=== PATIENT | male | born 1950 | race Caucasian/White ===

== ENCOUNTER 2023-02-25 15:29 | Outpatient (REF) | payer MEDICARE, OTHER, SELFPAY ==
[2023-02-25 15:26] LABS: SARS-CoV-2 Ag NEGATIVE (NEGATIVE)
[2023-02-26 15:28] LABS: SARS-CoV-2 NAA NOT DETECTED (NOT DETECTE)
== END 2023-02-25 15:30 | disposition home or self-care (01) ==
LOC: LAB 15:29
PROVIDERS: PCP Family Medicine; Visit Provider Family Medicine
DX: H66.90 Otitis media, unspecified, unspecified ear (principal)
CPT/HCPCS: 87635; 87811

== ENCOUNTER 2024-09-07 10:03 | Outpatient (OUT) | payer MEDICARE, OTHER, SELFPAY ==
--- NOTE | 2024-09-07 10:08 | MR_ITS ---
The [address] [address] Patient Name: ANEESH CANALES MRN: [id number] date: 1950 Sex: M Assigned Patient Location: MRI Current Patient Location: MRI Accession/Order Number: [id number] Exam Date: 09/07/2024 23:08 Report Date: 09/07/2024 23:10 At the request of: OPAL WARD MD Procedure: MR head/brain wo con EXAMINATION: MRI OF THE BRAIN WITHOUT CONTRAST CLINICAL HISTORY: Memory Loss R41.3 COMPARISON: None TECHNIQUE: Multiecho, multiplanar imaging of the brain was performed without enhancement. FINDINGS: No evidence of restriction diffusion is an diffusion-weighted imaging. No evidence of blood products are seen on T2 Star imaging. Cortical atrophy with moderate chronic microvascular ischemic changes. This appears to extend into the midbrain and cerebellum. Intraorbital contents appear grossly unremarkable. No significant paranasal sinus disease. Midline structures appear grossly unremarkable. MR/MR head/brain wo con IMPRESSION: NO ACUTE PROCESS. CORTICAL ATROPHY WITH MODERATE CHRONIC MICROVASCULAR ISCHEMIC CHANGES. Impression dictated by: Ritesh Barcenas Jr., AlanaOKrishna09/07/2024 11:10 PM Dictation Location: [employer] Electronically authenticated by: [id number] Y Date: 09/07/2024 23:10
== END 2024-09-07 10:04 | disposition home or self-care (01) ==
LOC: MRI 10:04
PROVIDERS: PCP Family Medicine; Visit Provider Family Medicine
DX: R41.3 Other amnesia (principal)
CPT/HCPCS: 70551

== ENCOUNTER 2024-10-01 22:16 | Emergency (ER) | payer MEDICARE, OTHER, SELFPAY ==
[2024-10-01 22:25] VITALS: BP 187/101; PULSE 87; TEMP 36.5; O2SAT 99; BMI 34.4
--- OUTSIDE RECORDS SUMMARY | 2024-10-01 22:28 | XMS_ITS | CCD ---
Author Organization [facility] Care Team Providers Care Enrollment Advisor Name Role Phone ED, DR JOSEPH Admitting Unavailable HOY, DR JOSEPH Attending Unavailable HOY, DR JOSEPH Primary Care Unavailable HOY, DR JOSEPH Admitting Unavailable HOY, DR JOSEPH Attending Unavailable HOY, DR JOSEPH Primary Care Unavailable HOY, DR JOSEPH Admitting Unavailable HOY, DR JOSEPH Attending Unavailable HOY, DR JOSEPH Primary Care Unavailable HOY, DR JOSEPH Consulting Unavailable HOY, DR JOSEPH Admitting Unavailable HOY, DR JOSEPH Attending Unavailable HOY, DR JOSEPH Primary Care Unavailable HOY, DR JOSEPH Consulting Unavailable HOY, DR JOSEPH Admitting Unavailable HOY, DR JOSEPH Attending Unavailable HOY, DR JOSEPH Primary Care Unavailable HOY, DR JOSEPH Consulting Unavailable HOY, DR JOSEPH Admitting Unavailable HOY, DR OJSEPH Attending Unavailable HOY, DR JOSEPH Primary Care Unavailable HOY, DR JOSEPH Admitting Unavailable HOY, DR JOSEPH Attending Unavailable HOY, DR JOSEPH Primary Care Unavailable HOY, DR JOSEPH Consulting Unavailable Unavailable Primary Care Provider UnavailLAURA Salgado Attending Unavailable LAURA MAGANA Referring Unavailable Opal Ward Referring Unavailable Chirag MOODY Attending Unavailable Allergies Allergy Classification Reported Allergen(s) Allergy Type Date of Onset Reaction(s) Facility (1 source) No Known Medication Allergies; Translations: [No Known Medication Allergies] Propensity to adverse reactions (disorder) [facility] Repository Problems Active Problems Problem Classification Problem Date Documented Da te Episodic/Chronic Disorders of lipid metabolism (1 source) Hyperlipidemia, unspecified; Translations: [HYPERLIPIDEMIA UNSPECIFIED] Onset: 09-27-2021 Chronic Essential hypertension (5 sources) Essential (primary) hypertension; Translations: [ESSENTIAL PRIMARY HYPERTENSION] Onset: 09-23-2021 Chronic Other connective tissue disease (1 source) Polymyalgia rheumatica; Translations: [POLYMYALGIA RHEUMATICA] Onset: 09-27-2021 Chronic Other non-traumatic joint disorders (3 sources) Pain in left knee; Translations: [Pain in joint, lower leg] Onset: 2023 06-11-2023 Episodic Residual codes; unclassified (1 source) Pain; Translations: [Pain, unspecified] 2023 Episodic Residual codes; unclassified (1 source) Pain, unspecified; Translations: [Pain] Onset: 2023 Episodic Unclassified (4 sources) COUGH, UNSPECIFIED; Translations: [COUGH, UNSPECIFIED] Onset: 11-04-2021 Unclassified (4 sources) CONTACT W/AND (SUSP) EXPOS COVID-19; Translations: [CONTACT W/AND (SUSP) EXPOS COVID-19] Onset: 11-04-2021 Past or Other Problems Problem Classification Problem Date Documented Da te Episodic/Chronic Other circulatory disease (1 source) Other specified symptoms and signs involving the circulatory and respiratory systems; Translations: [OTH SPEC SX SIGNS INVLV CIRC RS] Onset: 11-04-2021 Episodic Other nervous system disorders (1 source) Anesthesia of skin; Translations: [ANESTHESIA OF SKIN] Onset: 11-11-2021 Episodic Other non-traumatic joint disorders (4 sources) Pain in unspecified elbow; Translations: [PAIN IN UNSPECIFIED ELBOW] Onset: 11-08-2021 Episodic Other non-traumatic joint disorders (1 source) Pain in unspecified joint; Translations: [PAIN IN UNSPECIFIED JOINT] Onset: 09-27-2021 Episodic Other non-traumatic joint disorders (5 sources) Effusion, unspecified joint; Translations: [EFFUSION UNSPECIFIED JOINT] Onset: 09-19-2021 Episodic Unclassified (1 source) COUGH, UNSPECIFIED; Translations: [COUGH, UNSPECIFIED] Onset: 11-01-2021 Unclassified (1 source) CONTACT W/AND (SUSP) EXPOS COVID-19; Translations: [CONTACT W/AND (SUSP) EXPOS COVID-19] Onset: 10-31-2021 Results Test Name Value Interpretation Reference Range Facility Physician Referralon 024 Physician Referral [id number] Normal [facility] CNOVon 2023 CNOV Office Visit (ORTHMN) ANEESH CANALES ([id number]) 1950 M Date Time Provider Department 06/15/23 2:45 PM LAURA MAGANA ORTHMN During your visit today, we recorded the following information about you: Laura Magana MD 07/28/2023 11:44 AM Signed CONSULT ORTHOPAEDIC: KNEE PRIMARY CARE PHYSICIAN: No primary care provider on file. REFERRING PROVIDER: SELF ASSESSMENT AND PLAN Impression: Left Knee Severe Degenerative Osteoarthritis, Primary Diagnoses: (M17.12) Primary osteoarthritis of left knee (primary encounter diagnosis) After discussion with Aneesh Canales, continued non-operative management of NSAIDS was chosen. The patient currently has had six months of unsuccessful non-operative treatment as outlined in the HPI below. The patient has been ordered: Office Visit on 06/15/23 hydroCHLOROthiazide 25 mg tablet No orders placed today. CONSULTS: Patient does not require consults for optimization at this time. Total Joint Athroplasty - Risk Calculator Risk Factors for Total Knee Arthroplasty (TKA) Major Risk Factors Obesity Unknown Risk High: BMI > 40 Moderate: BMI 30-40 Normal: BMI < 30 Diabetes normal High: A1C > 8 Moderate: A1C 7-8 Normal: A1C < 7 Smoking normal High: Current smoker Normal: Non smoker Narcotics Use normal High:NarxCare >=300 Moderate: 100-299 Normal: 0-99 Depression Unknown Risk High: PHQ-9 >14 Moderate: PHQ-9 5-14 Normal: PHQ-9 < 5 Area Deprivation Index (BETTYE) Moderate Risk High: BETTYE Score > 75 Moderate: BETTYE 50-75 Normal: BETTYE < 50 Obesity: height and/or weight are out of date (There is no height and/or weight reading in the past 365 days, so the below BMI readings may be inaccurate) BMI Readings from Last 3 Encounters: No data found for BMI Area Deprivation Index (BETTYE) BETTYE Score 2023 National Score 61 Patient Health Questionnaire (PHQ-9) No flowsheet data found.(0-4) minimal depression, (5-9) mild depression, (10-14) moderate depression, (15-19) moderately severe depression, (20-27) severe depression Bone Density Risk Screen Aneesh Canales is at risk for bone loss and has not had a bone densitometry scan in the last 2 years (date of last scan: None on file). Recommend a bone densitometry scan and if indicated on the bone density results, a consult to a bone health specialist (Rheumatology, Endocrinology, or Women's Health) for bone assessment. Risk Factors: Additional Risk Factors Malnutrition: No Malnutrition Screening Tool (MST) score on file- please complete the MST screening tool (click here to open) and refresh the note. There is no problem list on file for this patient. SUBJECTIVE CHIEF COMPLAINT: Knee Pain HPI: Aneesh Canales is a 73 year old patient with the presenting complaint of New and Swelling of the Left Knee. Aneesh Canales has had progressive problems with the knee(s) most of the day over the past 2 year(s) interfering with activities which include exercise, enjoying hobbies, and walking. The problem began limiting activities 1-6 months ago. FALL RISK: Aneesh is not currently at risk for falls. PROMIS Physical Function Score No flowsheet data found. FUNCTIONAL STATUS: Walk indoors, such as around the house (1.75 METs) Do light work around the house, such as dusting or washing dishes (2.70 METs) Take care of self, that is eating, dressing, bathing, using the toilet (2.75 METs) Walk a block or two on level ground (2.75 METs) PREVIOUS TREATMENTS: Medical Treatments: OTC NSAIDS for 3 Months or Greater (Ibuprofen) Physical Therapy: Activities Modified REVIEW OF SYSTEMS: PAIN ASSESSMENT: See HPI. MUSCULOSKELETAL: See HPI. No flowsheet data found. No past medical history on file. No past surgical history on file. No family history on file. Social History Tobacco Use Smoking status: Former Packs/day: .25 Types: Cigarettes Quit date: 07/1969 Years since quittin.9 Passive exposure: Past Smokeless tobacco: Never Substance Use Topics Alcohol use: Yes Alcohol/week: 7.0 standard drinks of alcohol Types: 2 Glasses of wine, 5 Shots of liquor per week Drug use: Never ALLERGIES: Patient has no allergy information on record. MEDICATIONS: hydroCHLOROthiazide 25 mg tablet 1 tablet in the morning Orally Once a day OBJECTIVE PHYSICAL EXAM: There were no vitals taken for this visit. All other systems deferred. GENERAL: Appears healthy, well-nourished, no deformities. HABITUS: Normal GAIT: Normal, the patient did not have trouble getting onto the exam table. KNEE EXAM: Left: Alignment: varus Range of motion is 0 degrees in extension and 130 degrees of flexion. Extension La degrees Pain with ROM: No Effusion: None Tender to the palpation of None Pain with patellar compression: No Stability: Anterior/Posterior stable and Varus/Valgus stable Hip Exam: flexion to 100+ (more content not included)... Normal [facility] No Panel Informationon 06-15 [facility] XR KNEE 4V AP/PA BOTH+LAT/ME R LTon 2023 XR KNEE 4V AP/PA BOTH+LAT/MACY LT * * *Final Report* * * DATE OF EXAM: 2023 9:35AM AOX 5202 - XR KNEE 4V AP/PA BOTH+LAT/MACY LT / PROCEDURE REASON: Pain * * * * Physician Interpretation * * * * EXAMINATION / TECHNIQUE: XR KNEE 4V AP/PA BOTH+LAT/MACY LT HISTORY: Pain COMPARISON: None. RESULT: Left knee osteoarthritis is severe in the medial compartment and moderate to severe lateral compartment. No acute fracture or malalignment. Moderate joint effusion. Joint bodies. IMPRESSION: Severe osteoarthritis with joint bodies. Shredding Machine Tender: [facility] Transcribe Date/Time: 2023 9:45A Dictated by : MARKOS WATSON MD This examination was interpreted and the report reviewed and electronically signed by: MARKOS WATSON MD on 2023 9:45AM EST [id number] Normal [facility] XR PELVIS 1V APon 2023 XR PELVIS 1V AP * * *Final Report* * * DATE OF EXAM: 2023 9:35AM AOX 5239 - XR PELVIS 1V AP / PROCEDURE REASON: Left knee pain, unspecified chronicity * * * * Physician Interpretation * * * * EXAMINATION / TECHNIQUE: XR PELVIS 1V AP HISTORY: Left knee pain, unspecified chronicity COMPARISON: None RESULT: Mild bilateral hip osteoarthritis. No fracture or malalignment. Sacroiliac joints and symphysis pubis are intact. IMPRESSION: Mild bilateral hip osteoarthritis. Shredding Machine Tender: ANDRE Transcribe Date/Time: 2023 9:44A Dictated by : MARKOS WATSON MD This examination was interpreted and the report reviewed and electronically signed by: MARKOS WATSON MD on 2023 9:45AM EST [id number] Normal [facility] Covid-19 PCR (CVDTBH)on 10-05 SARS-CoV-2 (COVID-19) RNA STEVE+probe Ql (Unsp spec) Not detected Normal NOT DETECTED [facility] Comment on above: Result Comment: This test is not yet approved or cleared by the [place] FDA. When there are no FDA-approved or cleared tests available, and other criteria are met, FDA can make tests available under an emergency access mechanism called an Emergency Use Authorization (EUA). The EUA for this test is supported by the Tying In Machine Operator of Health and Human Service's (HHS's) declaration that circumstances exist to justify the emergency use of in vitro diagnostics for the detection and/or diagnosis of the virus that causes COVID-19. This EUA will remain in effect (meaning this test can be used) for the duration of the COVID-19 declaration justifying emergency of IVDs, unless it is terminated or revoked by FDA (after which the test may no longer be used). When diagnostic testing is negative, the possibility of a false negative should be considered in the context of a patient's recent exposures and the presence of clinical signs and symptoms consistent with SARS-CoV-2. Performed By: #### C VDTBH #### [facility] [address] [place] [address] Dr. Christine Ferreira INFLUENZA A AND B AGon 10-31 INFLUANEGH SEE BELOW Normal [facility] Comment on above: Result Comment: Nega tive for Flu A protein angiten. Infection due to Flu A cannot be ruled out. Flu A angiten in the sample may be below the detection limit of the test. Performed By: #### I NFLUAB #### [facility] [address] [place] [address] [facility] SEE BELOW Normal [facility] Comment on above: Result Comment: Nega tive for Flu B protein antigen. Infection due to Flu B cannot be ruled out. Flu B antigen in the sample may be below the detection limit of the test. Performed By: #### I NFLUAB #### [facility] [address] [place] [address] Dr. Christine Ferreira INFLUENZA A AG Negative Normal NEGATIVE SEE COMMENT [facility] Comment on above: Performed By: #### I NFLUAB #### [facility] [address] [place] [address] Dr. Christine Ferreira INFLUENZA B AG Negative Normal NEGATIVE SEE COMMENT [facility] Comment on above: Performed By: #### I NFLUAB #### [facility] [address] [place] [address] Dr. Christine Ferreira INTERNAL CONTROLS Within Normal Limits Normal Wi thin Normal Limits [facility] Comment on above: Performed By: #### I NFLUAB #### [facility] [address] [place] [address] Dr. Christine Ferreira OCC BLD IMMUNO SCREENon 09-04 OCCULT BLOOD Negative Normal NEGATIVE [facility] Comment on above: Performed By: #### O BSCRN #### [facility] [address] [place] [address] Dr. Christine Ferreira INSULINon 09-20-2021 Insulin 24.0 uIU/mL Normal 2.6-24.9 [facility] Comment on above: Performed By: #### I NSULIN #### [facility] [address] [place] [address] Dr. Christine Ferreira CBC AUTO DIFFon 09-19-2021 BASO # 0.0 103/ul Normal 0.0-0.1 [facility] Comment on above: Performed By: #### C BC #### [facility] [address] [place] [address] Dr. Christine Ferreira Basophils/100 WBC (Bld) 0.3 % Normal 0.2-2.0 [facility] Comment on above: Performed By: #### C BC #### [facility] [address] [place] [address] Dr. Christine Ferreira EO # 0.2 103/ul Normal 0.0-0.7 [facility] Comment on above: Performed By: #### C BC #### [facility] [address] [place] [address] Dr. Christine Ferreira Eosinophils/100 WBC (Bld) 2.4 % Normal 0.9-7.0 [facility] Comment on above: Performed By: #### C BC #### [facility] [address] [place] [address] Dr. Christine Ferreira Erythrocyte distribution width (RBC) [Ratio] 12.6 % Normal 11.0-15.0 [facility] Comment on above: Performed By: #### C BC #### [facility] [address] [place] [address] Dr. Christine Ferreira Hematocrit (Bld) [Volume fraction] 44.4 % Normal 42.0-54.0 [facility] Comment on above: Performed By: #### C BC #### [facility] [address] [place] [address] Dr. Christine Ferreira Hemoglobin (Bld) [Mass/Vol] 15.6 g/dL Normal 14.0-18.0 [facility] Comment on above: Performed By: #### C BC #### [facility] [address] [place] [address] Dr. Christine Ferreira IG # 0.03 10e3/ul Normal 0.00-0.03 [facility] Comment on above: Performed By: #### C BC #### [facility] [address] [place] [address] Dr. Christine Ferreira IG % 0.4 % Normal 0.0-0.5 [facility] Comment on above: Performed By: #### C BC #### [facility] [address] [place] [address] Dr. Christine Ferreira LYMPH # 1.3 103/ul Normal 1.2-3.8 [facility] Comment on above: Performed By: #### C BC #### [facility] [address] [place] [address] Dr. Christine Ferreira Lymphocytes/100 WBC (Bld) 17.5 % Critically low 20.5-60.0 [facility] Comment on above: Performed By: #### C BC #### [facility] [address] [place] [address] Dr. Christine Ferreira MANUAL DIFF REQ NO Normal [facility] Comment on above: Performed By: #### C BC #### [facility] [address] [place] [address] Dr. Christine Ferreira MCH (RBC) [Entitic mass] 30.5 pg Normal 25.9-34.0 [facility] Comment on above: Performed By: #### C BC #### [facility] [address] [place] [address] Dr. Christine Ferreira MCHC (RBC) [Mass/Vol] 35.1 g/dL Normal 29.9-35.2 [facility] Comment on above: Performed By: #### C BC #### [facility] [address] [place] [address] Dr. Christine Ferreira MCV (RBC) [Entitic vol] 86.7 fL Normal 80.0-94.0 [facility] Comment on above: Performed By: #### C BC #### [facility] [address] [place] [address] Dr. Christine Ferreira MONO # 0.5 103/ul Normal 0.3-0.8 [facility] Comment on above: Performed By: #### C BC #### [facility] [address] [place] [address] Dr. Christine Ferreira Monocytes/100 WBC (Bld) 6.1 % Normal 1.7-12.0 [facility] Comment on above: Performed By: #### C BC #### [facility] [address] [place] [address] Dr. Christine Ferreira NEUT # 5.5 103/ul Normal 1.4-6.5 [facility] Comment on above: Performed By: #### C BC #### [facility] [address] [address] [address] Christine Ferreira Neutrophils/100 WBC (Bld) 73.3 % Normal 43.0-75.0 [facility] Comment on above: Performed By: #### C BC #### [facility] [address] [address] [address] Christine Ferreira Platelet mean volume (Bld) [Entitic vol] 9.6 fL Normal 9.5-13.5 [facility] Comment on above: Performed By: #### C BC #### [facility] [address] [address] [address] Christine Ferreira PLT 214 103/ul Normal 150-450 [facility] Comment on above: Performed By: #### C BC #### [facility] [address] [place] [address] Dr. Christine Ferreira RBC 5.12 106/ul Normal 4.70-6.10 [facility] Comment on above: Performed By: #### C BC #### [facility] [address] [address] [address] Christine Ferreira WBC 7.5 103/ul Normal 4.0-11.0 [facility] Comment on above: Performed By: #### C BC #### [facility] [address] [place] [address] Dr. Christine Ferreira GLYCOHEMOGLOBIN A1Con 2021 ADA RECOMMENDATION ADA THERAPEUTIC TARGET 6.0 - 7.0 ACTION SUGGESTED > 7.0 Normal [facility] Comment on above: Performed By: #### A 1C #### [facility] [address] [place] [address] Dr. Christine Ferreira Glucose [Mass/Vol] 120 mg/dL Normal [facility] Comment on above: Performed By: #### A 1C #### [facility] [address] [address] [address] Christine Ferreira HbA1c (Bld) [Mass fraction] 5.8 % Normal <=6.0 [facility] Comment on above: Performed By: #### A 1C #### [facility] [address] [place] [address] Dr. Christine Ferreira LIPID PROFILEon 09-19-2021 CHOL-HDL RATIO NORM SEE BELOW Normal [facility] Comment on above: Result Comment: 3.3 - 4.4 LOW RISK 4.4 - 7.1 AVERAGE RISK 7.1 - 11.0 MODERATE RISK >11.0 HIGH RISK Performed By: #### L IPID, CMP, URIC #### [facility] [address] [address] [address] Christine Ferreira Cholesterol [Mass/Vol] 129 mg/dL Normal <=200 [facility] Comment on above: Performed By: #### L IPID, CMP, URIC #### [facility] [address] [address] [address] Christine Ferreira Cholesterol in HDL [Mass/Vol] 46 mg/dL Normal 40-60 [facility] Comment on above: Performed By: #### L IPID, CMP, URIC #### [facility] [address] [address] [address] Christine Ferreira Cholesterol in LDL [Mass/Vol] 65.8 mg/dL Normal [facility] Comment on above: Performed By: #### L IPID, CMP, URIC #### [facility] [address] [address] [address] Christine Ferreira Cholesterol.total/Cho lesterol in HDL [Mass ratio] 2.8 {ratio} Normal [facility] Comment on above: Performed By: #### L IPID, CMP, URIC #### [facility] [address] [address] [address] Christine Ferreira HDL NORMAL > or = 60 mg/dl - LOW CARDIOVASCULAR RISK <40 mg/dl - HIGH CARDIOVASCULAR RISK Normal [facility] Comment on above: Performed By: #### L IPID, CMP, URIC #### [facility] [address] [address] [address] Christine Ferreira LDL CALC NORMAL SEE BELOW Normal [facility] Comment on above: Result Comment: <100 mg/dl OPTIMAL 100 - 129 mg/dl NEAR OR ABOVE OPTIMAL 130 - 159 mg/dl BORDERLINE HIGH 160 - 189 mg/dl HIGH >190 mg/dl VERY HIGH Performed By: #### L IPID, CMP, URIC #### [facility] [address] [address] [address] Christine Ferreira Triglyceride [Mass/Vol] 86 mg/dL Normal <=150 [facility] Comment on above: Performed By: #### L IPID, CMP, URIC #### [facility] [address] [address] [address] Christine Ferreira VLDL CALC 17.2 mg/dL Normal [facility] Comment on above: Performed By: #### L IPID, CMP, URIC #### [facility] [address] [address] [address] Christine Ferreira PROF 14(COMP METB)on 022 Albumin [Mass/Vol] 3.8 g/dL Normal 3.5-5.0 [facility] Comment on above: Performed By: #### L IPID, CMP, URIC #### [facility] [address] [place] [address] Dr. Christine Ferreira Albumin/Globulin [Mass ratio] 1.2 {ratio} Normal [facility] Comment on above: Performed By: #### L IPID, CMP, URIC #### [facility] [address] [place] [address] Dr. Christine Ferreira ALP [Catalytic activity/Vol] 65 U/L Normal 38-126 [facility] Comment on above: Performed By: #### L IPID, CMP, URIC #### [facility] [address] [address] [address] Christine Ferreira ALT [Catalytic activity/Vol] 27 U/L Normal 21-72 [facility] Comment on above: Performed By: #### L IPID, CMP, URIC #### [facility] [facility] [address] [address] [address] Christine Ferreira Anion gap [Moles/Vol] 12.3 mmol/L Normal [facility] Comment on above: Performed By: #### L IPID, CMP, URIC #### [facility] [address] [address] [address] Christine Ferreira AST [Catalytic activity/Vol] 16 U/L Critically low 17-59 [facility] Comment on above: Performed By: #### L IPID, CMP, URIC #### [facility] [address] [place] [address] Dr. Christine Ferreira Bilirubin [Mass/Vol] 1.0 mg/dL Normal 0.2-1.3 [facility] Comment on above: Performed By: #### L IPID, CMP, URIC #### [facility] [address] [place] [address] Dr. Christine Ferreira Calcium [Mass/Vol] 8.5 mg/dL Normal 8.4-10.2 [facility] Comment on above: Performed By: #### L IPID, CMP, URIC #### [facility] [address] [place] [address] Dr. Christine Ferreira Chloride [Moles/Vol] 103 mmol/L Normal 98-107 [facility] Comment on above: Performed By: #### L IPID, CMP, URIC #### [facility] [address] [place] [address] Dr. Christine Ferreira CO2 [Moles/Vol] 26.7 mmol/L Normal 22.0-30.0 [facility] Comment on above: Performed By: #### L IPID, CMP, URIC #### [facility] [address] [place] [address] Dr. Christine Ferreira Creatinine [Mass/Vol] 1.04 mg/dL Normal 0.66-1.25 [facility] Comment on above: Performed By: #### L IPID, CMP, URIC #### [facility] [address] [place] [address] Dr. Christine Ferreira EGFR-AF MAURITIAN >60 Normal >=60 [facility] Comment on above: Performed By: #### L IPID, CMP, URIC #### [facility] [address] [place] [address] Dr. Christine Ferreira EGFR-NON AF MAURITIAN >60 Normal >=60 [facility] Comment on above: Performed By: #### L IPID, CMP, URIC #### [facility] [address] [place] [address] Dr. Christine Ferreira Globulin (S) [Mass/Vol] 3.3 g/dL Normal [facility] Comment on above: Performed By: #### L IPID, CMP, URIC #### [facility] [address] [address] [address] Christine Ferreira Glucose [Mass/Vol] 156 mg/dL Critically high 74-106 [facility] Comment on above: Performed By: #### L IPID, CMP, URIC #### [facility] [address] [address] [address] Christine Ferreira Potassium [Moles/Vol] 4.0 mmol/L Normal 3.4-5.0 [facility] Comment on above: Performed By: #### L IPID, CMP, URIC #### [facility] [address] [place] [address] Dr. Christine Ferreira Protein [Mass/Vol] 7.1 g/dL Normal 6.1-8.2 [facility] Comment on above: Performed By: #### L IPID, CMP, URIC #### [facility] [address] [place] [address] Dr. Christine Ferreira Sodium [Moles/Vol] 138 mmol/L Normal 137-145 [facility] Comment on above: Performed By: #### L IPID, CMP, URIC #### [facility] [address] [place] [address] Dr. Christine Ferreira Urea nitrogen [Mass/Vol] 16.0 mg/dL Normal 9.0-20.0 [facility] Comment on above: Performed By: #### L IPID, CMP, URIC #### [facility] [address] [place] [address] Dr. Christine Ferreira Urea nitrogen/Creatinine [Mass ratio] 15.4 mg/mg Normal [facility] Comment on above: Performed By: #### L IPID, CMP, URIC #### [facility] [address] [place] [address] Dr. Christine Ferreira URIC ACID SERUMon 09-19-2021 Urate [Mass/Vol] 6.1 mg/dL Normal 3.5-8.5 [facility] Comment on above: Performed By: #### L IPID, CMP, URIC #### [facility] [address] [address] [address] Christine Ferreira Encounters Encounter Date Encounter Type Care Provider Facility Start: 12-02-2023 ambulatory Opal Ward Facility:[facility] [place] Start: 2023 End: 2023 ambulatory LAURA MAGANA Facility:[facility] Start: 2023 End: 2023 Subsequent hospital visit by physician Orth General Xray A21 Radiology Comment on above: Pain [R52] Start: 06-11-2023 Orders Only Kamila Batres PA-C Work Phone: Orthopaedics Comment on above: Left knee pain, unsp ecified chronicity (Primary Dx) Start: 04-15-2022 End: 04-16-[address] OPAL WARD Facility:[facility] Start: 11-08-2021 End: 12-28-[address] OPAL WARD Facility:[facility] Start: 11-01-2021 End: 11-01-[address] OPAL WARD Facility:[facility] Start: 10-31-2021 End: 10-31-[address] OPAL WARD Facility:[facility] Start: 09-24-2021 End: 09-24-[address] OPAL WARD Facility:[facility] Start: 09-19-2021 End: 09-20-[address] OPAL WARD Facility:[facility] Start: 04-19-[address] OPAL WARD Facility :[facility] Procedures Date Procedure Procedure Detail Performing Clinician Start: 2023 Radiologic exam knee complete 4/more views Laura Magana MD Work Phone: Start: 09-19-[address] MINERVA WARD Comment on above: Performed By: #### P SASC #### [facility] [address] [address] [address] Christine Ferreira Plan of Treatment Date Care Activity Detail Author Start: 03-06-2023 Covid-19 Vaccine () Covid-19 Vaccine () [facility] Start: 03-06-2023 Influenza vaccination Influenza Vacc ine (#1) [facility] Start: 07-06-2022 Advance Directive Discussion Advance Directive Discussion [facility] Start: 07-06-2022 Depression Assessment Depression Ass essment [facility] Start: 05-14-2018 Pneumococcal Vaccine : 65+ (2 - PPSV23 or PCV20) Pneumococcal Vaccine: 65+ (2 - PPSV23 or PCV20) [facility] Start: 2013 Pneumococcal Vaccine : 65+ (1 - PCV) Pneumococcal Vaccine: 65+ (1 - PCV) [facility] Start: 2008 RSV Vaccine (1 - 1-d ose 60+ series) RSV Vaccine (1 - 1-dose 60+ series) [facility] Start: 1998 Shingrix Vaccine (1 of 2) Shingrix Vaccine (1 of 2) [facility] Start: 1993 Cologuard (FIT-DNA) Cologuard (FIT-D NA) [facility] Start: 1993 Colonoscopy Colonoscopy [facility] Start: 1993 Colorectal Cancer Screening Colorectal Cancer Screening [facility] Start: [address] Colonography [facility] Start: 1993 Diabetes Screening Diabetes Screenin g [facility] Start: 1993 Fecal Occult Blood Fecal Occult Bloo d [facility] Start: 1993 Screening for malign ant neoplasm of colon [facility] Start: 1993 Sigmoidoscopy Sigmoidoscopy [facility] Start: 1983 Lipid 1996 panel - S aurora or Plasma Lipid Screening [facility] Start: 1983 Lipid panel Lipid Screening [facility] Start: 1967 Urine microalbumin profile DTaP,Tdap,Td Vaccine (1 - Tdap) [facility] Start: 1966 Hepatitis C Screening Hepatitis C [facility] Start: 1966 Hepatitis C screening Hepatitis C [facility] Start: 1948 Covid-19 Vaccine (#1) Covid-19 Vacci ne (#1) [facility] Start: 1948 Abdominal aortic aneurysm screening Abdominal Aortic Aneurysm Screening [facility] End: 07-10-2024 Radiologic examination pelvis 1/2 views XR PELVIS 1V AP Radiology Routine Left knee pain, unspecified chronicity 1 Occurrences starting 06/12/2023 until 07/10/2024 [facility] Work Phone: Comment on above: 1 Occurrences starti ng 06/12/2023 until 07/10/2024 [facility] Immun[facility] Immunization Date Immunization Notes Care Provider Fa cility 03-29-2021 influenza virus vacc ine, unspecified formulation Orth A21 [facility] Payers Date Payer Category Payer Unknown [id number] 2013 Medicare MEDICARE MEDICAR E A AND B [id number] 2013-Present [phone] [place] [address] Medicare [id number] 1959 Medicare [id number] 1959 Self-pay 1959 Unknown [id number] 1959 Unknown [id number] 1948 Unknown [id number] 1948 Unknown [id number] 1948 Unknown [id number] 1948 Unknown [id number] 1948 Unknown [id number] 1948 Unknown [id number] 1948 Unknown [id number] Unknown [id number] Social History Date Type Detail Facility Tobacco smoking stat [facility] Tobacco smoking consumption unknown [facility] Start: 1950 Sex Assigned At Not on file [facility] Start: 2023 Gender identity Not [facility] Start: 2023 Tobacco smoking stat [facility] Ex-smoker [facility] End: 07-06-1969 History of tobacco use Current smoker [facility] End: 07-06-1969 History of tobacco use Cigarette Smoker [facility] Start: 2023 Cigarettes smoked cu rrent (pack per day) - Reported 0.3 [facility] History of tobacco use Passive smoker [facility] Start: 2023 Tobacco use and exposure Smoke less tobacco non-user [facility] Start: 2023 Alcohol intake Current drinke r of alcohol (finding) [facility] National Score (1-10 0), lower number is lower risk 61 [facility] Progress note 2023 Note Date & Type Note Facility 2023 Note HNO ID: [id number] Author: LAURA MAGANA MD Service: ? Author Type: Physician Type: Progress Notes Filed: 07/28/2023 11:44 Note Text: CONSULT ORTHOPAEDIC: KNEE PRIMARY CARE PHYSICIAN: No primary care provider on file. REFERRING PROVIDER: SELF ASSESSMENT AND PLAN Impression: Left Knee Severe Degenerative Osteoarthritis, Primary Diagnoses: (M17.12) Primary osteoarthritis of left knee (primary encounter diagnosis) After discussion with Aneesh Canales, continued non-operative management of NSAIDS was chosen. The patient currently has had six months of unsuccessful non-operative treatment as outlined in the HPI below. The patient has been ordered: Office Visit on 06/15/23 hydroCHLOROthiazide 25 mg tablet No orders placed today. CONSULTS: Patient does not require consults for optimization at this time. Total Joint Athroplasty - Risk Calculator Risk Factors for Total Knee Arthroplasty (TKA) Major Risk Factors Obesity Unknown Risk High: BMI > 40 Moderate: BMI 30-40 Normal: BMI < 30 Diabetes normal High: A1C > 8 Moderate: A1C 7-8 Normal: A1C < 7 Smoking normal High: Current smoker Normal: Non smoker Narcotics Use normal High:NarxCare >=300 Moderate: 100-299 Normal: 0-99 Depression Unknown Risk High: PHQ-9 >14 Moderate: PHQ-9 5-14 Normal: PHQ-9 < 5 Area Deprivation Index (BETTYE) Moderate Risk High: BETTYE Score > 75 Moderate: BETTYE 50-75 Normal: BETTYE < 50 Obesity: height and/or weight are out of date (There is no height and/or weight reading in the past 365 days, so the below BMI readings may be inaccurate) BMI Readings from Last 3 Encounters: No data found for BMI Area Deprivation Index (BETTYE) BETTYE Score 2023 National Score 61 Patient Health Questionnaire (PHQ-9) No flowsheet data found.(0-4) minimal depression, (5-9) mild depression, (10-14) moderate depression, (15-19) moderately severe depression, (20-27) severe depression Bone Density Risk Screen Aneesh Canales is at risk for bone loss and has not had a bone densitometry scan in the last 2 years (date of last scan: None on file). Recommend a bone densitometry scan and if indicated on the bone density results, a consult to a bone health specialist (Rheumatology, Endocrinology, or Women's Health) for bone assessment. Risk Factors: Additional Risk Factors Malnutrition: No Malnutrition Screening Tool (MST) score on file- please complete the MST screening tool (click here to open) and refresh the note. There is no problem list on file for this patient. SUBJECTIVE CHIEF COMPLAINT: Knee Pain HPI: Aneesh Canales is a 73 year old patient with the presenting complaint of New and Swelling of the Left Knee. Aneesh Canales has had progressive problems with the knee(s) most of the day over the past 2 year(s) interfering with activities which include exercise, enjoying hobbies, and walking. The problem began limiting activities 1-6 months ago. FALL RISK: Aneesh is not currently at risk for falls. PROMIS Physical Function Score No flowsheet data found. FUNCTIONAL STATUS: Walk indoors, such as around the house (1.75 METs) Do light work around the house, such as dusting or washing dishes (2.70 METs) Take care of self, that is eating, dressing, bathing, using the toilet (2.75 METs) Walk a block or two on level ground (2.75 METs) PREVIOUS TREATMENTS: Medical Treatments: OTC NSAIDS for 3 Months or Greater (Ibuprofen) Physical Therapy: Activities Modified REVIEW OF SYSTEMS: PAIN ASSESSMENT: See HPI. MUSCULOSKELETAL: See HPI. No flowsheet data found. No past medical history on file. No past surgical history on file. No family history on file. Social History Tobacco Use Smoking status: Former Packs/day: .25 Types: Cigarettes Quit date: 07/1969 Years since quittin.9 Passive exposure: Past Smokeless tobacco: Never Substance Use Topics Alcohol use: Yes Alcohol/week: 7.0 standard drinks of alcohol Types: 2 Glasses of wine, 5 Shots of liquor per week Drug use: Never ALLERGIES: Patient has no allergy information on record. MEDICATIONS: hydroCHLOROthiazide 25 mg tablet 1 tablet in the morning Orally Once a day OBJECTIVE PHYSICAL EXAM: There were no vitals taken for this visit. All other systems deferred. GENERAL: Appears healthy, well-nourished, no deformities. HABITUS: Normal GAIT: Normal, the patient did not have trouble getting onto the exam table. KNEE EXAM: Left: Alignment: varus Range of motion is 0 degrees in extension and 130 degrees of flexion. Extension La degrees Pain with ROM: No Effusion: None Tender to the palpation of None Pain with patellar compression: No Stability: Anterior/Posterior stable and Varus/Valgus stable Hip Exam: flexion to 100+ degrees, full extension, internal/external rotation adequate and no pain with log roll Neurovascular Status: Sensation Intact and Moves foot and ankle up AND down DATA: Most recent knee im (more content not included)... [facility] Progress note 2023 Note Date & Type Note Facility 2023 Note HNO ID: [id number] Author: Oneida Vides RT(R) Service: Radiology Author Type: Technologist Type: Progress Notes Filed: 2023 9:38 AM Note Text: Radiology Service Progress Note PATIENT NAME: Aneesh Canales DATE OF SERVICE: 2023 TIME: 9:36 AM PATIENT IDENTITY VERIFICATION COMPLETED USING TWO (2) IDENTIFIERS: Name and Date of confirmed by patient verbally. FALL SCREENING: Has the patient had 2 falls in the last year or 1 fall with injury or currently using an Ambulatory Assistive Device (Walker, Cane, Wheelchair, Crutches, etc.)? No PATIENT GENDER DATA: Male PATIENT RELEVANT IMPLANT DATA REVIEWED: Not Applicable RADIOLOGY DEPARTMENT: General X-ray: Exam(s) Completed: Pelvis X-Ray: Pelvis General AP Lower Extremity X-Ray(s): Knee, AP / Lat / Tunne / Merchant Left and Wt. Bearing PERIPHERAL IV DATA: Not applicable SIGNED BY: RT Medardo(R) 2023 9:36 AM [facility] History of Present illness Narrative 2023 Oneida Vides RT(R) - 2023 1:00 PM EST Note Date & Type Note Facility 2023 History of Presen t illness Narrative Radiology Service Progress Note PATIENT NAME: Aneesh Canales DATE OF SERVICE: 2023 TIME: 9:36 AM PATIENT IDENTITY VERIFICATION COMPLETED USING TWO (2) IDENTIFIERS: Name and Date of confirmed by patient verbally. FALL SCREENING: Has the patient had 2 falls in the last year or 1 fall with injury or currently using an Ambulatory Assistive Device (Walker, Cane, Wheelchair, Crutches, etc.)? No PATIENT GENDER DATA: Male PATIENT RELEVANT IMPLANT DATA REVIEWED: Not Applicable RADIOLOGY DEPARTMENT: General X-ray: Exam(s) Completed: Pelvis X-Ray: Pelvis General AP Lower Extremity X-Ray(s): Knee, AP / Lat / Tunne / Merchant Left and Wt. Bearing PERIPHERAL IV DATA: Not applicable SIGNED BY: RT Medardo(R) 2023 9:36 AM documented in this encounter [facility] Evaluation note Note Date & Type Note Facility Evaluation note Diagnosis Left knee pain, unspecified chronicity- Primary documented in this encounter [facility] Evaluation note Note Date & Type Note Facility Evaluation note Diagnosis Pain Generalized pain Left knee pain, unspecified chronicity documented in this encounter [facility] Reason for referral (narrative) Diagnostic Procedure Only (Routine) - Pending Review Note Date & Type Note Facility Reason for referral (narrati ve) Specialty Diagnoses / Procedures Referred By Controlanda t Referred To Contact XR IMAGING Diagnoses Left knee pain, unspecified chronicity Procedures XR PELVIS 1V AP RADIOLOGIC EXAMINATION PELVIS 1/2 VIEWS Kamila Batres PA-C [address] [place] [address] Xr Imaging [facility] Referral ID Status Reason Start Date Expiration Date Visits Requested Visits Authorized [id number] Pending Review Auto-Generat ed Referral 06/12/2023 07/10/2024 1 1 [facility] Reason for referral (narrative) Diagnostic Procedure Only (Routine) - Closed Note Date & Type Note Facility Reason for referral (narrati ve) Specialty Diagnoses / Procedures Referred By Contac t Referred To Contact XR IMAGING Diagnoses Left knee pain, unspecified chronicity Procedures XR PELVIS 1V AP RADIOLOGIC EXAMINATION PELVIS 1/2 VIEWS Kamila Batres PA-C [address] [place] [address] Xr Imaging [facility] Referral ID Status Reason Start Date Expiration Date V isits Requested Visits Authorized [id number] Closed Auto-Generate d Referral 06/12/2023 07/10/2024 1 1 * Diagnostic Procedure Only (Routine) - Closed Specialty Diagnoses / Procedures Referred By Contac t Referred To Contact XR IMAGING Diagnoses Pain Procedures XR KNEE GENERAL 4V AP BOTH/PA BOTH/LAT/MERC LEFT RADIOLOGIC EXAM KNEE COMPLETE 4/MORE VIEWS Laura Magana MD [address] [place] [address] Xr Imaging [facility] Referral ID Status Reason Start Date Expiration Date V isits Requested Visits Authorized [id number] Closed Auto-Generated Referral Financial Clearance Required - Self Pay 01/26/2023 02/25/2024 1 1 [facility] Reason for visit Narrative Diagnostic Procedure Only (Routine) - Closed Note Date & Type Note Facility Reason for visit Narrative Specialty Diagnoses / Procedures Referred By Contac t Referred To Contact XR IMAGING Diagnoses Pain Procedures XR KNEE GENERAL 4V AP BOTH/PA BOTH/LAT/MERC LEFT RADIOLOGIC EXAM KNEE COMPLETE 4/MORE VIEWS Laura Magana MD [address] [id number] Xr Imaging [facility] Referral ID Status Reason Start Date Expiration Date V isits Requested Visits Authorized [id number] Closed Auto-Generated Referral Financial Clearance Required - Self Pay 01/26/2023 02/25/2024 1 1 [facility] Summary Purpose Family History No Family History Records FoundNo Family History Records FoundNo Family History Records Found Advance Directives No Advanced Directives Records FoundNo Advanced Directives Records FoundNo Advanced Directives Records Found Additional Source Comments (unrecognized sect ion and content) No Status Records FoundNo Status Records FoundNo Status Records Found INFORMATION SOURCE (unrecogn ized section and content) DATE CREATED AUTHOR 04/15/2022 [facility] DATE CREATED AUTHOR AUTHOR'S ORGANIZ ATION 07/29/2023 [facility] DATE CREATED AUTHOR AUTHOR'S ORGANIZ ATION 11/29/2023 [facility] Source Comments (unrecognize d section and content) In the event this informatio n is protected by the Federal Confidentiality of Alcohol and Drug Abuse Patient Records regulations: The Federal rules restrict any use of the information to criminally investigate or prosecute any alcohol or drug abuse patient[facility] the event this information is protected by the Federal Confidentiality of Alcohol and Drug Abuse Patient Records regulations: The Federal rules restrict any use of the information to criminally investigate or prosecute any alcohol or drug abuse patient.[facility] FOR RECORDS PERTAINING TO PATIENTS WHO ARE OR HAVE BEEN ENROLLED IN A CHEMICAL DEPENDENCY/SUBSTANCEABUSE PROGRAM, SOME INFORMATION MAY BE OMITTED. This clinical summary was aggregated from multiple sources. Caution should be exercised in using it in the provision of clinical care. This summary normalizes information from multiple sources, and as a consequence, information in this document may materially change the coding, format and clinical context of patient data. In addition, data may be omitted in some cases. CLINICAL DECISIONS SHOULD BE BASED ON THE PRIMARY CLINICAL RECORDS. [facility] [employer] [facility]. provides no warranty or guarantee of the accuracy or completeness of information in this document.
--- NOTE | 2024-10-01 22:38 | ED_ITS ---
HPI - Dental/Oral General Chief complaint: Dental/Oral Stated complaint: DENTAL PAIN Time Seen by Provider: 10/01/24 22:22 Source: patient Mode of arrival: walk-in Limitations: no limitations History of Present Illness HPI Narrative: dental procedure last week. Recalls receiving painful shot right posterior superior molar area. Noticed increasing discomfort right cheek for a couple of days and now has swelling and increased pain when opening his mouth Related Data Allergies Allergy/AdvReac Type Severity Reaction Status Date / Time No Known Drug Allergies Allergy Verified 10/01/24 22:24 Review of Systems 2 ROS0 Status of ROS 10 or more systems reviewed and unremark able except as noted in history and below PFSH PFSH Social History Little interest or pleasure in doing things: not at all Feeling down, depressed, or hopeless: not at all Exam Constitutional Vital Signs, click to edit/add: Last Vital Signs Temp 97.7 F 10/01/24 22:25 Pulse 67 10/01/24 23:09 Resp 18 10/01/24 23:09 BP 183/93 H 10/01/24 23:09 Pulse Ox 96 10/01/24 23:09 O2 Del Method Room Air 10/01/24 22:25 Common normals: no apparent distress, average body habitus, oriented x3, no limitations, healthy appearing, alert and well nourished [facility] Head images: 2 1. area of swelling Eye Common normals: PERRL, EOMs intact bilaterally and conjunctivae normal Respiratory Common normals: normal respiratory effort, no retractions, no use of accessory muscles and clear to auscultation bilaterally Cardio Common normals: regular rate, regular rhythm, S1 normal heart sound and S2 normal heart sound Extremity Common normals: normal to inspection and full ROM Neuro Common normals: oriented x3, CN's II-XII intact bilaterally, moves all extremities, no focal motor deficits and no sensory deficits noted Psych Appearance: grossly normal Course Vital Signs Vital signs: Vital Signs Temperature 97.7 F 10/01/24 22:25 Pulse Rate 87 10/01/24 22:25 Respiratory Rate 18 10/01/24 22:25 Blood Pressure 187/101 H 10/01/24 22:25 Pulse Oximetry 99 10/01/24 22:25 Oxygen Delivery Method Room Air 10/01/24 22:25 Temperature 97.7 F 10/01/24 22:25 Pulse Rate 67 10/01/24 23:09 Respiratory Rate 18 10/01/24 23:09 Blood Pressure 183/93 H 10/01/24 23:09 Pulse Oximetry 96 10/01/24 23:09 Oxygen Delivery Method Room Air 10/01/24 22:25 MDM - Dental/Oral MDM Narrative Medical decision making narrative: right sided dental work about 10 days ago. Now presents with swelling right cheek. Oral cavity without focal findings. Swelling also over right maxillary sinus. Patient afebrile . CT facial bones with clear sinuses and no obvious dental findings. Treated as facial cellulitis with clindamycin Lab Data Labs: Lab Results 10/01/24 Range/Units 22:54 WBC 6.7 (4.0-11.0) 10^3/uL RBC 4.61 L (4.70-6.10) 10^6/uL Hgb 14.2 (14.0-18.0) g/dL Hct 41.1 L (42.0-54.0) % MCV 89.2 (80.0-94.0) fL MCH 30.8 (25.9-34.0) pg MCHC 34.5 (29.9-35.2) g/dL RDW 12.9 (11.0-15.0) % Plt Count 216 (150-450) 10^3/uL MPV 10.0 (9.5-13.5) fL Neut % (Auto) 70.8 (43.0-75.0) % Lymph % (Auto) 19.1 L (20.5-60.0) % [place] % (Auto) 7.5 (1.7-12.0) % Eos % (Auto) 1.9 (0.9-7.0) % Baso % (Auto) 0.4 (0.2-2.0) % Neut # (Auto) 4.8 (1.4-6.5) 10^3/uL Lymph # (Auto) 1.3 (1.2-3.8) 10^3/uL [place] # (Auto) 0.5 (0.3-0.8) 10^3/uL Eos # (Auto) 0.1 (0.0-0.7) 10^3/uL Baso # (Auto) 0.0 (0.0-0.1) 10^3/uL Abs Immat Gran (auto) 0.02 (0.00-0.03) 10^3/uL Imm/Tot Granulo (auto) 0.3 (0.0-0.5) % Sodium 142 (136-145) mmol/L Potassium 3.6 (3.5-5.1) mmol/L Chloride 104 (98-107) mmol/L Carbon Dioxide 27.7 (21.0-32.0) mmol/L Anion Gap 13.9 BUN 21.0 H (7.0-18.0) mg/dL Creatinine 1.17 (0.70-1.30) mg/dL Est GFR ( Amer) >60 (>=60 mL/min/1.73m^2) Est GFR (Non-Af Amer) >60 (>=60 mL/min/1.73m^2) BUN/Creatinine Ratio 17.9 Glucose 168 H (74-106) mg/dL Calcium 8.6 (8.5-10.1) mg/dL C-Reactive Protein <0.50 (<=0.50) mg/dL Discharge Plan Discharge Chief Complaint: Dental/Oral Clinical Impression: Facial cellulitis Patient Disposition: Home, Self-Care Print Language: Persian Instructions: Cellulitis (ED) Additional Instructions: follow up with your dentist Referrals: Steven Thomas MD [Primary Care Provider] - 1 week
[2024-10-01 22:58] VITALS: BP 184/96; O2SAT 96
[2024-10-01 23:00] VITALS: O2SAT 96
[2024-10-01] MEDS: CLINDAMYCIN PHOSPHATE/D5W 900 MG/50 ML PREMIX 100 MG IV (23:02)
[2024-10-01 23:09] VITALS: BP 183/93; PULSE 67; O2SAT 96
[2024-10-01 23:09] LABS: Basophils Percent Auto 0.4 % (0.2-2.0); Eosinophils Absolute Auto 0.1 10^3/uL (0.0-0.7); Eosinophils Percent Auto 1.9 % (0.9-7.0); Hematocrit 41.1 % (42.0-54.0); Hemoglobin 14.2 g/dL (14.0-18.0); Immature Granulocytes Abs Auto 0.02 10^3/uL (0.00-0.03); Immature Granulocytes Pct Auto 0.3 % (0.0-0.5); Lymphocytes Absolute Auto 1.3 10^3/uL (1.2-3.8); Lymphocytes Percent Auto 19.1 % (20.5-60.0); Mean Corpuscular HGB Conc 34.5 g/dL (29.9-35.2); Mean Corpuscular Hemoglobin 30.8 pg (25.9-34.0); Mean Corpuscular Volume 89.2 fL (80.0-94.0); Monocytes Absolute Auto 0.5 10^3/uL (0.3-0.8); Monocytes Percent Auto 7.5 % (1.7-12.0); Neutrophils Absolute Auto 4.8 10^3/uL (1.4-6.5); Neutrophils Percent Auto 70.8 % (43.0-75.0); Platelet Count 216 10^3/uL (150-450); Red Blood Count 4.61 10^6/uL (4.70-6.10); Red Cell Distribution Width 12.9 % (11.0-15.0); White Blood Count 6.7 10^3/uL (4.0-11.0)
[2024-10-01 23:23] LABS: Anion Gap 13.9; BUN Creatinine Ratio 17.9; C Reactive Protein <0.50 mg/dL (<=0.50); Calcium 8.6 mg/dL (8.5-10.1); Carbon Dioxide 27.7 mmol/L (21.0-32.0); Chloride 104 mmol/L (98-107); Estimated GFR (African America >60 (>=60 mL/min/1.73m^2); Estimated GFR (Non-African Ame >60 (>=60 mL/min/1.73m^2); Glucose 168 mg/dL (74-106); Potassium 3.6 mmol/L (3.5-5.1); Sodium 142 mmol/L (136-145)
--- NOTE | 2024-10-02 01:09 | PC.NURSE ---
i gave this patient verbal and paper discharge orders along with 1 Rx and this patient voices yes to understanding these. at time of discharge this patient voices no concerns and shows no signs of distress
== END 2024-10-02 01:11 | disposition home or self-care (01) ==
PROVIDERS: Emergency Provider Internal Medicine; PCP Family Medicine
DX: L03.211 Cellulitis of face (principal)
CPT/HCPCS: 36415; 70486; 80048; 85025; 86140; 96365; 99284; J0736

== ENCOUNTER 2024-11-24 11:44 | Outpatient (OUT) | payer MEDICARE, OTHER, SELFPAY ==
--- OUTSIDE RECORDS SUMMARY | 2024-10-31 09:04 | XMS_ITS ---
Author Organization [facility] in [place] Address [address] [place] [address] Care Team Providers Care Consumer Marketing Manager Name Role Phone Miguelito Thomas Primary Care Provider REASON FOR VISIT Memantine Medications Medication SIG (Take, Route, Fr equency, Duration) Notes Start Date End Date Status Memantine HCl ER 21 MG 1 capsule Orally Once a day for 14 days 10/14/2024 Active Encounters Encounter Location Date Provider Diagnosis [address] [place] [address] 10/31/2024 Miguelito Thomas Plan Of Treatment Medication Medication Name Sig Start Date Stop Date Notes Memantine HCl ER 21 MG 1 capsule Orally Once a day for 14 days 10/14/2024 Progress Notes * Terry CANALES PDOB: [birth year] (74 yo M)Acc No.[id number]:10/31/2024 Patient: Terry SMITH :1950 A ge:74 Y S ex:Male Address:[address], [place], [address] * Refills Refill Memantine HCl ER Capsule Extended Release 24 Hour, 21 MG, Orally, 14 Capsule, 1 capsule, Once a day, 14 days, Refills=0 * true * Date: Generated for Printi ng/Faxing/eTransmitting on: 0 11/24/2024 11:50 AM EDT
--- OUTSIDE RECORDS SUMMARY | 2024-11-11 12:43 | XMS_ITS | Encounter Summary ---
Author Organization [facility] Address [facility] [place] [address] Care Team Providers Care Seismometer Operator Name Role Phone Unavailable Primary Care Provider Unavailabl e Source Comments In the event this information is protected by the Federal Confidentiality of Alcohol and Drug AbusePatient Records regulations: The Federal rules restrict any use of the information to criminally investigate or prosecute any alcohol or drug abuse patient.[facility] Reason for Visit * Diagnostic Procedure Only (Routine) - Closed Specialty Diagnoses / Procedures Referred By Contac t Referred To Contact XR IMAGING Diagnoses Primary osteoarthritis of left knee Procedures XR KNEE GENERAL 4V AP BOTH/PA BOTH/LAT/MERC LEFT RADIOLOGIC EXAM KNEE COMPLETE 4/MORE VIEWS Kamila Batres, PA-C [address] [place] [address] Phone: tel: fax: XR IMAGING [id number] Referral ID Status Reason Start Date Expiration Date V isits Requested Visits Authorized [id number] Closed Auto-Generate d Referral 12/07/2023 01/05/2025 1 1 Encounter Details Date Type Department Care Team (Latest Contact Info) Description 11/11/2024 12:43 PM EDT - 11/11/2024 11:59 PM EDT Hospital Encounter Radiology [address] [place] [address] Primary osteoarthritis of left knee [M17.12] Discharge Disposition: Home Social History Tobacco Use Types Packs/Day Years Used Date Smoking Tobacco: Former Cigarettes Q uit: 07/1969 Passive Smoke Exposure: Past Smokeless Tobacco: Never Alcohol Use Standard Drinks/Week Comments Yes 7 (1 standard drink = 0.6 oz pur e alcohol) Area Deprivation Index Answer Date Palbo rded National Score (1-100), lower number is lower ri sk 61 2023 State Score (1-10), lower number is lower risk 4 2023 Data from: https://www.neighborhoodatlas.medicine.[facility].edu/. Last address used for calculation [address] [address][birth year] Sex and Gender Information Value Date Recorded Sex Assigned at Not on file Legal Sex Male 9:56 AM EST Gender Identity Not on file Sexual Orientation Not on file documented as of this encounter Medications at Time of Discharge hydroCHLOROthiazi de 25 mg tablet 1 tablet in the morning Orally Once a day documented as of this encounter Plan of Treatment Not on file documented as of this encounter Procedures Procedure Name Priority Date/Time Associated Diagnosis Comments XR KNEE GENERAL 4V AP BOTH/PA BOTH/LAT/MERC LT Routine 11/11/2024 1:01 PM EDT Primary osteoarthritis of left knee documented in this encounter Results * XR KNEE GENERAL 4V AP BOTH/PA BOTH/LAT/MERC LEFT (11/11/2024 1:01 PM EDT) Anatomical Region Laterality Modality Knee Other 11/11/2024 1:01 PM EDT Impressions 11/16/2024 7:09 AM EDT IMPRESSION: Advanced osteoarthrosis with joint effusion, not significantly changed Marketing Services Rep: ANDRE Transcribe Date/Time: Nov 16 2024 7:06A Dictated by : CHELSEA BAEZ MD This examination was interpreted and the report reviewed and electronically signed by: CHELSEA BAEZ MD on Nov 16 2024 7:07AM EST Narrative 11/16/2024 7:09 AM EDT * * *Final Report* * * DATE OF EXAM: Nov 11 2024 1:01PM LFX 5202 - XR KNEE 4V AP/PA BOTH+LAT/MACY LT / PROCEDURE REASON: Primary osteoarthritis of left knee * * * * Physician Interpretation * * * * PROCEDURE: Left knee INDICATION: Primary osteoarthritis of left knee .left knee pain TECHNIQUE: XR KNEE 4V AP/PA BOTH+LAT/MACY LT COMPARISON: 2023 FINDINGS: Significant medial joint compartment narrowing with [id number]-rasp appearance and advanced lateral joint compartment narrowing. Tricompartment spur formation. No acute fracture or dislocation. Moderate joint effusion with joint bodies. Procedure Note Provider, [facility] [place] - 11/16/2024 * * *Final Report* * * DATE OF EXAM: Nov 11 2024 1:01PM LFX 5202 - XR KNEE 4V AP/PA BOTH+LAT/MACY LT / PROCEDURE REASON: Primary osteoarthritis of left knee * * * * Physician Interpretation * * * * PROCEDURE: Left knee INDICATION: Primary osteoarthritis of left knee .left knee pain TECHNIQUE: XR KNEE 4V AP/PA BOTH+LAT/MACY LT COMPARISON: 2023 FINDINGS: Significant medial joint compartment narrowing with [id number]-[id number] appearance and advanced lateral joint compartment narrowing. Tricompartment spur formation. No acute fracture or dislocation. Moderate joint effusion with joint bodies. IMPRESSION IMPRESSION: Advanced osteoarthrosis with joint effusion, not significantly changed Marketing Services Rep[facility] Transcribe Date/Time: Nov 16 2024 7:06A Dictated by : CHELSEA BAEZ MD This examination was interpreted and the report reviewed and electronically signed by: CHELSEA BAEZ MD on Nov 16 2024 7:07AM EST Kamila Batres PA-C RAD-[facility] Final Result documented in this encounter Visit Diagnoses Diagnosis Primary osteoarthritis of left knee Primary localized osteoarthrosis, lower leg documented in this encounter
--- OUTSIDE RECORDS SUMMARY | 2024-11-11 13:40 | XMS_ITS | Encounter Summary ---
Author Organization [facility] Address [address] [place], [place] [id number] Care Team Providers Care Director Automotive Name Role Phone Unavailable Primary Care Provider Unavailabl e Source Comments In the event this information is protected by the Federal Confidentiality of Alcohol and Drug AbusePatient Records regulations: The Federal rules restrict any use of the information to criminally investigate or prosecute any alcohol or drug abuse patient.[facility] Reason for Referral * MRI/CT (Routine) - New Request Specialty Diagnoses / Procedures Referred By Contac t Referred To Contact CT IMAGING Diagnoses Post-traumatic osteoarthritis of left knee Anemia, unspecified type Procedures CT KNEE WO IVCON LEFT CT LOWER EXTREMITY W/O CONTRAST MATERIAL Kamila Batres PA-C [address] [place] [address] Phone: tel: fax: [id number] Referral ID Status Reason Start Date Expiration Date Visits Requested Visits Authorized [id number] New Request Auto-Generat ed Referral 11/11/2024 12/11/2025 1 1 Reason for Visit * Reason Comments Established Patient Encounter Details Date Type Department Care Team (Latest Contact Info) Description 11/11/2024 1:40 PM EDT Office Visit Orthopedics [address] [place] [address] Kamila Batres PA-C [address] [place] [address] Post-traumatic osteoarthritis of left knee (Primary Dx); Anemia, unspecified type Social History Tobacco Use Types Packs/Day Years Used Date Smoking Tobacco: Former Cigarettes Q uit: 07/1969 Passive Smoke Exposure: Past Smokeless Tobacco: Never Alcohol Use Standard Drinks/Week Comments Yes 7 (1 standard drink = 0.6 oz pur e alcohol) Area Deprivation Index Answer Date Pablo rded National Score (1-100), lower number is lower ri sk 61 2023 State Score (1-10), lower number is lower risk 4 2023 Data from: https://www.neighborhoodatlas.medicine.[facility]/. Last address used for calculation [address] [address] Sex and Gender Information Value Date Recorded Sex Assigned at Not on file Legal Sex Male 9:56 AM EST Gender Identity Not on file Sexual Orientation Not on file documented as of this encounter Last Filed Vital Signs Vital Sign Reading Time Taken Comments Blood Pressure - - Pulse - - Temperature - - Respiratory Rate - - Oxygen Saturation - - Inhaled Oxygen Concentration - - Weight 111 kg (244 lb 11.4 oz) 11/11/2024 1:33 P M EDT Height - - Body Mass Index - - documented in this encounter Patient Instructions * Patient Instructions* Kamila Batres PA-C - 11/11/2024 1:56 PM EDT Instructions for Blood Management Decreasing the need for blood transfusions after surgery can help your body heal faster and help your body fight infection better. Blood Management will check your blood and iron levels to see if youwould benefit from having treatment to help increase your blood counts before your surgery. What do you need to do? 1. Go and have your labs (CBC, Ferritin, Iron Studies) drawn today or within the next three days atthe nearest [facility] lab. If you would like, you can go today, following your appointment, to any of our outpatient labs. 2. If it is determined that you would benefit from treatment, someone from the Blood Management Department will call you. If we call you, we will then give further instructions for iron replacement. If you do not hear from Blood Management, your lab results were okay and you do not need additional iron replacement. Questions? Contact us: If you are having surgery at [facility] or If you are having surgery at [place], [place], [facility] , [place], [place], [place], [facility], or [facility] documented in this encounter Progress Notes * Kamila Batres PA-C - 11/11/2024 1:43 PM EDT Images from the original note were not included. CONSULT ORTHOPAEDIC: KNEE PRIMARY CARE PHYSICIAN: No primary care provider on file. REFERRING PROVIDER: No referring provider defined for this encounter. ASSESSMENT & PLAN Impression: Left Knee Severe Degenerative Osteoarthritis, Post-Traumatic Scheduled for left robotic total knee 02/08/[address] Cox at Patient will return to office closer to surgery date for pre-op information and consents with Dr. Cox Diagnoses: (M17.32) Post-traumatic osteoarthritis of left knee (primary encounter diagnosis) (D64.9) Anemia, unspecified type Based upon the evaluation today and after discussions with Terry Juarez, Terry Juarez has significant, worsening pain at the knee. This pain is increased with activity and weight bearing, and interferes with activities of daily living. These symptoms have continued despite a number of non-surgical measures, including a trial of oral pain medication and attempted physical therapy/ structured exercise program and/or use of an assistive device/ bracing (for at least 12 weeks unless the patientwas unable to tolerate these measures as discussed above). At this point, the patient will not benefit from further PT due to the severity of their condition. The patient's physical examination is consistent with limitations in range of motion, pain with passive range of motion, crepitus, and effusion/ synovitis. These examination findings are corroborated by imaging findings of joint space narrowing, periarticular osteophyte formation, and subchondral sclerosis. The patient has been treated by the practice and all reasonable treatments have failed to control the disease, which causes significant pain and limits activities of daily living. The patient has failed conservative treatment and joint replacement surgery was discussed and agreed upon by both provider and patient. We will proceedwith surgical management to improve function and relieve pain refractory to non-surgical measures. Left Primary Total Knee Arthroplasty as evidenced by six months of unsuccessful non-operative treatment as outlined in the HPI below. Surgery Details Date and Location: At on 04/18/2025. Implants: Ravin Robotic: Yes Predicted LOS: 2 days (Inpatient candidate) Informed consent obtained in the office today. The risks and benefits of surgery were discussed at length including but not limited to the risks of infection, bleeding, nerve or blood vessel injury, deep venous thrombosis, pulmonary embolism, arthrofibrosis, reflex sympathetic dystrophy, , paralysis, knee or patellar dislocation, extensor mechanism injury, bone fracture, component loosening or failure requiring re-operation or amputation. Informed consent was obtained and the patient was scheduled for surgery. We also discussed fixation strategies including cement and cementless fixation and advantages and disadvantages of each. We discussed the details of the surgery as well as rehabilitation. All questions were answered, and the patient wishes to proceed with surgery.. The patient has been ordered: Office Visit on 11/11/24 [facility] TOTAL JOINT REPLACEMENT PRE-SURGERY EDUCATION CLASS CT KNEE WO IVCON LEFT ALBUMIN COMPLETE BLOOD COUNT AND DIFFERENTIAL IRON AND TIBC FERRITIN VITAMIN B12 FOLATE, SERUM RETICULOCYTE COUNT BLOOD MANAGEMENT REFERRAL CONSULT TO [facility] PATIENT PLACED ON LEXIE TKA CARE PATH CONSULTS: IMPACT/PACE Consult for preoperative clearance. Total Joint Arthroplasty: Risk Calculator Terry De León Ann has a 5.85% chance of NOT returning home at discharge for a Primary total Knee replacement. Terry's estimated Length of Stay is 2 days (Inpatient candidate). Terry's 30 day chance ofreadmission is 7.68%. Readmission Probability 7.68 % (within 30 days following surgery) Estimated LOS 2 days Discharge Disposition Probability D/C to Home 94.15 % D/C to SNF 5.85 % These calculations are based on the following factors: - 74 years of age - sex is male - BMI of 30 kg/m2 - NarxCare score of 0 - 0 hospitalizations in the last 12 months - no history of heart disease - no history of diabetes - no history of COPD - history of anemia - preoperative ambulation: independent community distances - 2 step(s) to enter home - bed location is on the first floor - bath location is on the first floor - caregiver is consistent - home is more than 150 miles away - PROMIS-10 Mental Health T score not available - Marital status: Risk Factors for Total Knee Arthroplasty (TKA) Major Risk Factors Obesity Unknown Risk High: BMI > 40 Moderate: BMI 30-40 Normal: BMI < 30 Diabetes normal High: A1C > 8 Moderate: A1C 7-8 Normal: A1C < 7 Hx of DVT / PE normal High: dx of DVT / PE Normal: no dx of DVT / PE Smoking normal High: Current smoker Normal: Non smoker Narcotics Use normal High:NarxCare >=300 Moderate: 100-299 Normal: 0-99 Depression Unknown Risk High: PHQ-9 >14 Moderate: PHQ-9 5-14 Normal: PHQ-9 < 5 Area Deprivation Index (BETTYE) Unknown Risk High: BETTYE Score > 75 Moderate: BETTYE 50-75 Normal: BETTYE < 50 Obesity: height and/or weight are out of date (There is no height and/or weight reading in the ugqp686 days, so the below BMI readings may be inaccurate) BMI Readings from Last 3 Encounters: No data found for BMI Area Deprivation Index (BETTYE) 2023 BETTYE Score National Score 61 Patient Health Questionnaire (PHQ-9) No data to display (0-4) minimal depression, (5-9) mild depression, (10-14) moderate depression, (15-19) moderately severe depression, (20-27) severe depression Bone Density Risk Screen Terry Juarez is at risk for bone loss and has not had a bone densitometry scan in the last 2 years (date of last scan: None on file). Recommend a bone densitometry scan and if indicated on the bonedensity results, a consult to a bone health specialist (Rheumatology, Endocrinology, or Women's Health) for bone assessment. Risk Factors: Additional Risk Factors Malnutrition: No Malnutrition Screening Tool (MST) score on file- please complete the MST screeningtool (click here to open) and refresh the note. There is no problem list on file for this patient. SUBJECTIVE CHIEF COMPLAINT: Knee Pain HPI: Terry Juarez is a 74 year old patient with the presenting complaint of Established Patient of theLeft Knee. Terry Juarez has had progressive problems with the knee(s) most of the day over the past 30 year(s) interfering with activities which include exercise, enjoying hobbies, walking, rising from a sitting position, and climbing stairs. The problem began limiting activities 7- 12 months ago. Terry reports a current pain level of 4 (pain only if he stand up) (Knee-Left). He describes the pain as Sharp. The pain is Intermittent, and has lasted for 30 Years. Pt. doest not taking medicationfor pain.. FALL RISK: Terry is not currently at risk for falls. PROMIS Physical Function Score No data to display FUNCTIONAL STATUS: Walk indoors, such as around the house (1.75 METs) Do light work around the house, such as dusting or washing dishes (2.70 METs) Take care of self, that is eating, dressing, bathing, using the toilet (2.75 METs) Walk a block or two on level ground (2.75 METs) PREVIOUS TREATMENTS: Medical Treatments: OTC NSAIDS for 3 Months or Greater (Ibuprofen), Steroid Injections Left Knee Physical Therapy: Shoe Wear, Braces, Orthotics, etc. and Activities Modified Previous Surgery: Knee Arthroscopy REVIEW OF SYSTEMS: PAIN ASSESSMENT: See HPI. MUSCULOSKELETAL: See HPI. No data to display No past medical history on file. No past surgical history on file. No family history on file. Social History Tobacco Use Smoking status: Former Current packs/day: 0.00 Types: Cigarettes Quit date: 07/1969 Years since quittin.3 Passive exposure: Past Smokeless tobacco: Never Substance Use Topics Alcohol use: Yes Alcohol/week: 7.0 standard drinks of alcohol Types: 2 Glasses of wine, 5 Shots of liquor per week Drug use: Never ALLERGIES: Patient has no allergy information on record. MEDICATIONS: hydroCHLOROthiazide 25 mg tablet 1 tablet in the morning Orally Once a day (Patient not taking: Reported on 11/11/2024) OBJECTIVE PHYSICAL EXAM: Wt 111 kg (244 lb 11.4 oz) All other systems deferred. GENERAL: Appears healthy, well-nourished, no deformities. HABITUS: Normal GAIT: Normal, the patient did not have trouble getting onto the exam table. KNEE EXAM: Left: Alignment: varus Range of motion is 0 degrees in extension and 120 degrees of flexion. Extension La degrees Pain with ROM: yes Effusion: moderate Tender to the palpation of medial and lateral joint line Pain with patellar compression: No Stability: Anterior/Posterior stable and Varus/Valgus stable Hip Exam: flexion to 100+ degrees, full extension, internal/external rotation adequate and no pain with log roll Neurovascular Status: Sensation Intact and Moves foot and ankle up & down DATA: He was last seen in orthopaedic clinic for his knee/leg on 2023 with Yang Cox. Most recent knee imaging was completed on 11/11/2024 (XR KNEE GENERAL 4V AP BOTH/PA BOTH/LAT/MERC LEFT) . Attached is imaging for the order. Diagnostic tests reviewed for today's visit: Left knee X-Ray: Severe tri-compartmental degeneration SIGNATURE: Kamila Batres PA-C PATIENT NAME: Terry Juarez DATE: November 11, 2024 TIME: 1:43 PM documented in this encounter Plan of Treatment Scheduled Orders Name Type Priority Associated Diagnoses Orde r Schedule CT KNEE WO IVCON LEFT Radiology Routine Post-traumatic osteoarthritis of left knee Anemia, unspecified type 1 Occurrences starting 11/11/2024 until 12/11/2025 documented as of this encounter Results * RETICULOCYTE COUNT (11/11/2024 2:17 PM EDT) Retic % 1.4 0.4 - 2.0 % 11/11/2024 3:18 PM EDT [facility] Abs Retic 0.064 0.018 - 0.100 M/uL 11/11/2024 3:18 PM EDT [facility] Blood BLOOD SPECIMEN / Unknown Venipuncture / Unknown 11/11/2024 2:17 PM EDT 11/11/2024 2:17 PM EDT us Kamila Batres PA-C LABORATORY Final Result [facility] [address] [place] [address], [place] * FOLATE, SERUM (11/11/2024 2:17 PM EDT) Folate 8.8 >4.7 ng/mL 11/12/2024 12:39 AM EDT [facility] Blood BLOOD SPECIMEN / Unknown Venipuncture / Unknown 11/11/2024 2:17 PM EDT 11/11/2024 2:17 PM EDT Kamila Amy Medardo PA-C LABORATORY Final Result [facility] [address] [id number], [place] * VITAMIN B12 (11/11/2024 2:17 PM EDT) Vitamin B12 364 232 - 1,245 pg/mL 11/12/2024 12:39 AM EDT [facility] Blood BLOOD SPECIMEN / Unknown Venipuncture / Unknown 11/11/2024 2:17 PM EDT 11/11/2024 2:17 PM EDT Kamila Amy Medardo PA-C LABORATORY Final Result [facility] [address] [address], [place] * FERRITIN (11/11/2024 2:17 PM EDT) Ferritin 239.0 30.3 - 565.7 ng/mL 11/12/2024 12:39 AM EDT [facility] Blood BLOOD SPECIMEN / Unknown Venipuncture / Unknown 11/11/2024 2:17 PM EDT 11/11/2024 2:17 PM EDT Kamila Amy Batres PA-C LABORATORY Final Result [facility] [address] [place] [address], * IRON AND TIBC (11/11/2024 2:17 PM EDT) Iron 116 41 - 186 ug/dL 11/12/2024 12:25 AM EDT [facility] TIBC 276 232 - 386 ug/dL 11/12/2024 12:25 AM EDT [facility] Transferrin Saturation 42.0 15.0 - 57.0 % 11/12/2024 12:25 AM EDT [facility] Blood BLOOD SPECIMEN / Unknown Venipuncture / Unknown 11/11/2024 2:17 PM EDT 11/11/2024 2:17 PM EDT Kamila Batres PA-C LABORATORY Final Result [facility] [address] [place] [address], * COMPLETE BLOOD COUNT AND DIFFERENTIAL (11/11/2024 2:17 PM EDT) WBC 6.54 3.70 - 11.00 k/uL 11/11/2024 3:18 PM EDT [facility] RBC 4.72 4.20 - 6.00 m/uL 11/11/2024 3:18 PM EDT [facility] Hemoglobin 14.4 13.0 - 17.0 g/dL 11/11/2024 3:18 PM EDT [facility] Hematocrit 43.0 39.0 - 51.0 % 11/11/2024 3:18 PM EDT [facility] MCV 91.1 80.0 - 100.0 fL 11/11/2024 3:18 PM EDT [facility] MCH 30.5 26.0 - 34.0 pg 11/11/2024 3:18 PM EDT [facility] MCHC 33.5 30.5 - 36.0 g/dL 11/11/2024 3:18 PM EDT [facility] RDW-CV 13.1 11.5 - 15.0 % 11/11/2024 3:18 PM EDT [facility] Platelet Count 188 150 - 400 k/uL 11/11/2024 3:18 PM EDT [facility] MPV 10.7 9.0 - 12.7 fL 11/11/2024 3:18 PM EDT [facility] Neutrophils % 71.6 % 11/11/2024 3:18 PM EDT [facility] Abs Neut 4.68 1.45 - 7.50 k/uL 11/11/2024 3:18 PM EDT [facility] Lymphocytes % 17.7 % 11/11/2024 3:18 PM EDT [facility] Abs Lymph 1.16 1.00 - 4.00 k/uL 11/11/2024 3:18 PM EDT [facility] Monocytes % 8.1 % 11/11/2024 3:18 PM EDT [facility] Abs [place]ave 0.53 <0.87 k/uL 11/11/2024 3:18 PM EDT [facility] Eosinophils % 1.8 % 11/11/2024 3:18 PM EDT [facility] Abs Eosin 0.12 <0.46 k/uL 11/11/2024 3:18 PM EDT [facility] Basophils % 0.3 % 11/11/2024 3:18 PM EDT [facility] Abs Baso <0.03 <0.11 k/uL 11/11/2024 3:18 PM EDT [facility] Immature Granulocytes % 0.5 % 11/11/2024 3:18 PM EDT [facility] Abs Immature Gran 0.03 <0.10 k/uL 025 3:18 PM EDT [facility] NRBC 0.0 /100 WBC 11/11/2024 3:18 PM EDT [facility] Absolute nRBC <0.01 <0.01 k/uL 11/11/2024 3:18 PM EDT [facility] Diff Type Auto 11/11/2024 3:18 PM EDT [facility] Blood BLOOD SPECIMEN / Unknown Venipuncture / Unknown 11/11/2024 2:17 PM EDT 11/11/2024 2:17 PM EDT Kamila Batres PA-C LABORATORY Final Result Performing Organization Address City/[facility]/ZIP Co de [place] [facility] [address] [place] [address], * ALBUMIN (11/11/2024 2:17 PM EDT) [facility] Signature Albumin 3.9 3.9 - 4.9 g/dL 11/11/2024 6:23 PM EDT [facility] Blood BLOOD SPECIMEN / Unknown Venipuncture / Unknown 11/11/2024 2:17 PM EDT 11/11/2024 2:17 PM EDT Kamila Batres PA-C LABORATORY Final Result Performing Organization Address City/[facility]/ZIP Co de Phone Number [place] [address] [place] [address], [place] documented in this encounter Visit Diagnoses Diagnosis Post-traumatic osteoarthritis of left knee- Primary Secondary localized osteoarthrosis, lower leg Anemia, unspecified type documented in this encounter
--- OUTSIDE RECORDS SUMMARY | 2024-11-11 14:02 | XMS_ITS ---
Author Name Auto Generated Organization OHIP Care Team Providers Care Orthopedic Coder Name Role Phone KAMILA PINEDO Referring Unavailable KAMILA PINEDO Attending Unavailable KAMILA PINEDO Referring Unavailable NILLChirag Attending Unavailable Steven Thomas Referring Unavailable PROBLEMS DATE TYPE CONDITION / CODE ATTENDING STATUS [facility] 11/11/2024 Active Post-traumatic osteoarthritis of left knee / M17.32(ICD-10) NA Active [facility] 11/11/2024 Active Anemia, unspecif ied type / D64.9(ICD-10) NA Active [facility] 11/11/2024 Active Primary osteoart hritis of left knee / M17.12(ICD-10) NA [facility] Cli kwan [place] PROCEDURES No Procedure Records Found RESULTS PROGRESS Observed: 11/17/2024 10:16 AM Status: COMPLETED Source: [facility] HNO ID: [id number] Author: DON SHEA RN Service: ? Author Type: Registered Nurse Type: Progress Notes Filed: 11/17/2024 10:16 Note Text: Patient referred to Blood Management for pre-surgical optimization. Hgb 14.4 which exceeds Blood Management guidelines for intervention. IRON+TIBC PNL SERPL Collected: 11/11/2024 2:[address] atus: F Source: [facility] Order Comment: Specimen Type : BLOOD SPECIMEN Ordering Facility: [facility] Address: [address] [place] [address] TYPE CODE TESTS RESULT OUT OF RANGE REFERENCE UNITS LAB 2498-4(LOINC) Iron SerPl-mCnc 116 41-186 ug/dL LAB 2500-7(LOINC) TIBC SerPl-mCnc 276 232-386 ug/dL LAB 63802-7(LOINC) Iron/TIBC SerPl-sRto 42.0 15.0-57.0 % Performed By: #### 2276-4, 5 189-8, 9, 2284-02 #### [facility] CLIA [id number] [address] [place] [address] [facility] VIT B12 SERPL-MCNC Collected: 11/11/2024 2:17 PM Sta tus: F Source: [facility] Order Comment: Specimen Type : BLOOD SPECIMEN Ordering Facility: [facility] Address: [address] [place] [address] TYPE CODE TESTS RESULT OUT OF RANGE REFERENCE UNITS LAB 2-9(LOINC) Vit B12 SerPl-mCnc 199 954-7009 pg/mL Performed By: #### 2276-4, 5 189-8, 2132-03, 2284-02 #### [facility] CLIA [id number] [address] [place] [address] OF [place] FERRITIN SERPL-MCNC Collected: 11/12/19 2:17 PM Status: F Source: [facility] Order Comment: Specimen Type : BLOOD SPECIMEN Ordering Facility: [facility] Address: [address] [place] [address] TYPE CODE TESTS RESULT OUT OF RANGE REFERENCE UNITS LAB 2276-4(LOINC) Ferritin SerPl-mCnc 239.0 30.3-565.7 ng/mL Performed By: #### 2276-4, 5 8, 2132-03, 2284-02 #### [facility] CLIA [id number] [address] [place] [address] OF [place] FOLATE SERPL-MCNC Collected: 11/11/2024 2:17 PM Stat us: F Source: [facility] Order Comment: Specimen Type : BLOOD SPECIMEN Ordering Facility: [facility] Address: [address] [place] [address] TYPE CODE TESTS RESULT OUT OF RANGE REFERENCE UNITS LAB 2284-8(LOINC) Folate SerPl-mCnc 8.8 >4.7 ng/mL Performed By: #### 2276-4, 5 0-8, 2132-03, 2284-02 #### [facility] CLIA [id number] [address] [place] ALBUMIN SERPL-MCNC Collected: 11/11/2024 2:17 PM Sta tus: F Source: [facility] Order Comment: Specimen Type : BLOOD SPECIMEN Ordering Facility: [facility] Address: [address] [place] [address] TYPE CODE TESTS RESULT OUT OF RANGE REFERENCE UNITS LAB 1751-7([facility]) Albumin SerPl-mCnc 3.9 3.9-4.9 g/dL Performed By: #### 1751-7 ## ## [facility] CLIA [id number] [address] [place] [address] [place] CBC W AUTO DIFF BLD Collected: 11/11/2024 2:[address] atus: F Source: [facility] Order Comment: Specimen Type : BLOOD SPECIMEN Ordering Facility: [facility] Address: [address] [place] [address] TYPE CODE TESTS RESULT OUT OF RANGE REFERENCE UNITS LAB 6690-2(LOINC) WBC # Bld Auto 6.54 3.70-11.00 k/uL LAB 789-8(LOINC) RBC # Bld Auto 4.72 4.20-6.00 m/ uL LAB 718-7(INC) Hgb Bld-mCnc 14.4 13.0-17.0 g/dL LAB 4544-3(INC) Hct VFr Bld Auto 43.0 39.0-51.0 % LAB 787-2(LOINC) MCV RBC Auto 91.1 80.0-100.0 fL LAB 785-6(LOINC) MCH RBC Qn Auto 30.5 26.0-34.0 p g LAB 786-4(LOINC) MCHC RBC Auto-mCnc 33.5 30.5-36.0 g/dL LAB 30814-4(LOINC) RDW RBC-Rto 13.1 11.5-15.0 % LAB 777-3(LOINC) Platelet # Bld Auto 188 150-400 k/uL LAB 43749-0(LOINC) PMV Bld Auto 10.7 9.0-12.7 fL LAB 770-8(LOINC) Neutrophils/leuk NFr Bld Auto 71.6 % LAB 751-8(LOINC) Neutrophils # Bld Auto 4.68 1.45-7.50 k/uL LAB 736-9(LOINC) Lymphocytes/leuk NFr Bld Auto 17.7 % LAB 731-0(INC) Lymphocytes # Bld Auto 1.16 1.00-4.00 k/uL LAB 5905-5(INC) Monocytes/leuk NFr Bld Auto 8.1 % LAB 742-7(INC) Monocytes # Bld Auto 0.53 <0.87 k/uL LAB 713-8(INC) Eosinophil/leuk NFr Bld Auto 1.8 % LAB 711-2([facility]) Eosinophil # Bld Auto 0.12 <0.46 k/uL LAB 706-2([facility]) Basophils/leuk NFr Bld Auto 0.3 % LAB 704-7([facility]) Basophils # Bld Auto <0.03 <0.11 k/uL LAB 78314-8([facility]) Imm Granulocytes/harrison k NFr Bld Auto 0.5 % LAB 16601-4([facility]) Imm Granulocytes # Bld Auto 0.03 <0.10 k/uL LAB 69168-6([facility]) nRBC/100 WBC Bld-Rto 0.0 /100 WBC LAB 771-6([facility]) nRBC # Bld Auto <0.01 <0.01 k/u L LAB 61629-2([facility]) Differential method Bld Auto Performed By: #### 34375-5, 26432-6 #### [facility] CLIA [id number] [address] [place] [address] [place] RETICS # Collected: 5 2:17 PM Status: F Source: [facility] Order Comment: Specimen Type : BLOOD SPECIMEN Ordering Facility: [facility] Address: [address] [place] [address] TYPE CODE TESTS RESULT OUT OF RANGE REFERENCE UNITS LAB 4679-7([facility]) Retics/100 RBC NFr 1.4 0.4-2.0 % LAB 19241-8([facility]) Retics # 0.064 0.018-0.100 M/uL Performed By: #### 07197-9, 49271-9 #### [facility] GHADA BARNES [id number] [address] [place] [address] [place] PROGRESS Observed: 11/11/2024 1:43 PM Status: COMPLETED Source: [facility] HNO ID: [id number] Author: KAMILA PINEDO PA-C Service: ? Author Type: Physician Finishing Department Supervisor Type: Progress Notes Filed: 11/24/2024 10:45 Note Text: CONSULT ORTHOPAEDIC: KNEE PRIMARY CARE PHYSICIAN: No primary care provider on file. REFERRING PROVIDER: No referring provider defined for this encounter. ASSESSMENT AND PLAN Impression: Left Knee Severe Degenerative Osteoarthritis, Post-Traumatic Scheduled for left robotic total knee 02/08/[address] Cox at Patient will return to office closer to surgery date for pre-op information and consents with Dr. Cox Diagnoses: (M17.32) Post-traumatic osteoarthritis of left knee (primary encounter diagnosis) (D64.9) Anemia, unspecified type Based upon the evaluation today and after discussions with Aneesh Canales, Aneesh Canales has significant, worsening pain at the knee. This pain is increased with activity and weight bearing, and interferes with activities of daily living. These symptoms have continued despite a number of non-surgical measures, including a trial of oral pain medication and attempted physical therapy/ structured exercise program and/or use of an assistive device/ bracing (for at least 12 weeks unless the patient was unable to tolerate these measures as discussed [...] by both provider and patient. We will proceed with surgical management to improve function and relieve pain refractory to non-surgical measures. Left Primary Total Knee Arthroplasty as evidenced by six months of unsuccessful non-operative treatment as outlined in the HPI below. Surgery Details Date and Location: At on 04/18/2025. Implants: [place] Robotic: Yes Predicted LOS: 2 days (Inpatient [...] COUNT BLOOD MANAGEMENT REFERRAL CONSULT TO [facility] PATIENT PLACED ON LEXIE TKA CARE PATH CONSULTS: IMPACT/PACE Consult for preoperative clearance. Total Joint Arthroplasty: Risk Calculator Aneesh Canales has a 5.85% chance of NOT returning home at discharge for a Primary total Knee replacement. Aneesh's estimated Length of Stay is 2 days (Inpatient candidate). Aneesh's 30 day chance of readmission is 7.68%. Readmission Probability 7.68 % (within [...] Knee Pain HPI: Aneesh Canales is a 74 year old patient with the presenting complaint of Established Patient of the Left Knee. Aneesh Canales has had progressive problems with the knee(s) most of the day over the past 30 year(s) interfering with activities which include exercise, enjoying hobbies, walking, rising from a sitting position, and climbing stairs. The problem began limiting activities 7-12 months ago. Aneesh reports a current pain level of 4 (pain only if he stand up) (Knee-Left). He describes the pain as Sharp. The pain is Intermittent, and has lasted for 30 Years. Pt. doest not taking medication for pain.. FALL RISK: Aneesh is not currently at [...] foot and ankle up AND down DATA: He was last seen in orthopaedic clinic for his knee/leg on 2023 with Yang Cox. Most recent knee imaging was completed on 11/11/2024 (XR KNEE GENERAL 4V AP BOTH/PA BOTH/LAT/MERC LEFT) . Attached is imaging for the order. Diagnostic tests reviewed for today's visit: Left knee X-Ray: Severe tri-compartmental degeneration SIGNATURE: Kamila Pinedo PA-C PATIENT NAME: Aneesh De León Ann DATE: November 11, 2024 TIME: 1:43 PM CNOV Observed: 11/11/2024 1:40 PM Status: COMPLETED Source: [facility] Office Visit (ORTHLD) ANEESH CANALES ([id number]) 1950 M Date Time Provider Department 11/11/24 1:40 PM KAMILA PINEDO During your visit today, we recorded the following information about you: Weight 111 kg Kamila Pinedo PA-C 11/24/2024 10:45 AM Addendum CONSULT ORTHOPAEDIC: KNEE PRIMARY CARE PHYSICIAN: No primary care provider on file. REFERRING PROVIDER: No referring provider defined for this encounter. ASSESSMENT AND PLAN Impression: Left Knee Severe Degenerative Osteoarthritis, Post-Traumatic Scheduled for left robotic total knee 02/08/[address] Cox at Patient will return to office closer to surgery date for pre-op information and consents with Dr. Cox Diagnoses: (M17.32) Post-traumatic osteoarthritis of left knee (primary encounter diagnosis) (D64.9) Anemia, unspecified type Based upon the evaluation today and after discussions with Aneesh Canales, Aneesh Canales has significant, worsening pain at the knee. This pain is increased with activity and weight bearing, and interferes with activities of daily living. These symptoms have continued despite a number of non-surgical measures, including a trial of oral pain medication and attempted physical therapy/ structured exercise program and/or use of an assistive device/ bracing (for at least 12 weeks unless the patient was unable to tolerate these measures as discussed [...] by both provider and patient. We will proceed with surgical management to improve function and relieve [...] COUNT BLOOD MANAGEMENT REFERRAL CONSULT TO [facility] PATIENT PLACED ON LEXIE TKA CARE PATH CONSULTS: IMPACT/PACE Consult for preoperative clearance. Total Joint Arthroplasty: Risk Calculator Aneesh De León Ann has a 5.85% chance of NOT returning home at discharge for a Primary total Knee replacement. Aneesh's estimated Length of Stay is 2 days (Inpatient candidate). Aneesh's 30 day chance of readmission is 7.68%. Readmission Probability 7.68 % (within [...] Knee Pain HPI: Aneesh Canales is a 74 year old patient with the presenting complaint of Established Patient of the Left Knee. Aneesh Canales has had progressive problems with the knee(s) most of the day over the past 30 year(s) interfering with activities which include exercise, enjoying hobbies, walking, rising from a sitting position, and climbing stairs. The problem began limiting activities 7-12 months ago. Aneesh reports a current pain level of 4 (pain only if he stand up) (Knee-Left). He describes the pain as Sharp. The pain is Intermittent, and has lasted for 30 Years. Pt. doest not taking medication for pain.. FALL RISK: Aneesh is not currently at [...] foot and ankle up AND down DATA: He was last seen in orthopaedic clinic for his knee/leg on 2023 with Yang Cox. Most recent knee imaging was completed on 11/11/2024 (XR KNEE GENERAL 4V AP BOTH/PA BOTH/LAT/MERC LEFT) . Attached is imaging for the order. Diagnostic tests reviewed for today's visit: Left knee X-Ray: Severe tri-compartmental degeneration SIGNATURE: Kamila Pinedo PA-C PATIENT NAME: Aneesh Canales DATE: November 11, 2024 TIME: 1:43 PM Kamila Pinedo PA-C 11/11/2024 1:56 PM Signed Instructions for Blood Management Decreasing the need for blood transfusions after surgery can help your body heal faster and help your body fight infection better. Blood Management will check your blood and iron levels to see if you would benefit from having treatment to help increase your blood counts before your surgery. What do you need to do? 1. Go and have your labs (CBC, Ferritin, Iron Studies) drawn today or within the next three days at the nearest [facility] lab. If you would like, you [...] us: If you are having surgery at [facility] or If you are having surgery at [place], [place], [facility] , [place], [place], [place], [facility], or [facility] Allergies As of Date: 11/11/2024 (Not on File) Date Reviewed: 11/11/2024 Reviewed by: Steven Ho MA - Fully Assessed Reason for Visit: Established Patient [175] Primary Visit Diagnosis:Post-traumatic osteoarthritis of left knee [M17.32] Other Visit Diagnosis:Anemia, unspecified type [D64.9] Order(s):PATIENT PLACED ON LEXIE TKA CARE PATH [0157735] Order #: [id number]: 1 ALBUMIN [SQALB] Order #: [id number] FUTURE COMPLETE BLOOD COUNT AND DIFFERENTIAL [SQCBCDIF] Order #: [id number] FUTURE IRON AND TIBC [SQIRON] Order #: [id number] FUTURE FERRITIN [SQFERR] Order #: [id number] FUTURE BLOOD MANAGEMENT REFERRAL [3716941] Order #: [id number]: 3 VITAMIN B12 [SQB12] Order #: [id number] FUTURE FOLATE, SERUM [SQSERFOL] Order #: [id number] FUTURE RETICULOCYTE COUNT [SQRETIC] Order #: [id number] FUTURE CONSULT TO [facility] [6105832] Order #: [id number]: 1 TOTAL JOINT REPLACEMENT PRE-SURGERY EDUCATION CLASS [3607858] Order #: [id number]: 1 [place] [2330339] Order #: [id number] CT KNEE WO IVCON LEFT [3146009] Order #: [id number] FUTURE Prescriptions as of 11/24/2024 - hydroCHLOROthiazide 25 mg tablet 1 tablet in the morning Orally Once a day Problem List As Of Date: 11/11/2024 (None) Other instructions from your clinician: Instructions for Blood Management Decreasing the need for blood transfusions after surgery can help your body heal faster and help your body fight infection better. Blood Management will check your blood and iron levels to see if you would benefit from having treatment to help increase your blood counts before your surgery. What do you need to do? 1. Go and have your labs (CBC, Ferritin, Iron Studies) drawn today or within the next three days at the nearest [facility] lab. If you would like, you [...] us: If you are having surgery at [facility] or If you are having surgery at [place], [place], [facility] , [place], [place], [place], [facility], or [facility] Encounter Status:Closed by KAMILA PINEDO on 11/11/24 XR KNEE 4V AP/PA BOTH+LAT/MACY LT Observed: 11/11/2024 1:01 PM Status: F Source: [facility] * * *Final Report* * * DATE [...] FINDINGS: Significant medial joint compartment narrowing with octb-ar-ebqa appearance and advanced lateral joint compartment narrowing. Tricompartment spur formation. No acute fracture or dislocation. Moderate joint effusion with joint bodies. IMPRESSION: Advanced osteoarthrosis with joint effusion, not significantly changed Instructional Design Specialist: PSCMichelle Transcribe Date/Time: Nov 16 2024 7:06A Dictated by : CHELSEA BAEZ MD This examination was interpreted and the report reviewed and electronically signed by: CHELSEA BAEZ MD on Nov 16 2024 7:07AM EST [id number] ALLERGIES DATE TYPE / CODE NAME / CODE REACTION SEVERITY SOURCE Miscellaneous Allergy/301395427(SNOMED CT) No Known Allergies [facility] Miscellaneous Allergy/867685028(SNOMED CT) No Known Medication Allergies [facility] ENCOUNTERS ADMIT/DISCHARGE ACCOUNT NUMBER ADMITTING ENCOUNTER CLASS LOCATION SOURCE 11/11/2024/ [id number] [facility] HospitalBuild ing:LKLB [facility] 11/11/2024/ [id number] [facility] HospitalBuild ing:ORTHLD [facility] 11/11/[id number] [facility] HospitalBuild ing:RGLK [facility] 12/02/2023 [id number] [place] [facility] PAYERS ENCOUNTER GUARANTOR PAYER SUBSCRIBER SOURCE 11/11/2024 Primary Insurance:MEDICARE A AND BPolicy Number: [id number] Date:5534-91-54Xtxa Name:Sarthak RIVERA: [id number] [place] [address] [facility] 11/11/2024 Secondary Insurance:[employer] [place] MEDICARE SUPPLEMENTPolicy Number: [id number] Date:0970-83-74Rgzf Name:Luly RIVERA: [id number] [place] [address] [facility] 11/11/2024 Primary Insurance:MEDICARE A AND BPolicy Number: [id number] Date:1386-37-80Nrdw Name:Sarthak RIVERA: [id number] [place] [address] [facility] 11/11/2024 Secondary Insurance:[employer] [place] MEDICARE SUPPLEMENTPolicy Number: [id number] Date:3967-62-78Iedu Name:Luly RIVERA: [id number] [place] [address] [facility] 11/11/2024 Primary Insurance:MEDICARE A AND BPolicy Number: [id number] Date:5587-32-62Wnvu Name:Sarthak RIVERA: [id number] [place] [address] [facility] 11/11/2024 Secondary Insurance:[employer] [place] MEDICARE SUPPLEMENTPolicy Number: [id number] Date:5173-76-83Impt Name:Luly RIVERA: [id number] [place] [address] [facility] 12/02/2023 ANEESH RIVERA: [address] DRTel: () Primary Insurance:MEDICAREPolic y Number: [id number] Date:3233-84-86[address], [place] [address]LT: ANEESH RAI [facility] 12/02/2023 Secondary Insurance:MUTUAL OF [facility] Number: [id number] Date:2684-04-11NWDKQU OF [place] [id number]: ANEESH RAI [facility]
--- OUTSIDE RECORDS SUMMARY | 2024-11-15 05:45 | XMS_ITS ---
Author Organization [facility] [place] Address [address] [place] [address] Care Team Providers Care Planning Advisor Name Role Phone Martha Miguelito Primary Care Provider REASON FOR VISIT wants knee injection Encounters Encounter Location Date Provider Diagnosis [facility] [address] [facility] [place] [address] 11/15/2024 Miguelito Thomas Plan Of Treatment No Information Progress Notes * Terry CANALES PDOB: [birth year] (74 yo M)Acc No.[id number]:11/15/2024 Patient: Terry SMITH :1950 A ge:74 Y S ex:Male Address:[address], [place], [address] * true * Date: Generated for Printi ng/Fakerrig/eTransmitting on: 0 11/24/2024 11:50 AM EDT
--- OUTSIDE RECORDS SUMMARY | 2024-11-24 07:00 | XMS_ITS ---
Author Organization [facility] in [place] Address [address] [place] [address] Care Team Providers Care Check Weigher Name Role Phone Miguelito Thomas Primary Care Provider Allergies Allergen (clinical drug ingredient) Drug/Non Drug Allergy documented on EMR Reaction Allergy Type Onset Date Status angiotensin-converti ng enzyme inhibitor (FN) LUCITA Inhibitors unknown- didn't know allergic Drug Allergy Active REASON FOR VISIT Allergy meds called in in the past- wheezing at night keeping him away, left knee injection- just had one 10/24/24, finished memory pills last week- refill? increase dose?, SOB when goes up stairs- nochest pain, just fagan and puffing with exertion, water pill refill Medications Medication SIG (Take, Route, Frequency, Duration) Notes Start Date End Date Status Atorvastatin Calcium 20 mg TAKE ONE TABL ET BY MOUTH ONCE DAILY for 90 Active Memantine HCl ER 28 MG 1 capsule Orally Once a day for 30 days 10/14/2024 Active Metoprolol Tartrate 50 MG 1 tablet with food Orally Twice a day for 30 days Active Sildenafil Citrate 100 mg TAKE ONE TABLE T 30 MIN BEFORE INTERCOURSE for 10 PRN Active hydroCHLOROthiazide 25 MG 1 tablet in e morning Orally Once a day for 30 days Active Social History Tobacco Use: Social History Observation Description Date Details (start date - stop date) Former Smoker NA - NA Tobacco Use/Smoking Question Answer Notes Patient is a former smoker Vital Signs Blood pressure systolic 180 mm Hg 11/25/19 25 Blood pressure diastolic 110 mm Hg 05/22/2 025 Height 70 in 11/24/2024 Weight 252.4 lbs 11/24/2024 BMI 36.21 kg/m2 11/24/2024 Encounters Encounter Location Date Provider Diagnosis [facility] [address] [place] [address] 11/24/2024 Miguelito Thomas Essential hypertensi on I10 ; Knee pain M25.569 and Memory loss R41.3 Assessments Encounter Date Diagnosis (ICD Code) Assessment Notes Treatment Notes Treatment Clinical Notes Section Notes 11/24/2024 Essential hypertension (ICD-10 - I10) 11/24/2024 Knee pain (ICD-10 - M25.569) 11/24/2024 Memory loss (ICD-10 - R41.3) Plan Of Treatment Medication Medication Name Sig Start Date Stop Date Notes Memantine HCl ER 28 MG 1 capsule Orally Once a day for 30 days 10/14/2024 Metoprolol Tartrate 50 MG 1 tablet with food Orally Twice a day for 30 days hydroCHLOROthiazide 25 MG 1 tablet in morning Orally Once a day for 30 days Pending Test Test Name Order Date High Sensitivity Troponin 11/24/2024 BNP 11/24/2024 PROF 14(COMP METB) 11/24/2024 Progress Notes * Terry CANALES PDOB: [birth year] (74 yo M)Acc No.[id number]:11/24/2024 UNLOCKED PROGRESS NOTE Progress Note Patient: Terry SMITH Provider: Alcon Thomas ([facility])MD :1950 A ge:74 Y S ex:Male Date:11/24/2024 Address:[facility] [address], [id number] Check In:11:01 AM ESTCheck O ut:11:39 AM EST Subjective: * Chief Complaints: * 1 . Allergy meds called in in the past- wheezing at night keeping him away. 2. Left knee injection- just had one 10/24/24. 3. Finished memory pills last week- refill? increase dose?. 4. SOB when goes up stairs- no chest pain, just fagan and puffing with exertion. 5. Water pill refill. * ROS: E ENT: hearing changes d enies. v isual changes d enies.?non-healing mouth sores d enies. s wollen glands or neck lumps d enies. h oarseness d enies. s ore throat d enies. d ifficulty swallowing d enies. n ose bleeds d enies. n malika congestion d enies. e ar ache d enies. e ar discharge?denies. r inging in ears d enies. l ight sensitivity d enies. e ye pain d enies. b lurring d enies. e ye irritation d enies. d ouble vision d enies.?vision loss d enies. G eneral/Constitutional: Sweats: D enies. F atigue d enies. S leep problems d enies. A norexia d enies. M alaise d enies. W eight loss d enies.?Fatigue or Weakness d enies. F ever or Chills d enies. C ardiovascular: Shortness of Breath w/lying flat d enies. L ightheadedness/dizziness d enies. C hest tightness/ heavy pressure d enies. S welling of legs, ankles, or feet d enies. W aking up with shortness of breath d enies. C hest pain denies. P alpitations d enies. W eight gain d enies. R espiratory: Chronic or frequent cough d enies. C oughing up blood?denies. D ifficulty breathing d enies. P roductive cough d enies. S noring?denies. S hortness of breath that awakens from sleep (PND) d enies. C hest pain d enies. S putum production d enies. W heezing d enies. M usculoskeletal: Joint pain d enies. J oint Fluid d enies. B ack pain d enies. K nee pain d enies. N gayle pain d enies. J oint Stiffness d enies. M uscle cramps d enies. W eakness of muscles d enies. A rthritis d enies. M uscle aches d enies. P ain in shoulder(s) d enies. S wollen joints d enies. * Medical History: O verweight, Tinea cruris, Acute bronchitis, Paresthesias/numbness, Herpes zoster, Ankle edema, Conductive hearing loss, bilateral, Spontaneous rupture of other tendons, right upper arm, Allergic rhinitis, seasonal, Joint effusion, Knee pain, Essential hypertension, Hyperlipidemia, mild, Degenerative arthritis of knee, bilateral, Arthralgia, Myalgia, Polymyalgia rheumatica, Benign hypertrophy of prostate. * Surgical History: L eft Knee Meniscus/Cartlidge repair 1965. * Hospitalization/Major Diagno stic Procedure: D enies Past Hospitalization. * Family History: F ather: , diagnosed with Unspecified essential hypertension. M other: .?Brother(s): alive. S ister(s): alive. 1 brother(s) , 1 sister(s) . . * Social History: T obacco Use: T obacco Use/Smoking P atient is a f ormer smoker * Medications: T aking Atorvastatin Calcium 20 mg Tablet TAKE ONE TABLET BY MOUTH ONCE DAILY , Taking hydroCHLOROthiazide 25 MG Tablet 1 tablet in the morning Orally Once a day , Taking Memantine HCl ER 21 MG Capsule Extended Release 24 Hour 1 capsule Orally Once a day , Taking Metoprolol Tartrate 25 MG Tablet 1 tablet with food Orally Twice a day , Taking Sildenafil Citrate 100 mg Tablet TAKE ONE TABLET 30 MIN BEFORE INTERCOURSE , Notes to Pharmacist: PRN, Discontinued Namenda XR 7 MG Capsule Extended Release 24 Hour 1 capsule Orally Once a day , Medication List reviewed and reconciled with the patient * Allergies: A CE Inhibitors: unknown- didn't know allergic - Criticality High. Objective: * Vitals: W t:252.4lbs, Ht: 70 in, BP:180/110mm Hg, BMI:36.21Index, Ht-cm: 177.8 cm, Wt-k.49 kg. * Examination: P hysical Exam: GENERAL: w ell developed, well nourished, in no acute distress. HEAD: n ormocephalic/atraumatic. EYES: p upils equal, round and reactive to light, conjunctivae and sclerae normal. EARS: n o deformity or lesion of external ear, canals and TM appear normal bilaterally, TM's intact, not inflamed with normal light reflex, hearing grossly normal to conversational speech. NOSE: n o deformity, discharge, inflammation, or lesions.? MOUTH: m ucous membranes moist, normal oropharynx and posterior pharynx without lesions or exudates, tongue normal, dentition normal. NECK: n gayle supple, no masses or palpable cervical nodes, trachea midline, thyroid without nodules, masses, tenderness, or enlargement. CHEST: n o chest wall deformity, no chest wall tenderness.? LUNGS: n ormal respiratory effort and clear to auscultation, no wheezes, rales, or rhonchi, good air exchange. CARDIO: r egular rate and rhythm, normal S1 and S2, nor murmur, rub, or gallop. PULSES: n ormal capillary refill. ABDOMEN: s oft, non-distended, non-tender, no masses. MUSCULOSKELETAL: n o deformity or scoliosis noted, normal range of motion, joints normal, no erythema, edema, effusion, or ecchymosis. EXTREMITY: n o clubbing, cyanosis, edema, or deformity with normal ROM in both upper and lower bilateral extremities. NEUROLOGIC: g rossly normal. SKIN: n o rashes, ulcerations, or suspicious lesions. LYMPH NODES: n o cervical adenopathy, nodes normal. MENTAL STATUS: a lert and oriented x3, normal mood and affect. Assessment: * Assessment: 1. E ssential hypertension - I10 (Primary) 2 . K nee pain - M25.569 ? 3 . M ruthie loss - R41.3 Plan: * Treatment: * * Electronic signature of Miguelito Thomas MD, [id number] on 11/24/2024 at 11:50 AM EDT Sign off status: Pending Visit Status: Luly BARBER (Check Out) * Provider: Alcon Thomas ([facility])MD Date: 0 11/24/2024 Generated for Printi ng/Faxing/eTransmitting on: 0 11/24/2024 11:50 AM EDT History and Physical Notes * Examination Category Sub-Category Detail Notes Category Not es Physical Exam GENERAL: well developed, well nourished, in no acute distress HEAD: normocephalic/atraum atic EYES: pupils equal, round and reactive to light, conjunctivae and sclerae normal EARS: no deformity or lesi on of external ear, canals and TM appear normal bilaterally, TM's intact, not inflamed with normal light reflex, hearing grossly normal to conversational speech NOSE: no deformity, discha rge, inflammation, or lesions MOUTH: mucous membranes brenda st, normal oropharynx and posterior pharynx without lesions or exudates, tongue normal, dentition normal NECK: neck supple, no mass es or palpable cervical nodes, trachea midline, thyroid without nodules, masses, tenderness, or enlargement CHEST: no chest wall deform ity, no chest wall tenderness LUNGS: normal respiratory e ffort and clear to auscultation, no wheezes, rales, or rhonchi, good air exchange CARDIO: regular rate and rhy thm, normal S1 and S2, nor murmur, rub, or gallop PULSES: normal capillary ref ill ABDOMEN: soft, non-distended, non-tender, no masses RECTAL: MUSCULOSKELETAL: no deformity or scol iosis noted, normal range of motion, joints normal, no erythema, edema, effusion, or ecchymosis EXTREMITY: no clubbing, cyanosi s, edema, or deformity with normal ROM in both upper and lower bilateral extremities NEUROLOGIC: grossly normal SKIN: no rashes, ulceratio ns, or suspicious lesions LYMPH NODES: no cervical adenopat hy, nodes normal MENTAL STATUS: alert and oriented x 3, normal mood and affect
--- OUTSIDE RECORDS SUMMARY | 2024-11-24 11:50 | XMS_ITS | Encounter Summary ---
Author Organization [facility] Address [facility] [place] [address] Care Team Providers Care Hearing Therapist Name Role Phone Unavailable Primary Care Provider Unavailabl e Source Comments In the event this information is protected by the Federal Confidentiality of Alcohol and Drug AbusePatient Records regulations: The Federal rules restrict any use of the information to criminally investigate or prosecute any alcohol or drug abuse patient.[facility] Reason for Visit * Reason Comments Schedule Surgery Encounter Details Date Type Department Care Team (Late st Contact Info) Description 11/24/2024 Telephone Orthopedics [address] [place] [address] Kamila Batres PA-C [address] [place] [address] Schedule Surgery Social History Tobacco Use Types Packs/Day Years [...] is lower risk 4 2023 Data from: https://www.neighborhoodatlas.medicine.[facility].edu/. Last address used for calculation [address] Sex and Gender Information Value Date Recorded Sex Assigned at Not on file Legal Sex Male 9:56 AM EST Gender Identity Not on file Sexual Orientation Not on file documented as of this encounter Miscellaneous Notes * Telephone Encounter - Connie Galloway - 11/24/2024 9:26 AM EDT Patient calling in asking when is his knee surgery scheduled for, he thought it is for February? Please call patient back at [phone] Thank you Connie LÓPEZ November 24, 2024 9:26 AM documented in this encounter Plan of Treatment Not on file documented as of this encounter Visit Diagnoses Not on filedocumented in this encounter
--- OUTSIDE RECORDS SUMMARY | 2024-11-24 11:50 | XMS_ITS | Encounter Summary ---
Author Organization [facility] Address [address] [place] [address] Care Team Providers Care Waterproofing Machine Operator Name Role Phone Unavailable Primary Care Provider Unavailabl e Source Comments In the event this information is protected by the Federal Confidentiality of Alcohol and Drug AbusePatient Records regulations: The Federal rules restrict any use of the information to criminally investigate or prosecute any alcohol or drug abuse patient.[facility] Encounter Details Date Type Department Care Team (Late st Contact Info) Description 11/17/2024 Patient Update Internal Medicine [facility] [address] [place], [place] [id number] Deloris Pathak RN Social History Tobacco Use Types Packs/Day Years [...] is lower risk 4 2023 Data from: https://www.neighborhoodatlas.medicine.[facility].edu/. Last address used for calculation [address] Sex and Gender Information Value Date Recorded Sex Assigned at Not on file Legal Sex Male 9:56 AM EST Gender Identity Not on file Sexual Orientation Not on file documented as of this encounter Progress Notes * Deloris Pathak, RN - 11/17/2024 10:16 AM EDT Patient referred to Blood Management for pre-surgical optimization. Hgb 14.4 which exceeds Blood Management guidelines for intervention. documented in this encounter Plan of Treatment Not on file documented as of this encounter Visit Diagnoses Not on filedocumented in this encounter
--- OUTSIDE RECORDS SUMMARY | 2024-11-24 11:50 | XMS_ITS | Encounter Summary ---
Author Organization [facility] Address [address] [place] [address] Care Team Providers Care Congressional Aide Name Role Phone Unavailable Primary Care Provider Unavailabl e Source Comments In the event this information is protected by the Federal Confidentiality of Alcohol and Drug AbusePatient Records regulations: The Federal rules restrict any use of the information to criminally investigate or prosecute any alcohol or drug abuse patient.[facility] Encounter Details Date Type Department Care Team (Latest Contact Info) Description 11/10/2024 Travel Social History Tobacco Use Types Packs/Day Years [...] is lower risk 4 2023 Data from: https://www.neighborhoodatlas.medicine.[facility].edu/. Last address used for calculation [address] Sex and Gender Information Value Date Recorded Sex Assigned at Not on file Legal Sex Male 9:56 AM EST Gender Identity Not on file Sexual Orientation Not on file documented as of this encounter Plan of Treatment Not on file documented as of this encounter Visit Diagnoses Not on filedocumented in this encounter
--- OUTSIDE RECORDS SUMMARY | 2024-11-24 11:51 | XMS_ITS | Encounter Summary ---
Author Organization [facility] Address [address] [place] [address] Care Team Providers Care Explosive Operator Bomb Name Role Phone Unavailable Primary Care Provider Unavailabl e Source Comments In the event this information is protected by the Federal Confidentiality of Alcohol and Drug AbusePatient Records regulations: The Federal rules restrict any use of the information to criminally investigate or prosecute any alcohol or drug abuse patient.[facility] Encounter Details Date Type Department Care Team (Late st Contact Info) Description 11/15/2024 Patient Update Orthopaedics [address] [id number] Yang Cox MD [address] [place] [address] Social History Tobacco Use Types Packs/Day Years [...] is lower risk 4 2023 Data from: https://www.neighborhoodatlas.[facility]/. Last address used for calculation [address] Sex and Gender Information Value Date Recorded Sex Assigned at Not on file Legal Sex Male 9:56 AM EST Gender Identity Not on file Sexual Orientation Not on file documented as of this encounter Plan of Treatment Not on file documented as of this encounter Visit Diagnoses Diagnosis Post-traumatic osteoarthritis of left knee- Primary Secondary localized osteoarthrosis, lower leg documented in this encounter
--- OUTSIDE RECORDS SUMMARY | 2024-11-24 11:51 | XMS_ITS | Patient Health Record ---
Author Organization The [facility] [place] Address [address] [place] [address] Care Team Providers Care Table Games Supervisor Name Role Phone Miguelito Ward Primary Care Provider OPAL WARD Unavailable [phone] Sara Low Unavailable [phone] Allergies Allergen (clinical drug ingredient) Drug/Non Drug Allergy documented on EMR Reaction Allergy Type Onset Date Status angiotensin-converti ng enzyme inhibitor (FN) LUCITA Inhibitors unknown- didn't know allergic Drug Allergy Active Results Component Value Reference Range Notes COVID-19, Flu A+B IH Reviewed date:09/08/2024 08:28:39 PM Interpretation: Performing Lab: Notes/Report: COVID - FLU A - FLU B - Control + CBC AUTO DIFF Reviewed date:10/02/2024 03:39:38 PM Interpretation: Performing Lab: Notes/Report: [facility] , White Blood Count 6.7 4.0-11.0 10 3/uL Red Blood Count 4.61 4.70-6.10 10 6/uL Hemoglobin 14.2 14.0-18.0 g/dL Hematocrit 41.1 42.0-54.0 % Mean Corpuscular Volume 89.2 80.0-94.0 fL Mean Corpuscular Hemoglobin 30.8 25.9-34.0 pg Mean Corpuscular HGB Conc 34.5 29.9-35.2 g/dL Red Cell Distribution Width 12.9 11.0-15.0 % Platelet Count 216 150-450 10 3/uL Mean Platelet Volume 10.0 9.5-13.5 fL Neutrophils Percent Auto 70.8 43.0-75.0 % Lymphocytes Percent Auto 19.1 20.5-60.0 % Monocytes Percent Auto 7.5 1.7-12.0 % Eosinophils Percent Auto 1.9 0.9-7.0 % Basophils Percent Auto 0.4 0.2-2.0 % Immature Granulocytes Pct Auto 0.3 0.0-0.5 % Neutrophils Absolute Auto 4.8 1.4-6.5 10 3/uL Lymphocytes Absolute Auto 1.3 1.2-3.8 10 3/uL Monocytes Absolute Auto 0.5 0.3-0.8 10 3/uL Eosinophils Absolute Auto 0.1 0.0-0.7 10 3/uL Basophils Absolute Auto 0.0 0.0-0.1 10 3/uL Immature Granulocytes Abs Auto 0.02 0.00-0.03 10 3/uL Performing Lab: see note ML - [facility] LB CRP Reviewed date:10/02/2024 03:39:38 PM Interpretation: Performing Lab: Notes/Report: [facility] , C Reactive Protein <0.50 <=0.50 mg/dL Performing Lab: see note ML - [facility] LB PROF CHEM 8 (BAS METB) Reviewed date:10/02/2024 03:39:38 PM Interpretation: Performing Lab: Notes/Report: [facility] , Sodium 142 136-145 mmol/L Potassium 3.6 3.5-5.1 mmol/L Chloride 104 98-107 mmol/L Carbon Dioxide 27.7 21.0-32.0 mmol/L Anion Gap 13.9 Glucose 168 74-106 mg/dL Blood Urea Nitrogen 21.0 7.0-18.0 mg/dL Creatinine 1.17 0.70-1.30 mg/dL Estimated GFR ( Riya >60 >=60 mL/min/1.73m 2 Estimated GFR (Non- Mariann >60 >=60 mL/min/1.73m 2 BUN Creatinine Ratio 17.9 Calcium 8.6 8.5-10.1 mg/dL Performing Lab: see note ML - [facility] LB MR head/brain wo con Reviewed date:09/08/2024 08:28:39 PM Interpretation: Performing Lab: Notes/Report: Source Facility: [place] [address] [address] Magnetic Resonance Report Signed Patient: ANEESH CANALES MR#: [id number] : 1950 Acct:[id number] Age/Sex: 74 / M ADM Date: 09/07/24 Loc: MRI Attending Dr: Opal Ward M.D. Ordering Physician: Opal Ward M.D. Date of Service: 09/07/24 Procedure(s): MR head/brain wo con Accession Number(s): [id number] cc: Opal Ward M.D. The [place] [address] Patient Name: ANEESH CANALES MRN: [id number] date: 1950 Sex: M Assigned Patient Location: MRI Current Patient Location: MRI Accession/Order Number: [id number] Exam Date: 09/07/2024 23:08 Report Date: 09/07/2024 23:10 At the request of: OPAL WARD MD Procedure: MR head/brain wo con EXAMINATION: MRI OF THE BRAIN WITHOUT CONTRAST CLINICAL HISTORY: Memory Loss R41.3 COMPARISON: None TECHNIQUE: Multiecho, multiplanar imaging of the brain was performed without enhancement. FINDINGS: No evidence of restriction diffusion is an diffusion-weighted imaging. No evidence of blood products are seen on T2 Star imaging. Cortical atrophy with moderate chronic microvascular ischemic changes. This appears to extend into the midbrain and cerebellum. Intraorbital contents appear grossly unremarkable. No significant paranasal sinus disease. Midline structures appear grossly unremarkable. MR/MR head/brain wo con IMPRESSION: NO ACUTE PROCESS. CORTICAL ATROPHY WITH MODERATE CHRONIC MICROVASCULAR ISCHEMIC CHANGES. Impression dictated by: Alana Capone Jr.OKrishna09/07/2024 11:10 PM Dictation Location: [place] [address] Electronically authenticated by: [id number] Y Date: 09/07/2024 23:10 Dictated By: Ritesh Barcenas M.D. 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 Ordering Physician: Opal Ward M.D. Date of Service: 09/07/24 Procedure(s): MR head/brain wo con Accession Number(s): [id number] cc: Opal Ward M.D. [place] [address] Patient Name: ANEESH CANALES MRN: [id number] date: 1950 Sex: M Assigned Patient Location: MRI Current Patient Location: MRI Accession/Order Numb er: [id number] Exam Date: 09/07/2024 23:08 Report Date: 09/07/2024 23:10 At the request of: OPAL WARD MD Procedure: MR head/b rain wo con EXAMINATION: MRI OF THE BRAIN WITHOUT CONTRAST CLINICAL HISTORY: Me cary Loss R41.3 COMPARISON: None TECHNIQUE: Multiecho , multiplanar imaging of the brain was performed without enhancement. FINDINGS: No evidence of restriction diffusion is an diffusion-weighted imaging. No evidence of blood products are seen on T2 Star imaging. Cortical atrophy with moderate chronic microvascular ischemic changes. This appears to extend into the midbrain and cerebellum. Intraorbital contents appear grossly unremarkable. No significant paranasal sinus disease. Midline structures appear grossly unremarkable. M R/MR head/brain wo con IMPRESSION: NO ACUTE PROCESS. CORTICAL ATROPHY WIT H MODERATE CHRONIC MICROVASCULAR ISCHEMIC CHANGES. Impression dictated by: Ritesh Barcenas Jr., D.O.09/07/2024 11:10 PM Dictation Location: [place] [address] Electronically authenticated by: [id number] Y Date: 09/07/2024 23:10 Dictated By: Ritesh Barcenas M.D. Signed By: 09/07/242312 DD/ 09 TD/TT: Mailhouse Operator: Reason For Referral No Information Medications Medication SIG (Take, Route, Frequency, Duration) Notes Start Date End Date Status hydroCHLOROthiazide 25 MG 1 tablet in th e morning Orally Once a day for 30 days Active Atorvastatin Calcium 20 mg TAKE ONE TABL ET BY MOUTH ONCE DAILY for 90 Active Memantine HCl ER 28 MG 1 capsule Orally Once a day for 30 days 10/14/2024 Active Metoprolol Tartrate 50 MG 1 tablet with food Orally Twice a day for 30 days Active Sildenafil Citrate 100 mg TAKE ONE TABLE T 30 MIN BEFORE INTERCOURSE for 10 PRN Active Immunizations Vaccine Route Administration Date Status Comme nts Flu, Fluad (89595) 65 yrs + Trivalent (2033-2940) Unknown 04/30/2020 Administered Flu, Fluzone (66420) 6 mos+, single-dose syringe/vial (7200-1389) Unknown 03/24/2018 Administered Pneumococcal (Prevnar 13) Unknown 05/14/2017 Administer ed SARS-COV-2 (COVID 19 Pfizer 30mcg/0.3mL) Unknown 08/07/2020 Administered SARS-COV-2 (COVID 19 Pfizer 30mcg/0.3mL) Unknown 08/28/2020 Administered SARS-COV-2 (COVID 19 Pfizer 30mcg/0.3mL) Unknown 05/26/2021 Administered Social History Tobacco Use: Social History Observation Description Date Details (start date - stop date) Former Smoker NA - NA Tobacco Use/Smoking Question Answer Notes Patient is a former smoker Alcohol Screen (Audit-C) Question Answer Notes Did you have a drink contain ing alcohol in the past year? Yes How often did you have 6 or more drinks on one occasion in the past year? Never (0 point) How many drinks did you have on a typical day when you were drinking in the past year? 1 or 2 drinks (0 point) How often did you have a dri nk containing alcohol in the past year? Monthly (2 points) Points 2 Interpretation Negative AUDIT-C (Standard) Question Answer Notes Did you have a drink containing alcohol in the p ast year? No Points 0 Interpretation Negative Problems Problem Type SNOMED Code ICD Code Onset Dates Problem Status W/U Status Risk Notes Problem Tinea cruris (702137656) Tinea cruris (B35.6) Active confirmed Problem Overweight (434680005) Overweight (E66.3) Active confirmed Problem Conductive hearing loss, bilateral (488638477) Conductive hearing loss, bilateral (H90.0) Active confirmed Problem Polymyalgia rheumatica (45808230) Polymyalgia rheumatica (M35.3) Active confirmed Problem Rupture of tendon of biceps, long head (02855037) Spontaneous rupture of other tendons, right upper arm (M66.821) Active confirmed Problem Jaw pain (949090523) Jaw pain (R68.84) Active confirmed Problem Essential hypertension (62206964) Essential hypertension (I10) Active confirmed Problem Knee pain (9578077867) Knee pain (M25.569) Active confirmed Problem Dementia (96529416) Dementia (F03.90) Active confirmed Problem Left knee pain (348915191234889) Left knee pain (M25.562) Active confirmed Problem Arthralgia (67190805) Arthralgia (M25.50) Active confirmed Problem Otitis media (13042924) Otitis media (H66.90) Active confirmed Problem Acute bronchitis (36593441) Acute bronchitis (J20.9) Active confirmed Problem Memory loss (30758183) Memory loss (R41.3) Active confirmed Problem Bilateral arthritis of knees (5360805327131240) Degenerative arthritis of knee, bilateral (M17.0) Active confirmed Problem Herpes zoster (0213555) Herpes zoster (B02.9) Active confirmed Problem Seasonal allergic rhinitis (743397990) Allergic rhinitis, seasonal (J30.2) Active confirmed Problem Skin sensation disturbance (48575638) Paresthesias/num bness (R20.9) Active confirmed Problem Ankle edema (59833359) Ankle edema (R60.0) Active confirmed Problem Hyperlipidemia (51717061) Hyperlipidemia, mild (E78.5) Active confirmed Problem Benign prostatic hypertrophy without outflow obstruction (882393924) Benign hypertrophy of prostate (N40.0) Active confirmed Problem Joint effusion (394247370) Joint effusion (M25.40) Active confirmed Problem Myalgia (85683478) Myalgia (M79.10) Active conf irmed Vital Signs Temperature 97.2 degrees Fahrenheit 05/05/2024 Blood pressure diastolic 110 mm Hg 11/24/2024 Height 70 in 11/24/2024 Blood pressure systolic 180 mm Hg 11/24/2024 Weight 252.4 lbs 11/24/2024 BMI 36.21 kg/m2 11/24/2024 Encounters Encounter Location Date Provider Diagnosis [facility] [address] [place] [address] 10/14/2024 Miguelito Hoy Left knee pain M25.[address] [facility] [address] [place] [address] 10/31/[address] [facility] [address] [place] [address] 11/15/[address] [facility] [address] [place] [address] 03/02/[address] [facility] [address] [place] [address] 06/21/[address] [facility] [address] [place] [address] 08/29/[address] [facility] [address] [place] [address] 08/30/[address] [facility] [address] [place] [address] 09/08/[address] [facility] [address] [place] [address] 10/02/2024 Miguelito Hoy Left knee pain M25.[address] [facility] [address] [place] [address] 12/07/[address] [facility] [address] [place] [address] 11/24/2024 Miguelito Hoy Essential hypertensi on I10 ; Knee pain M25.569 and Memory loss R41.3 [facility] [address] [place] [address] 06/10/2024 Miguelito Hoy Knee pain M25.569 an d Primary localized osteoarthritis of left knee M17.12 [facility] [address] [place] [address] 09/01/2024 Miguelito Hoy Left knee pain M25.5 62 and Memory loss R41.3 [facility] [address] [place] [address] 10/24/2024 Miguelito Hoy Left knee pain M25.5 62 ; Dementia F03.90 and Primary localized osteoarthritis of left knee M17.12 [facility] [address] [place] [address] 03/02/2024 Miguelito Hoy Knee pain M25.569 an d Degenerative arthritis of knee, bilateral M17.0 [facility] [address] [place] [address] 05/05/2024 Sara Maranda Cough R05.9 [facility] [address] [place] [address] 10/06/2024 Miguelito Hoy Jaw pain R68.84 Assessments Encounter Date Diagnosis (ICD Code) Assessment Notes Treatment Notes Treatment Clinical Notes Section Notes 03/02/2024 Knee pain (ICD-10 - M25.569) Standard steroid injection 03/02/2024 Degenerative arthritis of knee, bilateral (ICD-10 - M17.0) 05/05/2024 Cough (ICD-10 - R05.9) covid and flu neg is improving try cough supp fu as needed 06/10/2024 Knee pain (ICD-10 - M25.569) 06/10/2024 Primary localized osteoarthritis of left knee (ICD-10 - M17.12) 09/01/2024 Left knee pain (ICD-10 - M25.562) 09/01/2024 Memory loss (ICD-10 - R41.3) 10/06/2024 Jaw pain (ICD-10 - R68.84) 10/24/2024 Left knee pain (ICD-10 - M25.562) 10/24/2024 Dementia (ICD-10 - F03.90) 10/02/2024 Left knee pain (ICD-10 - M25.562) 10/14/2024 Left knee pain (ICD-10 - M25.562) 11/24/2024 Essential hypertension (ICD-10 - I10) 11/24/2024 Knee pain (ICD-10 - M25.569) 11/24/2024 Memory loss (ICD-10 - R41.3) 10/24/2024 Primary localized osteoarthritis of left knee (ICD-10 - M17.12) Plan Of Treatment Pending Test Test Name Order Date CMP (COMPLETE METABOLIC PANEL) 4 HEMOGLOBIN A1C (GLYCO) 11/03/2023 INSULIN, TOTAL 11/03/2023 LIPID PANEL (CHOL/TRIG/HDL/LDL) 11/03/19 24 CBC WITH DIFF 11/03/2023 PSA, PROSTATE-SPECIFIC ANTIGEN 4 High Sensitivity Troponin 11/24/2024 BNP 11/24/2024 Covid-19 PCR (CVDTBH) 02/25/2023 PROF 14(COMP METB) 11/24/2024 MRI BRAIN WO CON 09/01/2024 THYROID PANEL (T4/TSH/FREE T3) 4 Insurance Providers Payer Name Payer Address Payer Phone Subscriber Number Group Number Insured Name Patient Relationship to Insured Coverage Start Date Coverage End Date [place] [address] [place] [address] [id number] Aneesh Canales Self - patient is the insured [address] [id number] Aneesh Canales Self - patient is the insured Medications Administered Medication Instructions Date of Administration Dosage Notes Kenalog-40 10/24/2022 80 mg Kenalog-40 03/05/2023 80 mg 80 mg - 1 cc lidocaine Kenalog-40 11/03/2023 80 mg w/ 1 cc lidoca ine Kenalog-40 03/02/2024 80 mg 80 weiht 1 cc lidocaine Lidocaine HCl 09/01/2024 1 mL Lidocaine HCl 10/24/2024 1 mL Triamcinolone 40 mg/ml 09/01/2024 80 mg Triamcinolone 40 mg/ml 10/24/2024 80 mg Medical (General) History Medical History History ICD Code Overweight E66.3 Tinea cruris B35.6 Acute bronchitis J20.9 Paresthesias/numbness R20.9 Herpes zoster B02.9 Ankle edema R60.0 Conductive hearing loss, bilateral H90.0 Spontaneous rupture of other tendons, ri ght upper arm M66.821 Allergic rhinitis, seasonal J30.2 Joint effusion M25.40 Knee pain M25.569 Essential hypertension I10 Hyperlipidemia, mild E78.5 Degenerative arthritis of knee, bilatera l M17.0 Arthralgia M25.50 Myalgia M79.10 Polymyalgia rheumatica M35.3 Benign hypertrophy of prostate N40.0 Surgical History Surgery Date(Month/Year) Left Knee Meniscus/Cartlidge repair 1966
--- OUTSIDE RECORDS SUMMARY | 2024-11-24 11:51 | XMS_ITS | Clinical Summary ---
Author Organization [facility] Address [address] [place], [place] [id number] Care Team Providers Care System Development Engineer Name Role Phone Unavailable Primary Care Provider Unavailabl e Medications hydroCHLOROthia zide 25 mg tablet 1 tablet in the morning Orally Once a day Active Active Problems No known active problems Encounters Date Type Department Care Team Description 11/24/2024 Telephone Orthopedics [address] [place] [phone] Kamila Batres PALalitaC Schedule Surgery 11/17/2024 Patient Update Internal Medicine Main [place] [id number] Deloris Pathak RN 11/15/2024 Patient Update Orthopaedics [address] [place] [address] Yang Cox MD 11/11/2024 1:40 PM EDT Office Visit Orthopedics [address] [place] [phone] Kamila Batres PA-C Post-traumatic osteoarthritis of left knee (Primary Dx); Anemia, unspecified type 11/11/2024 12:43 PM EDT - 11/11/2024 11:59 PM EDT Hospital Encounter Radiology [address] [place] [phone] Primary osteoarthritis of left knee [M17.12] Discharge Disposition: Home 11/10/2024 Travel from Last 3 Months Social History Tobacco Use Types Packs/Day Years Used Date Smoking Tobacco: Former Cigarettes Q uit: 07/1969 Passive Smoke Exposure: Past Smokeless Tobacco: Never Tobacco Cessation:Counseling Given: Not Answered Alcohol Use Standard Drinks/Week Comments Yes 7 (1 standard drink = 0.6 oz pur e alcohol) Area Deprivation Index Answer Date Pablo rded National Score (1-100), lower number is lower ri sk 61 2023 State Score (1-10), lower number is lower risk 4 2023 Data from: https://www.neighborhoodatlas.medicine.[facility]/. Last address used for calculation [address] [address] Sex and Gender Information Value Date Recorded Sex Assigned at Not on file Legal Sex Male 9:56 AM EST Gender Identity Not on file Sexual Orientation Not on file Last Filed Vital Signs Vital Sign Reading Time Taken Comments Blood Pressure - - Pulse - - Temperature - - Respiratory Rate - - Oxygen Saturation - - Inhaled Oxygen Concentration - - Weight 111 kg (244 lb 11.4 oz) 11/11/2024 1:33 P M EDT Height - - Body Mass Index - - Plan of Treatment Health Maintenance Due Date Last Done Comments Anxiety Screening 1966 Depression Screening 1966 Hepatitis C Screening 1966 DTaP,Tdap,Td Vaccine (1 - Tdap) 1967 Diabetes Screening 1993 Shingrix Vaccine (1 of 2) 1998 Pneumococcal Vaccine: 50+ (2 of 2 - PPSV23) 05/14/2018 05/14/2017 RSV Vaccine (1 - 1-dose 75+ series) 2023 Covid-19 Vaccine (5 - 2023-2 5 season) 2024 04/15/2022, 05/26/2021, 08/28/2020, Additional history exists Advance Directive Discussion 07/06/2024 Influenza Vaccine (Season Ended) 2025 03/29/2021, 04/30/2020, 03/24/2018 Procedures Procedure Name Priority Date/Time Associated Diagnosis Comments RETIC COUNT Routine 11/11/2024 2:17 PM EDT Post-traumatic osteoarthritis of left knee Anemia, unspecified type FOLATE SERUM Routine 11/11/2024 2:17 PM EDT Post-traumatic osteoarthritis of left knee Anemia, unspecified type VITAMIN B12 BLOOD Routine 11/11/2024 2:1 7 PM EDT Post-traumatic osteoarthritis of left knee Anemia, unspecified type FERRITIN BLD Routine 11/11/2024 2:17 PM EDT Post-traumatic osteoarthritis of left knee Anemia, unspecified type IRON + TIBC Routine 11/11/2024 2:17 PM EDT Post-traumatic osteoarthritis of left knee Anemia, unspecified type CBC + DIFF Routine 11/11/2024 2:17 PM EDT Post-traumatic osteoarthritis of left knee Anemia, unspecified type ALBUMIN BLD Routine 11/11/2024 2:17 PM EDT Post-traumatic osteoarthritis of left knee Anemia, unspecified type XR KNEE GENERAL 4V AP BOTH/PA BOTH/LAT/MERC LT Routine 11/11/2024 1:01 PM EDT Primary osteoarthritis of left knee from Last 3 Months Results * VITAMIN B12 (11/11/2024 2:17 PM EDT) Vitamin B12 364 232 - 1,245 pg/mL 11/12/2024 12:39 AM EDT [facility] Blood BLOOD SPECIMEN / Unknown Venipuncture / Unknown 11/11/2024 2:17 PM EDT 11/11/2024 2:17 PM EDT us Kamila Batres PA-C LABORATORY Final Result [facility] [address] [facility] Desk [address] [address], * RETICULOCYTE COUNT (11/11/2024 2:17 PM EDT) Retic % 1.4 0.4 - 2.0 % 11/11/2024 3:[address] [facility] Abs Retic 0.064 0.018 - 0.100 M/uL 11/11/2024 3:[address] [facility] Blood BLOOD SPECIMEN / Unknown Venipuncture / Unknown 11/11/2024 2:17 PM EDT 11/11/2024 2:17 PM EDT Kamila Batres PA-C LABORATORY Final Result [facility] [place] [place] [address] [place] [address], [place] * IRON AND TIBC (11/11/2024 2:17 PM EDT) Iron 116 41 - 186 ug/dL 11/12/2024 12:25 AM EDT [facility] TIBC 276 232 - 386 ug/dL 11/12/2024 12:25 AM EDT [facility] Transferrin Saturation 42.0 15.0 - 57.0 % 11/12/2024 12:25 AM EDT [facility] Blood BLOOD SPECIMEN / Unknown Venipuncture / Unknown 11/11/2024 2:17 PM EDT 11/11/2024 2:17 PM EDT Kamila Batres PA-C LABORATORY Final Result Performing Organization Address City/[facility]/ZIP Co de Phone Number [facility] [address] [address], [place] * FOLATE, SERUM (11/11/2024 2:17 PM EDT) Folate 8.8 >4.7 ng/mL 11/12/2024 12:39 AM EDT [facility] Blood BLOOD SPECIMEN / Unknown Venipuncture / Unknown 11/11/2024 2:17 PM EDT 11/11/2024 2:17 PM EDT Kamila Batres PA-C LABORATORY Final Result [facility] [address] [facility] Desk [place] [phone], * FERRITIN (11/11/2024 2:17 PM EDT) Ferritin 239.0 30.3 - 565.7 ng/mL 11/12/2024 12:39 AM EDT [facility] Blood BLOOD SPECIMEN / Unknown Venipuncture / Unknown 11/11/2024 2:17 PM EDT 11/11/2024 2:17 PM EDT Kamila Batres PA-C LABORATORY Final Result [facility] [address] [facility] [place] [address], * COMPLETE BLOOD COUNT AND DIFFERENTIAL (11/11/2024 2:17 PM EDT) WBC 6.54 3.70 - 11.00 k/uL 11/11/2024 3:18 PM EDT [facility] RBC 4.72 4.20 - 6.00 m/uL 11/11/2024 3:18 PM EDT [facility] Hemoglobin 14.4 13.0 - 17.0 g/dL 11/11/2024 3:18 PM EDT [facility] Hematocrit 43.0 39.0 - 51.0 % 11/11/2024 3:18 PM EDT [facility] MCV 91.1 80.0 - 100.0 fL 11/11/2024 3:18 PM EDT [facility] MCH 30.5 26.0 - 34.0 pg 11/11/2024 3:18 PM EDT [facility] MCHC 33.5 30.5 - 36.0 g/dL 11/11/2024 3:18 PM EDT [facility] RDW-CV 13.1 11.5 - 15.0 % 11/11/2024 3:18 PM EDT [facility] Platelet Count 188 150 - 400 k/uL 11/11/2024 3:18 PM EDT [facility] MPV 10.7 9.0 - 12.7 fL 11/11/2024 3:18 PM EDT [facility] Neutrophils % 71.6 % 11/11/2024 3:18 PM EDT [facility] Abs Neut 4.68 1.45 - 7.50 k/uL 11/11/2024 3:18 PM EDT [facility] Lymphocytes % 17.7 % 11/11/2024 3:18 PM EDT [facility] Abs Lymph 1.16 1.00 - 4.00 k/uL 11/11/2024 3:[address] [facility] Monocytes % 8.1 % 11/11/2024 3:18 PM EDT [facility] Abs [place] 0.53 <0.87 k/uL 11/11/2024 3:18 PM EDT [facility] Eosinophils % 1.8 % 11/11/2024 3:18 PM EDT [facility] Abs Eosin 0.12 <0.46 k/uL 11/11/2024 3:18 PM EDT [facility] Basophils % 0.3 % 11/11/2024 3:18 PM EDT [facility] Abs Baso <0.03 <0.11 k/uL 11/11/2024 3:18 PM EDT [facility] Immature Granulocytes % 0.5 % 11/11/2024 3:18 PM EDT [facility] Abs Immature Gran 0.03 <0.10 k/uL 025 3:18 PM EDT [facility] NRBC 0.0 /100 WBC 11/11/2024 3:18 PM EDT [facility] Absolute nRBC <0.01 <0.01 k/uL 11/11/2024 3:18 PM EDT [facility] Diff Type Auto 11/11/2024 3:18 PM EDT [facility] Blood BLOOD SPECIMEN / Unknown Venipuncture / Unknown 11/11/2024 2:17 PM EDT 11/11/2024 2:17 PM EDT us Kamila Batres PA-C LABORATORY Final Result [facility] [place] [place] [address] [place] [address], [place] * ALBUMIN (11/11/2024 2:17 PM EDT) Albumin 3.9 3.9 - 4.9 g/dL 11/11/2024 6:[address] [facility] Blood BLOOD SPECIMEN / Unknown Venipuncture / Unknown 11/11/2024 2:17 PM EDT 11/11/2024 2:17 PM EDT Kamila Batres PA-C LABORATORY Final Result [place] [address] [place] [address], [place] * XR KNEE GENERAL 4V AP BOTH/PA BOTH/LAT/MERC LEFT (11/11/2024 1:01 PM EDT) Anatomical Region Laterality Modality Knee Other 11/11/2024 1:01 PM EDT Impressions 11/16/2024 7:09 AM EDT IMPRESSION: Advanced osteoarthrosis with joint effusion, not significantly changed Onion Tier: [facility] Transcribe Date/Time: Nov 16 2024 7:06A Dictated [...] FINDINGS: Significant medial joint compartment narrowing with [id number] appearance and advanced lateral joint compartment narrowing. Tricompartment spur formation. No acute fracture or dislocation. Moderate joint effusion with joint bodies. Procedure Note Provider, f [facility] [place] - 11/16/2024 * * *Final Report* * [...] FINDINGS: Significant medial joint compartment narrowing with [id number] appearance and advanced lateral joint compartment narrowing. Tricompartment spur formation. No acute fracture or dislocation. Moderate joint effusion with joint bodies. IMPRESSION IMPRESSION: Advanced osteoarthrosis with joint effusion, not significantly changed Onion Tier: [facility] Transcribe Date/Time: Nov 16 2024 7:06A Dictated by : CHELSEA BAEZ MD This examination was interpreted and the report reviewed and electronically signed by: CHELSEA BAEZ MD on Nov 16 2024 7:07AM EST Kamila GILLILAND-PAMDex Final Result from Last 3 Months Insurance MEDICARE Member Subscriber Plan / Payer ( fective 2013-Present) Name:Terry Juarez Member ID:[id number] Relation to Subscriber:Self Name:Terry Juarez Subscriber ID:[id number] Payer ID:Not on file Group ID:Not on file Type:Medicare Address: [facility] [place] [id number] [facility] Address: [address] [place] [address] [place] [address]
[2024-11-24 12:37] LABS: Alanine Aminotransferase 18 U/L (16-63); Albumin Level 3.4 g/dL (3.4-5.0); Alkaline Phosphatase 72 U/L (46-116); Anion Gap 9.8; Aspartate Amino Transferase 15 U/L (15-37); BUN Creatinine Ratio 11.2; Calcium 8.6 mg/dL (8.5-10.1); Carbon Dioxide 32.2 mmol/L (21.0-32.0); Chloride 106 mmol/L (98-107); Estimated GFR (African America >60 (>=60 mL/min/1.73m^2); Estimated GFR (Non-African Ame >60 (>=60 mL/min/1.73m^2); Globulin 3.3 g/dL; Glucose 117 mg/dL (74-106); Sodium 144 mmol/L (136-145); Total Protein 6.7 g/dL (6.4-8.2); Troponin I High Sensitivity 13.1 pg/mL (4.0-76.1)
== END 2024-11-24 11:45 | disposition home or self-care (01) ==
LOC: LAB 11:48
PROVIDERS: PCP Family Medicine; Visit Provider Family Medicine
DX: I11.0 Hypertensive heart disease with heart failure (principal); I50.30 Unspecified diastolic (congestive) heart failure
CPT/HCPCS: 36415; 80053; 83880; 84484

== ENCOUNTER 2025-03-07 08:11 | Outpatient (RCR) | payer MEDICARE, OTHER, SELFPAY | END 2025-03-31 06:57 | disposition home or self-care (01) | LOC: PT 08:11 | PROVIDERS: PCP Family Medicine | DX: M25.562 Pain in left knee (principal) | CPT/HCPCS: 97110; 97112; 97161; 97530 ==

== ENCOUNTER 2025-03-16 14:22 | Emergency (ER) | payer OTHER, MEDICARE, SELFPAY ==
[2025-03-16 14:27] VITALS: BP 123/84; PULSE 85; TEMP 36.7; O2SAT 97; BMI 33.0
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
[2025-03-16 15:15] LABS: Hematocrit 37.6 % (42.0-54.0); Hemoglobin 12.9 g/dL (14.0-18.0); Immature Granulocytes Abs Auto 0.03 10^3/uL (0.00-0.03); Immature Granulocytes Pct Auto 0.3 % (0.0-0.5); Lymphocytes Absolute Auto 1.1 10^3/uL (1.2-3.8); Mean Corpuscular HGB Conc 34.3 g/dL (29.9-35.2); Mean Corpuscular Hemoglobin 29.5 pg (25.9-34.0); Mean Corpuscular Volume 85.8 fL (80.0-94.0); Platelet Count 362 10^3/uL (150-450); Red Blood Count 4.38 10^6/uL (4.70-6.10); White Blood Count 9.5 10^3/uL (4.0-11.0)
[2025-03-16 15:23] LABS: Alanine Aminotransferase 24 U/L (16-63); Albumin Globulin Ratio 0.9; Albumin Level 3.5 g/dL (3.4-5.0); Alkaline Phosphatase 97 U/L (46-116); Anion Gap 15.6; Aspartate Amino Transferase 18 U/L (15-37); Blood Urea Nitrogen 12.0 mg/dL (7.0-18.0); Calcium 8.9 mg/dL (8.5-10.1); Carbon Dioxide 24.7 mmol/L (21.0-32.0); Chloride 98 mmol/L (98-107); Estimated GFR (African America >60 (>=60 mL/min/1.73m^2); Estimated GFR (Non-African Ame >60 (>=60 mL/min/1.73m^2); Globulin 4.1 g/dL; Glucose 165 mg/dL (74-106); Potassium 4.3 mmol/L (3.5-5.1); Sodium 134 mmol/L (136-145); Total Protein 7.6 g/dL (6.4-8.2)
--- OUTSIDE RECORDS SUMMARY | 2025-03-16 15:36 | XMS_ITS | CCD ---
Author Organization [facility] Care Team Providers Care Computer Designer Name Role Phone ED, DR JOSEPH Admitting [...] JOSEPH Consulting Unavailable Unavailable Primary Care Provider UnavailOpal Barragan Referring Unavailable Chirag MOODY Attending Unavailable Unavailable Primary Care Provider UnavailOpal Barragan MD Primary Care Provider [phone] JUAN J KITCHEN Attending Unavailable HOY, OPAL M Primary Care Unavailable JUAN J KITCHEN Referring Unavailable HOY, OPAL M Primary Care Unavailable TAMIKA BEARD Referring Unavailable HOY, OPAL M Primary Care Unavailable BATRESKAMILA Referring Unavailable HOY, OPAL M Primary Care Unavailable BATRES KAMILA M Referring Unavailable HOY, OPAL M Primary Care Unavailable BATRES KAMILA M Referring Unavailable HOY, OPAL M Primary Care Unavailable HOY, OPAL M Primary Care Unavailable CHINO LAURA E Attending Unavailable OPAL WARD Primary Care Unavailable CHINO, LAURA E Referring Unavailable OPAL WARD Primary Care Unavailable KAMILA BATRES Attending Unavailable OPAL WARD M Primary Care Unavailable BATRESKAMILA M Attending Unavailable OPAL WARD M Primary Care Unavailable BATRESKAMILA M Referring Unavailable CHINO, LAURA E Admitting Unavailable CHINO, LAURA E Attending Unavailable OPAL WARD Primary Care Unavailable KAMILA BATRES Attending Unavailable BATRESKAMILA Referring Unavailable Allergies Allergy Classification Reported Allergen(s) Allergy Type Date of Onset Reaction(s) Facility (1 source) No Known Medication Allergies; Translations: [No Known Medication Allergies] Propensity to adverse reactions (disorder) [facility] Repository (9 sources) Angiotensin-conv erting enzyme inhibitor agent; Translations: [LUCITA INHIBITORS] Drug Allergy Unknown [facility] Medications Current Medications Medication Drug Class(es) Dates Sig (Normalized) Sig (Original) acetaminophen 500 mg oral tablet (7 sources) Start: 02-09-2025 End: 03-11-2025 take 2 tablets by mouth every eight hours as needed acetaminophen (TYLENOL EXTRA STRENGTH) 500 mg tablet Take 2 tablets by mouth every 8 hours as needed for pain. 90 tablet 1 02/09/2025 03/11/2025 Active apixaban 5 mg oral tablet (8 sources) Factor Xa Inhibitor Start: 02-12-2025 take 1 tablet by mouth twice daily apixaban (ELIQUIS) 5 mg tab(s) Take 1 tablet by mouth two times a day. Start after surgery when deemed safe to do so by surgeon Patient should start on February 12, 2025. 180 tablet 3 02/12/2025 Active Start: 02-06-2025 take 1 tablet by erinn th twice daily apixaban (ELIQUIS) 5 mg tab(s) Take 1 tablet by mouth two times a day. Start after surgery when deemed safe to do so by surgeon 180 tablet 3 02/06/2025 Active aspirin 81 mg delayed release oral tablet (7 sources) Platelet Aggregation Inhibitor, Nonsteroidal Anti-inflammatory Drug Start: 02-09-2025 End: 03-09-2025 take 1 tablet by mouth twice daily aspirin, enteric coated (ECOTRIN LOW STRENGTH) 81 mg EC tablet Take 1 tablet by mouth two times a day for 28 days. 56 tablet 02/09/2025 Active atorvastatin 20 mg oral tablet (12 sources) HMG-CoA Reductase Inhibitor take 1 tablet by mouth once daily atorvastatin (LIPITOR) 20 mg tablet Take 20 mg by mouth once daily. Active docusate sodium 100 mg oral capsule (7 sources) Start: 02-09-2025 take 1 capsule by mouth every twelve hours as needed docusate sodium (COLACE) 100 mg capsule Take 1 capsule by mouth two times a day as needed for constipation. 60 capsule 1 02/09/2025 Active donepezil hydrochloride 5 mg oral tablet (12 sources) take 1 tablet by mouth once daily at bedtime donepezil (ARICEPT) 5 mg tablet Take 5 mg by mouth daily at bedtime. Active hydroCHLOROthiazide 25 mg oral tablet (16 sources) Thiazide Diuretic hydroCHLOROthi azide 25 mg tablet Active meloxicam 7.5 mg oral tablet (3 sources) Nonsteroidal Anti-inflammatory Drug Start: 02-09-2025 End: 02-23-2025 take 1 tablet by mouth once daily meloxicam (MOBIC) 7.5 mg tablet Take 1 tablet by mouth once daily for 14 days. 14 tablet 02/09/2025 02/23/2025 Active Memantine (12 sources) P-obenql-D-aspartate Receptor Antagonist memantine 01-16-21 mg C24k Take by mouth once daily. Active metoprolol tartrate 25 mg oral tablet (13 sources) beta-Adrenergic Yanet Start: 02-06-2025 take 1 tablet by mouth twice daily metoprolol tartrate, short acting, (LOPRESSOR) 25 mg tablet Indications: Paroxysmal atrial fibrillation (HCC) Take 1 tablet by mouth two times a day. 180 tablet 3 02/06/2025 Active End: 02-06-2025 take 1 tablet by mouth once daily metoprolol tartrate, short acting, (LOPRESSOR) 50 mg tablet Take 50 mg by mouth once daily. 02/06/2025 Discontinued mupirocin 0.02 mg/mg topical ointment (6 sources) RNA Synthetase Inhibitor Antibacterial Start: 04-13-2025 End: 04-18-2025 mupirocin (BACTROBAN) 2 % ointment Indications: Post-traumatic osteoarthritis of left knee Apply 1/2 inch strip to cotton swab and apply to each nostril twice daily for 5 days prior to and morning of surgery. Patient should start on April 13, 2025. 22 g 04/13/2025 04/18/2025 Active ondansetron 4 mg oral tablet (7 sources) Serotonin-3 Receptor Antagonist Start: 02-09-2025 End: 03-11-2025 take 1 tablet by mouth every eight hours as needed ondansetron (ZOFRAN) 4 mg tablet Take 1 tablet by mouth every 8 hours as needed for nausea/vomiting. 30 tablet 02/09/2025 03/11/2025 Active oxyCODONE hydrochloride 5 mg oral tablet (2 sources) Opioid Agonist Start: 02-24-2025 End: 03-03-2025 take 1 tablet by mouth every four hours as needed oxyCODONE IR (ROXICODONE) 5 mg immediate release tablet Indications: Status post left knee replacement , Edema leg Take 1-2 tablets by mouth every 4 hours as needed for pain for up to 7 days. 50 tablet 02/24/2025 2:25 PM EDT 02/24/2025 03/03/2025 Active pantoprazole 20 mg delayed release oral tablet (7 sources) Proton Pump Inhibitor Start: 02-09-2025 End: 03-11-2025 take 1 tablet by mouth once daily pantoprazole DR (PROTONIX) 20 mg tablet Take 1 tablet by mouth once daily. 30 tablet 02/09/2025 03/11/2025 Active Completed/Discontinued Medications Medication Drug Class(es) Dates Sig (Normalized) Sig (Original) acetaminophen 325 mg / HYDROcodone bitartrate 5 mg oral tablet (4 sources) Opioid Agonist Start: 02-21-2025 End: 02-28-2025 take 1-2 tablets by mouth every eight hours as needed for pain HYDROcodone-acetami nophen (NORCO) 5-325 mg per tablet Indications: Status post left knee replacement , Acute post-operative pain Take 1-2 tablets by mouth every 8 hours as needed for pain for up to 7 days. 42 tablet 02/21/2025 02/24/2025 Discontinued Problems Active Problems Problem Classification Problem Date Documented Date Episodic/Chronic Cardiac dysrhythmias (20 sources) Atrial fibrillation; Translations: [Unspecified atrial fibrillation] Onset: 01-26-2025 01-26-2025 Chronic Deficiency and other anemia (4 sources) Anemia; Translations: [Anemia, unspecified] 11-11-2024 Episodic Delirium, dementia, and amnestic and other cognitive disorders (14 sources) Dementia; Translations: [Unspecified dementia without behavioral disturbance] Onset: 01-26-2025 01-25-2025 Chronic Disorders of lipid metabolism (16 sources) Hyperlipidemia, unspecified; Translations: [Hyperlipidemia] Onset: 09-27-2021 01-25-2025 Chronic Essential hypertension (20 sources) Essential (primary) hypertension; Translations: [Hypertensive disorder] Onset: 09-23-2021 Chronic Heart valve disorders (7 sources) Nonrheumatic aortic (valve) stenosis; Translations: [Aortic valve disorders] Onset: 02-07-2025 02-07-2025 Chronic Osteoarthritis (17 sources) Unilateral post-traumatic osteoarthritis, left knee; Translations: [Osteoarthrosis, localized, secondary, lower leg] Onset: 11-11-2024 11-11-2024 Chronic Other connective tissue disease (1 source) Polymyalgia rheumatica; Translations: [POLYMYALGIA RHEUMATICA] Onset: 09-27-2021 Chronic Other connective tissue disease (6 sources) History of total knee arthroplasty; Translations: [Presence of left artificial knee joint] 02-21-2025 Chronic Other connective tissue disease (3 sources) Presence of left artificial knee joint; Translations: [Status post left knee replacement] Onset: 02-08-2025 Chronic Other nervous system disorders (1 source) Acute postoperative pain; Translations: [Other acute postprocedural pain] 02-21-2025 Episodic Other non-traumatic joint disorders (2 sources) Pain in left knee; Translations: [Pain in joint, lower leg] 06-11-2023 Episodic Other nutritional; endocrine; and metabolic disorders (13 sources) Body mass index 30+ - obesity; Translations: [Obesity, unspecified] Onset: 01-26-2025 01-26-2025 Chronic Other nutritional; endocrine; and metabolic disorders (1 source) Obesity, unspecified; Translations: [Obesity (BMI 30-39.9)] Onset: 01-26-2025 Chronic Residual codes; unclassified (1 source) Pain; Translations: [Pain, unspecified] 2023 Episodic Residual codes; unclassified (4 sources) Edema of lower extremity; Translations: [Localized edema] 02-24-2025 Episodic Residual codes; unclassified (2 sources) Localized edema; Translations: [Edema leg] Onset: 02-24-2025 Episodic Unclassified (4 sources) COUGH, UNSPECIFIED; Translations: [COUGH, UNSPECIFIED] Onset: 11-04-2021 Unclassified (4 sources) CONTACT W/AND (SUSP) EXPOS COVID-19; Translations: [CONTACT W/AND (SUSP) EXPOS COVID-19] Onset: 11-04-2021 Unclassified (1 source) Preprocedural examination done 01-26-2025 Unclassified (12 sources) Total Knee Replacement Publication Manager Onset: 12-02-2024 12-02-2024 Past or Other Problems Problem Classification Problem Date Documented Date Episodic/Chronic Deficiency and other anemia (2 sources) Anemia, unspecified; Translations: [Anemia, unspecified type] Onset: 11-11-2024 Episodic Other circulatory disease (1 source) Other specified [...] [CONTACT W/AND (SUSP) EXPOS COVID-19] Onset: 10-31-2021 Unclassified (7 sources) Post-traumatic osteoarthritis of left knee 11-11-2024 Results Test Name Value Interpretation Reference Range Facility CNOVon 03-09-2025 CNOV Office Visit (ORAVON ) ANEESH JUAREZ ([id number]) 1950 M Date Time Provider Department 03/09/25 11:30 AM KAMILA BATRES During your visit today, we recorded the following information about you: Kamila Batres PA-C 03/09/2025 12:29 PM Signed Ortho Knee Follow Up Note Narrative Referring Provider: No referring provider defined for this encounter. PCP: Opal Ward MD ===== IMPRESSION/PLAN: ===== 74 year old s/p Left Total Knee Replacement completed on 02/08/2025. Recent Surgeries this specialty 02/08/2025 (4w, 1d) ROBOTIC ASSISTED TOTAL KNEE ARTHROPLASTY (Left), COMPUTER ASSIST MUSCULOSKETAL SURG NAVIGATION ORTHO PROCED W/IMAGE GUIDANCE BASED ON CT/MRI IMAGES (Left) Laura Magana MD; Pascual Mckinley MD; Rashaad Parekh MD - Posted PAIN EVALUATION 03/09/2025 1121 Pain Level: 4 Pain Location: Knee-Left Description: Aching Frequency: Intermittent Intervention/Comfort measure: Medication;Reposition;R elaxation;Cold IMPRESSION: At normal post-operative stage of recovery. Pain, ROM, and swelling is greatly improved ROM ~5-100 US ordered after last visit was negative. PLAN: Continue current conservative treatment. Continue with OP PT WBAT Patient Reassurance: Progress appears to be with the normal speed of recovery. Patient reassured and supported. All questions answered. Follow up 6 months No X-Rays Needed Aneesh Sarthak Juarez presents today for a an intermediate post-op visit ACTIVE PROBLEM LIST Essential Hypertension Hyperlipemia Atrial Fibrillation (Hcc) Dementia (Hcc) Obesity (Bmi 30-39.9) Mild Aortic Stenosis Primary Osteoarthritis of Left Knee Status post op: BMI: There is no height or weight on file to calculate BMI. Post-operative recovery was complicated by uneventful/none. Readmission(s) since surgery (90 days post)? No ED Visits AND Hospitalizations - Last 180 days 02/08/25 Laura Magana MD, [id number] S/P total knee arthroplasty, left ..., Admission (Discharged) Patient rates their condition as improving. Does the patient still experience pain? Onset: yes. Location: Left knee. Frequency: occasionally. Pain scale: 3 and 4. Pain character: ache. Relieving factors: Rest, Ice, Sitting, Pain medication, and Cane. Aggravating factors: Increased activity Post Op discharge patient location: in home. Functional Assessment is as follows: completed home PT and has already started outpatient PT as of this visit. Functional difficulties: Interferes with sleep. Pain Medication: Non-narcotic Currently Ambulating with: a cane EXAM: POST OP KNEE Left Post-Operative Knee Ambulates with a: normal gait uses: a cane. SKIN: Appropriate postop appearance and No evidence of erythema, warmth, discharge or drainage. Range of motion is lacking a few degrees secondary to tight hamstrings degrees in extension and 100 degrees of flexion. Extension Lag: < 10 degrees Pain with ROM:Yes There is Slight effusion. Mal-alignment: No Tender to the palpation of None Neurovascular Status: Sensation Intact, Moves foot and ankle up AND down, and 2+ dorsalis pedis Stability:Anterior/Post erior- Yes, stable and Varus/Valgus- Yes, stable Quad strength: intact Imagin. Implants are well aligned. Implants are well fixed. There is no evidence of loosening. Provider: Kamila Batres PA-C Completed by: Kamila Batres PA-C Allergies As of Date: 03/09/2025 Noted Allergy Reaction LUCITA INHIBITORS 02/08/2025 16 - Unknown Date Reviewed: 03/09/2025 Reviewed by: Nicolle Ewing OCCA - Fully Assessed Primary Visit Diagnosis:Status post left knee replacement [Z96.652] Prescriptions as of 03/09/2025 - docusate sodium (COLACE) 100 mg capsule Take 1 capsule by mouth two times a day as needed for constipation. - ondansetron (ZOFRAN) 4 mg tablet Take 1 tablet by mouth every 8 hours as needed for nausea/vomiting. - aspirin, enteric coated (ECOTRIN LOW STRENGTH) 81 mg EC tablet Take 1 tablet by mouth two times a day for 28 days. - acetaminophen (TYLENOL EXTRA STRENGTH) 500 mg tablet Take 2 tablets by mouth every 8 hours as needed for pain. - apixaban (ELIQUIS) 5 mg tab(s) Take 1 tablet by mouth two times a day. Start after surgery when deemed safe to do so by surgeon Patient should start on February 12, 2025. - pantoprazole DR (PROTONIX) 20 mg tablet Take 1 tablet by mouth once daily. - metoprolol tartrate, short acting, (LOPRESSOR) 25 mg tablet Take 1 tablet by mouth two times a day. - atorvastatin (LIPITOR) 20 mg tablet Take 20 mg by mouth once daily. - memantine 7-14-21-28 mg C24k Take by mouth once daily. - donepezil (ARICEPT) 5 mg tablet Take 5 mg by mouth daily at bedtime. - hydroCHLOROthiazide 25 mg tablet Problem List As Of Date (more content not included)... Normal [facility] CNOVon 02-24-2025 CNOV Office Visit (ORAVON ) ANEESH JUAREZ ([id number]) 1950 M Date Time Provider Department 02/24/25 1:00 PM KAMILA BATRES During your visit today, we recorded the following information about you: Kamila Batres PA-C 02/24/2025 4:11 PM Signed Ortho Knee Follow Up Note Narrative Referring Provider: No referring provider defined for this encounter. PCP: Opal Ward MD ===== IMPRESSION/PLAN: ===== 74 year old s/p Left Total Knee Replacement completed on 02/08/2025. Recent Surgeries this specialty 02/08/2025 (2w, 2d) ROBOTIC ASSISTED TOTAL KNEE ARTHROPLASTY (Left), COMPUTER ASSIST MUSCULOSKETAL SURG NAVIGATION ORTHO PROCED W/IMAGE GUIDANCE BASED ON CT/MRI IMAGES (Left) Laura Magana MD; Pascual Mckinley MD; Rashaad Parekh MD - Posted PAIN EVALUATION No data found in the last 1 encounters. IMPRESSION: Patient states he was doing really well postop until about 2 days ago where he twisted in bed and had a sharp pain above his kneecap. He has full active extension but does have increased pain with any knee flexion. He has significant edema throughout his entire left lower extremity. No issues with his incision PLAN: Rest, Ice, Compression, Elevation PRN. Sent for stat venous ultrasound to rule out any DVT. Counseled on increased icing and elevating frequently throughout the day. Discussed thigh-high compression stockings to help with his edema. Placed him in a knee immobilizer and will send a refill of his oxycodone. Continue using the walker with limited weightbearing. Will pause PT for the next week. Advised him to send me an update sometime next week. If his pain is improving we can slowly start to reintroduce his therapy and get out of the knee immobilizer. Patient Reassurance: Progress appears to be with the normal speed of recovery. Patient reassured and supported. All questions answered. Follow up 2 weeks No X-Rays Needed Aneesh Juarez presents today for a an early post-op visit ACTIVE PROBLEM LIST Essential Hypertension Hyperlipemia Atrial Fibrillation (Hcc) Dementia (Hcc) Obesity (Bmi 30-39.9) Mild Aortic Stenosis Primary Osteoarthritis of Left Knee Status post op: BMI: There is no height or weight on file to calculate BMI. Post-operative recovery was complicated by uneventful/none. Readmission(s) since surgery (90 days post)? No ED Visits AND Hospitalizations - Last 180 days 02/08/25 Laura Magana MD, [id number] S/P total knee arthroplasty, left ..., Admission (Discharged) Patient rates their condition as improving. Does the patient still experience pain? see MIDAS Form Post Op discharge patient location: in home. Functional Assessment is as follows: In-home therapy. Functional difficulties: Stair climbing, Arising from chair, and Walking. Pain Medication: Narcotic Current Opioids Analgesic Opioid Hydrocodone Combinations Start End HYDROcodone-acetaminoph en (NORCO) 5-325 mg per tablet 02/21/2025 02/28/2025 Sig - Route: Take 1-2 tablets by mouth every 8 hours as needed for pain for up to 7 days. - ORAL Earliest Fill Date: 02/21/2025 Analgesic Opioid Hydrocodone and Non-Salicylate Combinations Start End HYDROcodone-acetaminoph en (NORCO) 5-325 mg per tablet 02/21/2025 02/28/2025 Sig - Route: Take 1-2 tablets by mouth every 8 hours as needed for pain for up to 7 days. - ORAL Earliest Fill Date: 02/21/2025 Currently Ambulating with: a walker EXAM: POST OP KNEE Left Post-Operative Knee Ambulates with a: uses: a walker. SKIN: No drainage or erythema. He has got significant edema throughout his entire left leg.. Range of motion is lacking a few degrees secondary to tight hamstrings degrees in extension and 30 degrees and stops due to increased pain. degrees of flexion. Extension Lag: < 10 degrees Pain with ROM:Yes There is Moderate effusion. Mal-alignment: No Tender to the palpation of None Neurovascular Status: Sensation Intact, Moves foot and ankle up AND down, and 2+ dorsalis pedis Stability:Anterior/Post erior- Yes, stable and Varus/Valgus- Yes, stable Quad strength: intact Imagin. Implants are well aligned. Implants are well fixed. There is no evidence of loosening. Provider: Kamila Batres PA-C Completed by: MARIO Davey Baylee M, PA-C 02/24/2025 1:34 PM Signed [phone] Allergies As of Date: 02/24/2025 Noted Allergy Reaction LUCITA INHIBITORS 02/08/2025 16 - Unknown Date Reviewed: 02/24/2025 Reviewed by: Lesly Benson MA - Fully Assessed Reason for Visit: Post Op [174] Primary Visit Diagnosis:Status post left knee replacement [Z96.652] Other Visit Diagnosis:Edema leg [R60.0] Order(s):US DVT LOWER LEFT [[id number]] Order #: [id number] FUTURE oxyCODONE IR (ROXICODONE) 5 mg (more content not included)... Normal [facility] US DVT LOWER LTon 02-24-2025 US DVT LOWER LT * * *Final Report* * * DATE OF EXAM: Feb 24 2025 2:30PM U 1006 - US DVT LOWER LT / PROCEDURE REASON: multiple diagnoses * * * * Physician Interpretation * * * * EXAMINATION: LEFT LOWER EXTREMITY DEEP VENOUS ULTRASOUND WITH DOPPLER IMAGING CLINICAL HISTORY: Leg swelling TECHNIQUE: Grayscale with compression maneuvers, color Doppler and spectral Doppler imaging of the left proximal deep veins was performed. Grayscale with compression maneuvers of the peroneal and posterior tibial veins was performed. The left great and small saphenous veins were evaluated at their insertion to the deep system. The contralateral common femoral vein was imaged for comparison. Images were obtained and stored in a permanent archive. MQ: USLEL_1 COMPARISON: None RESULT: LEFT LOWER EXTREMITY PROXIMAL DEEP VEINS Distal External Iliac, Common Femoral and proximal Profunda Veins: Compression: Normal Doppler: Normal, spontaneous respirophasic flow. Normal response to augmentation. Femoral vein: Compression: Normal Doppler: Normal, spontaneous flow. Normal response to augmentation. Popliteal vein: Compression: Normal Doppler: Normal, spontaneous flow. Normal response to augmentation. CALF DEEP VEINS Peroneal veins: The peroneal vein is obscured by soft tissue edema. Posterior tibial veins: Normal compression. Gastrocnemius and Soleal veins: Not imaged. SUPERFICIAL VEINS Great saphenous: Patent and compressible at insertion into common femoral vein; not otherwise assessed. Small Saphenous: Patent and compressible in the proximal calf, not otherwise assessed. RIGHT LOWER EXTREMITY (FOR COMPARISON) Common Femoral Vein: Compression: Normal Doppler: Normal, spontaneous respirophasic flow. Normal response to augmentation. IMPRESSION: NEGATIVE STUDY FOR PROXIMAL DVT IN THE LEFT LOWER EXTREMITY. NEGATIVE STUDY FOR CALF DVT IN THE LEFT LOWER EXTREMITY. NEGATIVE STUDY FOR SUPERFICIAL THROMBOPHLEBITIS IN THE IMAGED SEGMENTS OF THE VISUALIZED LEFT LOWER EXTREMITY. Property Management Intern: [facility] Transcribe Date/Time: Feb 24 2025 2:52P Dictated by : ESMER VAZQUEZ MD This examination was interpreted and the report reviewed and electronically signed by: ESMER VAZQUEZ MD on Feb 24 2025 2:53PM EST [id number] Normal [facility] Lower extremity vein - [place] 02-24-2025 IMPRESSION: NEGATIVE STUDY FOR PROXIMAL DVT IN THE LEFT LOWER EXTREMITY. NEGATIVE STUDY FOR CALF DVT IN THE LEFT LOWER EXTREMITY. NEGATIVE STUDY FOR SUPERFICIAL THROMBOPHLEBITIS IN THE IMAGED SEGMENTS OF THE VISUALIZED LEFT LOWER EXTREMITY. Property Management Intern: [facility] Transcribe Date/Time: Feb 24 2025 2:52P Dictated by : ESMER VAZQUEZ MD This examination was interpreted and the report reviewed and electronically signed by: ESMER VAZQUEZ MD on Feb 24 2025 2:53PM [facility] * * *Final Report* * * DATE OF EXAM: Feb 24 2025 2:30PM [facility] 1006 - US DVT LOWER LT / PROCEDURE REASON: multiple diagnoses * * * * Physician Interpretation * * * * EXAMINATION: LEFT LOWER EXTREMITY DEEP VENOUS ULTRASOUND WITH DOPPLER IMAGING CLINICAL HISTORY: Leg swelling TECHNIQUE: Grayscale with compression maneuvers, color Doppler and spectral Doppler imaging of the left proximal deep veins was performed. Grayscale with compression maneuvers of the peroneal and posterior tibial veins was performed. The left great and small saphenous veins were evaluated at their insertion to the deep system. The contralateral common femoral vein was imaged for comparison. Images were obtained and stored in a permanent archive. MQ: USLEL_1 COMPARISON: None RESULT: LEFT LOWER EXTREMITY PROXIMAL DEEP VEINS Distal External Iliac, Common Femoral and proximal Profunda Veins: Compression: Normal Doppler: Normal, spontaneous respirophasic flow. Normal response to augmentation. Femoral vein: Compression: Normal Doppler: Normal, spontaneous flow. Normal response to augmentation. Popliteal vein: Compression: Normal Doppler: Normal, spontaneous flow. Normal response to augmentation. CALF DEEP VEINS Peroneal veins: The peroneal vein is obscured by soft tissue edema. Posterior tibial veins: Normal compression. Gastrocnemius and Soleal veins: Not imaged. SUPERFICIAL VEINS Great saphenous: Patent and compressible at insertion into common femoral vein; not otherwise assessed. Small Saphenous: Patent and compressible in the proximal calf, not otherwise assessed. RIGHT LOWER EXTREMITY (FOR COMPARISON) Common Femoral Vein: Compression: Normal Doppler: Normal, spontaneous respirophasic flow. Normal response to augmentation. [facility] Provider, Christian Marino [facility] - 02/24/2025 * * *Final Report* * * DATE OF EXAM: Feb 24 2025 2:30PM [facility] 1006 - US DVT LOWER LT / PROCEDURE REASON: multiple diagnoses * * * * Physician Interpretation * * * * EXAMINATION: LEFT LOWER EXTREMITY DEEP VENOUS ULTRASOUND WITH DOPPLER IMAGING CLINICAL HISTORY: Leg swelling TECHNIQUE: Grayscale with compression maneuvers, color Doppler and spectral Doppler imaging of the left proximal deep veins was performed. Grayscale with compression maneuvers of the peroneal and posterior tibial veins was performed. The left great and small saphenous veins were evaluated at their insertion to the deep system. The contralateral common femoral vein was imaged for comparison. Images were obtained and stored in a permanent archive. MQ: [id number] COMPARISON: None RESULT: LEFT LOWER EXTREMITY PROXIMAL DEEP VEINS Distal External Iliac, Common Femoral and proximal Profunda Veins: Compression: Normal Doppler: Normal, spontaneous respirophasic flow. Normal response to augmentation. Femoral vein: Compression: Normal Doppler: Normal, spontaneous flow. Normal response to augmentation. Popliteal vein: Compression: Normal Doppler: Normal, spontaneous flow. Normal response to augmentation. CALF DEEP VEINS Peroneal veins: The peroneal vein is obscured by soft tissue edema. Posterior tibial veins: Normal compression. Gastrocnemius and Soleal veins: Not imaged. SUPERFICIAL VEINS Great saphenous: Patent and compressible at insertion into common femoral vein; not otherwise assessed. Small Saphenous: Patent and compressible in the proximal calf, not otherwise assessed. RIGHT LOWER EXTREMITY (FOR COMPARISON) Common Femoral Vein: Compression: Normal Doppler: Normal, spontaneous respirophasic flow. Normal response to augmentation. IMPRESSION IMPRESSION: NEGATIVE STUDY FOR PROXIMAL DVT IN THE LEFT LOWER EXTREMITY. NEGATIVE STUDY FOR CALF DVT IN THE LEFT LOWER EXTREMITY. NEGATIVE STUDY FOR SUPERFICIAL THROMBOPHLEBITIS IN THE IMAGED SEGMENTS OF THE VISUALIZED LEFT LOWER EXTREMITY. Property Management Intern: ANDRE Transcribe Date/Time: Feb 24 2025 2:52P Dictated by : ESMER VAZQUEZ MD This examination was interpreted and the report reviewed and electronically signed by: ESMER VAZQUEZ MD on Feb 24 2025 2:53PM EST [facility] Radiology Study observation (narrative) [facility] US Lower extremity vein - le ftOrdered By: Ccf Provider on 02-24-2025 [facility] XR KNEE 3V AP/LAT/MERCHANT L Ton 02-24-2025 XR KNEE 3V AP/LAT/MERCHANT LT * * *Final Report* * * DATE OF EXAM: Feb 24 2025 12:32PM AFR [id number] - XR KNEE 3V AP/LAT/MERCHANT LT / PROCEDURE REASON: Post-traumatic osteoarthritis of left knee * * * * Physician Interpretation * * * * EXAMINATION: XR KNEE 3V AP/LAT/MERCHANT LT HISTORY: 3 WEEKS POST OP Post-traumatic osteoarthritis of left knee . TECHNIQUE: XR KNEE 3V AP/LAT/MERCHANT LT Laterality: LEFT Number of different views (projections): 3 M: XB_1 COMPARISON: 11/11/2024 RESULT/ IMPRESSION: Interval left total knee arthroplasty with patellar surfacing. No acute fracture, dislocation or significant periprosthetic lucency. Prominent soft tissues in the suprapatellar region. No other significant abnormality. Property Management Intern: PSCB Transcribe Date/Time: Feb 27 2025 10:18P Dictated by : OWEN BENSON MD This examination was interpreted and the report reviewed and electronically signed by: OWEN BENSON MD on Feb 27 2025 10:19PM EST [id number] [facility] CNPShannan 02-23-2025 MIN Telephone (SANTANA) ANEESH JUAREZ ([id number]) 1950 M Date Time Provider Department 02/23/25 JEN OLMEDO During your visit today, we recorded the following information about you: Jen Olmedo RN 02/23/2025 11:33 AM Signed Patient called Dr. Magana office Re: s/p KR on 02/08. Yesterday twisted knee and in a lot more pain and feels like it catching. Called and spoke with patient. He explains he thinks something happened while he was sleeping. He is able to walk on it and states he mitchell sharp pain globally with lateral movement. Took pain meds about a half hour ago. Advised patient to scale back activities, continue with medications and do extra icing and elevating. Expect to see some improvement by tomorrow afternoon, if not to call us. Also provided him with ortho science education professor number in case symptoms should worsen over the weekend. Allergies As of Date: 02/23/2025 Noted Allergy Reaction LUCITA INHIBITORS 02/08/2025 16 - Unknown Date Reviewed: 02/09/2025 Reviewed by: Bernadette Teague RN - Fully Assessed Reason for Visit: Returning Patient's Call [408] Prescriptions as of 02/23/2025 - HYDROcodone-acetaminoph en (NORCO) 5-325 mg per tablet Take 1-2 tablets by mouth every 8 hours as needed for pain for up to 7 days. - docusate sodium (COLACE) 100 mg capsule Take 1 capsule by mouth two times a day as needed for constipation. - ondansetron (ZOFRAN) 4 mg tablet Take 1 tablet by mouth every 8 hours as needed for nausea/vomiting. - aspirin, enteric coated (ECOTRIN LOW STRENGTH) 81 mg EC tablet Take 1 tablet by mouth two times a day for 28 days. - acetaminophen (TYLENOL EXTRA STRENGTH) 500 mg tablet Take 2 tablets by mouth every 8 hours as needed for pain. - apixaban (ELIQUIS) 5 mg tab(s) Take 1 tablet by mouth two times a day. Start after surgery when deemed safe to do so by surgeon Patient should start on February 12, 2025. - meloxicam (MOBIC) 7.5 mg tablet Take 1 tablet by mouth once daily for 14 days. - pantoprazole DR (PROTONIX) 20 mg tablet Take 1 tablet by mouth once daily. - metoprolol tartrate, short acting, (LOPRESSOR) 25 mg tablet Take 1 tablet by mouth two times a day. - atorvastatin (LIPITOR) 20 mg tablet Take 20 mg by mouth once daily. - memantine 7-14-21-28 mg C24k Take by mouth once daily. - donepezil (ARICEPT) 5 mg tablet Take 5 mg by mouth daily at bedtime. - hydroCHLOROthiazide 25 mg tablet Problem List As Of Date 02/23/2025 Noted Resolved Essential hypertension [I10] 01/26/2025 Hyperlipemia [E78.5] 01/26/2025 Atrial fibrillation (HCC) [I48.91] 01/26/2025 Dementia (HCC) [F03.90] 01/26/2025 Obesity (BMI 30-39.9) [E66.9] 01/26/2025 Mild aortic stenosis [I35.0] 02/07/2025 Primary osteoarthritis of left knee [M17.12] 02/08/2025 Encounter Status:Closed by JEN OLMEDO on 02/23/25 [facility]20[facility] ANE[facility] JUAREZ ([id number]) 1950 M Date Time Provider Department 02/21/25 LAURA MAGANA During your visit today, we recorded the following information about you: Jen Olmedo RN 02/21/2025 11:06 AM Signed Patient has been identified by name and date of : Yes, Provider Jen Olmedo RN Date 02/21/2025 Time 10:32am Surgeon Laura Magana MD Surgery Left Total Knee Arthroplasty Date of Surgery 02/08/2025 Date of Discharge 02/09/2025 Support person at home: Yes Weight Bearing status: PWB - patient states he has been walking with a cane and sometimes without. Instructed him to use the walker and maintain 75% WB until his follow-up with us as putting on too much weight too soon can cause complications. Activity Up with Walker, Home Health Pain Level on a pain scale 0-10: well controlled Current pain regimen Tylenol, Oxy and meloxicam. Almost out of Oxycodone. Educated on [place], side effects and how to take, including Tylenol max dose. Icing and Elevating using ice machine. Advised Dr. Magana doesn't recommend them and why. Educated patient on how to properly ice and elevate by lying down on something flat, such as a bed or long couch. They can place a pillow under their head and then 2 or 3 pillows under their calf, extending their leg straight out on top of them. Their heel is to be floating in the air, not pressed into the pillows and they will know their leg is high enough if when they look down at their foot, their toes are above the level of their nose. They can place ice packs or frozen peas at this time, with a barrier to protect their skin from getting too cold. Advised doing so for 20-30 minutes max at least once every two hours while awake during the day. Constipation No problems Anticoagulant Daniashejovanny - was confused as to why he is on this. Discussed new diagnosis of A. Fib and how he is at increased risk for a blood clot and the Eliquis will help thin his blood. He has a Cardiology appointment in May, provided him with that information. Educated on signs and symptoms of DVT/PE and what to do. If they develop any chest pain or shortness of breath, they are to call 911. If they have concerns about swelling that is painful, causes redness to the skin or is hot to the touch, they are to call our office. Incision: Educated on incision care, when and how to shower and signs and symptoms of infection and what to do. Explained that the incision will have steri-strips on top that will gradually loosen and fall off over time. As long as there is no active drainage coming from the incision once the post-op dressing is removed, they are to leave it open to air (no bandage). If there is drainage, that area is to be covered with a clean, dry dressing and changed daily until no drainage and then leave it open to air. The incision is to be open to air for one day before taking a shower (no tub baths). Patient can wash the incision gently with any soap and water. They are to pat the skin dry and avoid using lotions, creams or ointments on or near the incision. The patient should watch for large reddened areas, foul odors and white or yellow-green drainage and call our office if they have any concerns. Dressings: Steri-strips intact Patient concerns: None Follow up appointments: 03/03/2025 Patient aware During your hospital stay, were you updated on what the plan of care was for you each day? Yes Did you feel the provider, who can be your surgeon or a physician assistant teaching professor, and nurse worked together to explain your plan of care to you every day? Yes Jen Olmedo RN Allergies As of Date: 02/21/2025 Noted Allergy Reaction LUCITA INHIBITORS 02/08/2025 16 - Unknown Date Reviewed: 02/09/2025 Reviewed by: Bernadette Teague RN - Fully Assessed Reason for Visit: Post Op [174] Prescriptions as of 02/21/2025 - docusate sodium (COLACE) 100 mg capsule Take 1 capsule by mouth two times a day as needed for constipation. - ondansetron (ZOFRAN) 4 mg tablet Take 1 tablet by mouth every 8 hours as needed for nausea/vomiting. - aspirin, enteric coated (ECOTRIN LOW STRENGTH) 81 mg EC tablet Take 1 tablet by mouth two times a day for 28 days. - acetaminophen (TYLENOL EXTRA STRENGTH) 500 mg tablet Take 2 tablets by mouth every 8 hours as needed for pain. - apixaban (ELIQUIS) 5 mg tab(s) Take 1 tablet by mouth two times a day. Start after surgery when deemed safe to do so by surgeon Patient should start on February 12, 2025. - meloxicam (MOBIC) 7.5 mg tablet Take 1 tablet by mouth once daily for 14 days. - pantoprazole DR (PROTONIX) 20 mg tablet Take 1 tablet by mouth once daily. - metoprolol tartrate, short acting, (LOPRESSOR) 25 mg tablet Take 1 tablet by mouth two times a day. - atorvastatin (LIPITOR) 20 mg tablet Take 20 mg by mouth once daily. (more content not included)... [facility] ANES POSTPROC EVALon 025 ANES POSTPROC EVAL HNO ID: [id number] Author: CARLY KEE MD Service: ? Author Type: Anesthesiologist Type: Anesthesia Postprocedure Evaluation Filed: 02/09/2025 06:32 Note Text: POST ANESTHESIA EVALUATION NOTE : 1950 Procedure Summary Date: 02/08/25 Room / Location: [address] Anesthesia Start: 113 Anesthesia Stop: 145 Procedure: ROBOTIC ASSISTED TOTAL KNEE ARTHROPLASTY (Left: Knee) Diagnosis: Post-traumatic osteoarthritis of left knee (Post-traumatic osteoarthritis of left knee [M17.32]) Surgeons: Laura Magana MD Responsible Provider: Carly Kee MD Anesthesia Type: spinal ASA Status: 3 Anesthesia Type: spinal Last Vitals Vitals Value Taken Time BP 139/81 02/08/250 Temp 36.6 ?C (97.9 ?F) 02/08/252329 Pulse 88 02/08/250 Resp 17 02/08/250 SpO2 95 % 02/08/252329 [facility] AN POST OP NOTE Anesthesia Observations No Documentation SIGNATURE: Carly Kee MD PATIENT NAME: Aneesh Juarez DATE: February 09, 2025 TIME: 6:32 AM CSN: [id number] [facility] Basic metabolic 2000 panelon 02-09-2025 Anion gap [Moles/Vol] 15 mmol/L Normal 8-15 [facility] Comment on above: Order Comment: Speci men Type: BLOOD SPECIMEN Ordering Facility: [facility] Address: [address] [place] [address] Performed By: #### 1 4196-0, 03360-3 #### [facility] CLIA [id number] [address] [place] [address] [place] Calcium [Mass/Vol] 8.6 mg/dL Normal 8.5-10.2 [facility] Comment on above: Order Comment: Speci men Type: BLOOD SPECIMEN Ordering Facility: [facility] Address: [address] [place] [address] Performed By: #### 1 4196-0, 51482-5 #### [facility] CLIA [id number] [address] [place] [address] [place] Chloride [Moles/Vol] 98 mmol/L Normal 98-107 [facility] Comment on above: Order Comment: Speci men Type: BLOOD SPECIMEN Ordering Facility: [facility] Address: [address] [place] [address] Performed By: #### 1 4196-0, 64989-9 #### [facility] CLIA [id number] [address] [place] [address] [place] CO2 [Moles/Vol] 21 mmol/L Low 22-30 [facility] Comment on above: Order Comment: Speci men Type: BLOOD SPECIMEN Ordering Facility: [facility] Address: [address] [place] [address] Performed By: #### 1 4196-0, 38603-4 #### [facility] CLIA [id number] [address] [place] [address] [place] Creatinine [Mass/Vol] 1.12 mg/dL Normal 0.73-1.22 [facility] Comment on above: Order Comment: Speci men Type: BLOOD SPECIMEN Ordering Facility: [facility] Address: [address] [place] [address] Performed By: #### 1 4196-0, 21953-2 #### [facility] CLIA [id number] [address] [place] [address] [place] eGFRcr SerPlBld CKD-EPI 2020 68 mL/min/1.73m??? Normal >=60 [facility] Comment on above: Order Comment: Speci men Type: BLOOD SPECIMEN Ordering Facility: [facility] Address: [address] [place] [address] Result Comment: Tati mated Glomerular Filtration Rate (eGFR) is calculated using the 2020 CKD-EPI creatinine equation. This equation utilizes serum creatinine, sex, and age as parameters. The creatinine assay has traceable calibration to isotope dilution-mass spectrometry. Refer to KDIGO guidelines for clinical interpretation. In patients with unstable renal function, e.g. those with acute kidney injury, the eGFR may not accurately reflect actual GFR. Performed By: #### 1 4196-0, 65038-3 #### [facility] CLIA [id number] [address] [place] [address] [place] Glucose [Mass/Vol] 157 mg/dL High 74-99 [facility] Comment on above: Order Comment: Nena garcia Type: BLOOD SPECIMEN Ordering Facility: [facility] Address: [address] [place] [address] Result Comment: The [place] Diabetes Association (ADA) provides guidance for cutoff values for fasting glucose and random glucose. The ADA defines fasting as no caloric intake for at least 8 hours. Fasting plasma glucose results between 100 to 125 mg/dL indicate increased risk for diabetes (prediabetes). Fasting plasma glucose results greater than or equal to 126 mg/dL meet the criteria for diagnosis of diabetes. In the absence of unequivocal hyperglycemia, results should be confirmed by repeat testing. In a patient with classic symptoms of hyperglycemia or hyperglycemic crisis, random plasma glucose results greater than or equal to 200 mg/dL meet the criteria for diagnosis of diabetes. Reference: Standards of Medical Care in Diabetes 2016, [place] [employer] Association. Diabetes Care. 2016.39(Suppl 1). Performed By: #### 1 4196-0, 07642-4 #### [facility] CLIA [id number] [address] [place] [address] [place] Potassium [Moles/Vol] 4.5 mmol/L Normal 3.7-5.1 [facility] Comment on above: Order Comment: Nena garcia Type: BLOOD SPECIMEN Ordering Facility: [facility] Address: [address] [place] [address] Performed By: #### 1 4196-0, 26758-5 #### [facility] CLIA [id number] [address] [place] [address] [place] Sodium [Moles/Vol] 134 mmol/L Low 136-144 [facility] Comment on above: Order Comment: Nena garcia Type: BLOOD SPECIMEN Ordering Facility: [facility] Address: [address] [place] [address] Performed By: #### 1 4196-0, 06978-2 #### [facility] CLIA [id number] [address] [place] [address] [place] Urea nitrogen [Mass/Vol] 19 mg/dL Normal 9-24 [facility] Comment on above: Order Comment: Speci men Type: BLOOD SPECIMEN Ordering Facility: [facility] Address: [address] [place] [address] Performed By: #### 1 4196-0, 65046-5 #### [facility] CLIA [id number] [address] [place] [address] [place] CBC panel Auto (Bld)on 02-09 Erythrocyte distribution width (RBC) [Ratio] 13.0 % Normal 11.5-15.0 [facility] Comment on above: Order Comment: Speci men Type: BLOOD SPECIMEN Ordering Facility: [facility] Address: [address] [place] [address] Performed By: #### 5 8410-2 #### [facility] CLIA [id number] [address] [place] [address] [place] Hematocrit (Bld) [Volume fraction] 38.2 % Low 39.0-51.0 [facility] Comment on above: Order Comment: Speci men Type: BLOOD SPECIMEN Ordering Facility: [facility] Address: [address] [place] [address] Performed By: #### 5 8410-2 #### [facility] CLIA [id number] [address] [place] [address] [place] Hemoglobin (Bld) [Mass/Vol] 13.2 g/dL Normal 13.0-17.0 [facility] Comment on above: Order Comment: Speci men Type: BLOOD SPECIMEN Ordering Facility: [facility] Address: [address] [place] [address] Performed By: #### 5 8410-2 #### [facility] CLIA [id number] [address] [place] [address] [place] MCH (RBC) [Entitic mass] 30.3 pg Normal 26.0-34.0 [facility] Comment on above: Order Comment: Speci men Type: BLOOD SPECIMEN Ordering Facility: [facility] Address: [address] [place] [address] Performed By: #### 5 8410-2 #### [facility] CLIA [id number] [address] [place] [address] [place] [facility] MCHC (RBC) [Mass/Vol] 34.6 g/dL Normal 30.5-36.0 [facility] Comment on above: Order Comment: Speci men Type: BLOOD SPECIMEN Ordering Facility: [facility] Address: [address] [place] [address] Performed By: #### 5 8410-2 #### [facility] CLIA [id number] [address] [place] [address] [place] MCV (RBC) [Entitic vol] 87.8 fL Normal 80.0-100.0 [facility] Comment on above: Order Comment: Speci men Type: BLOOD SPECIMEN Ordering Facility: [facility] Address: [address] [place] [address] Performed By: #### 5 8410-2 #### [facility] CLIA [id number] [address] [place] [address] [place] Nucleated RBC (Bld) [#/Vol] 10*3/uL Normal <0.01 [facility] Comment on above: Order Comment: Speci men Type: BLOOD SPECIMEN Ordering Facility: [facility] Address: [address] [place] [address] Performed By: #### 5 8410-2 #### [facility] CLIA [id number] [address] [place] [address] [place] Platelet mean volume (Bld) [Entitic vol] 10.0 fL Normal 9.0-12.7 [facility] Comment on above: Order Comment: Speci men Type: BLOOD SPECIMEN Ordering Facility: [facility] Address: [address] [place] [address] Performed By: #### 5 8410-2 #### [facility] CLIA [id number] [address] [place] [address] [place] Platelets (Bld) [#/Vol] 226 10*3/uL Normal 150-400 [facility] Comment on above: Order Comment: Speci men Type: BLOOD SPECIMEN Ordering Facility: [facility] Address: [address] [place] [address] Performed By: #### 5 8410-2 #### [facility] CLIA [id number] [address] [place] [address] [place] RBC (Bld) [#/Vol] 4.35 10*6/uL Normal 4.20-6.00 [facility] Comment on above: Order Comment: Speci men Type: BLOOD SPECIMEN Ordering Facility: [facility] Address: [address] [place] [address] Performed By: #### 5 8410-2 #### [facility] CLIA [id number] [address] [place] [address] [place] WBC (Bld) [#/Vol] 14.12 10*3/uL High 3.70-11.00 [facility] Comment on above: Order Comment: Speci men Type: BLOOD SPECIMEN Ordering Facility: [facility] Address: [address] [place] [address] Performed By: #### 5 8410-2 #### [facility] CLIA [id number] [address] [place] [address] [place] CNDSon 02-09-2025 CNDS HNO ID: [id number] Author: LAURA MAGANA MD Service: Orthopaedic Surgery Author Type: Resident Type: Discharge Summary Filed: 02/10/2025 06:51 Note Text: Attestation signed by Laura Magana MD at 02/10/2025 6:51 AM Reviewed, authenticated, and electronically signed by Laura Magana MD. ORTHOPEDIC SURGERY DISCHARGE SUMMARY ADMISSION DATE: 02/08/25 DISCHARGE DATE: 02/09/25 Attending Physician: Laura Magana MD Reason for Hospitalization: Postoperative care following total knee replacement Admitting Diagnosis: End stage knee osteoarthritis Discharge Diagnosis: End-stage knee osteoarthritis status post total knee replacement Additional Diagnoses: ACTIVE PROBLEM LIST Essential Hypertension Hyperlipemia Atrial Fibrillation (Hcc) Dementia (Hcc) Obesity (Bmi 30-39.9) Mild Aortic Stenosis Primary Osteoarthritis of Left Knee Surgeries During Hospitalization: Procedure(s) (LRB): ROBOTIC ASSISTED TOTAL KNEE ARTHROPLASTY (Left) Procedures During Hospitalization: None Consultations: Physical Therapy Case Management Occupational Therapy Hospital Course: The patient is a 74 year old male who has been followed by Dr. Bridget severino MD in clinic for end-stage knee osteoarthritis. It was determined he would benefit from surgery. The procedure, its risks, benefits, and potential complications were discussed in detail with the patient prior to surgery. Understanding of all topics was conveyed by the patient, and consent was given for surgery. The patient was electively admitted to the [facility] on 02/08/2025. Surgery was scheduled and on 02/08/2025 he underwent a Procedure(s) (LRB): ROBOTIC ASSISTED TOTAL KNEE ARTHROPLASTY (Left). The procedure was tolerated well and he was sent to the post operative recovery room in stable condition, where he also did well. He was subsequently sent to his hospital room for postoperative management. Once on the floor his postoperative course was unremarkable and he did well. His diet was advanced which he tolerated. His pain was well controlled on oxycodone and tylenol; this was eventually transitioned to oral medication alone prior to discharge. He worked with Physical and Occupational Therapy starting on POD#0 who recommended he be discharged home. His dressing remained clean dry and intact throughout his stay. He remained afebrile with stable vital signs throughout his stay. He was stable for discharge to home on POD#1. Complete and comprehensive discharge instructions were provided to the patient as well as necessary prescriptions. The patient had no further questions and was advised to call with any questions, concerns, or problems. Patient was hemodynamically stable postoperatively. Relevant labs included: Hemoglobin (g/dL) Date Value 02/09/2025 13.2 01/26/2025 15.1 11/11/2024 14.4 Hematocrit (%) Date Value 02/09/2025 38.2 (L) 01/26/2025 42.6 11/11/2024 43.0 Discharge Antibiotics: Prior to surgery the patient was treated with antibiotics and continued with antibiotics 24 hours postoperatively Transfers: PACU and then to the hospital surgical floor when PACU criteria was met. DVT Prophylaxis: eliquis half dose until POD4 then resume home dose Pain Control: Oral narcotics Complications: Continued throughout the hospital course without complications. Patient Condition @ Discharge: Stable Discharge Disposition: Home with Home Health Care Other Information: None Discharge Activity/Weight Bearing Status: 75% weight bearing on the operative limb Information Provided to Patient: No additional information The patient was instructed to follow-up in 10-14 days. Future Appointments Date Time Provider Department Center 03/03/2025 9:45 AM XR ORTHO [facility] REJ RGORAV Rej 03/03/2025 10:40 AM Kamila Batres PA-C ORAVKATHE Rej 05/09/2025 10:00 AM John Freire APRN.[facility] Aneesh Juarez will require more than a 7 day supply of 30 morphine equivalent doses per day (MEDD) of narcotic prescription due to their major orthopaedic surgery SIGNATURE: Pascual Mckinley MD PATIENT NAME: Aneesh Juarez DATE: February 09, 2025 TIME: 3:31 PM PAGER: [phone] [facility] THERAPY NTon 02-09-2025 THERAPY NT HNO ID: [id number] Author: RODOLFO YAÑEZ PT Service: Physical Therapy Author Type: Physical Therapist Type: Therapy (PT/OT/Speech/Resp) Filed: 02/09/2025 13:15 Note Text: Physical Therapy Treatment Summary SERVICE DATE: 02/09/2025 SERVICE TIME: 1236 to 1310 ROOM: [id number] PT 6 Clicks Score: 23 Total Joint Replacement Discharge Readiness: Cleared from Physical Therapy DISCHARGE RECOMMENDATIONS Home PT Recommended Discharge Disposition Comments: with family assist Anticipated Discharge Needs: Physical Assist at Home, Supervision at Home Physical Assist at Home for: Stairs, Self Care, Safety, Transportation Supervision at Home due to: Decreased safety awareness Recommended Discharge Equipment: Wheeled Walker ASSESSMENT Response to Therapy Interventions: Good Participation in Activities pt able to progress stair navigation well, complete 12 steps w/ b/l crutches and use of CGA for safety but progressed to SBA. Pt was able to amb 30ft x2 trials w/ FWW and good hop to pattern. Following activity pt returned to chair in room w. CGA and was left upright w/ all needs met and call magallon in reach, RN updated. PRECAUTIONS Weight Bearing Restrictions, Total Knee Replacement Left Lower Extremity Weight Bearing Status: 75% PWB CURRENT HOSPITAL COURSE ROBOTIC ASSISTED TOTAL KNEE ARTHROPLASTY (Left) Relevant Past Medical History: Obesity, dementia, HTB, A-fib, HOME LIVING Patient Lives With: Spouse Assistance Available: 24-Hour Entry To Home: Stairs Number Of Stairs Into Home: 3 Number Of Stairs To Bed/Bath: flight Stairs to Bed/Bath with: Unilateral Rail Tub/Shower Type: Tub and WiS Equipment Owned: Cane, Other: See Comment (borrowing FWW) PRIOR FUNCTIONAL LEVEL Within Functional Limits, History of Falls Pt reports IND w/ ADLs and mobility w/o AD use, endorses Hx of falls. 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 SUBJECTIVE agreeable to PT THERAPY DIAGNOSIS Reduced mobility-other, Decreased activities of daily living (ADL) TREATMENT INTERVENTIONS Gait Training (11031), Therapeutic Activity (72080) Timed Code Treatment (minutes): 34 Skilled Treatment Time (minutes): 34 TRAINING AND EDUCATION PROVIDED Bed Mobility, Discharge Planning, Car Transfers, Assistive Device Use, Edema Management, Energy Conservation, Equipment, Disease Specific Education, Exercise Program, Falls Prevention, Expected Functional Level, Gait Pattern, Reduction of Deviations, Handout Issued, Home Safety, Home Set-up/Modifications, Patient Exercise/Therapy Program Support Needs, Positioning, Precautions/Restriction s, Pre-gait Activities, Role of Physical Therapy, Sitting Balance, Stair Navigation, Standing Balance, Treatment Protocol, Transfers THERAPEUTIC SKILLS USED Activity Dosing, Assessment of Tolerance Including Vitals Response to Activity, Cuing Tactile, Cues for Sequencing/Proper Technique for Activity, Cuing Verbal, Management of Critical Lines, Tubes and/or Drains, Movement Facilitation, Physical Assist FUNCTIONAL STATUS Bed Mobility Supine To Sit: Stand By Assistance Sit to Supine: Stand By Assistance Transfers Sit To Stand: Contact Guard Assistance Stand To Sit: Contact Guard Assistance Bed to Chair Contact Guard Assistance Bed To Chair Transfer Type: Stepping Bed To Chair Transfer Equipment: Wheeled Walker Gait Contact Guard Assistance Gait Device: Wheeled Walker General Deviations/Observations : Gabriela decreased, Step length decreased, Trunk Control Decreased, UE weight bearing on assistive device excessive Gait Distance (feet): 30ft x2 Stairs Contact Guard Assistance Stairs Device: Crutch(es) Number of Stairs: 12 improved to CGA w/ use of b/l crutches GOALS Patient will demonstrate progress to optimize functional mobility, maximize activity tolerance and endurance to maximize function upon discharge. Rehab Potential: Good Good Rehab Potential Due To: Good motivation Progress Toward Goals: Progressing as expected ACUTE CARE TREATMENT PLAN PT Frequency: Per Next Session Date Treatment Interventions: Education, Self Care / Home Management, Energy Conservation Training, Joint Mobility, Strengthening, Functional Mobility Training, Neuromuscular Re-education, Balance Training Plan for Next Visit: Continue per POC SIGNATURE: Rodolfo Yañez PT PATIENT NAME: Aneesh Juarez DATE: February 09, 2025 TIME: 1:15 PM [facility] THERAPY NT HNO ID: [id number] Author: RODOLFO YAÑEZ PT Service: Physical Therapy Author Type: Physical Therapist Type: Therapy (PT/OT/Speech/Resp) Filed: 02/09/2025 10:49 Note Text: Physical Therapy Evaluation Summary SERVICE DATE: 02/09/2025 SERVICE TIME: 0925 to 1026 ROOM: [place] [address] PT 6 Clicks Score: 22 Total Joint Replacement Discharge Readiness: Pending Physical Therapy Clearance DISCHARGE RECOMMENDATIONS Home PT Recommended Discharge Disposition Comments: pending progression of stair navigation Anticipated Discharge Needs: Physical Assist at Home, Supervision at Home Physical Assist at Home for: Stairs, Self Care, Safety, Transportation Supervision at Home due to: Decreased safety awareness Recommended Discharge Equipment: Wheeled Walker ASSESSMENT Response to Therapy Interventions: Good Participation in Activities pt tolerated eval well, educated on all surgical and WBing precautions w/ good compliance duirng session. Performed supine TE w/ good LLE muscle activation and required light TC for assist. Pt was able to transfer to EOB w CGA and stand to FWW w/ CGA before amb 25ft to hallway and back x 2 trials. Following 2nd amb trial, pt navigated 12 steps w/ b/l crutches and Jose-ModA for balance and safety, required mod VC for tech and TC to trunk for balance. Had LoB posteriorly when amb down the steps corrected w/ modA. Returned to room and trasfered on and off toilet to void w/ CGA, then returned to supine in bed w/ SBA . Pt was left supine w/ all needs met and calll magallon in reach. PRECAUTIONS Weight Bearing Restrictions, Total Knee Replacement Left Lower Extremity Weight Bearing Status: 75% PWB CURRENT HOSPITAL COURSE ROBOTIC ASSISTED TOTAL KNEE ARTHROPLASTY (Left) Relevant Past Medical History: Obesity, dementia, HTB, A-fib, HOME LIVING Patient Lives With: Spouse Assistance Available: 24-Hour Entry To Home: Stairs Number Of Stairs Into Home: 3 Number Of Stairs To Bed/Bath: flight Stairs to Bed/Bath with: Unilateral Rail Tub/Shower Type: Tub and WiS Equipment Owned: Cane, Other: See Comment (borrowing FWW) PRIOR FUNCTIONAL LEVEL Within Functional Limits, History of Falls Pt reports IND w/ ADLs and mobility w/o AD use, endorses Hx of falls. 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 SUBJECTIVE agreeable to PT THERAPY DIAGNOSIS Reduced mobility-other, Decreased activities of daily living (ADL) TREATMENT INTERVENTIONS Evaluation, Therapeutic Exercise (29197), Therapeutic Activity (16755), Gait Training (15790) Timed Code Treatment (minutes): 46 Skilled Treatment Time (minutes): 61 TRAINING AND EDUCATION PROVIDED Bed Mobility, Discharge Planning, Car Transfers, Assistive Device Use, Edema Management, Energy Conservation, Equipment, Disease Specific Education, Exercise Program, Falls Prevention, Expected Functional Level, Gait Pattern, Reduction of Deviations, Handout Issued, Home Safety, Home Set-up/Modifications, Patient Exercise/Therapy Program Support Needs, Positioning, Precautions/Restriction s, Pre-gait Activities, Role of Physical Therapy, Sitting Balance, Stair Navigation, Standing Balance, Treatment Protocol, Transfers THERAPEUTIC SKILLS USED Activity Dosing, Assessment of Tolerance Including Vitals Response to Activity, Cuing Tactile, Cues for Sequencing/Proper Technique for Activity, Cuing Verbal, Management of Critical Lines, Tubes and/or Drains, Movement Facilitation, Physical Assist FUNCTIONAL STATUS Bed Mobility Supine To Sit: Stand By Assistance Sit to Supine: Stand By Assistance Transfers Sit To Stand: Contact Guard Assistance Stand To Sit: Contact Guard Assistance Bed to Chair Contact Guard Assistance Bed To Chair Transfer Type: Stepping Bed To Chair Transfer Equipment: Wheeled Walker Gait Contact Guard Assistance Gait Device: Wheeled Walker General Deviations/Observations : Gabriela decreased, Step length decreased, Trunk Control Decreased, UE weight bearing on assistive device excessive Gait Distance (feet): 30ft x2 Stairs Minimal Assistance, Additional Information Stairs Device: Crutch(es) Number of Stairs: 12 LoB x1 requiring Mod A to prevent fall. Needs further stair training. GOALS Patient will demonstrate progress to optimize functional mobility, maximize activity tolerance and endurance to maximize function upon discharge. Rehab Potential: Good Good Rehab Potential Due To: Good motivation Progress Toward Goals: Progressing as expected ACUTE CARE TREATMENT PLAN PT Frequency: Per Next Session Date Treatment Interventions: Education, Self Care / Home Management, Energy Conservation Training, Joint Mobility, Strengthening, Functional Mobility Training, Neuromuscular Re-education, Balance Training Plan for Next Visit: Continue per POC SIGNATURE: Rodolfo Yañez PT PATIENT NAME: Aneesh Juarez DATE: February 09, 2025 TIME: 10:49 AM [facility] ANES PRE-OPon 02-08-2025 ANES PRE-OP HNO ID: [id number] Author: CARLY KEE MD Service: ? Author Type: Anesthesiologist Type: Anesthesia Preprocedure Evaluation Filed: 02/08/2025 09:56 Note Text: ANESTHESIOLOGY DAY OF SURGERY NOTE : 1950 Procedure Information Date/Time: 02/08/25 1139 Procedure: ROBOTIC ASSISTED TOTAL KNEE ARTHROPLASTY (Left: Knee) [facility] [address] [facility] Surgeons: Laura Magana MD Estimated body mass index is 35.33 kg/m? as calculated from the following: Height as of 02/06/25: 177.8 cm (5' 10 ). Weight as of 02/06/25: 111.7 kg (246 lb 3.2 oz). Most recent hematocrit and potassium results: Hematocrit 42.6 01/26/2025 Potassium 3.7 01/26/2025 Relevant Problems CARDIO (+) Atrial fibrillation (HCC) (+) Essential hypertension (+) Mild aortic stenosis Other (+) Primary osteoarthritis of left knee I - PHYSICAL EVALUATION AIRWAY Patient intubated: No. Tracheostomy tube not present Mallampati: III. TM distance: >3 FB. Neck ROM: full ROM without neurological symptoms. Mouth opening: adequate. Short neck: no. Thick neck: no Vu present: no Lip Bite Test: I Microretrognathia/Micro nagthia/Recessed Chin: No II - ANESTHESIA PLAN ASA Score: 3 Anesthetic Plan: spinal The patient is not a current smoker. NPO Status: adequate Anesthetic plan additional comments: Has not started anticoagulation. Beta Yanet Administration of chronic beta yanet medication planned. Monitoring Plan Monitoring plan: standard ASA. Post Procedure Analgesic Plan Postoperative analgesic plan: peripheral nerve block. Informed Consent Anesthetic risks, benefits, alternatives, personnel and consent discussed: yes. Patient / Responsible Libertarian agrees to proceed: yes Patient / Surrogate agrees to blood products: Yes DNR status not reviewed with patient and/or family prior to surgery. Significant changes in the patient condition since the History and Physical, not otherwise documented in primary service progress note: no. Potential Anesthesia issues that may suggest increased risk of complications or contraindication to planned procedure: none. Vitals Value Taken Time BP 198/93 02/08/25 0910 Pulse 68 02/08/25 0910 Resp 14 02/08/25 0910 Temp 36.2 ?C (97.2 ?F) 02/08/25 0910 SpO2 97 % 02/08/25 0910 Facility-Administered Medications as of 02/08/2025 Medication Dose Route Frequency - lidocaine (PF) 10 mg/mL (1 %) 1-2 mg injection (XYLOCAINE) 0.1-0.2 mL INTRADERMAL PRN Or - lidocaine 1% 0.25 mL subcutaneous j-tip syringe (XYLOCAINE) 0.25 mL SUBCUTANEOUS PRN - lactated ringers iv infusion 5-30 mL/hr INTRAVENOUS CONTINUOUS - NaCl 0.9% iv flush bag 20 mL INTRAVENOUS PRN - ceFAZolin 2 g in dextrose (iso-osmotic) 50 mL (ANCEF,KEFZOL) 2 g INTRAVENOUS Pre-Op Once Outpatient Medications as of 02/08/2025 Medication Sig - [START ON 04/13/2025] mupirocin (BACTROBAN) 2 % ointment Apply 1/2 inch strip to cotton swab and apply to each nostril twice daily for 5 days prior to and morning of surgery. Patient should start on April 13, 2025. - hydroCHLOROthiazide 25 mg tablet I have interviewed and examined the patient. I have reviewed the medical record and/or the pre-anesthesia evaluation, pertinent labs, and test results. This contains updated information obtained within 48 hours of Surgery/Procedure. SIGNATURE: Carly Kee MD PATIENT NAME: Aneesh Juarez DATE: February 08, 2025 TIME: 9:55 AM CSN: [id number] [facility] BRIEF OP NOTon 02-08-2025 BRIEF OP NOT HNO ID: [id number] Author: RASHAAD PAREKH MD Service: Orthopaedic Surgery Author Type: Resident Type: Brief Op Note Filed: 02/08/2025 14:30 Note Text: BRIEF OP NOTE LOG ID: [id number] Surgery/Procedure Date: 02/08/2025 Incision/Procedure Start Time: 12:11 PM Incision Close/Procedure End Time: 2:28 PM Surgeon(s)/Proceduralis t(s) and Pre Planning Advisor(s): Surgeons and Role: * Laura Magana MD - Primary * Rashaad Parekh MD - Resident - Assisting * Pascual Mckinley MD - Resident - Assisting Procedure(s): Procedure(s) (LRB): ROBOTIC ASSISTED TOTAL KNEE ARTHROPLASTY (Left) Anesthesia: Spinal Estimated Blood Loss: 50 mls Specimens: ID Type Source Tests Collected by Time Destination A : left knee Tissue Bone, Resection SURGICAL PATHOLOGY Laura Magana MD 02/08/2025 12:40 PM Complications: None Pre-Op/Pre-Procedure Diagnosis: Left knee OA Post-Op/Post-Procedure Diagnosis: Same Post-op Plan: Admit to Dr. Chino Wolfe Mepilex dressing to be removed on POD7 Abx: Ancef perioperative 2g q8h x3 doses VTE Prophylaxis: ASA 81 mg BID x28d Weightbearin% WB LLE Okay for diet from ortho perspective PT/OT while IP Anticipate dc home POD1 pending PT clearance Plan of care discussed with: Provider, RN, Patient. SIGNATURE: Rashaad Parekh MD PATIENT NAME: Aneesh Juarez DATE: February 08, 2025 TIME: 2:29 PM PAGER/CONTACT #: [phone] [facility] NURSING PROGon 02-08-2025 NURSING PROG HNO ID: [id number] Author: BERNADETTE TEAGUE RN Service: Nursing Author Type: Registered Nurse Type: Nursing Progress Note Filed: 02/08/2025 17:36 Note Text: Transfer Note: PATIENT NAME: Aneesh Juarez Patient Location: [place] [address] Room: [place] [address] Patient transferred into room/unit [facility] in stable condition. Actions taken: No futher actions taken at this time. Will continue to monitor and check with patient. [facility] OPERATIVE NOon 02-08-2025 OPERATIVE NO HNO ID: [id number] Author: LAURA MAGANA MD Service: Orthopaedic Surgery Author Type: Physician Type: Operative Report Filed: 02/08/2025 15:53 Note Text: [place] [address] [place] OPERATIVE NOTE PATIENT NAME: Aneesh Juarez AGE: [age] year old LOG ID: [id number] SURGERY DATE: 02/08/2025 SURGEON AND ASSISTANTS: Surgeons and Role: * Laura Magana MD - Primary * Rashaad Parekh MD - Resident - Assisting * Pascual Mckinley MD - Resident - Assisting * ATIF Guevara, MARIO OPERATION: ROBOTIC LEFT TOTAL KNEE - PRESS-FIT CR for VARUS DEFORMITY CASE COMPLEXTIY: HIGH- a 22 modifier was added to the case to reflect the increased complexity. The surgical procedure was more complex and involved due to the patient?s obesity with BMI greater than 35. Joint exposure was significantly more difficult and involved mobilization of abundant tissue in order to reduce risk of francia-operative complication. Closure was also more complex due to the patient's body habitus and abundant francia-articular adipose. Closure took approximately half an hour or longer than the standard closure. The case took significantly more time and effort than a standard arthroplasty procedure. ANESTHESIA: Spinal SPINAL + ADDUCTOR CANAL BLOCK PRE-OPERATIVE DIAGNOSIS: POST TRAUMATIC LEFT KNEE ARTHRITIS SECONDARY LEFT KNEE OSTEOARTHRITIS Pre-Op Diagnosis Codes: Post-traumatic osteoarthritis of left knee [M17.32] POST-OPERATIVE DIAGNOSIS: POST TRAUMATIC LEFT KNEE ARTHRITIS SECONDARY LEFT KNEE OSTEOARTHRITIS Same as Pre-Op Diagnosis Codes: Post-traumatic osteoarthritis of left knee [M17.32] BMI: Estimated body mass index is 35.33 kg/m? as calculated from the following: Height as of 02/06/25: 177.8 cm (5' 10 ). Weight as of 02/06/25: 111.7 kg (246 lb 3.2 oz). OPERATIVE INDICATIONS: The patient is a 74 year old that has developed deformity in the left knee joint with X-rays evidence of tri-compartmental degeneration and varus angulation from predominantly medial wear and bone loss. Non-operative treatment and Physical Therapy have been attempted on the left, but have not improved or controlled the symptoms and pain that occurs during normal daily activities. Knee motion has also become limited and is restricting the patient. Robotic assisted left total knee arthroplasty was recommended. A CT-scan will be done pre-operatively for planning, segmentation, and precise intra-operative registration and robotically guided bone resection. Bone density and size are amenable to an uncemented press-fit knee arthroplasty. This was discussed with the patient in detail including the possibility of longer term tibial component fixation and less stress shielding. The risks, benefits and potential complications of the arthroplasty surgery were discussed with the patient in detail. Potential complications specifically related to primary knee replacement were discussed in detail and included but were not limited to bleeding problems, vessel damage, nerve injury, nerve dysfunction, infection, blood clots, and other complications known to occur with joint surgery. Specific details of the surgical procedure, hospitalization, recovery, rehabilitation, and long-term precautions were also presented. Pre-operative teaching was provided. Implant/prosthesis selection was outlined, and the many options available were explained; the final choice will be made at the time of the procedure to match the anatomy and condition of the bone, ligaments, tendons, and muscles. The patient was seen by [facility] for pre-operative optimization, and risk assessment. Francia-operative blood management and the potential for blood transfusion were discussed with risks and options clearly outlined. The patient has consented to the use of banked allogenic blood if medically necessary. Understanding of all topics was conveyed to me by the patient pre-operatively, and patient consent was given to proceed with the left total knee replacement. OPERATIVE FINDINGS: Severe tricompartmental wear and degeneration. ACL absent. Significant tricompartmental grade 3, 4 chondral changes were present, more medial than lateral. Medial meniscus was degenerative and torn. Lateral meniscus was degenerative but intact. The knee was lax medially due to bone loss on the tibia. MCL attenuated but intact. PCL intact. OPERATIVE PROCEDURE: The patient was identified and brought into the Operating Room by the anesthesia and nursing teams. Anesthesia and placement of an Adductor Canal block catheter was successfully performed. The patient was then positioned supine on the operating room table, and a Bergman catheter was placed. Intravenous antibiotic prophylaxis dosing was confirmed. A tourniquet was applied to the left upper thigh. A full knee exam was done after anesthesia was in full effect (more content not included)... [facility] Pathology biopsy report Celestine (Tiss)on 02-08-2025 AP DISCLAIMER [facility] Comment on above: Order Comment: Nena garcia Type: BLOOD SPECIMEN Ordering Facility: [facility] Address: [address] [place] [address] Result Comment: Panda chery Developed Test (LDT) Disclaimer: Performance characteristics of immunohistochemical, immunofluorescent, and chromogenic in-situ hybridization tests have been determined by the performing laboratory within [facility] Pathology and Laboratory Medicine Department ([facility], [facility], [facility], [facility], [facility], [facility], or [facility]) in a manner consistent with CLIA requirements. One or more of these tests may not have been cleared or approved by the FDA. [facility] is regulated under CLIA as qualified to perform high-complexity testing. These tests are used for clinical purposes. These should not be regarded as investigational or for research. Positive and negative controls stain appropriately. Performed By: #### 1 4196-0, 42864-4 #### [facility] CLIA [id number] [place] [address] [place] CASE REPORT [facility] Comment on above: Order Comment: Nena garcia Type: BLOOD SPECIMEN Ordering Facility: [facility] Address: [address] [place] [address] Result Comment: Surg ical Pathology Report Case: [id number] Authorizing Provider: Laura Magana MD Collected: 02/08/2025 12:40 PM Ordering Location: Admitting Received: 02/08/2025 02:01 PM Pathologist: Conner Bernard MD Specimen: Bone, Resection, left knee Performed By: #### 1 4196-0, 77824-0 #### [facility] CLIA [id number] [address] [place] [address] [facility] Comment on above: Order Comment: Speci men Type: BLOOD SPECIMEN Ordering Facility: [facility] Address: [address] [place] [address] Result Comment: Pre- op diagnosis: Post-traumatic osteoarthritis of left knee [M17.32] Performed By: #### 1 4196-0, 84290-7 #### [facility] CLIA [id number] [address] [place] [address] FINAL DIAGNOSIS [facility] Comment on above: Order Comment: Speci men Type: BLOOD SPECIMEN Ordering Facility: [facility] Address: [address] [place] [address] Result Comment: Left knee, arthroplasty: - Degenerative joint disease. 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 at 1153 EDT Performed By: #### 1 4196-0, 98557-9 #### [facility] CLIA [id number] [address] [place] [address] FINAL PERFORMING LAB [facility] Comment on above: Order Comment: Speci men Type: BLOOD SPECIMEN [facility] [facility] Address: [address] [place] [address] Result Comment: Diag nostic interpretation performed at: [facility], [address] [facility] [address] CLIA# [id number] Acquisition Analyst: Chelsea Dietrich MD Performed By: #### 1 4196-0, 31722-3 #### [facility] CLIA [id number] [address] [place] [address] GROSS DESCRIPTION Normal [facility] Comment on above: Order Comment: Speci men Type: BLOOD SPECIMEN Ordering Facility: [facility] Address: [place] [address] Result Comment: A. B one, Resection Received in formalin, labeled left knee bone resection are multiple segments of bone and cartilage, measuring approximately 21.5 x 9.5 x 1.5 cm in aggregate. One portion is recognizable as a tibial plateau, and shows eburnation and roughening of the articular surface. Separate fragments consistent with femoral condyles also show evidence of cartilage eburnation and roughening. Also received are multiple irregular fragments of ly-brown tissue, probably representing synovium, joint capsule and meniscus. Automatic Casting Machine Operator sections are submitted, as follows: A1: Joint capsule/synovium and meniscus A2: Bone from articulating/non-articulating aspects of femoral condyles, following decalcification in formic acid A3: Bone from articulating/non-articulating aspects of tibial plateau, following decalcification in formic acid AKA February 08, 2025 2:32 PM Gross examination performed at [facility], [address] [place] [address] Performed By: #### 1 4196-0, 69352-8 #### [facility] CLIA [id number] [address] [place] [address] OF [place] THERAPY NTon 02-08-2025 THERAPY NT HNO ID: [id number] Author: RODOLFO YAÑEZ PT Service: Physical Therapy Author Type: Physical Therapist Type: Therapy (PT/OT/Speech/Resp) Filed: 02/08/2025 16:49 Note Text: PHYSICAL THERAPY MISSED VISIT SERVICE DATE: 02/08/2025 SERVICE TIME: 1648 ROOM: Main - Periop OR ([place] [address]) Patient not seen due to Clinical Appropriateness. Per PACU MODELING DIRECTOR Pt will not be ready for PT today . Will f/u POD 1 SIGNATURE: Rodolfo Yañez PT PATIENT NAME: Aneesh Juarez DATE: February 08, 2025 TIME: 4:48 PM Normal [facility] CNCOon 02-07-2025 CNCO Letter Text Normal [facility] ECHOon 02-07-2025 Echocardiography Echocardiography Report: Transthoracic Echo [facility] Lalita Babcock Date of service: 02/07/2025 12:59:[facility] Ordering physician: JUAN J KITCHEN Exam indication: Sustained atrial fibrillation Technologist: Beverly Tapia Interpreting physician: Juan J Kithcen MD PATIENT: Name: MR. ANEESH JUAREZ : 1950 Age: 74 years Gender: M History of hypertension and dyslipidemia. Primary rhythm: atrial fib. Height: 177.80 cm BSA: 2.35 m Weight: 111.68 kg BMI: 35.3 kg/m Heart rate 78 bpm Blood pressure 143/75 mmHg Color Doppler was utilized to interrogate the cardiac valves assessed and spectral Doppler was utilized to determine the flow velocities and pressure gradients reported in this exam. MEASUREMENTS: Value Indexed Normal Max aortic dimension 3.9 cm Ao < 3.8 Left atrial volume 86 ml (biplane A-L) 37 ml/m Bruna <= 34 LV ID (diastole) 4.7 cm (2D) 1.99 cm/m LV ID (systole) 2.8 cm (2D) 1.21 cm/m IVS, leaflet tips 1.3 cm (2D) Posterior wall thickness 1.2 cm (2D) Left ventricular mass 225 g (2D) 96 g/m LV stroke volume 66 ml (2D biplane) LVOT stroke volume 72 ml 32 ml/m LV end diastolic volume 110 ml (2D biplane) 46.8 ml/m 34<=EDVi<75 LV end systolic volume 44 ml (2D biplane) 18.7 ml/m Ejection Fraction 60 % (2D biplane) EF > 52 FINDINGS: LEFT VENTRICLE The left ventricle is normal in size. There is mild concentric left ventricular hypertrophy. Left ventricular systolic function is normal globally. Left ventricular diastolic function was not evaluated due to AF. Wall Motion: All scored segments are normal. RIGHT VENTRICLE The right ventricle is normal in size. Right ventricular systolic function is normal. RV systolic tissue Doppler velocity is 10.2 cm/s. Tricuspid annular displacement is 1.8 cm. Estimated right ventricular systolic pressure is 31 mmHg consistent with normal pulmonary artery pressures. Estimated right atrial pressure is 3 mmHg based on IVC assessment. LEFT ATRIUM The left atrial cavity is mildly dilated. RIGHT ATRIUM The right atrial cavity is normal in size. Inferior Vena Cava: The inferior vena cava appears normal measuring 1.5 cm. The vessel decreases greater than 50 percent with inspiration. MITRAL VALVE There is mild (1+) mitral valve regurgitation. There is mild thickening. Regurgitant orifice area (PISA) is 0.08 cm . TRICUSPID VALVE The tricuspid valve leaflets are structurally normal. There is trace (trace - 1+) tricuspid valve regurgitation. AORTIC VALVE There is mild aortic valve stenosis. There is trace aortic valve regurgitation. Tricuspid aortic valve. There is mild thickening. There is mild calcification. The peak gradient is 17 mmHg (peak velocity = 204.0 cm/s). The mean gradient is 9 mmHg. The LVOT mean velocity is 2.0 cm/s. The LVOT diameter is 2.2 cm. The aortic VTI is 40.4 cm. The dimensionless valve index is 0.47. AV area is 1.79 cm (0.76 cm /m ) by continuity, VTI. The LVOT stroke volume index is 32 ml/m . PULMONIC VALVE The pulmonic valve cusps are structurally normal. There is trace pulmonic valve regurgitation. AORTA The visualized aorta is borderline dilated. Measurements - Aortic valve annulus 2.6 cm. Mid ascending aorta 3.9 cm. PULMONARY ARTERIES The pulmonary arteries are unseen or not interrogated. INTERATRIAL SEPTUM There is no evidence of intracardiac shunting as detected by Doppler. INTERVENTRICULAR SEPTUM There is no flow through the interventricular septum as detected by Doppler. PERICARDIUM There is no pericardial effusion. CONCLUSIONS: - Exam indication: Sustained atrial fibrillation - The left ventricle is normal in size. There is mild concentric left ventricular hypertrophy. Left ventricular systolic function is normal. EF = 60 5% (2D biplane) Left ventricular diastolic function was not evaluated due to AF. - The right ventricle is normal in size. Right ventricular systolic function is normal. - The left atrial cavity is mildly dilated. - No significant valve disease: Mild , 1+ MR, trivial TR, trivial PI - The visualized aorta is borderline dilated with a maximal dimension of 3.9 cm. - The patient has not had a prior CC echocardiographic exam for comparison. * * * Final * * * [employer] Image : [id number] CAROLE [facility] CNOVon 02-06-2025 CN Office Visit (CARDAGHWW) ANEESH JUAREZ ([id number]) 1950 M Date Time Provider Department 02/06/25 3:20 PM JUAN J KITCHEN CARDAGHWW During your visit today, we recorded the following information about you: Pulse Respiration Blood pressure Weight 67/minute 18/minute 144/88 111.7 kg Height 1.778 m Juan J Kitchen MD 02/06/2025 3:39 PM Addendum Echocardiogram Start eliquis after surgery once considered safe to do so by surgeon Take metoprolol 25 mg twice daily Juan J Kitchen MD 02/06/2025 4:20 PM Signed PRIMARY CARE PHYSICIAN: Opal Ward [address] [place] [id number] REFERRING PHYSICIAN: Tamika Beard [id number] [facility] [address] CHIEF COMPLAINT: New onset atrial fibrillation, preoperative cardiac risk assessment HISTORY OF PRESENT ILLNESS: Mr. Juarez is a 74 year old male with a history of hypertension, hyperlipidemia and prediabetes who was referred to cardiology clinic after finding of new onset atrial fibrillation during his preop visit prior to upcoming left total knee arthroplasty. Patient reports that he went to his preoperative visit last week prior to his scheduled knee surgery on February 08, 2025. During his preop visit, he was noted to be in new onset atrial fibrillation for which he was otherwise asymptomatic. As a result, he was referred to cardiology clinic for further evaluation. In discussion with the patient in the office today, he reports doing well from a cardiac standpoint and denies any cardiac complaints. He specifically denies any symptoms of chest pain, dyspnea on exertion, orthopnea, paroxysmal nocturnal dyspnea, lower extremity edema, claudication, presyncope, syncope, or palpitations. Despite his knee arthritis, he continues to workout regularly 3 times a week with a personal care aide for an hour at a time. He does typically walk on the treadmill backwards for 1.9 miles an hour, uses the step climber for 10 minutes and the exercise bike. He also does some weight training as well. He also enjoys skiing during the wintertime. He denies any cardiac limitations with exercise. He otherwise denies any complaints of exertional chest pain, dyspnea, orthopnea, paroxysmal nocturnal dyspnea, lower extremity edema, presyncope, syncope, or palpitations. Of note, patient has been on chronic metoprolol therapy for his underlying hypertension. He has been prescribed to take metoprolol 50 mg twice daily. As he does report increased exercise intolerance on this higher dose, he instead has been taking metoprolol 50 mg daily instead. PAST MEDICAL HISTORY Diagnosis Date Atrial fibrillation (HCC) Dementia (HCC) Essential hypertension Hyperlipemia Memory loss Obesity (BMI 30-39.9) Post-traumatic osteoarthritis of left knee PAST SURGICAL HISTORY Procedure Laterality Date ARTHROSCOPY KNEE DIAGNOSTIC W/WO SYNOVIAL BX SPX Left age 15 COLONOSCOPY SCREENING VASECTOMY MEDICATIONS: atorvastatin (LIPITOR) 20 mg tablet Take 20 mg by mouth once daily. memantine 7-14-21-28 mg C24k Take by mouth once daily. donepezil (ARICEPT) 5 mg tablet Take 5 mg by mouth daily at bedtime. [START ON 04/13/2025] mupirocin (BACTROBAN) 2 % ointment Apply 1/2 inch strip to cotton swab and apply to each nostril twice daily for 5 days prior to and morning of surgery. Patient should start on April 13, 2025. hydroCHLOROthiazide 25 mg tablet metoprolol tartrate, short acting, (LOPRESSOR) 25 mg tablet Take 1 tablet by mouth two times a day. apixaban (ELIQUIS) 5 mg tab(s) Take 1 tablet by mouth two times a day. Start after surgery when deemed safe to do so by surgeon ALLERGIES No Known Allergies SOCIAL HISTORY: Social History Tobacco Use Smoking status: Former Current packs/day: 0.00 Types: Cigarettes Quit date: 1979 Years since quittin.6 Passive exposure: Past Smokeless tobacco: Never Tobacco comments: Smoke socially for 8 years Substance Use Topics Alcohol use: Yes Alcohol/week: 7.0 standard drinks of alcohol Types: 2 Glasses of wine, 5 Shots of liquor per week Comment: 2 drinks per day Drug use: Never FAMILY HISTORY Problem Relation Age of Onset No Known Problems Mother No Known Problems Father REVIEW OF SYSTEMS: GENERAL: Negative for: Weight loss or gain, Fever, Chills, or Night sweats RESPIRATORY: Negative for: Cough, Blood in Sputum, Shortness of breath, Wheezing CARDIAC: Negative history of chest pain on exertion, dyspnea on exertion, orthopnea, paroxysmal nocturnal dyspnea, lower extremity edema, presyncope, syncope, or palpitations PHYSICAL EXAMINATION: BP 144/88 Pulse 67 Resp 18 Ht 5' 10 (1.78m) Wt 246 lb 3.2 oz (111.7kg) SpO2 98[room air]% BMI 35.33 kg/(m2). GENERAL: Well appearing, in no acute distress. LUNGS: Clear to auscultation bilaterally, no rale (more content not included)... Normal [facility] ECG B/O W INTERP (MED OFFICE )on 02-06-2025 Atrial fibrillation with premature ventricular or aberrantly conducted complexes. [facility] Bryan 02-02-2025 ANTHONY Telephone (SANTANA) ANEESH JUAREZ ([id number]) 1950 M Date Time Provider Department 02/02/25 NATASHA PALACIO During your visit today, we recorded the following information about you: Natasha Palacio LSW 02/02/2025 2:00 PM Signed ORTHOPAEDIC COORDINATION OF CARE Pre-Op Assessment Discharge Disposition (Planned): Home with Home Health Discharge Transportation: Car PRIMARY CARE PHYSICIAN: Opal Ward MD OR Surgery Date: 02/08/2025 TCI Appointment: 02/08/2025 Joint: Jointtype: Knee Side: left Health Insurance: Medicare or [facility] MEDIC[facility] SUPPLEMENT Primary Contact: Extended Emergency Contact Information Primary Emergency Contact: Lotus Juarez Address: [address] [place] [address] [place] [address] Relation: Spouse Have you had joint replacement surgery before?: No Social: Pre-Hospital Baseline Mental Status: Alert AND Oriented Informant: Self Living Arrangement: Home Who able to assist you at home once you discharge? Spouse Are they available for at least 2 weeks? Yes Stairs: 2 story home 1 stairs to enter home 25 stairs inside home Bedroom Location: Second Bathroom Location: Second Do you have problems that affect your ability to perform normal activities of daily living such as bathing, dressing, or toileting yourself? No = 0 What is your current functional status?: Perform ADLs independently Are you able to afford your medications/Food? Yes Social Drivers of Health Tobacco Use: Medium Risk (01/26/2025) Patient History Smoking Tobacco Use: Former Smokeless Tobacco Use: Never Passive Exposure: Past Alcohol Use: Not At Risk (02/02/2025) AUDIT-C Frequency of Alcohol Consumption: 4 or more times a week Average Number of Drinks: 1 or 2 Frequency of Binge Drinking: Never Financial Resource Strain: Low Risk (02/02/2025) Overall Financial Resource Strain (CARDIA) Difficulty of Paying Living Expenses: Not very hard Food Insecurity: No Food Insecurity (02/02/2025) Hunger Vital Sign Worried About Running Out of Food in the Last Year: Never true Ran Out of Food in the Last Year: Never true Transportation Needs: No Transportation Needs (02/02/2025) PRAPARE - Transportation Lack of Transportation (Medical): No Lack of Transportation (Non-Medical): No Physical Activity: Sufficiently Active (02/02/2025) Exercise Vital Sign Days of Exercise per Week: 3 days Minutes of Exercise per Session: 60 min Stress: No Stress Concern Present (02/02/2025) [place] [employer] - Occupational Stress Questionnaire Feeling of Stress : Not at all Social Connections: Socially Integrated (02/02/2025) Social Connection and Isolation Panel [NHANES] Frequency of Communication with Friends and Family: More than three times a week Frequency of Social Gatherings with Friends and Family: More than three times a week Attends Bahai Services: More than 4 times per year Active Member of Clubs or Organizations: Yes Attends Club or Organization Meetings: More than 4 times per year Marital Status: Intimate Partner Violence: Not At Risk (02/02/2025) Safe at Home? Fear of Current or Ex-Partner: No Emotionally Abused: No Physically Abused: No Sexually Abused: No Safe at Home?: Not on file Depression: Not at risk (01/20/2025) PHQ-2 PHQ-2 Score: 0 Housing Stability: Low Risk (02/02/2025) Housing Stability Vital Sign Unable to Pay for Housing in the Last Year: No Number of Times Moved in the Last Year: 0 Homeless in the Last Year: No Utilities: Not At Risk (02/02/2025) [facility] Utilities Threatened with loss of utilities: No Area Deprivation Index: Medium Risk (01/20/2025) Area Deprivation Index National Score (1-100), lower number is lower risk: 61 State Score (1-10), lower number is lower risk: 4 Data from: https://www.[facility].ed u/. Last address used for calculation: [address] Equipment: Do you currently use any equipment at home for your medical condition or to help you get around? None Patient stated he has a cane at home for after surgery and is planning to get a walker as needed Active Services/Needs: None Transportation: Do you have reliable transportation to and from surgery/appointments?: Yes Who will provide discharge transportation: Spouse Contact information for patient's ride: Will your ride be available for 1200 discharge time? Yes Office Visit Follow Up Did you receive the antiseptic wipes from your surgeon?s office? Yes Did you receive a prescription for an assistive device (walker or crutches) from your surgeon?s office and fill it or do you already have one at home? No, If no, plan for correction is: Patient stated he is planning to get a walker as needed Did you attend a joint education class/Watched video? No Did (more content not included)... Normal [facility] Basic metabolic 2000 panelon 01-26-2025 Anion gap [Moles/Vol] 8 mmol/L 8 - 15 mmol/L [facility] Calcium [Mass/Vol] 9.1 mg/dL 8.5 - 10. 2 mg/dL [facility] Chloride [Moles/Vol] 97 mmol/L Low 98 - 10 7 mmol/L [facility] CO2 [Moles/Vol] 27 mmol/L 22 - 30 mmol/L [facility] Creatinine [Mass/Vol] 1.03 mg/dL 0.73 - 1.22 mg/dL [facility] GFR/1.73 sq M.predicted among non-blacks MDRD (S/P/Bld) [Vol rate/Area] 75 mL/min/{1.73_m2} - PINF [facility] Comment on above: Estimated Glomerular Filtration Rate (eGFR) is calculated using the 2020 CKD-EPI creatinine equation. This equation utilizes serum creatinine, sex, and age as parameters. The creatinine assay has traceable calibration to isotope dilution-mass spectrometry. Refer to KDIGO guidelines for clinical interpretation. In patients with unstable renal function, e.g. those with acute kidney injury, the eGFR may not accurately reflect actual GFR. Glucose [Mass/Vol] 160 mg/dL High 74 - 99 mg/dL [facility] Comment on above: The [place] Diabete s Association (ADA) provides guidance for cutoff values for fasting glucose and random glucose. The ADA defines fasting as no caloric intake for at least 8 hours. Fasting plasma glucose results between 100 to 125 mg/dL indicate increased risk for diabetes (prediabetes). Fasting plasma glucose results greater than or equal to 126 mg/dL meet the criteria for diagnosis of diabetes. In the absence of unequivocal hyperglycemia, results should be confirmed by repeat testing. In a patient with classic symptoms of hyperglycemia or hyperglycemic crisis, random plasma glucose results greater than or equal to 200 mg/dL meet the criteria for diagnosis of diabetes. Reference: Standards of Medical Care in Diabetes 2016, [place] Diabetes Association. Diabetes Care. 2016.39(Suppl 1). Interpretation and review of laboratory results Abnormal [facility] Potassium [Moles/Vol] 3.7 mmol/L 3.7 - 5.1 mmol/L [facility] Sodium [Moles/Vol] 132 mmol/L Low 136 - 144 mmol/L [facility] Urea nitrogen [Mass/Vol] 11 mg/dL 9 - 24 mg/dL [facility] Anion gap [Moles/Vol] 8 mmol/L Normal 8-15 [facility] Comment on above: Order Comment: Speci men Type: BLOOD SPECIMEN Ordering Facility: [facility] Address: [address] [place] [address] Performed By: #### 2 4321-2 #### [facility] [place] [id number] [address] [place] [address] [place] Calcium [Mass/Vol] 9.1 mg/dL Normal 8.5-10.2 [facility] Comment on above: Order Comment: Speci men Type: BLOOD SPECIMEN Ordering Facility: [facility] Address: [address] [place] [address] Performed By: #### 2 4321-2 #### [facility] [place] [id number] [address] [place] [address] [place] Chloride [Moles/Vol] 97 mmol/L Low 98-107 [facility] Comment on above: Order Comment: Speci men Type: BLOOD SPECIMEN Ordering Facility: [facility] Address: [address] [place] [address] Performed By: #### 2 1-2 #### [facility] IA [id number] [address] [place] [address] [place] CO2 [Moles/Vol] 27 mmol/L Normal 22-30 [facility] Comment on above: Order Comment: Speci men Type: BLOOD SPECIMEN Ordering Facility: [facility] Address: [address] [place] [address] Performed By: #### 2 1-2 #### [facility] IA [id number] [address] [place] [address] [place] Creatinine [Mass/Vol] 1.03 mg/dL Normal 0.73-1.22 [facility] Comment on above: Order Comment: Speci men Type: BLOOD SPECIMEN Ordering Facility: [facility] Address: [address] [place] [address] Performed By: #### 2 4321-2 #### [facility] [place] [id number] [address] [place] [address] [place] eGFRcr SerPlBld CKD-EPI 2020 75 mL/min/1.73m??? Normal >=60 [facility] Comment on above: Order Comment: Nena garcia Type: BLOOD SPECIMEN Ordering Facility: [facility] Address: [address] [place] [address] Result Comment: Tati mated Glomerular Filtration Rate (eGFR) is calculated using the 2020 CKD-EPI creatinine equation. This equation utilizes serum creatinine, sex, and age as parameters. The creatinine assay has traceable calibration to isotope dilution-mass spectrometry. Refer to KDIGO guidelines for clinical interpretation. In patients with unstable renal function, e.g. those with acute kidney injury, the eGFR may not accurately reflect actual GFR. Performed By: #### 2 4321-2 #### [facility] CLIA [id number] [place] [address] [place] Glucose [Mass/Vol] 160 mg/dL High 74-99 [facility] Comment on above: Order Comment: Nena garcia Type: BLOOD SPECIMEN Ordering Facility: [facility] Address: [address] [place] [address] Result Comment: The [place] Diabetes Association (ADA) provides guidance for cutoff values for fasting glucose and random glucose. The ADA defines fasting as no caloric intake for at least 8 hours. Fasting plasma glucose results between 100 to 125 mg/dL indicate increased risk for diabetes (prediabetes). Fasting plasma glucose results greater than or equal to 126 mg/dL meet the criteria for diagnosis of diabetes. In the absence of unequivocal hyperglycemia, results should be confirmed by repeat testing. In a patient with classic symptoms of hyperglycemia or hyperglycemic crisis, random plasma glucose results greater than or equal to 200 mg/dL meet the criteria for diagnosis of diabetes. Reference: Standards of Medical Care in Diabetes 2016, [place] Diabetes Association. Diabetes Care. 2016.39(Suppl 1). Performed By: #### 2 4321-2 #### [facility] CLIA [id number] [place] [address] [place] Potassium [Moles/Vol] 3.7 mmol/L Normal 3.7-5.1 [facility] Comment on above: Order Comment: Nena garcia Type: BLOOD SPECIMEN Ordering Facility: [facility] Address: [address] [place] [address] Performed By: #### 2 4321-2 #### [facility] CLIA [id number] [address] [place] [address] [place] Sodium [Moles/Vol] 132 mmol/L Low 136-144 [facility] Comment on above: Order Comment: Speci men Type: BLOOD SPECIMEN Ordering Facility: [facility] Address: [address] [place] [address] Performed By: #### 2 4321-2 #### [facility] CLIA [id number] [address] [place] [address] [place] Urea nitrogen [Mass/Vol] 11 mg/dL Normal - [facility] Comment on above: Order Comment: Speci men Type: BLOOD SPECIMEN Ordering Facility: [facility] Address: [address] [place] [address] Performed By: #### 2 4321-2 #### [facility] CLIA [id number] [address] [place] [address] [place] CBC panel Auto (Bld)on 01-26 Erythrocyte distribution width (RBC) [Ratio] 13.2 % 11.5 - 15.0 % [facility] Hematocrit (Bld) [Volume fraction] 42.6 % 39.0 - 51.0 % [facility] Hemoglobin (Bld) [Mass/Vol] 15.1 g/dL 13.0 - 17.0 g/dL [facility] Interpretation and review of laboratory results Normal [facility] MCH (RBC) [Entitic mass] 31.4 pg 26.0 - 34.0 pg [facility] MCHC (RBC) [Mass/Vol] 35.4 g/dL 30.5 - 36.0 g/dL [facility] MCV (RBC) [Entitic vol] 88.6 fL 80.0 - 100.0 fL [facility] Nucleated RBC (Bld) [#/Vol] NINF [facility] Platelet mean volume (Bld) [Entitic vol] 10.2 fL 9.0 - 12.7 fL [facility] Platelets (Bld) [#/Vol] 235 10*3/uL [facility] RBC (Bld) [#/Vol] 4.81 10*6/uL 4.20 - 6.0 0 m/uL [facility] WBC (Bld) [#/Vol] 7.35 10*3/uL [facility] Erythrocyte distribution width (RBC) [Ratio] 13.2 % Normal 11.5-15.0 [facility] Comment on above: Order Comment: Speci men Type: BLOOD SPECIMEN Ordering Facility: [facility] Address: [address] [place] [address] Performed By: #### 5 8410-2 #### [facility] CLIA [id number] [address] [place] [address] [place] #### 81807-8 #### [facility] CLIA [id number] [address] [place] [address] [place] Hematocrit (Bld) [Volume fraction] 42.6 % Normal 39.0-51.0 [facility] Comment on above: Order Comment: Speci men Type: BLOOD SPECIMEN Ordering Facility: [facility] Address: [address] [place] [address] Performed By: #### 5 8410-2 #### [facility] CLIA [id number] [address] [place] [address] [place] #### 56047-5 #### [facility] CLIA [id number] [address] [place] [address] [place] Hemoglobin (Bld) [Mass/Vol] 15.1 g/dL Normal 13.0-17.0 [facility] Comment on above: Order Comment: Speci men Type: BLOOD SPECIMEN Ordering Facility: [facility] Address: [address] [place] [address] Performed By: #### 5 8410-2 #### [facility] CLIA [id number] [address] [place] [address] [place] #### 48591-1 #### [facility] CLIA [id number] [address] [place] [address] [place] MCH (RBC) [Entitic mass] 31.4 pg Normal 26.0-34.0 [facility] Comment on above: Order Comment: Speci men Type: BLOOD SPECIMEN Ordering Facility: [facility] Address: [address] [place] [address] Performed By: #### 5 8410-2 #### [facility] CLIA [id number] [address] [place] [address] STATES [facility] #### 93314-3 #### [facility] CLIA [id number] [address] [place] [address] [place] MCHC (RBC) [Mass/Vol] 35.4 g/dL Normal 30.5-36.0 [facility] Comment on above: Order Comment: Speci men Type: BLOOD SPECIMEN Ordering Facility: [facility] Address: [address] [place] [address] Performed By: #### 5 8410-2 #### [facility] CLIA [id number] [address] [place] [address] [place] #### 73968-6 #### [facility] CLIA [id number] [address] [place] [address] [place] MCV (RBC) [Entitic vol] 88.6 fL Normal 80.0-100.0 [facility] Comment on above: Order Comment: Speci men Type: BLOOD SPECIMEN Ordering Facility: [facility] Address: [address] [place] [address] Performed By: #### 5 8410-2 #### [facility] CLIA [id number] [address] [place] [address] [place] #### 17142-5 #### [facility] CLIA [id number] [address] [place] [address] [place] Nucleated RBC (Bld) [#/Vol] 10*3/uL Normal <0.01 [facility] Comment on above: Order Comment: Speci men Type: BLOOD SPECIMEN Ordering Facility: [facility] Address: [address] [place] [address] Performed By: #### 5 8410-2 #### [facility] CLIA [id number] [address] [place] [address] [place] #### 51983-6 #### [facility] CLIA [id number] [address] [place] [address] [place] Platelet mean volume (Bld) [Entitic vol] 10.2 fL Normal 9.0-12.7 [facility] Comment on above: Order Comment: Speci men Type: BLOOD SPECIMEN Ordering Facility: [facility] Address: [address] [place] [address] Performed By: #### 5 8410-2 #### [facility] CLIA [id number] [address] [place] [address] [place] #### 09869-8 #### [facility] CLIA [id number] [address] [place] [address] [place] Platelets (Bld) [#/Vol] 235 10*3/uL Normal 150-400 [facility] Comment on above: Order Comment: Speci men Type: BLOOD SPECIMEN Ordering Facility: [facility] Address: [address] [place] [address] Performed By: #### 5 8410-2 #### [facility] CLIA [id number] [address] [place] [address] [place] #### 15081-3 #### [facility] CLIA [id number] [address] [place] [address] [place] RBC (Bld) [#/Vol] 4.81 10*6/uL Normal 4.20-6.00 [facility] Comment on above: Order Comment: Speci men Type: BLOOD SPECIMEN Ordering Facility: [facility] Address: [address] [place] [address] Performed By: #### 5 8410-2 #### [facility] CLIA [id number] [address] [place] #### 94111-7 #### [facility] CLIA [id number] [address] [place] [address] [place] WBC (Bld) [#/Vol] 7.35 10*3/uL Normal 3.70-11.00 [facility] Comment on above: Order Comment: Speci men Type: BLOOD SPECIMEN Ordering Facility: [facility] Address: [address] [place] [address] Performed By: #### 5 8410-2 #### [facility] CLIA [id number] [address] [place] #### 22749-7 #### [facility] CLIA [id number] [address] [place] [address] [place] CNOVon 01-26-2025 CNOV Office Visit (ORAVON ) ANEESH JUAREZ ([id number]) 1950 M Date Time Provider Department 01/26/25 2:45 PM LAURA MAGANA During your visit today, we recorded the following information about you: Laura Magana MD 01/30/2025 1:42 PM Signed CONSULT ORTHOPAEDIC: KNEE PRIMARY CARE PHYSICIAN: No primary care provider on file. REFERRING PROVIDER: No referring provider defined for this encounter. ASSESSMENT AND PLAN Impression: Left Knee Severe Degenerative Osteoarthritis, Post-Traumatic Scheduled for left robotic total knee 02/08/[address] Magana at Plan for medial parapatellar incision/approach without incorporating prior incisions Diagnoses: (M17.32) Post-traumatic osteoarthritis of left knee (primary encounter diagnosis) Based upon the evaluation today and after discussions with Aneesh Juarez, Aneesh Juarez has significant, worsening pain at the [...] Surgery Details Date and Location: At on 02/08/2025. Implants: [place]iting Robotic: Yes Predicted LOS: 2 days (Inpatient [...] with surgery.. The patient has been ordered: No orders found for this visit on 01/26/25. CONSULTS: IMPACT/PACE Consult for preoperative clearance. Total Joint Arthroplasty: Risk Calculator Aneesh Juarez has a 5.85% chance of NOT returning [...] >=300 Moderate: 100-299 Normal: 0-99 Depression Unknown (more content not included)... Normal [facility] CONFIRM BLOOD TYPEon 01-26- 025 ABO group Nom (Bld) A [facility] Rh Nom (Bld) Positive [facility] ABO A Normal [facility] Comment on above: Order Comment: Speci men Type: BLOOD SPECIMEN Ordering Facility: [facility] Address: [address] [place] [address] Performed By: #### C ONAB #### [facility] CLIA [id number] [address] [place] [address] [place] Rh Nom (Bld) Positive Normal [facility] Comment on above: Order Comment: Speci men Type: BLOOD SPECIMEN Ordering Facility: [facility] Address: [address] [place] [address] Performed By: #### C ONABO #### [facility] [id number] [address] [place] [address] [facility] CT KNEE WO IVCON LTon 2024 CT KNEE WO IVCON LT * * *Final Report* * * DATE OF EXAM: Jan 26 2025 1:01PM [facility] 0083 - CT KNEE WO IVCON LT / PROCEDURE REASON: multiple diagnoses * * * * Physician Interpretation * * * * History: Post-traumatic osteoarthritis of left knee Anemia, unspecified type Osteoarthritis. CT for Preoperative Planning. Technique: CT KNEE WO IVCON LT -- CT imaging was performed without administration of contrast: AYE PROTOCOL: Axial images of the knee and limited axial images through hip and ankle. Dose-Length Product (DLP): 634 mGy*cm. CT Dose Reduction Employed: Automated exposure control(AEC) and iterative recon Comparison: Radiographs dated 11/11/2024 Result: Left Knee: Advanced osteoarthritis with joint space narrowing osteophytes and chondrocalcinosis. Joint bodies in the posterior recess and popliteal tendon sheath. Large joint effusion. Marked degenerative changes also noted at the proximal tibiofibular joint. No other significant findings Left Hip: Limited images demonstrate no significant abnormality. Left Ankle: Limited images demonstrate no acute abnormality. Degenerative changes in the tibiotalar joint. Distal Achilles tendon calcifications.. Impression: Knee Osteoarthritis. No other significant abnormality. Property Management Intern: ANDRE Transcribe Date/Time: Jan 26 2025 2:00P Dictated by : NANCY JIMENEZ MD This examination was interpreted and the report reviewed and electronically signed by: NANCY JIMENEZ MD on Jan 26 2025 2:03PM EST [id number] Normal [facility] CT Knee - left WO contraston 01-26-2025 * * *Final Report* * * DATE OF EXAM: Jan 26 2025 1:01PM [facility] 0083 - CT KNEE WO IVCON LT / PROCEDURE REASON: multiple diagnoses * * * * Physician Interpretation * * * * History: Post-traumatic osteoarthritis of left knee Anemia, unspecified type Osteoarthritis. CT for Preoperative Planning. Technique: CT KNEE WO IVCON LT -- CT imaging was performed without administration of contrast: AYE PROTOCOL: Axial images of the knee and limited axial images through hip and ankle. Dose-Length Product (DLP): 634 mGy*cm. CT Dose Reduction Employed: Automated exposure control(AEC) and iterative recon Comparison: Radiographs dated 11/11/2024 Result: Left Knee: Advanced osteoarthritis with joint space narrowing osteophytes and chondrocalcinosis. Joint bodies in the posterior recess and popliteal tendon sheath. Large joint effusion. Marked degenerative changes also noted at the proximal tibiofibular joint. No other significant findings Left Hip: Limited images demonstrate no significant abnormality. Left Ankle: Limited images demonstrate no acute abnormality. Degenerative changes in the tibiotalar joint. Distal Achilles tendon calcifications.. Impression: Knee Osteoarthritis. No other significant abnormality. Property Management Intern: PSCB Transcribe Date/Time: Jan 26 2025 2:00P Dictated by : NANCY JIMENEZ MD This examination was interpreted and the report reviewed and electronically signed by: NANCY JIMENEZ MD on Jan 26 2025 2:03PM [facility] Provider, [facility] - 01/26/2025 * * *Final Report* * * DATE OF EXAM: Jan 26 2025 1:01PM [facility] 0083 - CT KNEE WO IVCON LT / PROCEDURE REASON: multiple diagnoses * * * * Physician Interpretation * * * * History: Post-traumatic osteoarthritis of left knee Anemia, unspecified type Osteoarthritis. CT for Preoperative Planning. Technique: CT KNEE WO IVCON LT -- CT imaging was performed without administration of contrast: AYE PROTOCOL: Axial images of the knee and limited axial images through hip and ankle. Dose-Length Product (DLP): 634 mGy*cm. CT Dose Reduction Employed: Automated exposure control(AEC) and iterative recon Comparison: Radiographs dated 11/11/2024 Result: Left Knee: Advanced osteoarthritis with joint space narrowing osteophytes and chondrocalcinosis. Joint bodies in the posterior recess and popliteal tendon sheath. Large joint effusion. Marked degenerative changes also noted at the proximal tibiofibular joint. No other significant findings Left Hip: Limited images demonstrate no significant abnormality. Left Ankle: Limited images demonstrate no acute abnormality. Degenerative changes in the tibiotalar joint. Distal Achilles tendon calcifications.. Impression: Knee Osteoarthritis. No other significant abnormality. Property Management Intern: ANDRE Transcribe Date/Time: Jan 26 2025 2:00P Dictated by : NANCY JIMENEZ MD This examination was interpreted and the report reviewed and electronically signed by: NANCY JIMENEZ MD on Jan 26 2025 2:03PM EST [facility] Radiology Study observation (narrative) [facility] CT Knee - left WO contrastOr dered By: Ccf Provider on 01-26-2025 [facility] ECG COMPLETEon 01-26-2025 ECG COMPLETE Ventricular Rate : 6 1 BPM Atrial Rate : 220 BPM QRS Duration : 88 ms Q-T Interval : 432 ms QTC Calculation(Bazett) : 434 ms Calculated R Caldwell : -1 degrees Calculated T [place]dwell : 36 degrees Atrial fibrillation Abnormal ECG No previous ECGs available Confirmed by KLEBER GREGG M.D. ([id number]) on 01/26/2025 10:09:56 PM NAME : ANEESH JUAREZ PID : [id number] : 1950 Gender : Male Race : ORD : [id number] Procedure Date : Jan 26 2025 12:14:12 Edit Date : Jan 26 2025 22:10:01 Diagnosis: Atrial fibrillation Abnormal ECG No previous ECGs available Confirmed by KLEBER GREGG M.D. ([id number]) on 01/26/2025 10:09:56 PM Test Reason : HCS Location : 301 : PACC Overread By : KLEBER GREGG M.D. Edited By : KLEBER GREGG M.D. Referred By : KAMILA BATRES Acquired by : , Normal [facility] HISTORY PHYSICALon HISTORY PHYSICAL HNO ID: [id number] Author: TAMIKA BEARD PA-C Service: ? Author Type: Physician Pre Planning Advisor Type: H&P Filed: 02/07/2025 22:41 Note Text: [facility] HISTORY AND PHYSICAL EXAMINATION SERVICE DATE: 01/26/2025 SERVICE TIME: 12:03 PM PRIMARY CARE PHYSICIAN: Opal Ward MD REASON FOR VISIT: Aneesh Juarez is a 74 year old male who is scheduled for Left - ROBOTIC ASSISTED TOTAL KNEE ARTHROPLASTY at the request of Dr. Kamila Batres for consultation. My final recommendation will be communicated back to the requesting physician by way of shared medical record or letter. Assessment 1 Pre-op evaluation (Z01.818) - Preoperative evaluation for left total knee arthroplasty scheduled for February 08. - EKG today showed new atrial fibrillation. - Discussed potential for surgery postponement depending on cardiology evaluation. 2 Hypertension, unspecified type (I10) 3 Hyperlipidemia, unspecified hyperlipidemia type (E78.5) - Hypertension managed with metoprolol and hydrochlorothiazide. - Hyperlipidemia managed with atorvastatin. No cardiac stents. - Continue current medications as prescribed, except hold hydrochlorothiazide on day of surgery. - PCP following, stable. Last 14 BP Last 14 Encounter BP Readings: Date: BP: 01/26/2025 136/72 4 Atrial fibrillation, unspecified type (HCC) (I48.91) - New diagnosis of atrial fibrillation based on EKG today; patient asymptomatic. He states he gets some BENJAMIN at times, but nothing significant and goes away. He is very active and denies any significant Shortness of Breath or CP with activity. - Educated patient on AFib. - Referred to cardiology for evaluation prior to surgery- scheduled for 02/01/25. Will follow. - Advised patient to go to ER if symptoms develop (worsening shortness of breath, palpitations, chest pain, dizziness, major fatigue). - Irregular rhythm on exam, pulse 61. 5 Dementia, unspecified dementia severity, unspecified dementia type, unspecified whether behavioral, psychotic, or mood disturbance or anxiety (HCC) (F03.90) - Recently started on memantine and donepezil by local doctor; patient reports doing fine and not forgetting anything major. AANDOx4. Stable. - Continue current medications as prescribed; may take morning of surgery. 6 Obesity (BMI 30-39.9) (E66.9) - Body mass index is 34.8 kg/m?. Addendum 01/27/25: 7 Abnormal glucose - BMP from yesterday showed glucose at 160. No previous HgbA1c. Added on HgbA1c to already drawn labs. 01/30/25: HgbA1c 6.0. Prediabetic range and acceptable to proceed with surgery. Advise PCP to monitor. Addendum 02/07/25: 8. Mild aortic stenosis Echo completed today showed mild aortic stenosis with AVA1.79 cm2 and mean gradient 9 mmHg. Cardiology to continue to monitor. OK to proceed with surgery. ANESTHESIA FINDINGS: Intubation History: No history of difficult intubation Significant Anesthesia Considerations: none Airway History: No history of difficult airway Iraheta Activity Status Index: METS: Walk indoors, such as around the house (1.75 METs) Do light work around the house, such as dusting or washing dishes (2.70 METs) Take care of self; that is eating, dressing, bathing, using the toilet (2.75 METs) Walk a block or two on level ground (2.75 METs) Do moderate work around the house, such as vacuuming, sweeping floors, or carrying in groceries (3.50 METs) Do yardwork, such as raking leaves, weeding, or pushing a power mower (4.50 METs) Climb a flight of stairs or walk up a hill (5.50 METs) DASI Score: 23.45 (Exercises with personal care aide 3x a week- treadmill and strength training, golf 2x a week) Patient denies any chest pain or undue shortness of breath with the above physical activity. Clinical Frailty Scale: 3. Well, with treated comorbid disease STOP-Bang Score: Snores loudly Has or is being treated for high blood pressure Patient over 50 years old Male patient Has not been observed to stop breathing or choking/gasping during sleep BMI less than or equal to 35 kg/m2 Does not have a large neck STOP-Bang Score: 4 I - PHYSICAL EVALUATION AIRWAY Patient intubated: No. Tracheostomy tube not present Mallampati: II. TM distance: >3 FB. Neck ROM: full ROM without neurological symptoms. Mouth opening: adequate. Short neck: no. Thick neck: no Vu present: no Lip Bite Test: I Microretrognathia/Micro nagthia/Recessed Chin: No DENTAL Dental findings: teeth intact. Additional comments: Caps, bridge. II - ANESTHESIA PLAN Beta Yanet Monitoring Plan Post Procedure Analgesic Plan Prepared for surgery: This patient is optimally prepared for surgery. CONSULTS: Cardiology Consult for cardiac clearance for new Afib. Scheduled for cardiology appointment on 02/01/25. Will follow. Addendum 02/07/25: Patient seen by cardiology yesterday for new onset Afib. (more content not included)... Normal [facility] HbA1c (Bld)on 01-26-2025 Average glucose Estimated from glycated hemoglobin (Bld) [Mass/Vol] 126 mg/dL Normal [facility] Comment on above: Order Comment: Nena garcia Type: BLOOD SPECIMEN Ordering Facility: [facility] Address: [address] [place] [address] Result Comment: eAG: (Estimated average glucose) is a calculated value from HgbA1c and is vendor representatives of the average blood glucose level in the last 2-3 month period. Performed By: #### 5 8410-2 #### [facility] CLIA [id number] [address] [place] [address] [place] #### 47803-6 #### [facility] CLIA [id number] [address] [place] [address] [place] HbA1c (Bld) [Mass fraction] 6.0 % High 4.3-5.6 [facility] Comment on above: Order Comment: Nena garcia Type: BLOOD SPECIMEN Ordering Facility: [facility] Address: [address] [place] [address] Result Comment: Amer [place] Diabetes Association guidelines indicate that patients with HgbA1c in the range 5.7-6.4% are at increased risk for development of diabetes, and intervention by lifestyle modification may be beneficial. HgbA1c greater or equal to 6.5% is considered diagnostic of diabetes. Performed By: #### 5 8410-2 #### [facility] CLIA [id number] [address] [place] [address] [place] #### 56785-8 #### [facility] CLIA [id number] [address] [place] [address] [place] TYPE AND SCREEN,30 DAYon ABO group Nom (Bld) A [facility] Blood group antibody screen Ql Negative [facility] Rh Nom (Bld) Positive [facility] ABO A Normal [facility] Comment on above: Order Comment: Nena garcia Type: BLOOD SPECIMEN Ordering Facility: [facility] Address: [address] [place] [address] Performed By: #### T SCR30 #### [facility] CLIA [id number] [address] [place] [address] [place] Rh Nom (Bld) Positive Normal [facility] Comment on above: Order Comment: Speci men Type: BLOOD SPECIMEN Ordering Facility: [facility] Address: [address] [place] [address] Performed By: #### T SCR30 #### [facility] CLIA [id number] [address] [place] [address] [place] ALBUMINon 11-11-2024 Albumin [Mass/Vol] 3.9 g/dL 3.9 - 4.9 g/dL [facility] Albumin SerPl-mCncon Albumin [Mass/Vol] 3.9 g/dL Normal 3.9-4.9 [facility] Comment on above: Order Comment: Speci men Type: BLOOD SPECIMEN Ordering Facility: [facility] Address: [address] [place] [address] Performed By: #### 1 4196-0, 08099-7 #### [facility] CLIA [id number] [address] [place] [address] [place] Albumin [Mass/Vol]on Interpretation and review of laboratory results Normal [facility] CBC W Auto Differential pane l (Bld)on 11-11-2024 Basophils (Bld) [#/Vol] NINF [facility] Basophils/100 WBC (Bld) 0.3 % [facility] Differential cell count method Nom (Bld) Auto [facility] Eosinophils (Bld) [#/Vol] 0.12 10*3/[facility]L [facility] Eosinophils/100 WBC (Bld) 1.8 % [facility] Erythrocyte distribution width (RBC) [Ratio] 13.1 % 11.5 - 15.0 % [facility] Hematocrit (Bld) [Volume fraction] 43 % 39.0 - 51.0 % [facility] Hemoglobin (Bld) [Mass/Vol] 14.4 g/dL 13.0 - 17.0 g/dL [facility] Immature granulocytes (Bld) [#/Vol] 0.03 10*3/[facility]L [facility] Immature granulocytes/100 WBC (Bld) 0.5 % [facility] Lymphocytes (Bld) [#/Vol] 1.16 10*3/uL [facility] Lymphocytes/100 WBC (Bld) 17.7 % [facility] MCH (RBC) [Entitic mass] 30.5 pg 26.0 - 34.0 pg [facility] MCHC (RBC) [Mass/Vol] 33.5 g/dL 30.5 - 36.0 g/dL [facility] MCV (RBC) [Entitic vol] 91.1 fL 80.0 - 100.0 fL [facility] Monocytes (Bld) [#/Vol] 0.53 10*3/uL [facility] Monocytes/100 WBC (Bld) 8.1 % [facility] Neutrophils (Bld) [#/Vol] 4.68 10*3/uL [facility] Neutrophils/100 WBC (Bld) 71.6 % [facility] Nucleated RBC (Bld) [#/Vol] [facility] Nucleated RBC/100 WBC (Bld) [Ratio] 0 % /100 WBC [facility] Platelet mean volume (Bld) [Entitic vol] 10.7 fL 9.0 - 12.7 fL [facility] Platelets (Bld) [#/Vol] 188 10*3/uL [facility] RBC (Bld) [#/Vol] 4.72 10*6/uL 4.20 - 6.0 0 m/uL [facility] WBC (Bld) [#/Vol] 6.54 10*3/uL [facility] Basophils (Bld) [#/Vol] 10*3/uL Normal <0.11 [facility] Comment on above: Order Comment: Speci men Type: BLOOD SPECIMEN Ordering Facility: [facility] Address: [address] [place] [address] Performed By: #### 1 4196-0, 09250-1 #### [facility] CLIA [id number] [address] [place] [address] [place] Basophils/100 WBC (Bld) 0.3 % Normal [facility] Comment on above: Order Comment: Speci men Type: BLOOD SPECIMEN Ordering Facility: [facility] Address: [address] [place] [address] Performed By: #### 1 4196-0, #### [facility] CLIA [id number] [address] [place] [address] [place] [facility] Differential cell count method Nom (Bld) Auto Normal [facility] Comment on above: Order Comment: Speci men Type: BLOOD SPECIMEN Ordering Facility: [facility] Address: [address] [place] [address] Performed By: #### 1 4196-0, #### [facility] CLIA [id number] [address] [place] [address] [place] Eosinophils (Bld) [#/Vol] 0.12 10*3/uL Normal <0.46 [facility] Comment on above: Order Comment: Speci men Type: BLOOD SPECIMEN Ordering Facility: [facility] Address: [address] [place] [address] Performed By: #### 1 4196-0, #### [facility] CLIA [id number] [address] [place] [address] [place] Eosinophils/100 WBC (Bld) 1.8 % Normal [facility] Comment on above: Order Comment: Speci men Type: BLOOD SPECIMEN Ordering Facility: [facility] Address: [address] [place] [address] Performed By: #### 1 4196-0, #### [facility] CLIA [id number] [address] [place] [address] [place] Erythrocyte distribution width (RBC) [Ratio] 13.1 % Normal 11.5-15.0 [facility] Comment on above: Order Comment: Speci men Type: BLOOD SPECIMEN Ordering Facility: [facility] Address: [address] [place] [address] Performed By: #### 1 4196-0, #### [facility] CLIA [id number] [address] [place] [address] [place] Hematocrit (Bld) [Volume fraction] 43.0 % Normal 39.0-51.0 [facility] Comment on above: Order Comment: Speci men Type: BLOOD SPECIMEN Ordering Facility: [facility] Address: [address] [place] [address] Performed By: #### 1 4196-0, 10569-1 #### [facility] CLIA [id number] [address] [place] [address] [place] Hemoglobin (Bld) [Mass/Vol] 14.4 g/dL Normal 13.0-17.0 [facility] Comment on above: Order Comment: Speci men Type: BLOOD SPECIMEN Ordering Facility: [facility] Address: [address] [place] [address] Performed By: #### 1 4196-0, 00703-3 #### [facility] CLIA [id number] [address] [place] [address] [place] Immature granulocytes (Bld) [#/Vol] 0.03 10*3/uL Normal <0.10 [facility] Comment on above: Order Comment: Speci men Type: BLOOD SPECIMEN Ordering Facility: [facility] Address: [address] [place] [address] Performed By: #### 1 4196-0, 75613-0 #### [facility] CLIA [id number] [address] [place] [address] [place] Immature granulocytes/100 WBC (Bld) 0.5 % Normal [facility] Comment on above: Order Comment: Speci men Type: BLOOD SPECIMEN Ordering Facility: [facility] Address: [address] [place] [address] Performed By: #### 1 4196-0, 29072-0 #### [facility] CLIA [id number] [address] [place] [address] [place] Lymphocytes (Bld) [#/Vol] 1.16 10*3/uL Normal 1.00-4.00 [facility] Comment on above: Order Comment: Speci men Type: BLOOD SPECIMEN Ordering Facility: [facility] Address: [address] [place] [address] Performed By: #### 1 4196-0, #### [facility] CLIA [id number] [address] [place] [address] Lymphocytes/100 WBC (Bld) 17.7 % Normal [facility] Comment on above: Order Comment: Speci men Type: BLOOD SPECIMEN Ordering Facility: [facility] Address: [address] [place] [address] Performed By: #### 1 4196-0, #### [facility] CLIA [id number] [address] [place] [address] [place] MCH (RBC) [Entitic mass] 30.5 pg Normal 26.0-34.0 [facility] Comment on above: Order Comment: Speci men Type: BLOOD SPECIMEN Ordering Facility: [facility] Address: [address] [place] [address] Performed By: #### 1 4196-0, #### [facility] CLIA [id number] [address] [place] [address] [place] MCHC (RBC) [Mass/Vol] 33.5 g/dL Normal 30.5-36.0 [facility] Comment on above: Order Comment: Speci men Type: BLOOD SPECIMEN Ordering Facility: [facility] Address: [address] [place] [address] Performed By: #### 1 4196-0, #### [facility] CLIA [id number] [address] [place] [address] [place] MCV (RBC) [Entitic vol] 91.1 fL Normal 80.0-100.0 [facility] Comment on above: Order Comment: Speci men Type: BLOOD SPECIMEN Ordering Facility: [facility] Address: [address] [place] [address] Performed By: #### 1 4196-0, 91669-7 #### [facility] CLIA [id number] [address] [place] [address] [place] Monocytes (Bld) [#/Vol] 0.53 10*3/uL Normal <0.87 [facility] Comment on above: Order Comment: Speci men Type: BLOOD SPECIMEN Ordering Facility: [facility] Address: [address] [place] [address] Performed By: #### 1 4196-0, 23845-4 #### [facility] CLIA [id number] [address] [place] [address] [place] Monocytes/100 WBC (Bld) 8.1 % Normal [facility] Comment on above: Order Comment: Speci men Type: BLOOD SPECIMEN Ordering Facility: [facility] Address: [address] [place] [address] Performed By: #### 1 4196-0, 90243-5 #### [facility] CLIA [id number] [address] [place] [address] [place] Neutrophils (Bld) [#/Vol] 4.68 10*3/uL Normal 1.45-7.50 [facility] Comment on above: Order Comment: Speci men Type: BLOOD SPECIMEN Ordering Facility: [facility] Address: [address] [place] [address] Performed By: #### 1 4196-0, 26442-5 #### [facility] CLIA [id number] [address] [place] [address] [place] Neutrophils/100 WBC (Bld) 71.6 % Normal [facility] Comment on above: Order Comment: Speci men Type: BLOOD SPECIMEN Ordering Facility: [facility] Address: [address] [place] [address] Performed By: #### 1 4196-0, 66662-4 #### [facility] CLIA [id number] [address] [place] [address] [place] Nucleated RBC (Bld) [#/Vol] 10*3/uL Normal <0.01 [facility] Comment on above: Order Comment: Speci men Type: BLOOD SPECIMEN Ordering Facility: [facility] Address: [address] [place] [address] Performed By: #### 1 4196-0, 56385-2 #### [facility] CLIA [id number] [address] [place] [address] [place] Nucleated RBC/100 WBC (Bld) [Ratio] 0.0 /100 WBC Normal [facility] Comment on above: Order Comment: Speci men Type: BLOOD SPECIMEN Ordering Facility: [facility] Address: [address] [place] [address] Performed By: #### 1 4196-0, 31688-0 #### [facility] CLIA [id number] [address] [place] [address] [place] Platelet mean volume (Bld) [Entitic vol] 10.7 fL Normal 9.0-12.7 [facility] Comment on above: Order Comment: Speci men Type: BLOOD SPECIMEN Ordering Facility: [facility] Address: [address] [place] [address] Performed By: #### 1 4196-0, 26599-1 #### [facility] CLIA [id number] [address] [place] [address] [place] Platelets (Bld) [#/Vol] 188 10*3/uL Normal 150-400 [facility] Comment on above: Order Comment: Speci men Type: BLOOD SPECIMEN Ordering Facility: [facility] Address: [address] [place] [address] Performed By: #### 1 4196-0, 98826-9 #### [facility] CLIA [id number] [address] [place] [address] [place] RBC (Bld) [#/Vol] 4.72 10*6/uL Normal 4.20-6.00 [facility] Comment on above: Order Comment: Speci men Type: BLOOD SPECIMEN Ordering Facility: [facility] Address: [address] [place] [address] Performed By: #### 1 4196-0, 48166-3 #### [facility] CLIA [id number] [address] [place] [address] [place] WBC (Bld) [#/Vol] 6.54 10*3/uL Normal 3.70-11.00 [facility] Comment on above: Order Comment: Speci men Type: BLOOD SPECIMEN Ordering Facility: [facility] Address: [facility] [place] [address] Performed By: #### 1 4196-0, 28835-3 #### [facility] CLIA [id number] [address] [place] [address] [place] CNOVon 11-11-2024 CNOV Office Visit (ORTHLD ) ANEESH JUAREZ ([id number]) 1950 M Date Time Provider Department 11/11/24 1:40 PM KAMILA BATRES During your visit today, we recorded the following information about you: Weight 111 kg Kamila Batres PA-C 11/24/2024 10:45 AM Addendum CONSULT ORTHOPAEDIC: KNEE PRIMARY CARE PHYSICIAN: No primary care provider on file. REFERRING PROVIDER: No referring provider defined for this encounter. ASSESSMENT AND PLAN Impression: Left Knee Severe Degenerative Osteoarthritis, Post-Traumatic Scheduled for left robotic total knee 02/08/[address] Maagna at Patient will return to office closer to surgery date for pre-op information and consents with Dr. Magana Diagnoses: (M17.32) Post-traumatic osteoarthritis of left knee (primary encounter diagnosis) (D64.9) Anemia, unspecified type Based upon the evaluation today and after discussions with Aneesh Jimenez has significant, worsening pain at the knee. [...] COUNT BLOOD MANAGEMENT REFERRAL CONSULT TO [facility] PATIENT PLACED ON LEXIE TKA CARE PATH CONSULTS: IMPACT/PACE Consult for preoperative clearance. Total Joint Arthroplasty: Risk Calculator Aneesh Juarez has a 5.85% chance of NOT returning [...] Risk Factors for Total Knee Arthroplasty (TKA) Bobo (more content not included)... Normal [facility] Ferritin SerPl-mCncon 2024 Ferritin [Mass/Vol] 239.0 ng/mL Normal 30.3-565.7 [facility] Comment on above: Order Comment: Nena garcia Type: BLOOD SPECIMEN Ordering Facility: [facility] Address: [address] [place] [address] Performed By: #### 1 4196-0, 86671-4 #### [facility] CLIA [id number] [address] [place] [address] [place] Folate SerPl-ncon 11-12-19 25 Folate [Mass/Vol] 8.8 ng/mL Normal >4.7 [facility] Comment on above: Order Comment: Nena garcia Type: BLOOD SPECIMEN Ordering Facility: [facility] Address: [address] [place] [address] Performed By: #### 1 4196-0, 00844-1 #### [facility] CLIA [id number] [address] [place] [address] [place] Iron and Iron binding capaci ty panelon 11-11-2024 Iron [Mass/Vol] 116 ug/dL Normal 41-186 [facility] Comment on above: Order Comment: Nena garcia Type: BLOOD SPECIMEN Ordering Facility: [facility] Address: [address] [place] [address] Performed By: #### 1 4196-0, 56326-2 #### [facility] CLIA [id number] [address] [place] [address] Iron binding capacity [Mass/Vol] 276 ug/dL Normal 232-386 [facility] Comment on above: Order Comment: Speci men Type: BLOOD SPECIMEN Ordering Facility: [facility] Address: [address] [place] [address] Performed By: #### 1 4196-0, 96317-2 #### [facility] CLIA [id number] [address] [place] [address] [place] Iron/TIBC [Molar ratio] 42.0 % Normal 15.0-57.0 [facility] Comment on above: Order Comment: Speci men Type: BLOOD SPECIMEN Ordering Facility: [facility] Address: [address] [place] [address] Performed By: #### 1 4196-0, #### [facility] CLIA [id number] [address] [place] [address] [place] No Panel Informationon 11-11 [facility] RETICULOCYTE COUNTon 025 Reticulocytes (Bld) [#/Vol] 0.064 10*3/uL [facility] Retics #on 11-11-2024 Reticulocytes (Bld) [#/Vol] 0.12456 10*3/uL Normal 0.018-0.100 [facility] Comment on above: Order Comment: Speci men Type: BLOOD SPECIMEN Ordering Facility: [facility] Address: [address] [place] [address] Performed By: #### 1 4196-0, 40342-8 #### [facility] CLIA [id number] [address] [place] [address] [place] Reticulocytes (Bld) [#/Vol]o n 11-11-2024 Interpretation and review of laboratory results Normal [facility] Reticulocytes/100 RBC (Bld) 1.4 % 0.4 - 2.0 % [facility] Reticulocytes/100 RBC (Bld) 1.4 % Normal 0.4-2.0 [facility] Comment on above: Order Comment: Speci men Type: BLOOD SPECIMEN Ordering Facility: [facility] Address: [address] [place] [address] Performed By: #### 1 4196-0, 13783-7 #### [facility] CLIA [id number] [address] [place] [address] [place] Vit B12 SerPl-mCncon 025 Cobalamin (Vitamin B12) [Mass/Vol] 364 pg/mL Normal 232-1245 [facility] Comment on above: Order Comment: Speci men Type: BLOOD SPECIMEN Ordering Facility: [facility] Address: [address] [place] [address] Performed By: #### 1 4196-0, 69617-3 #### [facility] CLIA [id number] [address] [place] [address] [place] XR KNEE 4V AP/PA BOTH+LAT/ME R LTon 11-11-2024 XR KNEE 4V AP/PA BOTH+LAT/MACY LT * [...] FINDINGS: Significant medial joint compartment narrowing with wegf-[id number] appearance and advanced lateral joint compartment narrowing. Tricompartment spur formation. No acute fracture or dislocation. Moderate joint effusion with joint bodies. IMPRESSION: Advanced osteoarthrosis with joint effusion, not significantly changed Property Management Intern: ANDRE Transcribe Date/Time: Nov 16 2024 7:06A Dictated by : CHELSEA BAEZ MD This examination was interpreted and the report reviewed and electronically signed by: CHELSEA BAEZ MD on Nov 16 2024 7:07AM EST [id number] Normal [facility] Physician Referralon 024 Physician Referral [phone] [id number] IFF Normal [facility] No Panel Informationon 06-15 [facility] Cov[facility]-19 PCR [facility]on 10-05 SARS-CoV-2 (COVID-19) RNA STEVE+probe Ql (Unsp spec) Not detected Normal NOT DETECTED [facility] Comment on above: Result Comment: This test is not yet approved or cleared by the [place] FDA. When there are no FDA-approved or cleared tests available, and other criteria are met, FDA can make tests available under an emergency access mechanism called an Emergency Use Authorization (EUA). The EUA for this test is supported by the [place] of Health and Human Service's (HHS's) declaration [...] SARS-CoV-2. Performed By: #### C VDTBH #### [facility] [address] [place] [address] Dr. Christine Ferreira INFLUENZA A AND B AGon 10-31 [facility] SEE BELOW Normal [facility] Comment on above: Result Comment: Nega tive for Flu A protein angiten. Infection due to Flu A cannot be ruled out. Flu A angiten in the sample may be below the detection limit of the test. Performed By: #### I NFLUAB #### [facility] [address] [place] [address] Dr. Christine Ferreira [facility] SEE BELOW Normal [facility] Comment on above: Result Comment: Nega tive for Flu B protein antigen. Infection due to Flu B cannot be ruled out. Flu B antigen in the sample may be below the detection limit of the test. Performed By: #### I NFLUAB #### [facility] [address] [place] [address] Dr. Christine Ferreira INFLUENZA A AG Negative Normal NEGATIVE SEE COMMENT [facility] Comment on above: Performed By: #### I NFLUAB #### [facility] [address] [place] [address] Dr. Christine Ferreira INFLUENZA B AG Negative Normal NEGATIVE SEE COMMENT [facility] Comment on above: Performed By: #### I NFLUAB #### [facility] [address] [place] [address] Dr. Christine Ferreira INTERNAL CONTROLS Within Normal Limits Normal Wi thin Normal Limits [facility] Comment on above: Performed By: #### I NFLUAB #### [facility] [address] [place] [address] Dr. Christine Ferreira OCC BLD IMMUNO SCREENon 09-04 OCCULT BLOOD Negative Normal NEGATIVE [facility] Comment on above: Performed By: #### O BSCRN #### [facility] [address] [place] [address] Dr. Christine Ferreira INSULINon 09-20-2021 Insulin 24.0 uIU/mL Normal 2.6-24.9 [facility] Comment on above: Performed By: #### I NSULIN #### [facility] [address] [place] [address] Dr. Christine Ferreira CBC AUTO DIFFon 09-19-2021 BASO # 0.0 103/ul Normal 0.0-0.1 [facility] Comment on above: Performed By: #### C BC #### [facility] [address] [place] [address] Dr. Christine Ferreira Basophils/100 WBC (Bld) 0.3 % Normal 0.2-2.0 [facility] Comment on above: Performed By: #### C BC #### [facility] [address] [place] [address] Dr. Christine Ferreira EO # 0.2 103/ul Normal 0.0-0.7 [facility] Comment on above: Performed By: #### C BC #### [facility] [address] [place] [address] Dr. Christine Ferreira Eosinophils/100 WBC (Bld) 2.4 % Normal 0.9-7.0 [facility] Comment on above: Performed By: #### C BC #### [facility] [address] [place] [address] Dr. Christine Ferreira Erythrocyte distribution width (RBC) [Ratio] 12.6 % Normal 11.0-15.0 [facility] Comment on above: Performed By: #### C BC #### [facility] [address] [place] [address] Dr. Christine Ferreira Hematocrit (Bld) [Volume fraction] 44.4 % Normal 42.0-54.0 [facility] Comment on above: Performed By: #### C BC #### [facility] [address] [place] [address] Dr. Christine Ferreira Hemoglobin (Bld) [Mass/Vol] 15.6 g/dL Normal 14.0-18.0 [facility] Comment on above: Performed By: #### C BC #### [facility] [address] [place] [address] Dr. Christine Ferreira IG # 0.03 10e3/ul Normal 0.00-0.03 [facility] Comment on above: Performed By: #### C BC #### [facility] [address] [place] [address] Dr. Christine Ferreira IG % 0.4 % Normal 0.0-0.5 [facility] Comment on above: Performed By: #### C BC #### [facility] [address] [place] [address] Dr. Christine Ferreira LYMPH # 1.3 103/ul Normal 1.2-3.8 [facility] Comment on above: Performed By: #### C BC #### [facility] [address] [place] [address] Dr. Christine Ferreira Lymphocytes/100 WBC (Bld) 17.5 % Critically low 20.5-60.0 [facility] Comment on above: Performed By: #### C BC #### [facility] [address] [place] [address] Dr. Christine Ferreira MANUAL DIFF REQ NO Normal [facility] Comment on above: Performed By: #### C BC #### [facility] [address] [place] [address] Dr. Christine Ferreira MCH (RBC) [Entitic mass] 30.5 pg Normal 25.9-34.0 [facility] Comment on above: Performed By: #### C BC #### [facility] [address] [place] [address] Dr. Christine Ferreira MCHC (RBC) [Mass/Vol] 35.1 g/dL Normal 29.9-35.2 [facility] Comment on above: Performed By: #### C BC #### [facility] [address] [place] [address] Dr. Christine Ferreira MCV (RBC) [Entitic vol] 86.7 fL Normal 80.0-94.0 [facility] Comment on above: Performed By: #### C BC #### [facility] [address] [place] [address] Dr. Christine Ferreira MONO # 0.5 103/ul Normal 0.3-0.8 [facility] Comment on above: Performed By: #### C BC #### [facility] [address] [place] [address] Dr. Christine Ferreira Monocytes/100 WBC (Bld) 6.1 % Normal 1.7-12.0 [facility] Comment on above: Performed By: #### C BC #### [facility] [address] [place] [address] Dr. Christine Ferreira NEUT # 5.5 103/ul Normal 1.4-6.5 [facility] Comment on above: Performed By: #### C BC #### [facility] [address] [place] [address] Dr. Christine Ferreira Neutrophils/100 WBC (Bld) 73.3 % Normal 43.0-75.0 [facility] Comment on above: Performed By: #### C BC #### [facility] [address] [address] [address] Christine Ferreira Platelet mean volume (Bld) [Entitic vol] 9.6 fL Normal 9.5-13.5 [facility] Comment on above: Performed By: #### C BC #### [facility] [address] [address] [address] Christine Ferreira PLT 214 103/ul Normal 150-450 [facility] Comment on above: Performed By: #### C BC #### [facility] [address] [address] [address] Christine Ferreira RBC 5.12 106/ul Normal 4.70-6.10 [facility] Comment on above: Performed By: #### C BC #### [facility] [address] [address] [address] Christine Ferreira WBC 7.5 103/ul Normal 4.0-11.0 [facility] Comment on above: Performed By: #### C BC #### [facility] [address] [address] [address] Christine Ferreira GLYCOHEMOGLOBIN A1Con 2021 ADA RECOMMENDATION ADA THERAPEUTIC TARG ET 6.0 - 7.0 ACTION SUGGESTED > 7.0 Normal [facility] Comment on above: Performed By: #### A 1C #### [facility] [address] [address] [address] Christine Ferreira Glucose [Mass/Vol] 120 mg/dL Normal [facility] Comment on above: Performed By: #### A 1C #### [facility] [address] [address] [address] Christine Ferreira HbA1c (Bld) [Mass fraction] 5.8 % Normal <=6.0 [facility] Comment on above: Performed By: #### A 1C #### [facility] [address] [address] [address] Christine Ferreira LIPID PROFILEon 09-19-2021 CHOL-HDL RATIO NORM SEE BELOW Normal [facility] Comment on above: Result Comment: 3.3 - 4.4 LOW RISK 4.4 - 7.1 AVERAGE RISK 7.1 - 11.0 MODERATE RISK >11.0 HIGH RISK Performed By: #### L IPID, CMP, URIC #### [facility] [address] [address] [address] Christine Ferreira Cholesterol [Mass/Vol] 129 mg/dL Normal <=200 [facility] Comment on above: Performed By: #### L IPID, CMP, URIC #### [facility] [address] [address] [address] Christine Ferreira Cholesterol in HDL [Mass/Vol] 46 mg/dL Normal 40-60 [facility] Comment on above: Performed By: #### L IPID, CMP, URIC #### [facility] [address] [address] [address] Christine Ferreira Cholesterol in LDL [Mass/Vol] 65.8 mg/dL Normal [facility] Comment on above: Performed By: #### L IPID, CMP, URIC #### [facility] [address] [address] [address] Christine Ferreira Cholesterol.total/Ch olesterol in HDL [Mass ratio] 2.8 {ratio} Normal [facility] Comment on above: Performed By: #### L IPID, CMP, URIC #### [facility] [address] [address] [address] Christine Ferreira HDL NORMAL > or = 60 mg/dl - LO W CARDIOVASCULAR RISK <40 mg/dl - HIGH CARDIOVASCULAR RISK Normal [facility] Comment on above: Performed By: #### L IPID, CMP, URIC #### [facility] [address] [address] [address] Christine Ferreira LDL CALC NORMAL SEE BELOW Normal [facility] Comment on above: Result Comment: <100 mg/dl OPTIMAL 100 - 129 mg/dl NEAR OR ABOVE OPTIMAL 130 - 159 mg/dl BORDERLINE HIGH 160 - 189 mg/dl HIGH >190 mg/dl VERY HIGH Performed By: #### L IPID, CMP, URIC #### [facility] [address] [address] [address] Christine Ferreira Triglyceride [Mass/Vol] 86 mg/dL Normal <=150 [facility] Comment on above: Performed By: #### L IPID, CMP, URIC #### [facility] [address] [place] [address] Dr. Christine Ferreira VLDL CALC 17.2 mg/dL Normal [facility] Comment on above: Performed By: #### L IPID, CMP, URIC #### [facility] [address] [address] [address] Christine Ferreira PROF 14(COMP METB)on 022 Albumin [Mass/Vol] 3.8 g/dL Normal 3.5-5.0 [facility] Comment on above: Performed By: #### L IPID, CMP, URIC #### [facility] [address] [place] [address] Dr. Christine Ferreira Albumin/Globulin [Mass ratio] 1.2 {ratio} Normal [facility] Comment on above: Performed By: #### L IPID, CMP, URIC #### [facility] [address] [place] [address] Dr. Christine Ferreira ALP [Catalytic activity/Vol] 65 U/L Normal 38-126 [facility] Comment on above: Performed By: #### L IPID, CMP, URIC #### [facility] [address] [place] [address] Dr. Christine Ferreira ALT [Catalytic activity/Vol] 27 U/L Normal 21-72 [facility] Comment on above: Performed By: #### L IPID, CMP, URIC #### [facility] [address] [place] [address] Dr. Christine Ferreira Anion gap [Moles/Vol] 12.3 mmol/L Normal [facility] Comment on above: Performed By: #### L IPID, CMP, URIC #### [facility] [address] [place] [address] Dr. Christine Ferreira AST [Catalytic activity/Vol] 16 U/L Critically low 17-59 [facility] Comment on above: Performed By: #### L IPID, CMP, URIC #### [facility] [address] [place], [place] [id number] Dr. Christine Ferreira Bilirubin [Mass/Vol] 1.0 mg/dL Normal 0.2-1.3 [facility] Comment on above: Performed By: #### L IPID, CMP, URIC #### [facility] [address] [place] [address] Dr. Christine Ferreira Calcium [Mass/Vol] 8.5 mg/dL Normal 8.4-10.2 [facility] Comment on above: Performed By: #### L IPID, CMP, URIC #### [facility] [address] [place] [address] Dr. Christine Ferreira Chloride [Moles/Vol] 103 mmol/L Normal 98-107 [facility] Comment on above: Performed By: #### L IPID, CMP, URIC #### [facility] [address] [place] [address] Dr. Christine Ferreira CO2 [Moles/Vol] 26.7 mmol/L Normal 22.0-30.0 [facility] Comment on above: Performed By: #### L IPID, CMP, URIC #### [facility] [address] [place] [address] Dr. Christine Ferreira Creatinine [Mass/Vol] 1.04 mg/dL Normal 0.66-1.25 [facility] Comment on above: Performed By: #### L IPID, CMP, URIC #### [facility] [address] [place] [address] Dr. Christine Ferreira EGFR-AF [place] >60 Normal >=60 [facility] Comment on above: Performed By: #### L IPID, CMP, URIC #### [facility] [address] [place] [address] Dr. Christine Ferreira EGFR-NON AF [place] >60 Normal >=60 [facility] Comment on above: Performed By: #### L IPID, CMP, URIC #### [facility] [address] [place] [address] Dr. Chirstine Ferreira Globulin (S) [Mass/Vol] 3.3 g/dL Normal [facility] Comment on above: Performed By: #### L IPID, CMP, URIC #### [facility] [address] [address] [address] Christine Ferreira Glucose [Mass/Vol] 156 mg/dL Critically high 74-106 [facility] Comment on above: Performed By: #### L IPID, CMP, URIC #### [facility] [address] [place] [address] Dr. Christine Ferreira Potassium [Moles/Vol] 4.0 mmol/L Normal 3.4-5.0 [facility] Comment on above: Performed By: #### L IPID, CMP, URIC #### [facility] [address] [place] [address] Dr. Christine Ferreira Protein [Mass/Vol] 7.1 g/dL Normal 6.1-8.2 [facility] Comment on above: Performed By: #### L IPID, CMP, URIC #### [facility] [address] [place] [address] Dr. Christine Ferreira Sodium [Moles/Vol] 138 mmol/L Normal 137-145 [facility] Comment on above: Performed By: #### L IPID, CMP, URIC #### [facility] [address] [place] [address] Dr. Christine Ferreira Urea nitrogen [Mass/Vol] 16.0 mg/dL Normal 9.0-20.0 [facility] Comment on above: Performed By: #### L IPID, CMP, URIC #### [facility] [address] [place] [address] Dr. Christine Ferreira Urea nitrogen/Creatinine [Mass ratio] 15.4 mg/mg Normal [facility] Comment on above: Performed By: #### L IPID, CMP, URIC #### [facility] [address] [place] [address] Dr. Christine Ferreira URIC ACID SERUMon 09-19-2021 Urate [Mass/Vol] 6.1 mg/dL Normal 3.5-8.5 [facility] Comment on above: Performed By: #### L IPID, CMP, URIC #### [facility] [address] [place] [address] Dr. Christine Ferreira Vital Signs Date Time Vital Sign Value Performing Clinician Facility 02-06-2025 15:04-0400 Diastolic blood pressure 88 mm[Hg] Juan J Kitchen MD Work Phone: [facility] 02-06-2025 15:04-0400 Systolic blood pressure 144 mm[Hg] Juan J Kitchen MD Work Phone: [facility] 02-06-2025 14:59-0400 Body height 177.8 cm Juan J Kitchen MD Work Phone: [facility] 02-06-2025 14:59-0400 Body mass index (BMI) [Ratio] 35.33 kg/m2 Juan J Kitchen MD Work Phone: [facility] 02-06-2025 14:59-0400 Body weight 111.68 kg Juan J Kitchen MD Work Phone: [facility] 02-06-2025 14:59-0400 Heart rate 67 /min Juan J Kitchen MD Work Phone: [facility] 02-06-2025 14:59-0400 Respiratory rate 18 /min Juan J Kitchen MD Work Phone: [facility] 02-06-2025 14:59-0400 SaO2% (BldA) [Mass fraction] 98 % Juan J Kitchen MD Work Phone: [facility] Comment on above: room air 01-26-2025 12:03-0400 Body height 177.8 cm Pacc 1 Other Phone: [facility] 01-26-2025 12:03-0400 Body mass index (BMI) [Ratio] 34.8 kg/m2 Pacc 1 Other Phone: [facility] 01-26-2025 12:03-0400 Body temperature 97.11 [degF] Pacc 1 Other Phone: [facility] 01-26-2025 12:03-0400 Body weight 110 kg Pacc 1 Other Phone: [facility] 01-26-2025 12:03-0400 Diastolic blood pressure 72 mm[Hg] Pacc 1 Other Phone: [facility] 01-26-2025 12:03-0400 Heart rate 61 /min Pacc 1 Other Phone: [facility] 01-26-2025 12:03-0400 Respiratory rate 18 /min Pacc 1 Other Phone: [facility] 01-26-2025 12:03-0400 SaO2% (BldA) [Mass fraction] 97 % Pacc 1 Other Phone: [facility] 01-26-2025 12:03-0400 Systolic blood pressure 136 mm[Hg] Pacc 1 Other Phone: [facility] 11-11-2024 13:33-0400 Body weight 111 kg Kamila LEYVA-C Work Phone: [facility] Encounters Encounter Date Encounter Type Care Provider Facility Start: 03-09-2025 End: 03-09-2025 Patient encounter procedure Kamila Amy Medardo LEYVA-C Work Phone: Orthopaedics Comment on above: Status post left kne e replacement (Primary Dx) Start: 03-09-2025 End: 03-09-2025 ambulatory [facility] Facility:[facility] Start: 02-24-2025 ambulatory [facility] Facility :[facility] Start: 02-24-2025 End: 02-24-2025 Subsequent hospital visit by physician [facility] Work Phone: [facility] Radiology Ultrasound Comment on above: Status post left kne e replacement [Z96.652] Start: 02-24-2025 End: 02-24-2025 Patient encounter procedure Kamila LEYVA-C Work Phone: Orthopaedics Comment on above: Status post left kne e replacement (Primary Dx); Edema leg Start: 02-24-2025 End: 02-24-2025 ambulatory [facility] Facility:[facility] Start: 02-24-2025 End: 02-24-2025 Subsequent hospital visit by physician Cheryl Wolfe [facility] Work Phone: Radiology Comment on above: Post-traumatic osteo arthritis of left knee [M17.32] Start: 02-23-2025 End: 02-23-2025 Telephone encounter Jen Olmedo RN Orthopaedics Comment on above: Returning Patient's Call Start: 02-21-2025 End: 02-21-2025 Telephone encounter Laura Magana MD Work Phone: Orthopaedics Comment on above: Post Op Refill Request Start: 02-08-2025 End: 02-09-2025 Evaluation and management of inpatient LAURA MAGANA Facility:[facility] Start: 02-07-2025 ambulatory [facility] Facility:[facility] Start: 02-06-2025 End: 02-06-2025 Patient encounter procedure Juan J Kitchen MD Work Phone: [facility] Comment on above: New onset a-fib (HCC ) (Primary Dx); Essential hypertension; Paroxysmal atrial fibrillation (HCC); Pre-operative cardiovascular examination; Hyperlipidemia, unspecified hyperlipidemia type Start: 02-06-2025 End: 02-06-2025 Patient encounter status Juan J Kitchen MD Work Phone: [facility] Start: 02-06-2025 End: 02-06-2025 ambulatory [facility] Facility:[facility] Start: 02-06-2025 Encounter for preprocedural cardiovascular examination [facility] Start: 02-02-2025 End: 02-02-2025 Telephone encounter Natasha Palacio [facility] Orthopaedics Comment on above: Care Coordination Start: 01-26-2025 End: 01-26-2025 Patient encounter procedure Laura Magana MD Work Phone: Orthopaedics Comment on above: Post-traumatic osteo arthritis of left knee (Primary Dx) Start: 01-26-2025 Encounter for other preprocedural examination [facility] Start: 01-26-2025 End: 01-26-2025 Subsequent hospital visit by physician Yulia Pratt [facility] Work Phone: [facility] Radiology CT Scan Comment on above: Post-traumatic osteo arthritis of left knee [M17.32] Start: 01-26-2025 End: 01-26-2025 Admission to establishment [address] [address] Other Phone: Pre Anesthesia Start: 01-26-2025 End: 01-26-2025 Patient encounter procedure [address] [address] Other Phone: Pre Anesthesia Comment on above: Pre-op evaluation (P rimary Dx); Hypertension, unspecified type; Hyperlipidemia, unspecified hyperlipidemia type; Atrial fibrillation, unspecified type (HCC); Dementia, unspecified dementia severity, unspecified dementia type, unspecified whether behavioral, psychotic, or mood disturbance or anxiety (HCC); Obesity (BMI 30-39.9); Post-traumatic osteoarthritis of left knee Start: 01-26-2025 End: 01-26-2025 Preprocedural examination done [address] Other Phone: [facility] Start: 01-26-2025 End: 01-26-2025 ambulatory TAMIKA BEARD Facility:[facility] Start: 01-20-2025 End: 01-20-2025 ambulatory OPAL WARD Facility:[facility] Start: 11-17-2024 End: 11-17-2024 ambulatory Don Pathak RNfood product inspector [place] [facility] [place] Start: 11-15-2024 End: 12-02-2024 ambulatory Laura Magana MD Work Phone: Orthopaedics Start: 11-11-2024 End: 11-11-2024 ambulatory KAMILA BATRES Facility:[facility] Start: 11-11-2024 End: 11-11-2024 Patient encounter procedure Kamila Batres PA-C Work Phone: Orthopedics Comment on above: Post-traumatic osteo arthritis of left knee (Primary Dx); Anemia, unspecified type Start: 11-11-2024 End: 11-11-2024 ambulatory KAMILA BATRES Facility:[facility] Start: 11-11-2024 End: 11-11-2024 Subsequent hospital visit by physician Cheryl Gan Work Phone: Radiology Comment on above: Primary osteoarthrit is of left knee [M17.12] Start: 12-02-2023 ambulatory Opal Ward Facility:[facility] Start: 2023 End: 2023 Subsequent hospital visit by physician [facility] Rad[facility] Comment on above: [...] Date Procedure Procedure Detail Performing Clinician Start: 02-24-2025 Dup-scan xtr veins unilateral/limited study Kamila Batres PA-C Work Phone: Start: 02-06-2025 Ecg routine ecg w/le ast 12 lds w/i&r Juan J Kitchen MD Work Phone: Start: 01-26-2025 Antibody screen TAMIKA BEARD Comment on above: Order Comment: Speci men Type: BLOOD SPECIMEN Ordering Facility: [facility] Address: [address] [place] [address] Performed By: #### T SCR30 #### [facility] CLIA [id number] [address] [place] [address] [place] Start: 01-26-2025 Ct lower extremity w /o contrast material Kamila Batres PA-C Work Phone: Start: 01-26-2025 Ecg routine ecg w/le ast 12 lds i&r only Laura Magana MD Work Phone: Start: 2023 Radiologic exam knee complete 4/more views Laura Magana MD Work Phone: Start: 09-19-[address] MINERVA WARD Comment on above: Performed By: #### P [facility] #### [facility] [address] [place] [address] Dr. Christine Ferreira Plan of Treatment Date Care Activity Detail Author Start: 02-10-2028 Diabetes Screening Diabetes Screening [facility] Start: 01-27-2028 Diabetes Screening Diabetes Screening [facility] Start: 09-07-2025 End: 09-07-2025 Patient encounter procedure 09/07/2025 1:20 PM EST Office Visit Orthopaedics [address] [place] [address] Kamila Batres PA-C [address] [place] [address] 6 month Orthopaedics Comment on above: 6 month Start: 05-09-2025 End: 05-09-2025 Patient encounter procedure 05/09/2025 10:00 AM EST Office Visit [facility] [address] [place] [address] John Freire APRN.DUAL RATE SUPERVISOR [address] [place] [address] 3mo essential HTN srs [facility] Comment on above: 3mo essential HTN srs Start: 04-18-2025 End: 07-18-2025 Basic metabolic 2000 panel - Serum or Plasma BASIC METABOLIC PANEL Lab Routine Post-traumatic osteoarthritis of left knee Expected: 04/18/2025, Expires: 07/18/2025 [facility] Comment on above: Expected: 04/18/2025, Expires: Start: 04-18-2025 End: 07-18-2025 CBC panel - Blood by Automated count COMPLETE BLOOD COUNT Lab Routine Post-traumatic osteoarthritis of left knee Expected: 04/18/2025, Expires: 07/18/2025 [facility] Comment on above: Expected: 04/18/2025, Expires: Start: 04-18-2025 End: 07-18-2025 CONFIRM BLOOD TYPE CONFIRM BLOOD TYPE Blood Bank Routine Post-traumatic osteoarthritis of left knee Expected: 04/18/2025, Expires: 07/18/2025 [facility] Comment on above: Expected: 04/18/2025, Expires: Start: 04-18-2025 End: 07-18-2025 TYPE AND SCREEN,30 DAY TYPE AND SCREEN,30 DAY Blood Bank Routine Post-traumatic osteoarthritis of left knee Expected: 04/18/2025, Expires: 07/18/2025 [facility] Comment on above: Expected: 04/18/2025, Expires: Start: 03-06-2025 Influenza vaccination [facility] Start: 03-03-2025 End: 03-03-2025 Patient encounter procedure Radiology Comment on above: POST OP Start: 02-24-2025 End: 02-24-2025 Patient encounter procedure Radiology Comment on above: POST OP Start: 02-08-2025 End: 02-08-2025 Admission to same day surgery center 02/08/2025 11:39 AM EDT - 02/08/2025 3:20 PM EDT Surgery Admitting [address] [place] [address] Laura Magana MD [address] [place] [address] ROBOTIC ASSISTED TOTAL KNEE ARTHROPLASTY Admitting Comment on above: ROBOTIC ASSISTED TOTAL KNEE ARTHROPLASTY Start: 02-08-2025 End: 02-08-2025 Arthrp kne condyle&platu medial&lat compartments ROBOTIC ASSISTED TOTAL KNEE ARTHROPLASTY Post-traumatic osteoarthritis of left knee 02/08/2025 11:39 AM EDT [facility] Start: 02-08-2025 Subsequent hospital visit by physician 02/08/2025 11:39 AM EDT Hospital Encounter Admitting [address] [place] [address] Laura Magana MD [address] [place] [address] Post-traumatic osteoarthritis of left knee [M17.32] Admitting Comment on above: Post-traumatic osteoarthritis of left kn ee [M17.32] Start: 02-08-2025 End: 02-08-2025 Admission to same day surgery center 02/08/2025 9:15 AM EDT - 02/08/2025 12:46 PM EDT Surgery Admitting [address] [place] [address] Laura Magana MD [address] [place] [address] ROBOTIC ASSISTED TOTAL KNEE ARTHROPLASTY Admitting Comment on above: ROBOTIC ASSISTED TOTAL KNEE ARTHROPLASTY Start: 02-08-2025 End: 02-08-2025 Arthrp kne condyle&platu medial&lat compartments ROBOTIC ASSISTED TOTAL KNEE ARTHROPLASTY Post-traumatic osteoarthritis of left knee 02/08/2025 9:15 AM EDT [facility] Start: 02-08-2025 Subsequent hospital visit by physician 02/08/2025 9:15 AM EDT Hospital Encounter Admitting [address] [place] [address] Laura Magana MD [address] [place] [address] Post-traumatic osteoarthritis of left knee [M17.32] Admitting Comment on above: Post-traumatic osteoarthritis of left kn ee [M17.32] Start: 02-07-2025 End: 02-07-2025 Patient encounter procedure 02/07/2025 1:00 PM EDT Appointment [facility] [address] [place], [place] [id number] New onset a-fib (HCC) [I48.91] [facility] Comment on above: New onset a-fib (HCC) [I48.91] Start: 02-06-2025 End: 02-06-2025 Patient encounter procedure [facility] Comment on above: ref; orthopedics for cardiac clearance a fter abnormal ekg. eg ref; orthopedics for cardiac clearance after abnormal ekg. eg EKG jt Start: 02-01-2025 End: 02-01-2025 Patient encounter procedure 02/01/2025 10:10 AM EDT Office Visit [facility] [address] [facility] [address] [place] [address] Jose Prabhakar MD [address] [place] [address] Pre-op evaluation [Z01.818] [facility] Comment on above: Pre-op evaluation [Z01.818] Start: 01-26-2025 End: 01-26-2025 Patient encounter procedure 01/26/2025 2:45 PM EDT Office Visit Orthopaedics [address] [place] [address] Laura Magana MD [address] [place], [place] [id number] PRE OP Orthopaedics Comment on above: PRE OP Start: 01-26-2025 End: 01-26-2025 Patient encounter procedure Pre Anesthesia Comment on above: PREO P PRE OP Start: 11-11-2024 End: 02-10-2025 Cobalamin (Vitamin B12) [Mass/volume] in Serum or Plasma [facility] Comment on above: Expected: 11/11/2024, Expires: Start: 11-11-2024 End: 02-10-2025 Ferritin [Mass/volume] in Serum or Plasma [facility] Comment on above: Expected: 11/11/2024, Expires: Start: 11-11-2024 End: 02-10-2025 Folate [Mass/volume] in Serum or Plasma [facility] Comment on above: Expected: 11/11/2024, Expires: Start: 11-11-2024 End: 02-10-2025 Iron and Iron binding capacity panel - Serum or Plasma [facility] Work Phone: Comment on above: Expected: 11/11/2024, Expires: Start: 07-06-2024 Advance Directive Discussion Advance Directive Discussion [facility] Start: 03-06-2024 Covid-19 Vaccine () Covid-19 Vaccine () [facility] Start: 2023 RSV Vaccine (1 - 1-dose 75+ series) RSV Vaccine (1 - 1-dose 75+ series) [facility] Start: 03-06-2023 Covid-19 Vaccine () Covid-19 Vaccine () [facility] Start: 03-06-2023 Influenza vaccination Influenza Vaccine (#1) [facility] Start: 07-06-2022 Advance Directive Discussion Advance Directive Discussion [facility] Start: 07-06-2022 Depression Assessment Depression Assessment [facility] Start: 05-14-2018 Pneumococcal Vaccine: 50+ (2 of 2 - PCV20 or PCV21) Pneumococcal Vaccine: 50+ (2 of 2 - PCV20 or PCV21) [facility] Start: 05-14-2018 Pneumococcal Vaccine: 50+ (2 of 2 - PPSV23) Pneumococcal Vaccine: 50+ (2 of 2 - PPSV23) [facility] Start: 05-14-2018 Pneumococcal Vaccine: 65+ (2 - PPSV23 or PCV20) Pneumococcal Vaccine: 65+ (2 - PPSV23 or PCV20) [facility] Start: 2013 Pneumococcal Vaccine: 65+ (1 - PCV) Pneumococcal Vaccine: 65+ (1 - PCV) [facility] Start: 06-05-2013 Medicare Annual Wellness Visit Medicare Annual Wellness Visit [facility] Start: 2008 RSV Vaccine (1 - 1-dose 60+ series) RSV Vaccine (1 - 1-dose 60+ series) [facility] Start: 1998 Shingrix Vaccine (1 of 2) Shingrix Vaccine (1 of 2) [facility] Start: 1993 Cologuard (FIT-DNA) Cologuard (FIT-DNA) [facility] Start: 1993 Colonoscopy Colonoscopy [facility] Start: 1993 Colorectal Cancer Screening Colorectal Cancer Screening [facility] Start: [address] Colonography [facility] Start: 1993 Diabetes Screening Diabetes Screening [facility] Start: 1993 Fecal Occult Blood Fecal Occult Blood [facility] Start: 1993 Screening for malignant neoplasm of colon [facility] Start: 1993 Sigmoidoscopy Sigmoidoscopy [facility] Start: 1983 Lipid 1996 panel - Serum or Plasma Lipid Screening [facility] Start: 1983 Lipid panel Lipid Screening [facility] Start: 1967 Urine microalbumin profile DTaP,Tdap,Td Vaccine (1 - Tdap) [facility] Start: 1966 Annual PCP Team Chronic Disease Visit Annual PCP Team Chronic Disease Visit [facility] Start: 1966 Anxiety Screening Anxiety Screening [facility] Start: 1966 Depression Screening Depression Screening [facility] Start: 1966 Hepatitis C Screening Hepatitis C Screening [facility] Start: 1966 Hepatitis C screening Hepatitis C Screening [facility] Start: 1948 Covid-19 Vaccine (#1) Covid-19 Vaccine (#1) [facility] Start: 1948 Abdominal aortic aneurysm screening Abdominal Aortic Aneurysm Screening [facility] Arthrp kne condyle&p latu medial&lat compartments TOTAL KNEE REPLACEMENT Procedures Routine Post-traumatic osteoarthritis of left knee Ordered: 12/02/2024 [facility] Comment on above: Ordered: 12/02/2024 End: 12-11-2025 CT Knee - left WO contrast CT KNEE WO IVCON LEFT Radiology Routine Post-traumatic osteoarthritis of left knee Anemia, unspecified type 1 Occurrences starting 11/11/2024 until 12/11/2025 [facility] Comment on above: 1 Occurrences starting 11/11/2024 until 12/11/2025 End: 11-15-2025 ECG COMPLETE ECG COMPLETE ECG Routine Post-traumatic osteoarthritis of left knee 1 Occurrences starting 12/02/2024 until 11/15/2025 [facility] Work Phone: Comment on above: 1 Occurrences starting 12/02/2024 until 11/15/2025 ECG COMPLETE ECG COMPLETE ECG Routine Post-traumatic osteoarthritis of left knee 01/26/2025 12:14 PM EDT [facility] Work Phone: End: 02-06-2026 Echocardiography ECHO Cardiology Routine New onset a-fib (HCC) Paroxysmal atrial fibrillation (HCC) 1 Occurrences starting 02/06/2025 until 02/06/2026 [facility] Work Phone: Comment on above: 1 Occurrences starting 02/06/2025 until 02/06/2026 End: 07-10-2024 Radiologic examination pelvis 1/2 views XR PELVIS 1V AP Radiology Routine Left knee pain, unspecified chronicity 1 Occurrences starting 06/12/2023 until 07/10/2024 [facility] Work Phone: Comment on above: 1 Occurrences starting 06/12/2023 until 07/10/2024 REFER FOR ADMIT INTERVIEW REFER FOR ADMIT INTERVIEW Procedures Routine Post-traumatic osteoarthritis of left knee Ordered: 12/02/2024 [facility] Comment on above: Ordered: 12/02/2024 XR Knee - left 4 Views XR KNEE G ENERAL 4V AP BOTH/PA BOTH/LAT/MERC LEFT Radiology Routine Primary osteoarthritis of left knee 11/11/2024 1:01 PM EDT [facility] Work Phone: End: 12-15-2025 XR Knee AP and Lateral and Merchants XR KNEE POST OP 3V AP/LAT/MERCHANT LEFT Radiology Routine Post-traumatic osteoarthritis of left knee 1 Occurrences starting 12/02/2024 until 12/15/2025 [facility] Comment on above: 1 Occurrences starting 12/02/2024 until 12/15/2025 XR Knee AP and Later al and Merchants XR KNEE POST OP 3V AP/LAT/MERCHANT LEFT Radiology Routine Post-traumatic osteoarthritis of left knee 02/24/2025 12:32 PM EDT [facility] Work Phone: [facility] Immunizations Immunization Date Immunization Notes Care Provider Fa jamie 03-29-2021 influenza virus vacc ine, unspecified formulation Orth A21 [facility] Payers Date Payer Category Payer Private Health Insurance [facility] [place] [id number] 2018 Unknown [id number] 2013 Medicare [id number] 1959 Medicare [id number] 1959 Self-pay 1959 Unknown [id number] 1959 Unknown [id number] 1948 Unknown [id number] 1948 Unknown [id number] 1948 Unknown [id number] 1948 Unknown [id number] 1948 Unknown [id number] 1948 Unknown [id number] 1948 Unknown [id number] Unknown [id number] Social History Date Type Detail Facility Tobacco smoking stat [facility] Tobacco smoking consumption unknown [facility] Start: 1950 Sex Assigned At Not on file [facility] Start: 2023 End: 01-20-2025 Gender identity Not on file [facility] Start: 2023 End: 01-26-2025 Tobacco smoking status NHIS Ex-smoker [facility] End: 07-06-1979 History of tobacco use Current smoker [facility] End: 07-06-1979 History of tobacco use Cigarette Smoker [facility] Start: 2023 End: 01-20-2025 Cigarettes smoked current (pack per day) - Reported 0.3 [facility] History of tobacco use Passive smoker [facility] Start: 2023 End: 01-26-2025 Tobacco use and exposure Smokeless tobacco non-user [facility] Start: 2023 End: 02-08-2025 Alcohol intake Current drinker of alcohol (finding) [facility] Start: 06-06-2012 National Score (1-10 0), lower number is lower risk 61 [facility] Start: 01-26-2025 Tobacco Comment Smoke socially for 8 years [facility] Start: 01-26-2025 Alcohol Comment 2 drinks per day [facility] Has the [employer], or [employer] threatened to shut off services in your home in past 12Mo No [facility] Do you belong to any clubs or organizations such as confucianism groups, unions, fraternal or athletic groups, or school groups? Yes [facility] Are you now , , , , never or living with a partner? [facility] How often to you hav e a drink containing alcohol? 4 or more times a week [facility] How many standard dr inks containing alcohol do you have on a typical day? 1 or 2 [facility] How often do you hav e 6 or more drinks on 1 occasion? Never [facility] How hard is it for y ou to pay for the very basics like food, housing, medical care, and heating Not very hard [facility] Do you feel stress - tense, restless, nervous, or anxious, or unable to sleep at night because your mind is troubled all the time - these days [OSQ] Not at all [facility] (I/We) worried tacos er (my/our) food would run out before (I/we) got money to buy more. Never true [facility] Medical Equipment Procedure Code Equipment Code Equipment Origin al Text Equipment Identifier Dates Component Tritan ium 38mm Metal 11mm Patellar Asymmetric Knee - [id number] Start: 02-08-2025 Insert Triathlon 7 9mm Tibial Bearing Condylar Stabilize Sterile Knee - [id number] Start: 02-08-2025 Component Triath raf 6 Pa Femoral Cruciate Retain Bead Knee Left - [id number] Start: 02-08-2025 Baseplate Triath raf Tritanium 7 Tibial Knee - [id number] Start: 02-08-2025 Goals Date Patient Goal Desired Activity /State Personal health goal Personal health goal Functional Status Date Assessment Result Facility 02-09-2025 Are you deaf, or do you have serious difficulty hearing No 02/09/2025 2:01 PM Bernadette Espinal RN No [facility] 02-09-2025 Are you blind, or do you have serious difficulty seeing, even when wearing glasses No 02/09/2025 2:01 PM Bernadette Espinal RN No [facility] 02-09-2025 Do you have serious difficulty walking or climbing stairs Yes 02/09/2025 2:01 PM Bernadette Espinal RN Yes [facility] 02-09-2025 Do you have difficul ty dressing or bathing Yes 02/09/2025 2:01 PM Bernadette Espinal RN Yes [facility] 02-09-2025 Because of a physica l, mental, or emotional condition, do you have difficulty doing errands alone such as visiting a physician's office or shopping No 02/09/2025 2:01 PM Bernadette Espinal RN No [facility] 02-02-2025 Total score [AUDIT-C] 4 02/03/20 25 1:45 PM Natasha Carbajla LSW [facility] Mental Status Date Assessment Result Facility 02-09-2025 Because of a physica l, mental, or emotional condition, do you have serious difficulty concentrating, remembering, or making decisions No 02/09/2025 2:01 PM Bernadette Espinal RN No [facility] Clinical Notes 2023 to 03-09-2025 Kamila Batres PA-C - 03/09/2025 11:20 AM EDTPatiKamila Banegas PA-C - 02/24/2025 1:07 PM Elizabeth Francisco RT(R) - 02/24/2025 12:30 PM Juan J Reyna MD - 02/06/2025 4:11 PM EDT Note Date & Type Note Facility 03-09-2025 Note HNO ID: [id number] Author: KAMILA BATRES PA-C Service: ? Author Type: Physician Pre Planning Advisor Type: Progress Notes Filed: 03/09/2025 12:29 Note Text: Ortho Knee Follow Up Note Narrative Referring Provider: No referring provider defined for this encounter. PCP: Opal Ward MD IMPRESSION/PLAN: 74 year old s/p Left Total Knee Replacement completed on 02/08/2025. Recent Surgeries this specialty 02/08/2025 (4w, 1d) ROBOTIC ASSISTED TOTAL KNEE ARTHROPLASTY (Left), COMPUTER ASSIST MUSCULOSKETAL SURG NAVIGATION ORTHO PROCED W/IMAGE GUIDANCE BASED ON CT/MRI IMAGES (Left) Laura Magana MD; Pascual Mckinley MD; Rashaad Parekh MD - Posted PAIN EVALUATION 03/09/2025 1121 Pain Level: 4 Pain Location: Knee-Left Description: Aching Frequency: Intermittent Intervention/Comfort measure: Medication;Reposition;Relaxation;C old IMPRESSION: At normal post-operative stage of recovery. Pain, ROM, and swelling is greatly improved ROM ~5-100 US ordered after last visit was negative. PLAN: Continue current conservative treatment. Continue with OP PT WBAT Patient Reassurance: Progress appears to be with the normal speed of recovery. Patient reassured and supported. All questions answered. Follow up 6 months No X-Rays Needed Aneesh Juarez presents today for a an intermediate post-op visit ACTIVE PROBLEM LIST Essential Hypertension Hyperlipemia Atrial Fibrillation (Hcc) Dementia (Hcc) Obesity (Bmi 30-39.9) Mild Aortic Stenosis Primary Osteoarthritis of Left Knee Status post op: BMI: There is no height or weight on file to calculate BMI. Post-operative recovery was complicated by uneventful/none. Readmission(s) since surgery (90 days post)? No ED Visits AND Hospitalizations - Last 180 days 02/08/25 Laura Magana MD, [id number] S/P total knee arthroplasty, left ..., Admission (Discharged) Patient rates their condition as improving. Does the patient still experience pain? Onset: yes. Location: Left knee. Frequency: occasionally. Pain scale: 3 and 4. Pain character: ache. Relieving factors: Rest, Ice, Sitting, Pain medication, and Cane. Aggravating factors: Increased activity Post Op discharge patient location: in home. Functional Assessment is as follows: completed home PT and has already started outpatient PT as of this visit. Functional difficulties: Interferes with sleep. Pain Medication: Non-narcotic Currently Ambulating with: a cane EXAM: POST OP KNEE Left Post-Operative Knee Ambulates with a: normal gait uses: a cane. SKIN: Appropriate postop appearance and No evidence of erythema, warmth, discharge or drainage. Range of motion is lacking a few degrees secondary to tight hamstrings degrees in extension and 100 degrees of flexion. Extension Lag: < 10 degrees Pain with ROM:Yes There is Slight effusion. Mal-alignment: No Tender to the palpation of None Neurovascular Status: Sensation Intact, Moves foot and ankle up AND down, and 2+ dorsalis pedis Stability:Anterior/Posterior- Yes, stable and Varus/Valgus- Yes, stable Quad strength: intact Imagin. Implants are well aligned. Implants are well fixed. There is no evidence of loosening. Provider: Kamila Batres PA-C Completed by: Kamila Batres PA-C [facility] 03-09-2025 History of Present illness Narrative Ortho Knee Follow Up Note Narrative Referring Provider: No referring provider defined for this encounter. PCP: Opal Ward MD IMPRESSION/PLAN: 74 year old s/p Left Total Knee Replacement completed on 02/08/2025. Recent Surgeries this specialty 02/08/2025 (4w, 1d) ROBOTIC ASSISTED TOTAL KNEE ARTHROPLASTY (Left), COMPUTER ASSIST MUSCULOSKETAL SURG NAVIGATION ORTHO PROCED W/IMAGE GUIDANCE BASED ON CT/MRI IMAGES (Left) Laura Magana MD; Pascual Mckinley MD; Rashaad Parekh MD - Posted PAIN EVALUATION 03/09/2025 1121 Pain Level: 4 Pain Location: Knee-Left Description: Aching Frequency: Intermittent Intervention/Comfort measure: Medication;Reposition;Relaxation;C old IMPRESSION: At normal post-operative stage of recovery. Pain, ROM, and swelling is greatly improved ROM ~5-100 US ordered after last visit was negative. PLAN: Continue current conservative treatment. Continue with OP PT WBAT Patient Reassurance: Progress appears to be with the normal speed of recovery. Patient reassured and supported. All questions answered. Follow up 6 months No X-Rays Needed Aneesh Juarez presents today for a an intermediate post-op visit ACTIVE PROBLEM LIST Essential Hypertension Hyperlipemia Atrial Fibrillation (Hcc) Dementia (Hcc) Obesity (Bmi 30-39.9) Mild Aortic Stenosis Primary Osteoarthritis of Left Knee Status post op: BMI: There is no height or weight on file to calculate BMI. Post-operative recovery was complicated by uneventful/none. Readmission(s) since surgery (90 days post)? No ED Visits & Hospitalizations - Last 180 days 02/08/25 Laura Magana MD, [id number] S/P total knee arthroplasty, left ..., Admission (Discharged) Patient rates their condition as improving. Does the patient still experience pain? Onset: yes. Location: Left knee. Frequency: occasionally. Pain scale: 3 and 4. Pain character: ache. Relieving factors: Rest, Ice, Sitting, Pain medication, and Cane. Aggravating factors: Increased activity Post Op discharge patient location: in home. Functional Assessment is as follows: completed home PT and has already started outpatient PT as of this visit. Functional difficulties: Interferes with sleep. Pain Medication: Non-narcotic Currently Ambulating with: a cane EXAM: POST OP KNEE Left Post-Operative Knee Ambulates with a: normal gait uses: a cane. SKIN: Appropriate postop appearance and No evidence of erythema, warmth, discharge or drainage. Range of motion is lacking a few degrees secondary to tight hamstrings degrees in extension and 100 degrees of flexion. Extension Lag: < 10 degrees Pain with ROM:Yes There is Slight effusion. Mal-alignment: No Tender to the palpation of None Neurovascular Status: Sensation Intact, Moves foot and ankle up & down, and 2+ dorsalis pedis Stability:Anterior/Posterior- Yes, stable and Varus/Valgus- Yes, stable Quad strength: intact Imagin. Implants are well aligned. Implants are well fixed. There is no evidence of loosening. Provider: Kamila Batres PA-C Completed by: Kamila Batres PA-C documented in this encounter [facility] 02-24-2025 Instructions Kamila Batres PA-C - 02/24/2025 1:34 PM EDT [phone] documented in this encounter [facility] 02-24-2025 Note HNO ID: [id number] Author: KAMILA BATRES PA-C Service: ? Author Type: Physician Pre Planning Advisor Type: Progress Notes Filed: 02/24/2025 16:11 Note Text: Ortho Knee Follow Up Note Narrative Referring Provider: No referring provider defined for this encounter. PCP: Opal Ward MD IMPRESSION/PLAN: 74 year old s/p Left Total Knee Replacement completed on 02/08/2025. Recent Surgeries this specialty 02/08/2025 (2w, 2d) ROBOTIC ASSISTED TOTAL KNEE ARTHROPLASTY (Left), COMPUTER ASSIST MUSCULOSKETAL SURG NAVIGATION ORTHO PROCED W/IMAGE GUIDANCE BASED ON CT/MRI IMAGES (Left) Laura Magana MD; Pascual Mckinley MD; Rashaad Parekh MD - Posted PAIN EVALUATION No data found in the last 1 encounters. IMPRESSION: Patient states he was doing really well postop until about 2 days ago where he twisted in bed and had a sharp pain above his kneecap. He has full active extension but does have increased pain with any knee flexion. He has significant edema throughout his entire left lower extremity. No issues with his incision PLAN: Rest, Ice, Compression, Elevation PRN. Sent for stat venous ultrasound to rule out any DVT. Counseled on increased icing and elevating frequently throughout the day. Discussed thigh-high compression stockings to help with his edema. Placed him in a knee immobilizer and will send a refill of his oxycodone. Continue using the walker with limited weightbearing. Will pause PT for the next week. Advised him to send me an update sometime next week. If his pain is improving we can slowly start to reintroduce his therapy and get out of the knee immobilizer. Patient Reassurance: Progress appears to be with the normal speed of recovery. Patient reassured and supported. All questions answered. Follow up 2 weeks No X-Rays Needed Aneesh Juarez presents today for a an early post-op visit ACTIVE PROBLEM LIST Essential Hypertension Hyperlipemia Atrial Fibrillation (Hcc) Dementia (Hcc) Obesity (Bmi 30-39.9) Mild Aortic Stenosis Primary Osteoarthritis of Left Knee Status post op: BMI: There is no height or weight on file to calculate BMI. Post-operative recovery was complicated by uneventful/none. Readmission(s) since surgery (90 days post)? No ED Visits AND Hospitalizations - Last 180 days 02/08/25 Laura Magana MD, [id number] S/P total knee arthroplasty, left ..., Admission (Discharged) Patient rates their condition as improving. Does the patient still experience pain? see MIDAS Form Post Op discharge patient location: in home. Functional Assessment is as follows: In-home therapy. Functional difficulties: Stair climbing, Arising from chair, and Walking. Pain Medication: Narcotic Current Opioids Analgesic Opioid Hydrocodone Combinations Start End HYDROcodone-acetaminophen (NORCO) 5-325 mg per tablet 02/21/2025 02/28/2025 Sig - Route: Take 1-2 tablets by mouth every 8 hours as needed for pain for up to 7 days. - ORAL Earliest Fill Date: 02/21/2025 Analgesic Opioid Hydrocodone and Non-Salicylate Combinations Start End HYDROcodone-acetaminophen (NORCO) 5-325 mg per tablet 02/21/2025 02/28/2025 Sig - Route: Take 1-2 tablets by mouth every 8 hours as needed for pain for up to 7 days. - ORAL Earliest Fill Date: 02/21/2025 Currently Ambulating with: a walker EXAM: POST OP KNEE Left Post-Operative Knee Ambulates with a: uses: a walker. SKIN: No drainage or erythema. He has got significant edema throughout his entire left leg.. Range of motion is lacking a few degrees secondary to tight hamstrings degrees in extension and 30 degrees and stops due to increased pain. degrees of flexion. Extension Lag: < 10 degrees Pain with ROM:Yes There is Moderate effusion. Mal-alignment: No Tender to the palpation of None Neurovascular Status: Sensation Intact, Moves foot and ankle up AND down, and 2+ dorsalis pedis Stability:Anterior/Posterior- Yes, stable and Varus/Valgus- Yes, stable Quad strength: intact Imagin. Implants are well aligned. Implants are well fixed. There is no evidence of loosening. Provider: Kamila Batres PA-C Completed by: Kamila Batres PA-C [facility] 02-24-2025 History of Present illness Narrative Images from the original note were not included. Ortho Knee Follow Up Note Narrative Referring Provider: No referring provider defined for this encounter. PCP: Opal Ward MD IMPRESSION/PLAN: 74 year old s/p Left Total Knee Replacement completed on 02/08/2025. Recent Surgeries this specialty 02/08/2025 (2w, 2d) ROBOTIC ASSISTED TOTAL KNEE ARTHROPLASTY (Left), COMPUTER ASSIST MUSCULOSKETAL SURG NAVIGATION ORTHO PROCED W/IMAGE GUIDANCE BASED ON CT/MRI IMAGES (Left) Laura Magana MD; Pascual Mckinley MD; Rashaad Parekh MD - Posted PAIN EVALUATION No data found in the last 1 encounters. IMPRESSION: Patient states he was doing really well postop until about 2 days ago where he twisted in bed and had a sharp pain above his kneecap. He has full active extension but does have increased pain with any knee flexion. He has significant edema throughout his entire left lower extremity. No issues with his incision PLAN: Rest, Ice, Compression, Elevation PRN. Sent for stat venous ultrasound to rule out any DVT. Counseled on increased icing and elevating frequently throughout the day. Discussed thigh-high compression stockings to help with his edema. Placed him in a knee immobilizer and will send a refill of his oxycodone. Continue using the walker with limited weightbearing. Will pause PT for the next week. Advised him to send me an update sometime next week. If his pain is improving we can slowly start to reintroduce his therapy and get out of the knee immobilizer. Patient Reassurance: Progress appears to be with the normal speed of recovery. Patient reassured and supported. All questions answered. Follow up 2 weeks No X-Rays Needed Aneesh Juraez presents today for a an early post-op visit ACTIVE PROBLEM LIST Essential Hypertension Hyperlipemia Atrial Fibrillation (Hcc) Dementia (Hcc) Obesity (Bmi 30-39.9) Mild Aortic Stenosis Primary Osteoarthritis of Left Knee Status post op: BMI: There is no height or weight on file to calculate BMI. Post-operative recovery was complicated by uneventful/none. Readmission(s) since surgery (90 days post)? No ED Visits & Hospitalizations - Last 180 days 02/08/25 Laura Magana MD, [id number] S/P total knee arthroplasty, left ..., Admission (Discharged) Patient rates their condition as improving. Does the patient still experience pain? see MIDAS Form Post Op discharge patient location: in home. Functional Assessment is as follows: In-home therapy. Functional difficulties: Stair climbing, Arising from chair, and Walking. Pain Medication: Narcotic Current Opioids Analgesic Opioid Hydrocodone Combinations Start End HYDROcodone-acetaminophen (NORCO) 5-325 mg per tablet 02/21/2025 02/28/2025 Sig - Route: Take 1-2 tablets by mouth every 8 hours as needed for pain for up to 7 days. - ORAL Earliest Fill Date: 02/21/2025 Analgesic Opioid Hydrocodone and Non-Salicylate Combinations Start End HYDROcodone-acetaminophen (NORCO) 5-325 mg per tablet 02/21/2025 02/28/2025 Sig - Route: Take 1-2 tablets by mouth every 8 hours as needed for pain for up to 7 days. - ORAL Earliest Fill Date: 02/21/2025 Currently Ambulating with: a walker EXAM: POST OP KNEE Left Post-Operative Knee Ambulates with a: uses: a walker. SKIN: No drainage or erythema. He has got significant edema throughout his entire left leg.. Range of motion is lacking a few degrees secondary to tight hamstrings degrees in extension and 30 degrees and stops due to increased pain. degrees of flexion. Extension Lag: < 10 degrees Pain with ROM:Yes There is Moderate effusion. Mal-alignment: No Tender to the palpation of None Neurovascular Status: Sensation Intact, Moves foot and ankle up & down, and 2+ dorsalis pedis Stability:Anterior/Posterior- Yes, stable and Varus/Valgus- Yes, stable Quad strength: intact Imagin. Implants are well aligned. Implants are well fixed. There is no evidence of loosening. Provider: Kamila Batres PA-C Completed by: Kamila Batres PA-C documented in this encounter [facility] 02-24-2025 History of Present illness Narrative Radiology Service Progress Note PATIENT NAME: Aneesh Juarez DATE OF SERVICE: February 24, 2025 TIME: 12:24 PM PATIENT IDENTITY VERIFICATION COMPLETED USING TWO (2) IDENTIFIERS: Name and Date of confirmed by patient verbally. FALL SCREENING: Has the patient had 2 falls in the last year or 1 fall with injury or currently using an Ambulatory Assistive Device (Walker, Cane, Wheelchair, Crutches, etc.)? No PATIENT GENDER DATA: Assigned male at PATIENT RELEVANT IMPLANT DATA REVIEWED: Not Applicable PATIENT PRESENTS WITH AN IMPLANTABLE OR ATTACHED LEARNING AND DEVELOPMENT OFFICER: No RADIOLOGY DEPARTMENT: General X-ray: Exam(s) Completed: Lower Extremity X-Ray(s): Knee, AP / Lat / Merchant Left and Wt. Bearing PERIPHERAL IV DATA: Not applicable SIGNED BY: RT Madelyn(Eyad) February 24, 2025 12:24 PM documented in this encounter [facility] 02-24-2025 Note HNO ID: [id number] Author: ELIZABETH HENDRICKS RT (R) Service: Radiology Author Type: Technologist Type: Progress Notes Filed: 02/24/2025 12:24 Note Text: Radiology Service Progress Note PATIENT NAME: Aneesh Juarez DATE OF SERVICE: February 24, 2025 TIME: 12:24 PM PATIENT IDENTITY VERIFICATION COMPLETED USING TWO (2) IDENTIFIERS: Name and Date of confirmed by patient verbally. FALL SCREENING: Has the patient had 2 falls in the last year or 1 fall with injury or currently using an Ambulatory Assistive Device (Walker, Cane, Wheelchair, Crutches, etc.)? No PATIENT GENDER DATA: Assigned male at PATIENT RELEVANT IMPLANT DATA REVIEWED: Not Applicable PATIENT PRESENTS WITH AN IMPLANTABLE OR ATTACHED LEARNING AND DEVELOPMENT OFFICER: No RADIOLOGY DEPARTMENT: General X-ray: Exam(s) Completed: Lower Extremity X-Ray(s): Knee, AP / Lat / Merchant Left and Wt. Bearing PERIPHERAL IV DATA: Not applicable SIGNED BY: RT Madelyn(R) February 24, 2025 12:24 PM [facility] 02-23-2025 Telephone encounter Note Patient called Dr. Magana office Re: s/p ELIOT on 02/08. Yesterday twisted knee and in a lot more pain and feels like it catching. Called and spoke with patient. He explains he thinks something happened while he was sleeping. He is able to walk on it and states he mitchell sharp pain globally with lateral movement. Took pain meds about a half hour ago. Advised patient to scale back activities, continue with medications and do extra icing and elevating. Expect to see some improvement by tomorrow afternoon, if not to call us. Also provided him with ortho science education professor number in case symptoms should worsen over the weekend. [facility] 02-23-2025 Miscellaneous Notes Patient called Dr. Magana office Re: s/p ELIOT on 02/08. Yesterday twisted knee and in a lot more pain and feels like it catching. Called and spoke with patient. He explains he thinks something happened while he was sleeping. He is able to walk on it and states he mitchell sharp pain globally with lateral movement. Took pain meds about a half hour ago. Advised patient to scale back activities, continue with medications and do extra icing and elevating. Expect to see some improvement by tomorrow afternoon, if not to call us. Also provided him with ortho science education professor number in case symptoms should worsen over the weekend. documented in this encounter [facility] 02-21-2025 Telephone encounter Note The following medication(s) were electronically ordered by Kamila Batres PA-C on 02/21/2025. The prescription(s) were sent to [facility]. Requested Prescriptions Pending Prescriptions Disp Refills HYDROcodone-acetaminophen (NORCO) 5-325 mg per tablet 42 tablet 0 Sig: Take 1-2 tablets by mouth every 8 hours as needed for pain for up to 7 days. The following medications were electronically ordered by Kamila Batres PA-C [place] 5/325mg. The prescription was e-scripted to the patient's pharmacy. Patient is s/p left TKA (major orthopaedic surgery) and based upon prevailing medical standards of care their pain is unlikely to be controlled with the standard 30 MED average per day in the acute post operative phase. Patient has been educated on the goal to taper their use of this medication and alternatives to opioid pain management in this post operative period have been discussed and implemented as medically appropriate. Patient and their parents / partner / family was counseled on the risks of exceeding the recommended 30 MED average per day. [facility] 02-21-2025 Miscellaneous Notes The following medication(s) were electronically ordered by Kamila Batres PA-C on 02/21/2025. The prescription(s) were sent to [email or web address]. Requested Prescriptions Pending Prescriptions Disp Refills HYDROcodone-acetaminophen (NORCO) 5-325 mg per tablet 42 tablet 0 Sig: Take 1-2 tablets by mouth every 8 hours as needed for pain for up to 7 days. The following medications were electronically ordered by Kamila Batres PA-C [place] 5/325mg. The prescription was e-scripted to the patient's pharmacy. Patient is s/p left TKA (major orthopaedic surgery) and based upon prevailing medical standards of care their pain is unlikely to be controlled with the standard 30 MED average per day in the acute post operative phase. Patient has been educated on the goal to taper their use of this medication and alternatives to opioid pain management in this post operative period have been discussed and implemented as medically appropriate. Patient and their parents / partner / family was counseled on the risks of exceeding the recommended 30 MED average per day. documented in this encounter [facility] 02-21-2025 Telephone encounter Note Patient has been identified by name and date of : Yes, Provider Jen Olmedo RN Date 02/21/2025 Time 10:32am Surgeon Laura Magana MD Surgery Left Total Knee Arthroplasty Date of Surgery 02/08/2025 Date of Discharge 02/09/2025 Support person at home: Yes Weight Bearing status: PWB - patient states he has been walking with a cane and sometimes without. Instructed him to use the walker and maintain 75% WB until his follow-up with us as putting on too much weight too soon can cause complications. Activity Up with Walker, Home Health Pain Level on a pain scale 0-10: well controlled Current pain regimen Tylenol, Oxy and meloxicam. Almost out of Oxycodone. Educated on [place], side effects and how to take, including Tylenol max dose. Icing and Elevating using ice machine. Advised Dr. Magana doesn't recommend them and why. Educated patient on how to properly ice and elevate by lying down on something flat, such as a bed or long couch. They can place a pillow under their head and then 2 or 3 pillows under their calf, extending their leg straight out on top of them. Their heel is to be floating in the air, not pressed into the pillows and they will know their leg is high enough if when they look down at their foot, their toes are above the level of their nose. They can place ice packs or frozen peas at this time, with a barrier to protect their skin from getting too cold. Advised doing so for 20-30 minutes max at least once every two hours while awake during the day. Constipation No problems Anticoagulant Elizabeth - was confused as to why he is on this. Discussed new diagnosis of A. Fib and how he is at increased risk for a blood clot and the Eliquis will help thin his blood. He has a Cardiology appointment in May, provided him with that information. Educated on signs and symptoms of DVT/PE and what to do. If they develop any chest pain or shortness of breath, they are to call 911. If they have concerns about swelling that is painful, causes redness to the skin or is hot to the touch, they are to call our office. Incision: Educated on incision care, when and how to shower and signs and symptoms of infection and what to do. Explained that the incision will have steri-strips on top that will gradually loosen and fall off over time. As long as there is no active drainage coming from the incision once the post-op dressing is removed, they are to leave it open to air (no bandage). If there is drainage, that area is to be covered with a clean, dry dressing and changed daily until no drainage and then leave it open to air. The incision is to be open to air for one day before taking a shower (no tub baths). Patient can wash the incision gently with any soap and water. They are to pat the skin dry and avoid using lotions, creams or ointments on or near the incision. The patient should watch for large reddened areas, foul odors and white or yellow-green drainage and call our office if they have any concerns. Dressings: Steri-strips intact Patient concerns: None Follow up appointments: 03/03/2025 Patient aware During your hospital stay, were you updated on what the plan of care was for you each day? Yes Did you feel the provider, who can be your surgeon or a physician assistant teaching professor, and nurse worked together to explain your plan of care to you every day? Yes Jen Olmedo RN [facility] 02-21-2025 Miscellaneous Notes Patient has been identified by name and date of : Yes, Provider Jen Olmedo RN Date 02/21/2025 Time 10:32am Surgeon Laura Magana MD Surgery Left Total Knee Arthroplasty Date of Surgery 02/08/2025 Date of Discharge 02/09/2025 Support person at home: Yes Weight Bearing status: PWB - patient states he has been walking with a cane and sometimes without. Instructed him to use the walker and maintain 75% WB until his follow-up with us as putting on too much weight too soon can cause complications. Activity Up with Walker, Home Health Pain Level on a pain scale 0-10: well controlled Current pain regimen Tylenol, Oxy and meloxicam. Almost out of Oxycodone. Educated on [place], side effects and how to take, including Tylenol max dose. Icing and Elevating using ice machine. Advised Dr. Magana doesn't recommend them and why. Educated patient on how to properly ice and elevate by lying down on something flat, such as a bed or long couch. They can place a pillow under their head and then 2 or 3 pillows under their calf, extending their leg straight out on top of them. Their heel is to be floating in the air, not pressed into the pillows and they will know their leg is high enough if when they look down at their foot, their toes are above the level of their nose. They can place ice packs or frozen peas at this time, with a barrier to protect their skin from getting too cold. Advised doing so for 20-30 minutes max at least once every two hours while awake during the day. Constipation No problems Anticoagulant Elizabeth - was confused as to why he is on this. Discussed new diagnosis of A. Fib and how he is at increased risk for a blood clot and the Eliquis will help thin his blood. He has a Cardiology appointment in May, provided him with that information. Educated on signs and symptoms of DVT/PE and what to do. If they develop any chest pain or shortness of breath, they are to call 911. If they have concerns about swelling that is painful, causes redness to the skin or is hot to the touch, they are to call our office. Incision: Educated on incision care, when and how to shower and signs and symptoms of infection and what to do. Explained that the incision will have steri-strips on top that will gradually loosen and fall off over time. As long as there is no active drainage coming from the incision once the post-op dressing is removed, they are to leave it open to air (no bandage). If there is drainage, that area is to be covered with a clean, dry dressing and changed daily until no drainage and then leave it open to air. The incision is to be open to air for one day before taking a shower (no tub baths). Patient can wash the incision gently with any soap and water. They are to pat the skin dry and avoid using lotions, creams or ointments on or near the incision. The patient should watch for large reddened areas, foul odors and white or yellow-green drainage and call our office if they have any concerns. Dressings: Steri-strips intact Patient concerns: None Follow up appointments: 03/03/2025 Patient aware During your hospital stay, were you updated on what the plan of care was for you each day? Yes Did you feel the provider, who can be your surgeon or a physician assistant teaching professor, and nurse worked together to explain your plan of care to you every day? Yes Jen Olmedo RN documented in this encounter [facility] 02-09-2025 Note HNO ID: [id number] Author: SUSANNAH HARRIS LSW Service: Care Management Author Type: Painter Decorator Type: Care Mgt Progress Note Filed: 02/09/2025 13:25 Note Text: CARE MANAGEMENT DISCHARGE NOTE SERVICE DATE: February 09, 2025 SERVICE TIME: 1:21 PM Admission Date: 02/08/2025 LOS: 1 day Discharge Arrangement Discharge Arrangement: Home with Home Health Services Arranged Medical Services: Skilled Home Health Care Type: Physical Therapy Provider Name: [facility] Caregiver Assessment Caregiver is ready, willing and able to meet the patient's needs as recommended by the inter-professional team: Yes Name of Caregiver: Tino Jaramillo Transportation Arrangements Transportation Arrangements: Car Date of Trip: 02/09/25 Destination: home Handoff Communication: Handoff to: Primary Care Physician Primary Care Physician Name/Phone: Opal Ward MD [phone] Additional Information: N/A Discharge Information Row Name Admission (Current) from 02/08/2025 in [place] [address] Home Health Care Agency [facility] [place] [facility] Start of Care -- 24-48 hours post discharge Patient discharged to home with [facility] (PT). Discharge orders sent to [facility]. SIGNATURE: TONIO Rodriguez LSW PATIENT NAME: Aneesh Juarez DATE: February 09, 2025 TIME: 1:21 PM [facility] 02-09-2025 Note HNO ID: [id number] Author: BENITO GIBBS PA-C Service: Orthopaedic Surgery Author Type: Physician Pre Planning Advisor Type: Plan of Care Filed: 02/09/2025 13:17 Note Text: Orthopedic Plan of Care Visit SERVICE DATE: February 09, 2025 SERVICE TIME: 1155 Type of Surgery/Reason for Admission: s/p Left * ROBOTIC ASSISTED TOTAL KNEE ARTHROPLASTY - Spinal w/ Dr. Magana on 02/08/2025 INTERVAL: Patient is observed in NAD, AANDO lying up-right in bed. This patient has been seen by physical therapy and rec'd for home with [facility]. Patient is tolerating PO and w/o c/o output at this time. Pain is managed with multimodal regimen. Patient without additional questions or concerns at this time. Most recent labs, I/Os, VS, and notes reviewed for this visit. Principal Problem: Primary osteoarthritis of left knee Obesity w/ BMI 35.0 - 39.9 (adult) (wt in last 30 days) POA: Yes: Plan: Appropriate post-operative nutrition and activity Other present diagnoses: Hx of A Fib, aortic stenosis Hospital AND Post-op Plan: - 75% WB - Diet, Reg - MIVF, HLIV when tolerating adequate PO - DVT Prophylaxis- ASA 81 mg BID - Antibiotics- Francia-op Ancef - Pain Regimen- IV/PO multimodal - Dressing- Mepilex 7 d - Bergman out POD 1 and/or per nursing protocol - ABLA- Hgb- 13.2 - Electrolytes/Renal- BMP reviewed - GI Prophylaxis- Post-op regimen - HDAI reviewed - Consults- PT/OT/CM - WW script and set-up of crutches provided - F/U confirmed 03/03 - Med Rec completed, DC Instructions reviewed, DC order placed Disposition- Discharge home TODAY with [facility] Plan of care was completed with provider, patient and RN. All questions and concerns regarding the plan were addressed to the satisfaction of all participants. Thank you for the opportunity to participate in this patient's care. Benito Gibbs PA-C I Orthopedic Surgery [facility] [place] [phone] For Main [place] floor related issues or questions Thursday- [place] [phone] At all other times, or if urgent, please page the orthopaedic on-call resident at: [phone] ([phone]) for Main [place] patients [facility] 02-09-2025 Note HNO ID: [id number] Author: SUSANNAH HARRIS LSW Service: Care Management Author Type: Painter Decorator Type: Care Mgt Initial Assessment Filed: 02/09/2025 12:02 Note Text: CARE MANAGEMENT: ASSESSMENT AND DISCHARGE PLAN SERVICE DATE: February 09, 2025 SERVICE TIME: 12:01 PM ASSESSMENT COMPLETED BY OUTPATIENT ORTHOPAEDIC ACOUSTICAL TILE CARPENTERS SUPERVISOR ORTHOPAEDIC COORDINATION OF CARE Pre-Op Assessment Discharge Disposition (Planned): Home with Home Health Discharge Transportation: Car PRIMARY CARE PHYSICIAN: Opal Ward MD OR Surgery Date: 02/08/2025 [facility] Appointment: 02/08/2025 Joint: Jointtype: Knee Side: left Health Insurance: Medicare or [facility] MEDIC[facility] SUPPLEMENT Primary Contact: Extended Emergency Contact Information Primary Emergency Contact: AnnLotus Address: [address] [place] [address] [place] [address] Relation: Spouse Have you had joint replacement surgery before?: No Social: Pre-Hospital Baseline Mental Status: Alert AND Oriented Informant: Self Living Arrangement: Home Who able to assist you at home once you discharge? Spouse Are they available for at least 2 weeks? Yes Stairs: 2 story home 1 stairs to enter home 25 stairs inside home Bedroom Location: Second Bathroom Location: Second Do you have problems that affect your ability to perform normal activities of daily living such as bathing, dressing, or toileting yourself? No = 0 What is your current functional status?: Perform ADLs independently Are you able to afford your medications/Food? Yes Social Drivers of Health Tobacco Use: Medium Risk (01/26/2025) Patient History Smoking Tobacco Use: Former Smokeless Tobacco Use: Never Passive Exposure: Past Alcohol Use: Not At Risk (02/02/2025) AUDIT-C Frequency of Alcohol Consumption: 4 or more times a week Average Number of Drinks: 1 or 2 Frequency of Binge Drinking: Never Financial Resource Strain: Low Risk (02/02/2025) Overall Financial Resource Strain (CARDIA) Difficulty of Paying Living Expenses: Not very hard Food Insecurity: No Food Insecurity (02/02/2025) Hunger Vital Sign Worried About Running Out of Food in the Last Year: Never true Ran Out of Food in the Last Year: Never true Transportation Needs: No Transportation Needs (02/02/2025) PRAPARE - Transportation Lack of Transportation (Medical): No Lack of Transportation (Non-Medical): No Physical Activity: Sufficiently Active (02/02/2025) Exercise Vital Sign Days of Exercise per Week: 3 days Minutes of Exercise per Session: 60 min Stress: No Stress Concern Present (02/02/2025) [place] of Occupational Health - Occupational Stress Questionnaire Feeling of Stress : Not at all Social Connections: Socially Integrated (02/02/2025) Social Connection and Isolation Panel [NHANES] Frequency of Communication with Friends and Family: More than three times a week Frequency of Social Gatherings with Friends and Family: More than three times a week Attends Bahai Services: More than 4 times per year Active Member of Clubs or Organizations: Yes Attends Club or Organization Meetings: More than 4 times per year Marital Status: Intimate Partner Violence: Not At Risk (02/02/2025) Safe at Home? Fear of Current or Ex-Partner: No Emotionally Abused: No Physically Abused: No Sexually Abused: No Safe at Home?: Not on file Depression: Not at risk (01/20/2025) PHQ-2 PHQ-2 Score: 0 Housing Stability: Low Risk (02/02/2025) Housing Stability Vital Sign Unable to Pay for Housing in the Last Year: No Number of Times Moved in the Last Year: 0 Homeless in the Last Year: No Utilities: Not At Risk (02/02/2025) [facility] Utilities Threatened with loss of utilities: No Area Deprivation Index: Medium Risk (01/20/2025) Area Deprivation Index National Score (1-100), lower number is lower risk: 61 State Score (1-10), lower number is lower risk: 4 Data from: https://www.neighborhoodatlas.[facility]/. Last address used for calculation[address] [facility] Equipment: Do you currently use any equipment at home for your medical condition or to help you get around? None Patient stated he has a cane at home for after surgery and is planning to get a walker as needed Active Services/Needs: None Transportation: Do you have reliable transportation to and from surgery/appointments?: Yes Who will provide discharge transportation: Spouse Contact information for patient's ride: Will your ride be available for 1200 discharge time? Yes Office Visit Follow Up Did you receive the antiseptic wipes from your surgeon?s office? Yes Did you receive a prescription for an assistive device (walker or crutches) from your surgeon?s office and fill it or do you already have one at home? No, If no, plan for correction is: Patient stated he is planning to get a walker as needed Did you attend a joint education class/[employer] (more content not included)... [facility] 02-09-2025 Note HNO ID: [id number] Author: PASCUAL MCKINLEY MD Service: Orthopaedic Surgery Author Type: Resident Type: Progress Notes Filed: 02/09/2025 06:42 Note Text: Orthopaedic Surgery Inpatient Progress Note Patient Name: Aneesh Juarez Attending: Laura Perez MD Date of Admission: 02/08/2025 7:46 AM Assessment: Aneesh Juarze is a 74 year old year old male who is s/p L TKA on 02/08/[address] Magana. Plan: Activity Weightbearing status: 75% WB Range of motion: ROMAT DVT Prophylaxis Half dose eliquis until POD3, then resume home dose, SCDs, mobilization ID Antibiotics: ancef Cultures: none Perioperative Care Dressing: mepilex Pain control: multimodal, add toradol today Drain: none Diet: regular Bergman: none Acute blood loss anemia: Hemoglobin goal > 7, no indication for transfusion at this time Electrolytes/renal: wnl Consulting Services PT/OT: pending Case Management Items to follow up on today: pain control, PT Dispo: home Plan of care discussed with: Provider, RN, Patient. Subjective: NAEON. Pain poorly controlled. Objective: Vitals: 02/08/25 1754 02/08/25 1926 02/08/25 2013 02/08/25 2330 BP: 141/90 139/81 Pulse: 89 88 Resp: 18 18 17 Temp: 36.4 ?C (97.5 ?F) 36.6 ?C (97.9 ?F) TempSrc: Oral Oral SpO2: 96% 95% Weight: 116.2 kg (256 lb 2.8 oz) Height: 177.8 cm (5' 10 ) Physical Exam: General: Awake, alert, converses appropriately, no acute distress Respiratory: Unlabored on room air, no obvious wheezing Cardiovascular: RRR to peripheral palpation Focused Musculoskeletal Exam: Left Lower Extremity Inspection: dressing c/d/i Palpation: TTP to francia-incisional Compartments: Soft, compressible Sensory: SILT to SP/DP/T/S/S distributions Motor: 5/5 DF/PF/EHL Vascular: DP 2+ to palp; CR < 2 sec; foot warm AND well-perfused Intake/Output Summary (Last 24 hours) at 02/09/2025 0640 Last data filed at 02/09/2025 0428 Gross per 24 hour Intake 1210 ml Output 675 ml Net 535 ml Lab Review: Hemoglobin (g/dL) Date Value 02/09/2025 13.2 01/26/2025 15.1 WBC (k/uL) Date Value 02/09/2025 14.12 (H) 01/26/2025 7.35 Creatinine (mg/dL) Date Value 02/09/2025 1.12 01/26/2025 1.03 Sodium (mmol/L) Date Value 02/09/2025 134 (L) 01/26/2025 132 (L) Potassium (mmol/L) Date Value 02/09/2025 4.5 01/26/2025 3.7 Calcium, Total (mg/dL) Date Value 02/09/2025 8.6 01/26/2025 9.1 Lines, Drains, and Airways Line Duration Peripheral 02/08/25 0950 Short Left Hand 20 Gauge <1 day Pascual Mckinley MD Orthopaedic Surgery PGY-3 [facility] [phone] text/call/page For Main [place] floor related issues or questions on orthopaedic primary [place], [place] [phone] If unable to reach the PA team between 6 am and 5 pm, please page me At all other times, or if urgent, please page the orthopaedic on-call resident at: [phone] ([phone]) for [facility] patients [id number] for [facility] patients [address] for [facility] patients [address] for [facility] patients [address] for [facility] patients [facility] 02-08-2025 Note HNO ID: [id number] Author: CARLY KEE MD Service: ? Author Type: Resident Type: Anesthesia Procedure Notes Filed: 02/08/2025 12:24 Note Text: Attestation signed by Carly Kee MD at 02/08/2025 12:24 PM For this procedure, I personally performed this procedure. Carly Kee MD ANESTHESIOLOGY PROCEDURE NOTE Spinal Block General Information Procedure Start Time/Medication Administration: 02/08/2025 11:46 AM Procedure End time: 02/08/2025 11:47 AM Patient location during procedure: OR Timeout Performed Pre-procedure: timeout performed Reason for Block: primary surgical anesthetic Staffing Anesthesiologist: Carly Kee MD Resident: Billy Castano MD Performed by: resident Preparation Sterility Preparation: hand hygiene performed prior to procedure, sterile gloves, drapes, and procedure tray, surgical cap used, mask used, sterile drape used during line insertion, skin prep agent completely dried prior to procedure Sterility Technique Not Completely Performed Due to Extreme Emergency: No Site Prep: Betadine Procedure Details Patient Position: sitting Ultrasound Guided: No Monitoring: Pulse Ox and NIBP Approach: Midline Location: L4-5 Needle Needle Type: pencil-tip Needle Gauge: 25 G Needle Length: 3.5 in Needle Insertion Depth: 10 cm CSF: CSF clear Assessment Events: tolerated well SIGNATURE: Billy Castano MD PATIENT NAME: Aneesh Juarez DATE: February 08, 2025 TIME: 12:20 PM CSN: [id number] [facility] 02-08-2025 Note HNO ID: [id number] Author: INA NGUYEN MD Service: ? Author Type: Resident Type: Anesthesia Procedure Notes Filed: 02/08/2025 12:30 Note Text: Attestation signed by Ina Nguyen MD at 02/08/2025 12:30 PM Attending Note I evaluated the patient and personally participated in the dick components. Timeout was done before procedure US was used for the block No complications noted Signature: Ina Nguyen MD Date: 02/08/2025 Time: 12:30 PM ANESTHESIOLOGY PROCEDURE NOTE Peripheral Nerve Block General Information Procedure Start Time/Medication Administration: 02/08/2025 10:20 AM Procedure End time: 02/08/2025 10:29 AM Patient location during procedure: pre-op Timeout Performed Pre-procedure: timeout performed Consent Obtained: Yes Patient identity confirmed: arm band and patient Reason for block: post-op pain management/at surgeon's request Staffing Anesthesiologist: Ina Nguyen MD Resident: Ramón Lin MD Performed by: anesthesiologist and resident Preparation Sterility Preparation: hand hygiene performed prior to procedure, sterile gloves, drapes, and procedure tray, surgical cap used, mask used, sterile drape used during line insertion, skin prep agent completely dried prior to procedure Sterility Technique Not Completely Performed Due to Extreme Emergency: No Site Prep: Chloraprep Procedure Details Patient Position: supine Monitoring: Pulse OX, EKG and NIBP Block Type Lower Extremity: distal femoral (adductor canal) Approach: anterior Laterality: left Injection Technique: single-shot Ultrasound Guided: Yes Image in Chart: Yes Needle Needle Type: echogenic Needle Gauge: 20 G Needle Length: 10 cm Needle Localization: ultrasound Assessment Injection assessment: negative aspiration, local visualized surrounding nerve on ultrasound and incremental injection Medications Administered ropivacaine (PF) 5 mg/mL (0.5 %) injection (NAROPIN) - peripheral nerve block 20 mL - 02/08/2025 10:20:00 AM dexamethasone sodium phosphate injection (DECADRON) - peripheral nerve block 4 mg - 02/08/2025 10:20:00 AM SIGNATURE: Ramón Lin MD PATIENT NAME: Aneesh Juarez DATE: February 08, 2025 TIME: 10:34 AM CSN: [id number] [facility] 02-06-2025 Note HNO ID: [id number] Author: JUAN J KITCHEN MD Service: ? Author Type: Physician Type: Progress Notes Filed: 02/06/2025 16:20 Note Text: PRIMARY CARE PHYSICIAN: Opal Ward [address] [place] [address] REFERRING PHYSICIAN: Tamika Beard [id number] [facility] [id number] CHIEF COMPLAINT: New onset atrial fibrillation, preoperative cardiac risk assessment HISTORY OF PRESENT ILLNESS: Mr. Juarez is a 74 year old male with a history of hypertension, hyperlipidemia and prediabetes who was referred to cardiology clinic after finding of new onset atrial fibrillation during his preop visit prior to upcoming left total knee arthroplasty. Patient reports that he went to his preoperative visit last week prior to his scheduled knee surgery on February 08, 2025. During his preop visit, he was noted to be in new onset atrial fibrillation for which he was otherwise asymptomatic. As a result, he was referred to cardiology clinic for further evaluation. In discussion with the patient in the office today, he reports doing well from a cardiac standpoint and denies any cardiac complaints. He specifically denies any symptoms of chest pain, dyspnea on exertion, orthopnea, paroxysmal nocturnal dyspnea, lower extremity edema, claudication, presyncope, syncope, or palpitations. Despite his knee arthritis, he continues to workout regularly 3 times a week with a personal care aide for an hour at a time. He does typically walk on the treadmill backwards for 1.9 miles an hour, uses the step climber for 10 minutes and the exercise bike. He also does some weight training as well. He also enjoys skiing during the wintertime. He denies any cardiac limitations with exercise. He otherwise denies any complaints of exertional chest pain, dyspnea, orthopnea, paroxysmal nocturnal dyspnea, lower extremity edema, presyncope, syncope, or palpitations. Of note, patient has been on chronic metoprolol therapy for his underlying hypertension. He has been prescribed to take metoprolol 50 mg twice daily. As he does report increased exercise intolerance on this higher dose, he instead has been taking metoprolol 50 mg daily instead. PAST MEDICAL HISTORY Diagnosis Date Atrial fibrillation (HCC) Dementia (HCC) Essential hypertension Hyperlipemia Memory loss Obesity (BMI 30-39.9) Post-traumatic osteoarthritis of left knee PAST SURGICAL HISTORY Procedure Laterality Date ARTHROSCOPY KNEE DIAGNOSTIC W/WO SYNOVIAL BX SPX Left age 15 COLONOSCOPY SCREENING VASECTOMY MEDICATIONS: atorvastatin (LIPITOR) 20 mg tablet Take 20 mg by mouth once daily. memantine 7-14-21-28 mg C24k Take by mouth once daily. donepezil (ARICEPT) 5 mg tablet Take 5 mg by mouth daily at bedtime. [START ON 04/13/2025] mupirocin (BACTROBAN) 2 % ointment Apply 1/2 inch strip to cotton swab and apply to each nostril twice daily for 5 days prior to and morning of surgery. Patient should start on April 13, 2025. hydroCHLOROthiazide 25 mg tablet metoprolol tartrate, short acting, (LOPRESSOR) 25 mg tablet Take 1 tablet by mouth two times a day. apixaban (ELIQUIS) 5 mg tab(s) Take 1 tablet by mouth two times a day. Start after surgery when deemed safe to do so by surgeon ALLERGIES No Known Allergies SOCIAL HISTORY: Social History Tobacco Use Smoking status: Former Current packs/day: 0.00 Types: Cigarettes Quit date: 1979 Years since quittin.6 Passive exposure: Past Smokeless tobacco: Never Tobacco comments: Smoke socially for 8 years Substance Use Topics Alcohol use: Yes Alcohol/week: 7.0 standard drinks of alcohol Types: 2 Glasses of wine, 5 Shots of liquor per week Comment: 2 drinks per day Drug use: Never FAMILY HISTORY Problem Relation Age of Onset No Known Problems Mother No Known Problems Father REVIEW OF SYSTEMS: GENERAL: Negative for: Weight loss or gain, Fever, Chills, or Night sweats RESPIRATORY: Negative for: Cough, Blood in Sputum, Shortness of breath, Wheezing CARDIAC: Negative history of chest pain on exertion, dyspnea on exertion, orthopnea, paroxysmal nocturnal dyspnea, lower extremity edema, presyncope, syncope, or palpitations PHYSICAL EXAMINATION: BP 144/88 Pulse 67 Resp 18 Ht 5' 10 (1.78m) Wt 246 lb 3.2 oz (111.7kg) SpO2 98[room air]% BMI 35.33 kg/(m2). GENERAL: Well appearing, in no acute distress. LUNGS: Clear to auscultation bilaterally, no rales, wheezing, or rhonchi. HEART: Irregularly irregular; normal S1/S2; no murmurs, gallops, or rubs EXTREMETIES: No peripheral edema. Grade 2/4 distal pulses bilaterally. NEURO: Grossly nonfocal CARDIAC TESTING: EKG: EKG, 02/06/2025: Atrial fibrillation with premature ventricular or aberrantly conducted complexes. I have personally reviewed the Electrocardiogram and Laboratory Testing. ASSESSMENT: Mr. Juarez is a 74 year old male with a history (more content not included)... [facility] 02-06-2025 History of Present illness Narrative PRIMARY CARE PHYSICIAN: Opal Ward [address] [place] [address] REFERRING PHYSICIAN: Tamika Beard [id number] [facility] [id number] CHIEF COMPLAINT: New onset atrial fibrillation, preoperative cardiac risk assessment HISTORY OF PRESENT ILLNESS: Mr. Juarez is a 74 year old male with a history of hypertension, hyperlipidemia and prediabetes who was referred to cardiology clinic after finding of new onset atrial fibrillation during his preop visit prior to upcoming left total knee arthroplasty. Patient reports that he went to his preoperative visit last week prior to his scheduled knee surgery on February 08, 2025. During his preop visit, he was noted to be in new onset atrial fibrillation for which he was otherwise asymptomatic. As a result, he was referred to cardiology clinic for further evaluation. In discussion with the patient in the office today, he reports doing well from a cardiac standpoint and denies any cardiac complaints. He specifically denies any symptoms of chest pain, dyspnea on exertion, orthopnea, paroxysmal nocturnal dyspnea, lower extremity edema, claudication, presyncope, syncope, or palpitations. Despite his knee arthritis, he continues to workout regularly 3 times a week with a personal care aide for an hour at a time. He does typically walk on the treadmill backwards for 1.9 miles an hour, uses the step climber for 10 minutes and the exercise bike. He also does some weight training as well. He also enjoys skiing during the wintertime. He denies any cardiac limitations with exercise. He otherwise denies any complaints of exertional chest pain, dyspnea, orthopnea, paroxysmal nocturnal dyspnea, lower extremity edema, presyncope, syncope, or palpitations. Of note, patient has been on chronic metoprolol therapy for his underlying hypertension. He has been prescribed to take metoprolol 50 mg twice daily. As he does report increased exercise intolerance on this higher dose, he instead has been taking metoprolol 50 mg daily instead. PAST MEDICAL HISTORY Diagnosis Date Atrial fibrillation (HCC) Dementia (HCC) Essential hypertension Hyperlipemia Memory loss Obesity (BMI 30-39.9) Post-traumatic osteoarthritis of left knee PAST SURGICAL HISTORY Procedure Laterality Date ARTHROSCOPY KNEE DIAGNOSTIC W/WO SYNOVIAL BX SPX Left age 15 COLONOSCOPY SCREENING VASECTOMY MEDICATIONS: atorvastatin (LIPITOR) 20 mg tablet Take 20 mg by mouth once daily. memantine 7-14-21-28 mg C24k Take by mouth once daily. donepezil (ARICEPT) 5 mg tablet Take 5 mg by mouth daily at bedtime. [START ON 04/13/2025] mupirocin (BACTROBAN) 2 % ointment Apply 1/2 inch strip to cotton swab and apply to each nostril twice daily for 5 days prior to and morning of surgery. Patient should start on April 13, 2025. hydroCHLOROthiazide 25 mg tablet metoprolol tartrate, short acting, (LOPRESSOR) 25 mg tablet Take 1 tablet by mouth two times a day. apixaban (ELIQUIS) 5 mg tab(s) Take 1 tablet by mouth two times a day. Start after surgery when deemed safe to do so by surgeon ALLERGIES No Known Allergies SOCIAL HISTORY: Social History Tobacco Use Smoking status: Former Current packs/day: 0.00 Types: Cigarettes Quit date: 1979 Years since quittin.6 Passive exposure: Past Smokeless tobacco: Never Tobacco comments: Smoke socially for 8 years Substance Use Topics Alcohol use: Yes Alcohol/week: 7.0 standard drinks of alcohol Types: 2 Glasses of wine, 5 Shots of liquor per week Comment: 2 drinks per day Drug use: Never FAMILY HISTORY Problem Relation Age of Onset No Known Problems Mother No Known Problems Father REVIEW OF SYSTEMS: GENERAL: Negative for: Weight loss or gain, Fever, Chills, or Night sweats RESPIRATORY: Negative for: Cough, Blood in Sputum, Shortness of breath, Wheezing CARDIAC: Negative history of chest pain on exertion, dyspnea on exertion, orthopnea, paroxysmal nocturnal dyspnea, lower extremity edema, presyncope, syncope, or palpitations PHYSICAL EXAMINATION: BP 144/88 Pulse 67 Resp 18 Ht 5' 10 (1.78m) Wt 246 lb 3.2 oz (111.7kg) SpO2 98[room air]% BMI 35.33 kg/(m^2). GENERAL: Well appearing, in no acute distress. LUNGS: Clear to auscultation bilaterally, no rales, wheezing, or rhonchi. HEART: Irregularly irregular; normal S1/S2; no murmurs, gallops, or rubs EXTREMETIES: No peripheral edema. Grade 2/4 distal pulses bilaterally. NEURO: Grossly nonfocal CARDIAC TESTING: EKG: EKG, 02/06/2025: Atrial fibrillation with premature ventricular or aberrantly conducted complexes. I have personally reviewed the Electrocardiogram and Laboratory Testing. ASSESSMENT: Mr. Juarez is a 74 year old male with a history of hypertension, hyperlipidemia and prediabetes who was referred to cardiology clinic after finding of new onset atrial fibrillation during his preop visit prior to upcoming left total knee arthroplasty. PLAN AND RECOMMENDATIONS: New onset paroxysmal atrial fibrillation: Patient was found to be in new onset atrial fibrillation during his preop visit last week. He is otherwise completely asymptomatic with his atrial fibrillation. We discussed in detail the pathophysiology and treatment options for his atrial fibrillation. As he is asymptomatic with his atrial fibrillation, I recommended ongoing rate control strategy. He has chronically been taking metoprolol tartrate 50 mg but only once a day; I did recommend he instead take metoprolol tartrate 25 mg twice daily instead. He is otherwise at increased risk for thromboembolic events given his [id number] of 3. He would best benefit from initiation of anticoagulation. However, given his upcoming surgery, I would recommend starting Eliquis postoperatively when considered safe to do so from a surgical standpoint. Otherwise, I did recommend he have an echocardiogram to evaluate his overall cardiac structure and function prior to his upcoming surgery. 2. Pre-operative cardiac assessment: Mr. Juarez does not have any high-risk features of unstable angina, decompensated heart failure, severe valve disease, or malignant arrhythmias. In addition, he engages in at least 4 METS of physical activity without cardiac limitations. Given his new onset atrial fibrillation, ideally, we would like to get an echocardiogram to evaluate his cardiac structure and function prior to surgery. We were able to schedule him for an echo tomorrow prior to his surgery the day after. Assuming his echo is unremarkable, he will be at overall low risk of cardiac complications from anticipated moderate risk surgical procedure. He is otherwise already on beta yanet therapy for francia-operative beta blockade. 3. Hypertension: Patient reports his blood pressures have been suboptimally controlled and typically range around 140 systolic. I recommended he continue on his current regimen as is with metoprolol and hydrochlorothiazide. I am reluctant to make any changes 2 days prior to surgery but instead can follow-up afterwards to adjust his medication regimen as necessary. 4. Hyperlipidemia: Patient continues on moderate intensity statin therapy with Lipitor. Ongoing lipid monitoring and management as per his PCP. Juan J Kitchen MD Please Note: The time of this note does not reflect the time I saw this patient today, but the time of this documentation. Also, this note has been created using Connectivity, a speech recognition software program, and may contain errors including punctuation, grammar, spelling, gender, and inappropriate words or phrases that pertain to the system. documented in this encounter [facility] 02-06-2025 Instructions Juan J Kitchen MD - 02/06/2025 3:38 PM EDT Echocardiogram Start eliquis after surgery once considered safe to do so by surgeon Take metoprolol 25 mg twice daily documented in this encounter [facility] 02-02-2025 Telephone encounter Note ORTHOPAEDIC COORDINATION OF CARE Pre-Op Assessment Discharge Disposition (Planned): Home with Home Health Discharge Transportation: Car PRIMARY CARE PHYSICIAN: Opal Ward MD OR Surgery Date: 02/08/2025 [facility] Appointment: 02/08/2025 Joint: Jointtype: Knee Side: left Health Insurance: Medicare or [employer] MEDICARE SUPPLEMENT Primary Contact: Extended Emergency Contact Information Primary Emergency Contact: Lotus Juarez Address: [address] [place] [address] [place] [address] Relation: Spouse Have you had joint replacement surgery before?: No Social: Pre-Hospital Baseline Mental Status: Alert & Oriented Informant: Self Living Arrangement: Home Who able to assist you at home once you discharge? Spouse Are they available for at least 2 weeks? Yes Stairs: 2 story home 1 stairs to enter home 25 stairs inside home Bedroom Location: Second Bathroom Location: Second Do you have problems that affect your ability to perform normal activities of daily living such as bathing, dressing, or toileting yourself? No = 0 What is your current functional status?: Perform ADLs independently Are you able to afford your medications/Food? Yes Social Drivers of Health Tobacco Use: Medium Risk (01/26/2025) Patient History Smoking Tobacco Use: Former Smokeless Tobacco Use: Never Passive Exposure: Past Alcohol Use: Not At Risk (02/02/2025) AUDIT-C Frequency of Alcohol Consumption: 4 or more times a week Average Number of Drinks: 1 or 2 Frequency of Binge Drinking: Never Financial Resource Strain: Low Risk (02/02/2025) Overall Financial Resource Strain (CARDIA) Difficulty of Paying Living Expenses: Not very hard Food Insecurity: No Food Insecurity (02/02/2025) Hunger Vital Sign Worried About Running Out of Food in the Last Year: Never true Ran Out of Food in the Last Year: Never true Transportation Needs: No Transportation Needs (02/02/2025) PRAPARE - Transportation Lack of Transportation (Medical): No Lack of Transportation (Non-Medical): No Physical Activity: Sufficiently Active (02/02/2025) Exercise Vital Sign Days of Exercise per Week: 3 days Minutes of Exercise per Session: 60 min Stress: No Stress Concern Present (02/02/2025) [employer] [place] [employer] - Occupational Stress Questionnaire Feeling of Stress : Not at all Social Connections: Socially Integrated (02/02/2025) Social Connection and Isolation Panel [NHANES] Frequency of Communication with Friends and Family: More than three times a week Frequency of Social Gatherings with Friends and Family: More than three times a week Attends Bahai Services: More than 4 times per year Active Member of Clubs or Organizations: Yes Attends Club or Organization Meetings: More than 4 times per year Marital Status: Intimate Partner Violence: Not At Risk (02/02/2025) Safe at Home? Fear of Current or Ex-Partner: No Emotionally Abused: No Physically Abused: No Sexually Abused: No Safe at Home?: Not on file Depression: Not at risk (01/20/2025) PHQ-2 PHQ-2 Score: 0 Housing Stability: Low Risk (02/02/2025) Housing Stability Vital Sign Unable to Pay for Housing in the Last Year: No Number of Times Moved in the Last Year: 0 Homeless in the Last Year: No Utilities: Not At Risk (02/02/2025) [facility] Utilities Threatened with loss of utilities: No Area Deprivation Index: Medium Risk (01/20/2025) Area Deprivation Index National Score (1-100), lower number is lower risk: 61 State Score (1-10), lower number is lower risk: 4 Data from: https://www.neighborhoodatlas.[facility]/. Last address used for calculation: [address] Equipment: Do you currently use any equipment at home for your medical condition or to help you get around? None Patient stated he has a cane at home for after surgery and is planning to get a walker as needed Active Services/Needs: None Transportation: Do you have reliable transportation to and from surgery/appointments?: Yes Who will provide discharge transportation: Spouse Contact information for patient's ride: Will your ride be available for 1200 discharge time? Yes Office Visit Follow Up Did you receive the antiseptic wipes from your surgeon s office? Yes Did you receive a prescription for an assistive device (walker or crutches) from your surgeon s office and fill it or do you already have one at home? No, If no, plan for correction is: Patient stated he is planning to get a walker as needed Did you attend a joint education class/Watched video? No Did you read the education book provided to you? Yes Have you let your PCP know you are having a joint replacement surgery? Yes If you are currently being seen by pain management, are they aware you are having a joint replacement surgery? N/A Have you informed any specialty care providers of your upcoming joint replacement surgery? N/A Have you made arrangements for your pets? No pets Is your house ready for your recovery? Yes PLAN OF CARE VISIT DISCUSSED: Yes FREEDOM OF CHOICE: Level of Care Discussed: Home Care Provider List: Home Care Provider list within the patient's requested geographic area offered to the patient/family: Yes - Within [address] of [address] [place] [address] Total Joint Arthroplasty (TJA) Surgical Risk Procedure: Primary total Knee replacement Date assessed: risk assessed on 01/26/2025 01/26/2025 TJA Risk Procedure Primary total Knee replacement Estimated Length of Stay (# of days) 2 Chance of NOT Returning Home at Discharge 5.85 30 Day Chance of Readmission 7.68 Patient lives outside of [facility] service area. Patient did not state a preference for any specific [facility] agency at this time, is in agreement with referrals being sent for multiple [facility] agencies near home to determine who could accept. Plan for spouse to provide D/C transport home following surgery. Plan for patient to remain in the hospital overnight following surgery SIGNATURE: NINO Saunders DATE: February 02, 2025 TIME: 1:42 PM [facility] 02-02-2025 Miscellaneous Notes ORTHOPAEDIC COORDINATION OF CARE Pre-Op Assessment Discharge Disposition (Planned): Home with Home Health Discharge Transportation: Car PRIMARY CARE PHYSICIAN: Opal Ward MD OR Surgery Date: 02/08/2025 [facility] Appointment: 02/08/2025 Joint: Jointtype: Knee Side: left Health Insurance: Medicare or [facility] MEDICARE SUPPLEMENT Primary Contact: Extended Emergency Contact Information Primary Emergency Contact: Lotus Juarez Address: [address] [place] [address] [place] [address] Relation: Spouse Have you had joint replacement surgery before?: No Social: Pre-Hospital Baseline Mental Status: Alert & Oriented Informant: Self Living Arrangement: Home Who able to assist you at home once you discharge? Spouse Are they available for at least 2 weeks? Yes Stairs: 2 story home 1 stairs to enter home 25 stairs inside home Bedroom Location: Second Bathroom Location: Second Do you have problems that affect your ability to perform normal activities of daily living such as bathing, dressing, or toileting yourself? No = 0 What is your current functional status?: Perform ADLs independently Are you able to afford your medications/Food? Yes Social Drivers of Health Tobacco Use: Medium Risk (01/26/2025) Patient History Smoking Tobacco Use: Former Smokeless Tobacco Use: Never Passive Exposure: Past Alcohol Use: Not At Risk (02/02/2025) AUDIT-C Frequency of Alcohol Consumption: 4 or more times a week Average Number of Drinks: 1 or 2 Frequency of Binge Drinking: Never Financial Resource Strain: Low Risk (02/02/2025) Overall Financial Resource Strain (CARDIA) Difficulty of Paying Living Expenses: Not very hard Food Insecurity: No Food Insecurity (02/02/2025) Hunger Vital Sign Worried About Running Out of Food in the Last Year: Never true Ran Out of Food in the Last Year: Never true Transportation Needs: No Transportation Needs (02/02/2025) PRAPARE - Transportation Lack of Transportation (Medical): No Lack of Transportation (Non-Medical): No Physical Activity: Sufficiently Active (02/02/2025) Exercise Vital Sign Days of Exercise per Week: 3 days Minutes of Exercise per Session: 60 min Stress: No Stress Concern Present (02/02/2025) [employer] [employer] - Occupational Stress Questionnaire Feeling of Stress : Not at all Social Connections: Socially Integrated (02/02/2025) Social Connection and Isolation Panel [NHANES] Frequency of Communication with Friends and Family: More than three times a week Frequency of Social Gatherings with Friends and Family: More than three times a week Attends [employer] Services: More than 4 times per year Active Member of Clubs or Organizations: Yes Attends Club or Organization Meetings: More than 4 times per year Marital Status: Intimate Partner Violence: Not At Risk (02/02/2025) Safe at Home? Fear of Current or Ex-Partner: No Emotionally Abused: No Physically Abused: No Sexually Abused: No Safe at Home?: Not on file Depression: Not at risk (01/20/2025) PHQ-2 PHQ-2 Score: 0 Housing Stability: Low Risk (02/02/2025) Housing Stability Vital Sign Unable to Pay for Housing in the Last Year: No Number of Times Moved in the Last Year: 0 Homeless in the Last Year: No Utilities: Not At Risk (02/02/2025) [facility] Utilities Threatened with loss of utilities: No Area Deprivation Index: Medium Risk (01/20/2025) Area Deprivation Index National Score (1-100), lower number is lower risk: 61 State Score (1-10), lower number is lower risk: 4 Data from: https://www.neighborhoodatlas.[facility]/. Last address used for calculation: [address] Equipment: Do you currently use any equipment at home for your medical condition or to help you get around? None Patient stated he has a cane at home for after surgery and is planning to get a walker as needed Active Services/Needs: None Transportation: Do you have reliable transportation to and from surgery/appointments?: Yes Who will provide discharge transportation: Spouse Contact information for patient's ride: Will your ride be available for 1200 discharge time? Yes Office Visit Follow Up Did you receive the antiseptic wipes from your surgeon s office? Yes Did you receive a prescription for an assistive device (walker or crutches) from your surgeon s office and fill it or do you already have one at home? No, If no, plan for correction is: Patient stated he is planning to get a walker as needed Did you attend a joint education class/Watched video? No Did you read the education book provided to you? Yes Have you let your PCP know you are having a joint replacement surgery? Yes If you are currently being seen by pain management, are they aware you are having a joint replacement surgery? N/A Have you informed any specialty care providers of your upcoming joint replacement surgery? N/A Have you made arrangements for your pets? No pets Is your house ready for your recovery? Yes PLAN OF CARE VISIT DISCUSSED: Yes FREEDOM OF CHOICE: Level of Care Discussed: Home Care Provider List: Home Care Provider list within the patient's requested geographic area offered to the patient/family: Yes - Within 25 miles of [facility] Total Joint Arthroplasty (TJA) Surgical Risk Procedure: Primary total Knee replacement Date assessed: risk assessed on 01/26/2025 01/26/2025 TJA Risk Procedure Primary total Knee replacement Estimated Length of Stay (# of days) 2 Chance of NOT Returning Home at Discharge 5.85 30 Day Chance of Readmission 7.68 Patient lives outside of [facility] service area. Patient did not state a preference for any specific [facility] agency at this time, is in agreement with referrals being sent for multiple [facility] agencies near home to determine who could accept. Plan for spouse to provide D/C transport home following surgery. Plan for patient to remain in the hospital overnight following surgery SIGNATURE: NINO Saunders DATE: February 02, 2025 TIME: 1:42 PM documented in this encounter [facility] 01-26-2025 Note HNO ID: [id number] Author: LAURA MAGANA MD Service: ? Author Type: Physician Type: Progress Notes Filed: 01/30/2025 13:42 Note Text: CONSULT ORTHOPAEDIC: KNEE PRIMARY CARE PHYSICIAN: No primary care provider on file. REFERRING PROVIDER: No referring provider defined for this encounter. ASSESSMENT AND PLAN Impression: Left Knee Severe Degenerative Osteoarthritis, Post-Traumatic Scheduled for left robotic total knee 02/08/[address] Magana at Plan for medial parapatellar incision/approach without incorporating prior incisions Diagnoses: (M17.32) Post-traumatic osteoarthritis of left knee (primary encounter diagnosis) Based upon the evaluation today and after discussions with Aneesh Juarez, Aneesh Juarez has significant, worsening pain at the [...] Surgery Details Date and Location: At on 02/08/2025. Implants: Ravin Robotic: Yes Predicted LOS: 2 [...] with surgery.. The patient has been ordered: No orders found for this visit on 01/26/25. CONSULTS: IMPACT/PACE Consult for preoperative clearance. Total Joint Arthroplasty: Risk Calculator Aneesh Juarez has a 5.85% chance of NOT returning [...] Normal: BETTYE < 50 Obesity: height and/or w (more content not included)... [facility] 01-26-2025 History of Present illness Narrative Images from the original note were not included. CONSULT ORTHOPAEDIC: KNEE PRIMARY CARE PHYSICIAN: No primary care provider on file. REFERRING PROVIDER: No referring provider defined for this encounter. ASSESSMENT & PLAN Impression: Left Knee Severe Degenerative Osteoarthritis, Post-Traumatic Scheduled for left robotic total knee 02/08/[address] Magana at Plan for medial parapatellar incision/approach without incorporating prior incisions Diagnoses: (M17.32) Post-traumatic osteoarthritis of left knee (primary encounter diagnosis) Based upon the evaluation today and after discussions with Aneesh Juarez, Aneesh Juarez has significant, worsening pain at the [...] Surgery Details Date and Location: At on 02/08/2025. Implants: [place] Robotic: Yes Predicted LOS: 2 days (Inpatient [...] with surgery.. The patient has been ordered: No orders found for this visit on 01/26/25. CONSULTS: IMPACT/PACE Consult for preoperative clearance. Total Joint Arthroplasty: Risk Calculator Aneesh Sarthak Ann has a 5.85% chance of NOT [...] inaccurate) BMI Readings from Last 3 Encounters: 01/26/25 : 34.80 kg/m Area Deprivation Index (BETTYE) 2023 01/20/2025 BETTYE Score National Score 61 61 Patient Health Questionnaire (PHQ-9) No data to display (0-4) minimal depression, (5-9) mild depression, (10-14) moderate depression, (15-19) moderately severe depression, (20-27) severe depression Bone Density Risk Screen Aneesh Juarez is at risk for bone loss [...] here to open) and refresh the note. ACTIVE PROBLEM LIST Hypertension Hyperlipidemia Atrial Fibrillation (Hcc) Dementia (Hcc) Obesity (Bmi 30-39.9) SUBJECTIVE CHIEF COMPLAINT: Knee Pain HPI: Aneesh Juarez is a 74 year old patient . Aneesh Juarez has had progressive problems with the knee(s) most of the day over the past 30 year(s) interfering with activities which include exercise, enjoying hobbies, walking, rising from a sitting position, and climbing stairs. The problem began limiting activities 7-12 months ago. Aneesh reports a current pain level of 3 (Knee-Left). He describes the pain as Aching, Bloating. The pain is Intermittent, and has lasted for 15 Minutes. None. PROMIS Physical Function Score No data to [...] display No past medical history on file. PAST SURGICAL HISTORY Procedure Laterality Date ARTHROSCOPY KNEE DIAGNOSTIC W/WO SYNOVIAL BX SPX Left age 15 COLONOSCOPY SCREENING VASECTOMY FAMILY HISTORY Problem Relation Age of Onset No Known Problems Mother No Known Problems Father Social History Tobacco Use Smoking status: Former Current packs/day: 0.00 Types: Cigarettes Quit date: 1979 Years since quittin.5 Passive exposure: Past Smokeless tobacco: Never Tobacco comments: Smoke socially for 8 years Substance Use Topics Alcohol use: Yes Alcohol/week: 7.0 standard drinks of alcohol Types: 2 Glasses of wine, 5 Shots of liquor per week Comment: 2 drinks per day Drug use: Never ALLERGIES: Patient has no known allergies. MEDICATIONS: metoprolol tartrate, short acting, (LOPRESSOR) 50 mg tablet Take 50 mg by mouth once daily. atorvastatin (LIPITOR) 20 mg tablet Take 20 mg by mouth once daily. memantine 7-14-21-28 mg C24k Take by mouth once daily. donepezil (ARICEPT) 5 mg tablet Take 5 mg by mouth daily at bedtime. [START ON 04/13/2025] mupirocin (BACTROBAN) 2 % ointment Apply 1/2 inch strip to cotton swab and apply to each nostril twice daily for 5 days prior to and morning of surgery. Patient should start on April 13, 2025. hydroCHLOROthiazide 25 mg tablet OBJECTIVE PHYSICAL EXAM: There were no vitals taken for this visit. All other systems deferred. GENERAL: Appears healthy, well-nourished, no deformities. HABITUS: Normal GAIT: Normal, the patient did not have trouble getting onto the exam table. KNEE EXAM: Left: Prior incisions medial and lateral from open meniscectomy in his teens Alignment: varus Range of motion is 0 [...] foot and ankle up & down DATA: Diagnostic tests reviewed for today's visit: Left knee X-Ray: Severe tri-compartmental degeneration documented in this encounter [facility] 01-26-2025 Note Addended by: TAMIKA FELIX on: 01/26/2025 01:46 PM Modules accepted: Orders [facility] 01-26-2025 Miscellaneous Notes Addended by: TAMIKA BEARD on: 01/26/2025 01:46 PM Modules accepted: Orders documented in this encounter [facility] 01-26-2025 History of Present illness Narrative Radiology Service Progress Note PATIENT NAME: Aneesh Juarez DATE OF SERVICE: January 26, 2025 TIME: 12:51 PM PATIENT IDENTITY VERIFICATION COMPLETED USING TWO (2) IDENTIFIERS: Name and Date of confirmed by patient verbally and Name and Date of confirmed by identification band. FALL SCREENING: Has the patient had 2 falls in the last year or 1 fall with injury or currently using an Ambulatory Assistive Device (Walker, Cane, Wheelchair, Crutches, etc.)? No PATIENT GENDER DATA: Assigned male at PATIENT RELEVANT IMPLANT DATA REVIEWED: Not Applicable PATIENT PRESENTS WITH AN IMPLANTABLE OR ATTACHED LEARNING AND DEVELOPMENT OFFICER: No RADIOLOGY DEPARTMENT: CT; Exam(s) Completed: Lower extremity PERIPHERAL IV DATA: Not applicable SIGNED BY: RT Hamilton(R) January 26, 2025 12:51 PM documented in this encounter [facility] 01-26-2025 Note HNO ID: [id number] Author: JAYCEE ALEJO RT(R) Service: Radiology Author Type: Technologist Type: Progress Notes Filed: 01/26/2025 12:51 Note Text: Radiology Service Progress Note PATIENT NAME: Aneesh Juarez DATE OF SERVICE: January 26, 2025 TIME: 12:51 PM PATIENT IDENTITY VERIFICATION COMPLETED USING TWO (2) IDENTIFIERS: Name and Date of confirmed by patient verbally and Name and Date of confirmed by identification band. FALL SCREENING: Has the patient had 2 falls in the last year or 1 fall with injury or currently using an Ambulatory Assistive Device (Walker, Cane, Wheelchair, Crutches, etc.)? No PATIENT GENDER DATA: Assigned male at PATIENT RELEVANT IMPLANT DATA REVIEWED: Not Applicable PATIENT PRESENTS WITH AN IMPLANTABLE OR ATTACHED LEARNING AND DEVELOPMENT OFFICER: No RADIOLOGY DEPARTMENT: CT; Exam(s) Completed: Lower extremity PERIPHERAL IV DATA: Not applicable SIGNED BY: RT Hamilton(Eyad) January 26, 2025 12:51 PM [facility] 01-26-2025 History and physical note Images from the original note were not included. [facility] HISTORY AND PHYSICAL EXAMINATION SERVICE DATE: 01/26/2025 SERVICE TIME: 12:03 PM PRIMARY CARE PHYSICIAN: Opal Wrad MD REASON FOR VISIT: Aneesh Juarez is a 74 year old male who is scheduled for Left - ROBOTIC ASSISTED TOTAL KNEE ARTHROPLASTY at the request of Dr. Kamila Batres for consultation. My final recommendation will be communicated back to the requesting physician by way of shared medical record or letter. Assessment 1 Pre-op evaluation (Z01.818) - Preoperative evaluation for left total knee arthroplasty scheduled for February 08. - EKG today showed new atrial fibrillation. - Discussed potential for surgery postponement depending on cardiology evaluation. 2 Hypertension, unspecified type (I10) 3 Hyperlipidemia, unspecified hyperlipidemia type (E78.5) - Hypertension managed with metoprolol and hydrochlorothiazide. - Hyperlipidemia managed with atorvastatin. No cardiac stents. - Continue current medications as prescribed, except hold hydrochlorothiazide on day of surgery. - PCP following, stable. Last 14 BP Last 14 Encounter BP Readings: Date: BP: 01/26/2025 136/72 4 Atrial fibrillation, unspecified type (HCC) (I48.91) - New diagnosis of atrial fibrillation based on EKG today; patient asymptomatic. He states he gets some BENJAMIN at times, but nothing significant and goes away. He is very active and denies any significant Shortness of Breath or CP with activity. - Educated patient on AFib. - Referred to cardiology for evaluation prior to surgery- scheduled for 02/01/25. Will follow. - Advised patient to go to ER if symptoms develop (worsening shortness of breath, palpitations, chest pain, dizziness, major fatigue). - Irregular rhythm on exam, pulse 61. 5 Dementia, unspecified dementia severity, unspecified dementia type, unspecified whether behavioral, psychotic, or mood disturbance or anxiety (HCC) (F03.90) - Recently started on memantine and donepezil by local doctor; patient reports doing fine and not forgetting anything major. A&Ox4. Stable. - Continue current medications as prescribed; may take morning of surgery. 6 Obesity (BMI 30-39.9) (E66.9) - Body mass index is 34.8 kg/m . ANESTHESIA FINDINGS: Intubation History: No history of difficult intubation Significant Anesthesia Considerations: none Airway History: No history of difficult airway Iraheta Activity Status Index: METS: Walk indoors, such as around the house (1.75 METs) Do light work around the house, such as dusting or washing dishes (2.70 METs) Take care of self; that is eating, dressing, bathing, using the toilet (2.75 METs) Walk a block or two on level ground (2.75 METs) Do moderate work around the house, such as vacuuming, sweeping floors, or carrying in groceries (3.50 METs) Do yardwork, such as raking leaves, weeding, or pushing a power mower (4.50 METs) Climb a flight of stairs or walk up a hill (5.50 METs) DASI Score: 23.45 (Exercises with personal care aide 3x a week- treadmill and strength training, golf 2x a week) Patient denies any chest pain or undue shortness of breath with the above physical activity. Clinical Frailty Scale: 3. Well, with treated comorbid disease STOP-Bang Score: Snores loudly Has or is being treated for high blood pressure Patient over 50 years old Male patient Has not been observed to stop breathing or choking/gasping during sleep BMI less than or equal to 35 kg/m^2 Does not have a large neck STOP-Bang Score: 4 I - PHYSICAL EVALUATION AIRWAY Patient intubated: No. Tracheostomy tube not present Mallampati: II. TM distance: >3 FB. Neck ROM: full ROM without neurological symptoms. Mouth opening: adequate. Short neck: no. Thick neck: no Vu present: no Lip Bite Test: I Microretrognathia/Micronagthia/Rec essed Chin: No DENTAL Dental findings: teeth intact. Additional comments: Caps, bridge. II - ANESTHESIA PLAN Beta Yanet Monitoring Plan Post Procedure Analgesic Plan Prepared for surgery: This patient is optimally prepared for surgery pending LABS and cardiology optimization. CONSULTS: Cardiology Consult for cardiac clearance for new Afib. Scheduled for cardiology appointment on 02/01/25. Will follow. The Following Tests/Procedures Have Been Initiated: Orders Placed This Encounter CONSULT TO CARDIOLOGY Standing Status: Future Expiration Date: 01/26/2026 Does consulting provider have [facility] Epic access?: Yes metoprolol tartrate, short acting, (LOPRESSOR) 50 mg tablet Sig: Take 50 mg by mouth once daily. atorvastatin (LIPITOR) 20 mg tablet Sig: Take 20 mg by mouth once daily. memantine 7-14-21-28 mg C24k Sig: Take by mouth once daily. donepezil (ARICEPT) 5 mg tablet Sig: Take 5 mg by mouth daily at bedtime. Labs reviewed from 11/11/24. Labs ordered by surgeon- to be completed today. Mupirocin ointment ordered by surgeon- instructions given. EKG ordered by surgeon- to be completed today. Planned Anesthetic: Per anesthesia choice Subjective CHIEF COMPLAINT: Post-traumatic osteoarthritis of left knee [M17.32] HPI: Patient is a 74 year old male presenting to pre-anesthesia consultation. Aneesh Juarez is a 74-year-old male, with a history of left knee osteoarthritis, HTN, HLD, and memory issues, presenting for a pre-anesthesia evaluation. Aneesh is scheduled for left knee surgery on February 08 and reports a history of left knee issues dating back to a football injury in high school, which resulted in a meniscal tear and subsequent arthroscopic surgery at age 15. He has been experiencing bone on bone contact in the knee for approximately 50 years, with intermittent pain and swelling. For the past 4-5 years, he has been receiving intra-articular injections every 3 months, which initially provided significant relief. However, the effectiveness of these injections has diminished, now lasting only about 3 weeks before swelling and soreness return. Despite the pain, he remains active and is able to walk and perform most activities, although he experiences increased pain towards the end of physical exertion. He has been recommended for the above surgery. REVIEW OF SYSTEMS: PAIN ASSESSMENT: Pain Pain Level: 3 Pain Location: Knee-Left Description: Aching, Bloating Duration Amount of Time: 15 Duration Units: Minutes Frequency: Intermittent Comments: None GENERAL: No wt loss, malaise or fevers. HEENT: Positive for seasonal allergies. Negative for frequent or significant headaches, no changes in vision or hearing, no nose bleeds or other nasal problems NECK: Negative for lumps, goiter, pain and significant neck swelling RESPIRATORY: Positive for dyspnea on exertion at times, negative for cough CARDIOVASCULAR: Negative for chest pain, leg swelling, CHF or palpitations GI: No nausea, vomiting, diarrhea, heartburn, abdominal pain, blood in stool or black stool GENITOURINARY: No history of dysuria, frequency or incontinence MUSCULOSKELETAL: Positive for left knee joint pain and swelling, negative for other joint or muscle pain. No back pain. SKIN: Positive for easy bruising, negative for lesions, rash and itching PSYCH: Negative for anxiety or depression HEMATOLOGY/LYMPHOLOGY: No bleeding concerns NEURO: Positive for mild memory impairment, no history of headaches, syncope, paralysis, seizures or tremors ENDOCRINE: No history of polydipsia, increase thirst or other endocrine symptoms. The patient has the following: ACTIVE PROBLEM LIST Hypertension Hyperlipidemia Atrial Fibrillation (Hcc) Dementia (Hcc) Obesity (Bmi 30-39.9) Covid Immunization Dates This patient has no relevant Health Maintenance data. History reviewed. No pertinent past medical history. PAST SURGICAL HISTORY Procedure Laterality Date ARTHROSCOPY KNEE DIAGNOSTIC W/WO SYNOVIAL BX SPX Left age 15 COLONOSCOPY SCREENING VASECTOMY FAMILY HISTORY Problem Relation Age of Onset No Known Problems Mother No Known Problems Father Social History Tobacco Use Smoking status: Former Current packs/day: 0.00 Types: Cigarettes Quit date: 1979 Years since quittin.5 Passive exposure: Past Smokeless tobacco: Never Tobacco comments: Smoke socially for 8 years Substance Use Topics Alcohol use: Yes Alcohol/week: 7.0 standard drinks of alcohol Types: 2 Glasses of wine, 5 Shots of liquor per week Comment: 2 drinks per day Drug use: Never Prior to Admission medications as of 01/26/25 1225 Medication Sig Last Dose Taking metoprolol tartrate, short acting, (LOPRESSOR) 50 mg tablet Take 50 mg by mouth once daily. Yes atorvastatin (LIPITOR) 20 mg tablet Take 20 mg by mouth once daily. Yes memantine 7-14-21-28 mg C24k Take by mouth once daily. Yes donepezil (ARICEPT) 5 mg tablet Take 5 mg by mouth daily at bedtime. Yes hydroCHLOROthiazide 25 mg tablet Yes mupirocin (BACTROBAN) 2 % ointment Apply 1/2 inch strip to cotton swab and apply to each nostril twice daily for 5 days prior to and morning of surgery. Patient should start on April 13, 2025. No medication comments found. ALLERGIES No Known Allergies Objective PHYSICAL EXAM: VITALS: BP 136/72 Pulse 61 Temp (Src) 97.1 (Temporal) Resp 18 Ht 5' 10 (1.78m) Wt 242 lb 8.1 oz (110.0kg) SpO2 97% BMI 34.80 kg/(m^2). General: Alert and oriented, Obese Skin: Normal color, no rash, no lesions. HEENT: EOM, pupils equal, round and reactive. Cardiovascular: Normal S1 & S2, no rubs, murmurs or gallops. No JVD. Pulse irregular Lungs: Normal breath sounds, no wheezes or crackles. Abdomen: Soft, non-tender, no rigidity. Extremities: No deformity, no edema or tenderness, no joint swelling or clubbing. Neurological: Normal cognition and motor skills. Pulses: Carotid and radial pulses normal +2. Diagnostic tests reviewed for today's visit: Lab Value Units Date High Low HB 14.4 g/dL 11/11/2024 17.0 13.0 HCT 43.0 % 11/11/2024 51.0 39.0 WBC 6.54 k/uL 11/11/2024 11.00 3.70 PLT 188 k/uL 11/11/2024 400 150 NA No results within date range. K No results within date range. GLUC No results within date range. BUN No results within date range. CREAT No results within date range. PTSEC No results within date range. INR No results within date range. APTT No results within date range. ALT No results within date range. AST No results within date range. TBILI No results within date range. TSH No results within date range. No results found for: HBA1C EKG- completed today in office - 01/26/2025- Preliminary- atrial fibrillation, rate 61 Instructions Given to Patient: Instructions located in the after visit summary. Patient given verbal and written preop instructions and voices comprehension and compliance. Recording using UGE software for draft documentation of the visit was discussed with the patient/authorized vendor representatives; all questions welcomed and answered. Patient/authorized vendor representatives agreed to proceed SIGNATURE: Tamika Beard PA-C PATIENT NAME: Aneesh Juarez DATE: 01/26/2025 TIME: 12:47 PM [facility] 01-26-2025 History and physical note Images from the original note were not included. [facility] HISTORY AND PHYSICAL EXAMINATION SERVICE DATE: 01/26/2025 SERVICE TIME: 12:03 PM PRIMARY CARE PHYSICIAN: Opal Ward MD REASON FOR VISIT: Aneesh Juarez is a 74 year old male who is scheduled for Left - ROBOTIC ASSISTED TOTAL KNEE ARTHROPLASTY at the request of Dr. Kamila Batres for consultation. My final recommendation will be communicated back to the requesting physician by way of shared medical record or letter. Assessment 1 Pre-op evaluation (Z01.818) - Preoperative evaluation for left total knee arthroplasty scheduled for February 08. - EKG today showed new atrial fibrillation. - Discussed potential for surgery postponement depending on cardiology evaluation. 2 Hypertension, unspecified type (I10) 3 Hyperlipidemia, unspecified hyperlipidemia type (E78.5) - Hypertension managed with metoprolol and hydrochlorothiazide. - Hyperlipidemia managed with atorvastatin. No cardiac stents. - Continue current medications as prescribed, except hold hydrochlorothiazide on day of surgery. - PCP following, stable. Last 14 BP Last 14 Encounter BP Readings: Date: BP: 01/26/2025 136/72 4 Atrial fibrillation, unspecified type (HCC) (I48.91) - New diagnosis of atrial fibrillation based on EKG today; patient asymptomatic. He states he gets some BENJAMIN at times, but nothing significant and goes away. He is very active and denies any significant Shortness of Breath or CP with activity. - Educated patient on AFib. - Referred to cardiology for evaluation prior to surgery- scheduled for 02/01/25. Will follow. - Advised patient to go to ER if symptoms develop (worsening shortness of breath, palpitations, chest pain, dizziness, major fatigue). - Irregular rhythm on exam, pulse 61. 5 Dementia, unspecified dementia severity, unspecified dementia type, unspecified whether behavioral, psychotic, or mood disturbance or anxiety (HCC) (F03.90) - Recently started on memantine and donepezil by local doctor; patient reports doing fine and not forgetting anything major. A&Ox4. Stable. - Continue current medications as prescribed; may take morning of surgery. 6 Obesity (BMI 30-39.9) (E66.9) - Body mass index is 34.8 kg/m . ANESTHESIA FINDINGS: Intubation History: No history of difficult intubation Significant Anesthesia Considerations: none Airway History: No history of difficult airway Iraheta Activity Status Index: METS: Walk indoors, such as around the house (1.75 METs) Do light work around the house, such as dusting or washing dishes (2.70 METs) Take care of self; that is eating, dressing, bathing, using the toilet (2.75 METs) Walk a block or two on level ground (2.75 METs) Do moderate work around the house, such as vacuuming, sweeping floors, or carrying in groceries (3.50 METs) Do yardwork, such as raking leaves, weeding, or pushing a power mower (4.50 METs) Climb a flight of stairs or walk up a hill (5.50 METs) DASI Score: 23.45 (Exercises with personal care aide 3x a week- treadmill and strength training, golf 2x a week) Patient denies any chest pain or undue shortness of breath with the above physical activity. Clinical Frailty Scale: 3. Well, with treated comorbid disease STOP-Bang Score: Pilo loudly Has or is being treated for high blood pressure Patient over 50 years old Male patient Has not been observed to stop breathing or choking/gasping during sleep BMI less than or equal to 35 kg/m^2 Does not have a large neck STOP-Bang Score: 4 I - PHYSICAL EVALUATION AIRWAY Patient intubated: No. Tracheostomy tube not present Mallampati: II. TM distance: >3 FB. Neck ROM: full ROM without neurological symptoms. Mouth opening: adequate. Short neck: no. Thick neck: no Vu present: no Lip Bite Test: I Microretrognathia/Micronagthia/Rec essed Chin: No DENTAL Dental findings: teeth intact. Additional comments: Caps, bridge. II - ANESTHESIA PLAN Beta Yanet Monitoring Plan Post Procedure Analgesic Plan Prepared for surgery: This patient is optimally prepared for surgery pending LABS and cardiology optimization. CONSULTS: Cardiology Consult for cardiac clearance for new Afib. Scheduled for cardiology appointment on 02/01/25. Will follow. The Following Tests/Procedures Have Been Initiated: Orders Placed This Encounter CONSULT TO CARDIOLOGY Standing Status: Future Expiration Date: 01/26/2026 Does consulting provider have [facility] Epic access?: Yes metoprolol tartrate, short acting, (LOPRESSOR) 50 mg tablet Sig: Take 50 mg by mouth once daily. atorvastatin (LIPITOR) 20 mg tablet Sig: Take 20 mg by mouth once daily. memantine 7-14-21-28 mg C24k Sig: Take by mouth once daily. donepezil (ARICEPT) 5 mg tablet Sig: Take 5 mg by mouth daily at bedtime. Labs reviewed from 11/11/24. Labs ordered by surgeon- to be completed today. Mupirocin ointment ordered by surgeon- instructions given. EKG ordered by surgeon- to be completed today. Planned Anesthetic: Per anesthesia choice Subjective CHIEF COMPLAINT: Post-traumatic osteoarthritis of left knee [M17.32] HPI: Patient is a 74 year old male presenting to pre-anesthesia consultation. Aneesh Juarez is a 74-year-old male, with a history of left knee osteoarthritis, HTN, HLD, and memory issues, presenting for a pre-anesthesia evaluation. Aneesh is scheduled for left knee surgery on February 08 and reports a history of left knee issues dating back to a football injury in high school, which resulted in a meniscal tear and subsequent arthroscopic surgery at age 15. He has been experiencing bone on bone contact in the knee for approximately 50 years, with intermittent pain and swelling. For the past 4-5 years, he has been receiving intra-articular injections every 3 months, which initially provided significant relief. However, the effectiveness of these injections has diminished, now lasting only about 3 weeks before swelling and soreness return. Despite the pain, he remains active and is able to walk and perform most activities, although he experiences increased pain towards the end of physical exertion. He has been recommended for the above surgery. REVIEW OF SYSTEMS: PAIN ASSESSMENT: Pain Pain Level: 3 Pain Location: Knee-Left Description: Aching, Bloating Duration Amount of Time: 15 Duration Units: Minutes Frequency: Intermittent Comments: None GENERAL: No wt loss, malaise or fevers. HEENT: Positive for seasonal allergies. Negative for frequent or significant headaches, no changes in vision or hearing, no nose bleeds or other nasal problems NECK: Negative for lumps, goiter, pain and significant neck swelling RESPIRATORY: Positive for dyspnea on exertion at times, negative for cough CARDIOVASCULAR: Negative for chest pain, leg swelling, CHF or palpitations GI: No nausea, vomiting, diarrhea, heartburn, abdominal pain, blood in stool or black stool GENITOURINARY: No history of dysuria, frequency or incontinence MUSCULOSKELETAL: Positive for left knee joint pain and swelling, negative for other joint or muscle pain. No back pain. SKIN: Positive for easy bruising, negative for lesions, rash and itching PSYCH: Negative for anxiety or depression HEMATOLOGY/LYMPHOLOGY: No bleeding concerns NEURO: Positive for mild memory impairment, no history of headaches, syncope, paralysis, seizures or tremors ENDOCRINE: No history of polydipsia, increase thirst or other endocrine symptoms. The patient has the following: ACTIVE PROBLEM LIST Hypertension Hyperlipidemia Atrial Fibrillation (Hcc) Dementia (Hcc) Obesity (Bmi 30-39.9) Covid Immunization Dates This patient has no relevant Health Maintenance data. History reviewed. No pertinent past medical history. PAST SURGICAL HISTORY Procedure Laterality Date ARTHROSCOPY KNEE DIAGNOSTIC W/WO SYNOVIAL BX SPX Left age 15 COLONOSCOPY SCREENING VASECTOMY FAMILY HISTORY Problem Relation Age of Onset No Known Problems Mother No Known Problems Father Social History Tobacco Use Smoking status: Former Current packs/day: 0.00 Types: Cigarettes Quit date: 1979 Years since quittin.5 Passive exposure: Past Smokeless tobacco: Never Tobacco comments: Smoke socially for 8 years Substance Use Topics Alcohol use: Yes Alcohol/week: 7.0 standard drinks of alcohol Types: 2 Glasses of wine, 5 Shots of liquor per week Comment: 2 drinks per day Drug use: Never Prior to Admission medications as of 01/26/25 1225 Medication Sig Last Dose Taking metoprolol tartrate, short acting, (LOPRESSOR) 50 mg tablet Take 50 mg by mouth once daily. Yes atorvastatin (LIPITOR) 20 mg tablet Take 20 mg by mouth once daily. Yes memantine 7-14-21-28 mg C24k Take by mouth once daily. Yes donepezil (ARICEPT) 5 mg tablet Take 5 mg by mouth daily at bedtime. Yes hydroCHLOROthiazide 25 mg tablet Yes mupirocin (BACTROBAN) 2 % ointment Apply 1/2 inch strip to cotton swab and apply to each nostril twice daily for 5 days prior to and morning of surgery. Patient should start on April 13, 2025. No medication comments found. ALLERGIES No Known Allergies Objective PHYSICAL EXAM: VITALS: BP 136/72 Pulse 61 Temp (Src) 97.1 (Temporal) Resp 18 Ht 5' 10 (1.78m) Wt 242 lb 8.1 oz (110.0kg) SpO2 97% BMI 34.80 kg/(m^2). General: Alert and oriented, Obese Skin: Normal color, no rash, no lesions. HEENT: EOM, pupils equal, round and reactive. Cardiovascular: Normal S1 & S2, no rubs, murmurs or gallops. No JVD. Pulse irregular Lungs: Normal breath sounds, no wheezes or crackles. Abdomen: Soft, non-tender, no rigidity. Extremities: No deformity, no edema or tenderness, no joint swelling or clubbing. Neurological: Normal cognition and motor skills. Pulses: Carotid and radial pulses normal +2. Diagnostic tests reviewed for today's visit: Lab Value Units Date High Low HB 14.4 g/dL 11/11/2024 17.0 13.0 HCT 43.0 % 11/11/2024 51.0 39.0 WBC 6.54 k/uL 11/11/2024 11.00 3.70 PLT 188 k/uL 11/11/2024 400 150 NA No results within date range. K No results within date range. GLUC No results within date range. BUN No results within date range. CREAT No results within date range. PTSEC No results within date range. INR No results within date range. APTT No results within date range. ALT No results within date range. AST No results within date range. TBILI No results within date range. TSH No results within date range. No results found for: HBA1C EKG- completed today in office - 01/26/2025- Preliminary- atrial fibrillation, rate 61 Instructions Given to Patient: Instructions located in the after visit summary. Patient given verbal and written preop instructions and voices comprehension and compliance. Recording using UGE software for draft documentation of the visit was discussed with the patient/authorized vendor representatives; all questions welcomed and answered. Patient/authorized vendor representatives agreed to proceed SIGNATURE: Tamika Beard PA-C PATIENT NAME: Aneesh Juarez DATE: 01/26/2025 TIME: 12:47 PM documented in this encounter [facility] 01-25-2025 Instructions Tamika Beard PA-C - 01/25/2025 12:36 PM EDT Images from the original note were not included. [facility] PATIENT PREOPERATIVE INSTRUCTIONS Kamila Batres PA-C has scheduled you for your procedure at this surgery center: [facility] Scheduling Office: [phone] --[address] [place] [address]. Start using your Mupirocin nasal ointment twice daily for 5 days prior to surgery including the morning of surgery Your surgeon ordered blood work which should be completed today from 12/02/24. Arrival Time for Surgery: - To obtain your arrival time for surgery, call your physician's office the day before your surgery. - If you have received different instructions about finding out your arrival time from your surgeon, please follow those instructions. - If your surgery is scheduled for Thursday, call the Thursday before. Your surgeon s crew scheduler will tell you what time to call the office. - If you have not reached the departmental crew scheduler by 5 P.M., call [phone] after 5 P.M. the day before your surgery. Please be aware that emergency situations arise, which may delay or change your surgical time. If this happens, we will notify you as soon as possible and regret any inconvenience. Please read below carefully for your personalized instructions. Dietary Restrictions: - No solid food after midnight. - You may have 12 ounces of clear liquids (water, clear juices such as apple juice or gatorade, carbonated beverages, clear tea, black coffee, jello) until 2 hours before scheduled arrival at facility. Medications: Unless instructed differently below, stay on all of your medications until your surgery. Approved medications to take the morning of surgery with a sip of water: memantine (Namenda), atorvastatin (Lipitor), metoprolol (Toprol) Is Patient Diabetic:No If you take any medications for erectile dysfunction-Cialis (Tadalafil), Levitra, Staxyn (Vardenafil) Viagra (Sildenenafil please do not take these for 48 hours before surgery. If you start any new medications after today's visit, please contact the surgeon's office. If you are currently using a tclp-vxa-frup injectable or oral medication for diabetes or weight loss such as Dulaglutide (Trulicity), Exenatide (Byetta, Bydureon), Liraglutide (Victoza, Saxenda), Semaglutide (Ozempic, Wegovy, Rybelsus), or Tirzepatide (Mounjaro), the medicine should be stopped at least 7 days before surgery. These medicines can cause food to remain in your stomach for a very long time and increase the risks from surgery and anesthesia. Not stopping the medication for a long enough time may result in your surgery being rescheduled. Blood Thinning Medications: - Stop NSAIDS (Ibuprofen, Advil, Aleve, Motrin, Celebrex, Mobic, etc.) 7 days before surgery, as directed by your surgeon. - Stop Aspirin 7 days before surgery, as directed by your surgeon. - Stop herbals and dietary supplements 7 days before surgery. - You may take Tylenol (Acetaminophen) or any of your pain medications that do not contain aspirin or NSAIDS as needed. Important Reminders: - Candy, mints, and tobacco products are NOT permitted the morning of surgery. - Hearing aids, dentures and glasses may be worn the morning of surgery, but you may be asked to remove them prior to your procedure. - NO jewelry, body piercings, makeup, hairpins or contacts are to be worn the day of surgery. If you develop symptoms such as a fever, cold, or flu, or have other changes to your health within TWO DAYS of scheduled surgery or the morning of surgery, please contact the surgery center above. Personal Belongings: -Please have photo ID and insurance cards. -If you do not have a copy of advance directives on file with us, please bring a copy with you on the day of surgery. - Leave ALL valuables and money at home or with family members. For Outpatient Procedures: - YOU MUST HAVE A RESPONSIBLE TREASURY AGENT TAKE YOU HOME. A PRODUCTION HAND OR EDITOR GREETING CARD CANNOT BE MADE A RESPONSIBLE TREASURY AGENT. - We recommend that a responsible person stays with you overnight to take care of you. - You cannot stay in a hotel alone after outpatient surgery. You will not be permitted to have your surgery, if you do not have someone to take care of you. If you already have an Advance Directive, please fax a copy to [phone] or email to for it to be added to your chart. If you do not have an Advance Directive, you can find the appropriate form and more information at [email or web address]. We recommend that you complete the Advance Directive form found on the website and bring it with you the day of your surgery. It can be witnessed and scanned into your chart that day. Tamika Beard PA-C documented in this encounter [facility] 11-17-2024 Note HNO ID: [id number] Author: DON PATHAK, RN Service: ? Author Type: Registered Nurse Type: Progress Notes Filed: 11/17/2024 10:16 Note Text: Patient referred to Blood Management for pre-surgical optimization. Hgb 14.4 which exceeds Blood Management guidelines for intervention. [facility] 11-17-2024 History of Present illness Narrative Patient referred to Blood Management for pre-surgical optimization. Hgb 14.4 which exceeds Blood Management guidelines for intervention. documented in this encounter [facility] 11-11-2024 Instructions Kamila Batres PA-C - 11/11/2024 1:56 PM [...] the next three days at the nearest [facility] lab. If you would like, you [...] us: If you are having surgery at [facility] or If you are having surgery at [facility], [facility], [facility], [facility], or [facility] documented in this encounter [facility] 11-11-2024 Note HNO ID: [id number] Author: KAMILA BATRES PA-C Service: ? Author Type: Physician Pre Planning Advisor Type: Progress Notes Filed: 11/24/2024 10:45 Note Text: CONSULT ORTHOPAEDIC: KNEE PRIMARY CARE PHYSICIAN: No primary care provider on file. REFERRING PROVIDER: No referring provider defined for this encounter. ASSESSMENT AND PLAN Impression: Left Knee Severe Degenerative Osteoarthritis, Post-Traumatic Scheduled for left robotic total knee 02/08/[address] Magana at Patient will return to office closer to surgery date for pre-op information and consents with Dr. Magana Diagnoses: (M17.32) Post-traumatic osteoarthritis of left knee (primary encounter diagnosis) (D64.9) Anemia, unspecified type Based upon the evaluation today and after discussions with Aneesh Juarez, Aneesh Juarez has significant, worsening pain at the [...] COUNT BLOOD MANAGEMENT REFERRAL CONSULT TO [facility] PATIENT PLACED ON LEXIE TKA CARE PATH CONSULTS: IMPACT/PACE Consult for preoperative clearance. Total Joint Arthroplasty: Risk Calculator Aneesh Juarez has a 5.85% chance of NOT returning [...] normal High: dx of DVT / PE (more content not included)... [facility] 11-11-2024 History of Present illness Narrative Images from the original note were not included. CONSULT ORTHOPAEDIC: KNEE PRIMARY CARE PHYSICIAN: No primary care provider on file. REFERRING PROVIDER: No referring provider defined for this encounter. ASSESSMENT & PLAN Impression: Left Knee Severe Degenerative Osteoarthritis, Post-Traumatic Scheduled for left robotic total knee 04/18/[address] Magana at Patient will return to office closer to surgery date for pre-op information and consents with Dr. Magana Diagnoses: (M17.32) Post-traumatic osteoarthritis of left knee (primary encounter diagnosis) (D64.9) Anemia, unspecified type Based upon the evaluation today and after discussions with Aneesh Juarez, Aneesh Juarez has significant, worsening pain at the [...] COUNT BLOOD MANAGEMENT REFERRAL CONSULT TO [facility] PATIENT PLACED ON LEXIE TKA CARE PATH CONSULTS: IMPACT/PACE Consult for preoperative clearance. Total Joint Arthroplasty: Risk Calculator Aneesh Juarez has a 5.85% chance of NOT returning [...] severe depression Bone Density Risk Screen Aneesh Juarez is at risk for bone loss [...] SUBJECTIVE CHIEF COMPLAINT: Knee Pain HPI: Aneesh Juarez is a 74 year old patient with the presenting complaint of Established Patient of the Left Knee. Aneesh Juarez has had progressive problems with the [...] clinic for his knee/leg on 2023 with Laura Magana. Most recent knee imaging was completed on 11/11/2024 (XR KNEE GENERAL 4V AP BOTH/PA BOTH/LAT/MERC LEFT) . Attached is imaging for the order. Diagnostic tests reviewed for today's visit: Left knee X-Ray: Severe tri-compartmental degeneration SIGNATURE: Kamila Batres PA-C PATIENT NAME: Aneesh Juarez DATE: November 11, 2024 TIME: 1:43 PM documented in this encounter [facility] 2023 History of Present illness Narrative Radiology Service Progress Note PATIENT NAME: Aneesh Juarez DATE OF SERVICE: 2023 TIME: 9:36 AM [...] 2023 9:36 AM documented in this encounter [facility] Evaluation note Diagnosis Left knee pain, unspecified chronicity- Primary [facility] Pain Generalized pain Left knee pain, unspecified chronicity [facility] Post-traumatic osteoarthritis of left knee- Primary Secondary localized osteoarthrosis, lower leg Anemia, unspecified type [facility] Diagnosis Primary osteoarthritis of left knee Primary localized osteoarthrosis, lower leg [facility] Diagnosis Post-traumatic osteoarthritis of left knee- Primary Secondary localized osteoarthrosis, lower leg Post-traumatic osteoarthritis of left knee Secondary localized osteoarthrosis, lower leg [facility] Pre-op evaluation- Primary Preoperative examination, unspecified Hypertension, unspecified type Hyperlipidemia, unspecified hyperlipidemia type Atrial fibrillation, unspecified type (HCC) Dementia, unspecified dementia severity, unspecified dementia type, unspecified whether behavioral, psychotic, or mood disturbance or anxiety (HCC) Obesity (BMI 30-39.9) Obesity, unspecified Post-traumatic osteoarthritis of left knee Secondary localized osteoarthrosis, lower leg Post-traumatic osteoarthritis of left knee Secondary localized osteoarthrosis, lower leg [facility] Diagnosis Post-traumatic osteoarthritis of left knee Secondary localized osteoarthrosis, lower leg Anemia, unspecified type Post-traumatic osteoarthritis of left knee Secondary localized osteoarthrosis, lower leg [facility] Diagnosis Post-traumatic osteoarthritis of left knee- Primary Secondary localized osteoarthrosis, lower leg Post-traumatic osteoarthritis of left knee Secondary localized osteoarthrosis, lower leg [facility] Diagnosis New onset a-fib (HCC)- Primary Atrial fibrillation Essential hypertension Unspecified essential hypertension Paroxysmal atrial fibrillation (HCC) Atrial fibrillation Pre-operative cardiovascular examination Hyperlipidemia, unspecified hyperlipidemia type Post-traumatic osteoarthritis of left knee Secondary localized osteoarthrosis, lower leg [facility] Diagnosis Status post left knee replacement- Primary Acute post-operative pain documented in this encounter [facility] note* Diagnosis Status post left knee replacement- Primary Edema leg Edema Status post left knee replacement Edema leg Edema documented in this encounter [facility] note* Diagnosis Status post left knee replacement Edema leg Edema documented in this encounter [facility] note* Diagnosis Post-traumatic osteoarthritis of left knee Secondary localized osteoarthrosis, lower leg [facility] Diagnosis Status post left knee replacement- Primary documented in this encounter [facility] for referral (narrative)* Diagnostic Procedure Only (Routine) - Pending Review Specialty Diagnoses / Procedures Referred By Dayna yoon Referred To Contact XR IMAGING Diagnoses Left knee pain, unspecified chronicity Procedures XR PELVIS 1V AP RADIOLOGIC EXAMINATION PELVIS 1/2 VIEWS Kamila Batres PA-C [address] [place] [phone] Xr Imaging [facility]95 Referral ID Status Reason Start Date Expiration Date Visits Requested Visits Authorized [id number] Pending Review Auto-Generat ed Referral 06/12/2023 07/10/2024 1 1 [facility] for referral (narrative)* Diagnostic Procedure Only (Routine) - Closed Specialty Diagnoses / Procedures Referred By Dayna yoon Referred To Contact XR IMAGING Diagnoses Left knee pain, unspecified chronicity Procedures XR PELVIS 1V AP RADIOLOGIC EXAMINATION PELVIS 1/2 VIEWS Kamila Batres PA-C [address] [place] [phone] Xr Imaging [facility]95 Referral ID Status Reason Start Date Expiration Date V isits Requested Visits Authorized [id number] Closed Auto-Generate d Referral 06/12/2023 07/10/2024 1 1 * Diagnostic Procedure Only (Routine) - Closed Specialty Diagnoses / Procedures Referred By Contac t Referred To Contact XR IMAGING Diagnoses Pain Procedures XR KNEE GENERAL 4V AP BOTH/PA BOTH/LAT/MERC LEFT RADIOLOGIC EXAM KNEE COMPLETE 4/MORE VIEWS Laura Magana MD [address] [place] [phone] Xr Imaging [facility]95 Referral ID Status Reason Start Date Expiration Date V isits Requested Visits Authorized [id number] Closed Auto-Generated Referral Financial Clearance Required - Self Pay 01/26/2023 02/25/2024 1 1 [facility] for visit Narrative* Diagnostic Procedure Only (Routine) - Closed Specialty Diagnoses / Procedures Referred By Contac t Referred To Contact XR IMAGING Diagnoses Pain Procedures XR KNEE GENERAL 4V AP BOTH/PA BOTH/LAT/MERC LEFT RADIOLOGIC EXAM KNEE COMPLETE 4/MORE VIEWS Laura Magana MD [address] [place] [address] Xr Imaging [place] [address] Referral ID Status Reason Start Date Expiration Date V isits Requested Visits Authorized [id number] Closed Auto-Generated Referral Financial Clearance Required - Self Pay 01/26/2023 02/25/2024 1 1 [facility] for visit Narrative* Diagnostic Procedure Only (Routine) - Closed Specialty Diagnoses / Procedures Referred By Contac t Referred To Contact XR IMAGING Diagnoses Primary osteoarthritis of left knee Procedures XR KNEE GENERAL 4V AP BOTH/PA BOTH/LAT/MERC LEFT RADIOLOGIC EXAM KNEE COMPLETE 4/MORE VIEWS Kamila Batres PA-C [address] [place] [phone] Phone: tel: fax: XR IMAGING [facility]95 Referral ID Status Reason Start Date Expiration Date V isits Requested Visits Authorized [id number] Closed Auto-Generate d Referral 12/07/2023 01/05/2025 1 1 [facility] for visit Narrative* Outpatient Procedure (Routine) - Closed Specialty Diagnoses / Procedures Referred By Contac t Referred To Contact [facility] Diagnoses Post-traumatic osteoarthritis of left knee Procedures ECG COMPLETE ECG ROUTINE ECG W/LEAST 12 LDS W/I&R Laura Magana MD [address] [place] [address] Phone: tel: fax: [facility] [place] [facility] [place] [id number] Referral ID Status Reason Start Date Expiration Date V isits Requested Visits Authorized [id number] Closed Auto-Generate d Referral 12/02/2024 11/15/2025 1 1 [facility] for visit Narrative* MRI/CT (Routine) - Closed Specialty Diagnoses / Procedures Referred By Dayna t Referred To Contact CT IMAGING Diagnoses Post-traumatic osteoarthritis of left knee Anemia, unspecified type Procedures CT KNEE WO IVCON LEFT CT LOWER EXTREMITY W/O CONTRAST MATERIAL Kamila Batres PA-C [address] [id number] Phone: tel: fax: [facility] [place] [address] Referral ID Status Reason Start Date Expiration Date V isits Requested Visits Authorized [id number] Closed Auto-Generate d Referral 11/11/2024 12/11/2025 1 1 [facility] for visit Narrative* Diagnostic Procedure Only (Urgent) - Closed Specialty Diagnoses / Procedures Referred By Dayna yoon Referred To Contact US IMAGING Diagnoses Status post left knee replacement Edema leg Procedures US DVT LOWER LEFT DUP-SCAN XTR VEINS UNILATERAL/LIMITED STUDY Kamila Batres PA-C [address] [place] [address] Phone: tel: fax: [facility] [place] [address] Referral ID Status Reason Start Date Expiration Date V isits Requested Visits Authorized [id number] Closed Auto-Generate d Referral 02/24/2025 03/26/2026 1 1 [facility] Summary Purpose Family History No Family History Records FoundNo Family History Records FoundNo Family History Records FoundNo Family History Records FoundNo Family History Records Found Advance Directives No Advanced Directives Records Found Date Activated Date Inactivated Comments 02/08/2025 5:38 PM 02/09/2025 5:32 PM Question Answer Comments Full Code Order Discussed With: Patient Date Activated Date Inactivated Comments 02/08/2025 5:38 PM 02/09/2025 5:32 PM Question Answer Comments Full Code Order Discussed With: Patient Additional Source Comments (unrecognized sect ion and content) No Status Records FoundNo Status Records FoundNo Status Records FoundNo Status Records FoundNo Status Records Found INFORMATION SOURCE (unrecogn ized section and content) DATE CREATED AUTHOR 04/15/2022 [facility] DATE CREATED AUTHOR AUTHOR'S ORGANIZ ATION 11/29/2023 Thien Valdiviaus [facility] DATE CREATED AUTHOR AUTHOR'S ORGANIZ ATION 02/08/2025 [facility] DATE CREATED AUTHOR AUTHOR'S ORGANIZ ATION 02/26/2025 [facility] DATE CREATED AUTHOR AUTHOR'S ORGANIZ ATION 03/11/2025 [facility] Source Comments (unrecognize d section and content) In the event this informatio n is protected by the Federal Confidentiality of Alcohol and Drug Abuse Patient Records regulations: The Federal rules restrict any use of the information to criminally investigate or prosecute any alcohol or drug abuse patient.[facility] the event this information is protected by the Federal Confidentiality of Alcohol and Drug Abuse Patient Records regulations: The Federal rules restrict any use of the information to criminally investigate or prosecute any alcohol or drug abuse patient.[facility] the event this information is protected by the Federal Confidentiality of Alcohol and Drug Abuse Patient Records regulations: The Federal rules restrict any use of the information to criminally investigate or prosecute any alcohol or drug abuse patient.[facility] the event this information is protected by the Federal Confidentiality of Alcohol and Drug Abuse Patient Records regulations: The Federal rules restrict any use of the information to criminally investigate or prosecute any alcohol or drug abuse patient.[facility] the event this information is protected by the Federal Confidentiality of Alcohol and Drug Abuse Patient Records regulations: The Federal rules restrict any use of the information to criminally investigate or prosecute any alcohol or drug abuse patient.[facility] the event this information is protected by the Federal Confidentiality of Alcohol and Drug Abuse Patient Records regulations: The Federal rules restrict any use of the information to criminally investigate or prosecute any alcohol or drug abuse patient.[facility] the event this information is protected by the Federal Confidentiality of Alcohol and Drug Abuse Patient Records regulations: The Federal rules restrict any use of the information to criminally investigate or prosecute any alcohol or drug abuse patient.[facility] the event this information is protected by the Federal Confidentiality of Alcohol and Drug Abuse Patient Records regulations: The Federal rules restrict any use of the information to criminally investigate or prosecute any alcohol or drug abuse patient.[facility] the event this information is protected by the Federal Confidentiality of Alcohol and Drug Abuse Patient Records regulations: The Federal rules restrict any use of the information to criminally investigate or prosecute any alcohol or drug abuse patient.[facility] the event this information is protected by the Federal Confidentiality of Alcohol and Drug Abuse Patient Records regulations: The Federal rules restrict any use of the information to criminally investigate or prosecute any alcohol or drug abuse patient.[facility] the event this information is protected by the Federal Confidentiality of Alcohol and Drug Abuse Patient Records regulations: The Federal rules restrict any use of the information to criminally investigate or prosecute any alcohol or drug abuse patient.[facility] the event this information is protected by the Federal Confidentiality of Alcohol and Drug Abuse Patient Records regulations: The Federal rules restrict any use of the information to criminally investigate or prosecute any alcohol or drug abuse patient.[facility] Hospital[facility] the event this information is protected by the Federal Confidentiality of Alcohol and Drug Abuse Patient Records regulations: The Federal rules restrict any use of the information to criminally investigate or prosecute any alcohol or drug abuse patient.[facility] Hospital[facility] the event this information is protected by the Federal Confidentiality of Alcohol and Drug Abuse Patient Records regulations: The Federal rules restrict any use of the information to criminally investigate or prosecute any alcohol or drug abuse patient.[facility] Hospital[facility] the event this information is protected by the Federal Confidentiality of Alcohol and Drug Abuse Patient Records regulations: The Federal rules restrict any use of the information to criminally investigate or prosecute any alcohol or drug abuse patient.[facility] Hospital[facility] the event this information is protected by the Federal Confidentiality of Alcohol and Drug Abuse Patient Records regulations: The Federal rules restrict any use of the information to criminally investigate or prosecute any alcohol or drug abuse patient.[facility] the event this information is protected by the Federal Confidentiality of Alcohol and Drug Abuse Patient Records regulations: The Federal rules restrict any use of the information to criminally investigate or prosecute any alcohol or drug abuse patient.[facility] Hospital[facility] the event this information is protected by the Federal Confidentiality of Alcohol and Drug Abuse Patient Records regulations: The Federal rules restrict any use of the information to criminally investigate or prosecute any alcohol or drug abuse patient.[facility] Reason for Visit (unrecogniz ed section and content) Reason Comments Established Patient Reason Onset Date Comments Care Coordination 02/02/2025 Reason Comments Cardiology Follow Up HTN Specialty Diagnoses / Procedures Referred By Contac t Referred To Contact Cardiology Diagnoses Pre-op evaluation Atrial fibrillation, unspecified type (HCC) Procedures CONSULT TO CARDIOLOGY OFFICE/OUTPATIENT [facility] 60 MINUTES Tamika Beard PA-C [address] [place] [address] Phone: tel: fax: Referral ID Status Reason Start Date Expiration Date V isits Requested Visits Authorized [id number] Closed PCP Requested Referral 01/26/2025 01/26/2026 1 1 Reason Comments Post Op Reason Onset Date Comments Refill Request 02/21/2025 Reason Comments Returning Patient's Call Reason Comments Post Op Reason Comments Radio Gen RMP Specialty Diagnoses / Procedures Referred By Contac t Referred To Contact XR IMAGING Diagnoses Post-traumatic osteoarthritis of left knee Procedures XR KNEE POST OP 3V AP/LAT/MERCHANT LEFT RADIOLOGIC EXAMINATION KNEE 3 VIEWS Laura Magana MD [address] [place] [address] Phone: tel: fax: [place] [id number] Referral ID Status Reason Start Date Expiration Date V isits Requested Visits Authorized [id number] Closed Auto-Generate d Referral 12/02/2024 12/15/2025 1 1 Care Teams (unrecognized sec tion and content) Computer Designer Relationship Specialty Start Date End Date Opal Ward MD [address] [place] [id number] PCP - General Family Medicine 01/10/25 Computer Designer Relationship Specialty Start Date End Date Opal Ward MD [address] [place] [id number] PCP - General Family Medicine 01/10/25 Computer Designer Relationship Specialty Start Date End Date Opal Ward MD [address] [place] [address] PCP - General Family Medicine 01/10/25 Computer Designer Relationship Specialty Start Date End Date Opal Ward MD [address] [place] [facility] [address] PCP - General Family Medicine 01/10/25 Computer Designer Relationship Specialty Start Date End Date Opal Ward MD [address] [place] [address] PCP - General Family Medicine 01/10/25 Computer Designer Relationship Specialty Start Date End Date Opal Ward MD [address] [place] [address] PCP - General Family Medicine 01/10/25 Computer Designer Relationship Specialty Start Date End Date Opal Ward MD [address] [place] [address] PCP - General Family Medicine 01/10/25 Computer Designer Relationship Specialty Start Date End Date Opal Ward MD [address] [place] [facility] [place] [address] PCP - General Family Medicine 01/10/25 Computer Designer Relationship Specialty Start Date End Date Opal Ward MD [address] [place] [address] PCP - General Family Medicine 01/10/25 Computer Designer Relationship Specialty Start Date End Date Opal Ward MD [address] [place] [address] PCP - General Family Medicine 01/10/25 Computer Designer Relationship Specialty Start Date End Date Opal Ward MD [address] [place] [address] PCP - General Family Medicine 01/10/25 FOR RECORDS PERTAINING TO PATIENTS WHO ARE [...] BE BASED ON THE PRIMARY CLINICAL RECORDS. [employer] provides no warranty or guarantee of the accuracy or completeness of information in this document.
[2025-03-16 15:55] VITALS: BP 153/98; PULSE 78; O2SAT 97
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
[2025-03-16 17:01] VITALS: BP 136/83; PULSE 72; O2SAT 97
== END 2025-03-16 17:04 | disposition home or self-care (01) ==
PROVIDERS: Physician Assistant; Emergency Provider Emergency Medicine; PCP Family Medicine
DX: S20.211A Contusion of right front wall of thorax, initial encounter (principal); S39.011A Strain of muscle, fascia and tendon of abdomen, initial encounter; V49.49XA Driver injured in collision with other motor vehicles in traffic accident, initial encounter; Z79.01 Long term (current) use of anticoagulants
CPT/HCPCS: 36415; 70450; 71260; 74177; 80053; 85025; 99285; Q9967